=== PATIENT | female | born 1965 ===

== ENCOUNTER → 2020-02-04 11:26 | Outpatient (BNVA) | payer MEDICARE, MEDICAID, SELFPAY | PROVIDERS: PCP Internal Medicine; Visit Provider Anesthesiology | DX: M47.816 Spondylosis without myelopathy or radiculopathy, lumbar region (principal); M47.812 Spondylosis without myelopathy or radiculopathy, cervical region; G89.4 Chronic pain syndrome; Z79.891 Long term (current) use of opiate analgesic | CPT/HCPCS: 99204 ==

== ENCOUNTER → 2020-02-18 11:19 | Outpatient (BNVA) | payer MEDICARE, MEDICAID, SELFPAY | PROVIDERS: PCP Internal Medicine; Visit Provider Anesthesiology | DX: G89.4 Chronic pain syndrome (principal); M47.812 Spondylosis without myelopathy or radiculopathy, cervical region; M47.816 Spondylosis without myelopathy or radiculopathy, lumbar region; Z79.891 Long term (current) use of opiate analgesic | CPT/HCPCS: 99212 ==

== ENCOUNTER → 2020-03-08 15:35 | Outpatient (BNVA) | payer MEDICARE, MEDICAID, SELFPAY | PROVIDERS: PCP Internal Medicine; Visit Provider Anesthesiology | DX: G89.4 Chronic pain syndrome (principal); M47.812 Spondylosis without myelopathy or radiculopathy, cervical region; M47.816 Spondylosis without myelopathy or radiculopathy, lumbar region; Z79.891 Long term (current) use of opiate analgesic | CPT/HCPCS: 99212 ==

== ENCOUNTER → 2020-04-08 10:07 | Outpatient (BNVA) | payer MEDICARE, MEDICAID, SELFPAY | PROVIDERS: PCP Internal Medicine; Visit Provider Anesthesiology | DX: M47.812 Spondylosis without myelopathy or radiculopathy, cervical region (principal); M47.816 Spondylosis without myelopathy or radiculopathy, lumbar region; G89.4 Chronic pain syndrome | CPT/HCPCS: 99212 ==

== ENCOUNTER 2020-04-09 11:48 | Outpatient (REF) | payer MEDICARE, MEDICAID, SELFPAY | END 2020-04-09 11:49 | disposition home or self-care (01) | LOC: HO.LAB 11:48 | PROVIDERS: Visit Provider Internal Medicine | DX: Z20.828 Contact with and (suspected) exposure to other viral communicable diseases (principal) | CPT/HCPCS: C9803; U0003 ==

== ENCOUNTER → 2020-05-06 10:36 | Outpatient (BNVA) | payer MEDICARE, MEDICAID, SELFPAY | PROVIDERS: PCP Internal Medicine; Visit Provider Anesthesiology | DX: M47.812 Spondylosis without myelopathy or radiculopathy, cervical region (principal); M47.816 Spondylosis without myelopathy or radiculopathy, lumbar region; G89.4 Chronic pain syndrome | CPT/HCPCS: 99212 ==

== ENCOUNTER → 2020-06-03 10:36 | Outpatient (BNVA) | payer MEDICARE, MEDICAID, SELFPAY | PROVIDERS: PCP Internal Medicine; Visit Provider Anesthesiology | DX: G89.4 Chronic pain syndrome (principal); M47.812 Spondylosis without myelopathy or radiculopathy, cervical region; M47.816 Spondylosis without myelopathy or radiculopathy, lumbar region | CPT/HCPCS: 99212 ==

== ENCOUNTER → 2020-06-28 15:06 | Outpatient (BNVA) | payer MEDICARE, MEDICAID, SELFPAY | PROVIDERS: PCP Internal Medicine; Visit Provider Anesthesiology | DX: M47.812 Spondylosis without myelopathy or radiculopathy, cervical region (principal); M47.816 Spondylosis without myelopathy or radiculopathy, lumbar region; G89.4 Chronic pain syndrome; Z79.899 Other long term (current) drug therapy | CPT/HCPCS: 99212 ==

== ENCOUNTER → 2020-07-26 10:30 | Outpatient (BNVA) | payer MEDICARE, MEDICAID, SELFPAY | PROVIDERS: PCP Internal Medicine; Visit Provider Anesthesiology | DX: M47.812 Spondylosis without myelopathy or radiculopathy, cervical region (principal); M47.816 Spondylosis without myelopathy or radiculopathy, lumbar region; G89.4 Chronic pain syndrome | CPT/HCPCS: 99212 ==

== ENCOUNTER → 2020-08-30 10:02 | Outpatient (BNVA) | payer MEDICARE, MEDICAID, SELFPAY | PROVIDERS: PCP Internal Medicine; Visit Provider Anesthesiology | DX: M47.812 Spondylosis without myelopathy or radiculopathy, cervical region (principal); M47.816 Spondylosis without myelopathy or radiculopathy, lumbar region; G89.4 Chronic pain syndrome; Z79.899 Other long term (current) drug therapy | CPT/HCPCS: 99212 ==

== ENCOUNTER → 2020-09-30 10:16 | Outpatient (BNVA) | payer MEDICARE, MEDICAID, SELFPAY | PROVIDERS: PCP Internal Medicine; Visit Provider Anesthesiology | DX: G89.4 Chronic pain syndrome (principal); M47.812 Spondylosis without myelopathy or radiculopathy, cervical region; M47.816 Spondylosis without myelopathy or radiculopathy, lumbar region; Z79.899 Other long term (current) drug therapy | CPT/HCPCS: 99212 ==

== ENCOUNTER 2020-10-09 13:25 | Emergency (ER) | payer MEDICARE, MEDICAID, SELFPAY ==
--- NOTE | ~2020-10-09 | US_ITS ---
EXAMINATION: US ABDOMEN LIMITED CLINICAL INFORMATION: Chronic abdominal pain.. COMPARISON: CT abdomen and pelvis on 10/14/2019 TECHNIQUE: Real-time imaging of the right upper quadrant abdominal viscera. FINDINGS: PANCREAS: Normal. LIVER: Normal. The liver is normal in size. The liver contour is normal. Parenchymal echogenicity is normal. No focal hepatic lesion. There is no intrahepatic biliary duct dilatation seen. GALLBLADDER: Surgically absent. COMMON BILE DUCT: Normal in caliber measuring 0.9 cm in diameter. RIGHT KIDNEY: Normal. No hydronephrosis. No renal calculi or focal parenchymal lesions. The kidney measures 10.9 cm in maximum dimension. FREE FLUID: None. US/US abdomen limited IMPRESSION: 1. Normal sonographic appearance of the liver. No biliary ductal dilatation. 2. The gallbladder is surgically absent. 3. No cause for pain identified.
[2020-10-09 14:21] VITALS: BP 122/70; PULSE 62; RESP 16; TEMP 37.2; O2SAT 98; BMI 33.7
[2020-10-09] MEDS: ondansetron HCL 4 MG/2 ML VIAL IVPUSH (16:26)
[2020-10-09] MEDS: 0.9 % Sodium Chloride 1,000 ML 999 ML IVCONT (16:28)
[2020-10-09 16:37] VITALS: BP 101/68; PULSE 67; RESP 18; O2SAT 95
[2020-10-09 16:37] LABS: MANUAL DIFF FLAG NO
[2020-10-09 16:38] LABS: Basophils Percent Auto 0.2 % (0-2); Eosinophils Absolute Auto 0.2 X10*3/uL (0.0-0.4); Eosinophils Percent Auto 1.8 % (0-4); Hematocrit 44.8 % (37-47); Imm Gran Abs Auto 0.02 X10*3/uL (0.00-0.03); Imm Gran Pct Auto 0.2 % (0.0-0.4); Lymphocytes Absolute Auto 2.4 X10*3/uL (1.2-4.9); Lymphocytes Percent Auto 29.2 % (20-40); Mean Corpuscular HGB Conc 33.5 g/dl (31.0-35.0); Mean Corpuscular Hemoglobin 31.6 pg (27.0-33.0); Mean Corpuscular Volume 94.3 fL (80-98); Monocytes Absolute Auto 0.7 X10*3/uL (0.1-1.2); Monocytes Percent Auto 8.1 % (2-11); Neutrophils Absolute Auto 4.9 X10*3/uL (2.0-8.3); Neutrophils Percent Auto 60.5 % (45-73); Platelet Count 227 X10*3/uL (160-400); Red Blood Count 4.75 X10*6/uL (4.20-5.50); Red Cell Distribution Width 13.6 % (11.0-16.0); White Blood Count 8.1 X10*3/uL (4.8-10.8)
[2020-10-09 16:41] LABS: Glucose Urine UA NEG (NEG); Leukocyte Esterase Urine NEG (NEG); Nitrite Urine NEG (NEG); Urine Blood NEG (NEG); Urine Ketones NEG (NEG); Urine Protein NEG (NEG-TRACE)
--- NOTE | 2020-10-09 16:41 | PC.NURSE ---
Pt alert, oriented, c/o abd pain, diarrhea, black stools started 2wks ago. No n/v, +BS x4. Abd soft, RUQ tender to touch. IV established, med given as documented, fluid hung. Labs obtained. Pt resting quietly, Fiance at bedside.
[2020-10-09 16:50] LABS: Prothrombin Time 11.4 SEC (10.8-13.0)
[2020-10-09 16:53] LABS: Partial Thromboplastin Time 33.6 SEC (24.1-38.0)
[2020-10-09 16:54] LABS: OBS Int Ctl Valid YES; OBS1 NEGATIVE (NEGATIVE)
[2020-10-09 16:54] LABS: Appearance Urine CLEAR; Color Urine YELLOW
[2020-10-09 17:03] LABS: Alanine Aminotransferase 169 U/L (0-31); Albumin Level 4.5 g/dL (3.5-5.0); Alkaline Phosphatase 114 U/L (39-117); Anion Gap 14 (12-20); Aspartate Amino Transferase 110 U/L (5-31); Bilirubin Direct 0.2 mg/dL (0.0-0.5); Bilirubin Total 0.5 mg/dL (0.0-1.0); Blood Urea Nitrogen 8 mg/dL (9-16); Calcium 10.3 mg/dL (8.4-10.2); Carbon Dioxide 26 mmol/L (22-29); Chloride 106 mmol/L (96-108); Creatinine Clr Calc Pharmacy 61.8; Estimated Glomerular Filt Rate > 60; Glucose Random 95 mg/dL (60-115); Lipase 83 U/L (8-78); Magnesium 2.1 mg/dL (1.6-2.6); Potassium 5.3 mmol/L (3.3-5.1); Sodium 141 mmol/L (135-145); Total Protein 7.9 g/dL (6.5-8.0)
--- NOTE | 2020-10-09 17:24 | ED_ITS ---
HPI - Abdominal Pain General Chief Complaint: Abdominal Pain Stated Complaint: ABD PAIN Time Seen by Provider: 10/09/20 15:36 Source: patient Mode of arrival: ambulatory History of Present Illness HPI narrative: 55-year-old female with a past medical history of chronic pain, presenting to the ED complaining of intermittent lower abdominal cramping, diarrhea, black stools x1 week. Denies taking anticoagulation. Reports nausea but no vomiting. Denies fever, chills, dysuria/hematuria, lightheadedness/dizziness MD elicited complaint: abdominal pain Related Data Home Medications Medication Instructions Recorded Confirmed levothyroxine 88 mcg tablet 88 mcg PO DAILY 02/04/20 08/30/20 pregabalin 150 mg capsule 150 mg PO TID 02/04/20 08/30/20 fluticasone propionate 110 INHALATION 04/08/20 08/30/20 mcg/actuation HFA aerosol inhaler Previous Rx's Medication Instructions Recorded oxycodone-acetaminophen 7.5 mg-325 1 tab PO Q6H PRN 30 Days #120 tab 09/30/20 mg tablet Allergies Allergy/AdvReac Type Severity Reaction Status Date / Time sulfamethoxazole Allergy Unknown HIVES Verified 09/30/20 10:40 [From Bactrim] trimethoprim [From Bactrim] Allergy Unknown HIVES Verified 09/30/20 10:40 Review of Systems Review of Systems Constitutional: No Fever, No Chills, No Fatigue, No Malaise Cardiovascular: No Chest Pain, No SOB Respiratory: No Cough, No Sputum, No Wheezing, No Smoke Exposure, No Dyspnea Gastrointestinal: + Nausea, No Vomiting, No Diarrhea, No Constipation, + Abdominal pain, No Hematochezia, + Melena Genitourinary: No Dysuria, No Hematuria, No Flank Pain Musculoskeletal: No joint pain, No Myalgias, No Joint Swelling Skin: No Skin Lesions, No rash Neuro: No Weakness, No Numbness, No Paresthesias, No Dizziness, No Headache Yes all other systems are reviewed and are negative Physical Exam Vital Signs: Vital Signs: Last Vital Signs Temp 98.9 F 10/09/20 14:21 Pulse 67 10/09/20 16:37 Resp 18 10/09/20 16:37 BP 101/68 10/09/20 16:37 Pulse Ox 95 10/09/20 16:37 Body Mass Index 33.7 Const: General: cooperative, healthy appearing and no acute distress Orientation/consciousness: patient oriented x3 Limitations: no limitations HENMT: Head: Yes normal to inspection Ears: hearing grossly normal bilaterally General nose exam: Normal external nose present Face and sinus: Yes normal facial exam Eyes: General: appearance normal, both eyes and all related structures EOM: EOMs intact bilaterally Neck: Neck: Yes normal visual inspection Resp: Effort & Inspection: normal respiratory effort Cardio: Rate: regular rate GI: Inspection: Yes normal to inspection Palpation (GI): Soft to palpation, nontender, no guarding and not rigid : General: Yes no CVA tenderness Back/Spine/Pelvis: Back: no CVA tenderness Skin: Rashes: no rashes Wounds: no wounds Neuro: General: patient oriented x3 Gait exam (Neuro): Normal gait present Extrem: General: Yes normal to inspection Course Course Course Narrative: -no leukocytosis, H&H stable, potassium mildly elevated at 5.3, p.o. Kayexalate ordered -AST/ALT elevated > will obtain abdomen ultrasound. Lipase mildly elevated, UA negative -occult stool negative 1921- US abdomen limited IMPRESSION: 1. Normal sonographic appearance of the liver. No biliary ductal dilatation. 2. The gallbladder is surgically absent. 3. No cause for pain identified. >> results discussed with patient including worrisome signs and symptoms and strict return precautions. Patient should follow-up with GI MDM - Abdominal Pain MDM Narrative Medical decision making narrative: 55-year-old female with a past medical history of chronic pain, presenting to the ED complaining of intermittent lower abdominal cramping, diarrhea, black stools x1 week. On exam vital signs stable, NAD, nontoxic appearing, abdomen is soft and nontender. Concern for of occult GI bleed or UGIB vs gastroenteritis. Lower concern for diverticulitis/appendicitis without tenderness on exam. Plan: Labs, UA, occult stool, reassess Medical Records Attestation: I reviewed the patient's medical records. Lab Data Attestation: I reviewed the patient's lab results. Result diagrams: 10/09/20 16:31 10/09/20 16:31 Labs: Lab Results 10/09/20 10/09/20 10/09/20 Range/Units 16:11 16:14 16:31 WBC 8.1 (4.8-10.8) X10*3/uL RBC 4.75 (4.20-5.50) X10*6/uL Hgb 15.0 (12.0-16.0) g/dl Hct 44.8 (37-47) % MCV 94.3 (80-98) fL MCH 31.6 (27.0-33.0) pg MCHC 33.5 (31.0-35.0) g/dl RDW 13.6 (11.0-16.0) % Plt Count 227 (160-400) X10*3/uL MPV 10.0 (9.4-12.3) fL Immature Gran % (Auto) 0.2 (0.0-0.4) % Neut % (Auto) 60.5 (45-73) % Lymph % (Auto) 29.2 (20-40) % [place] % (Auto) 8.1 (2-11) % Eos % (Auto) 1.8 (0-4) % Baso % (Auto) 0.2 (0-2) % Lymph # (Auto) 2.4 (1.2-4.9) X10*3/uL [place] # (Auto) 0.7 (0.1-1.2) X10*3/uL Eos # (Auto) 0.2 (0.0-0.4) X10*3/uL Baso # (Auto) 0.0 (0.0-0.2) X10*3/uL Abs Immat Gran (auto) 0.02 (0.00-0.03) X10*3/uL Absolute Neuts (auto) 4.9 (2.0-8.3) X10*3/uL Absolute Nucleated RBC 0.000 (0.0-0.012) X10*3/uL Nucleated RBC % (auto) 0.0 (0.0-0.2) /100WBC PT (10.8-13.0) SEC INR (0.9-1.1) APTT (24.1-38.0) SEC Sodium (135-145) mmol/L Potassium (3.3-5.1) mmol/L Chloride (96-108) mmol/L Carbon Dioxide (22-29) mmol/L Anion Gap (12-20) BUN (9-16) mg/dL Creatinine (0.5-1.4) mg/dL Estim Creat Clear Calc Estimated GFR Random Glucose (60-115) mg/dL Calcium (8.4-10.2) mg/dL Magnesium (1.6-2.6) mg/dL Total Bilirubin (0.0-1.0) mg/dL Direct Bilirubin (0.0-0.5) mg/dL AST (5-31) U/L ALT (0-31) U/L Alkaline Phosphatase (39-117) U/L Total Protein (6.5-8.0) g/dL Albumin (3.5-5.0) g/dL Lipase (8-78) U/L Urine Color YELLOW Urine Appearance CLEAR Urine pH 7.0 (5.0-8.0) Ur Specific [place] 1.010 (1.005-1.025) Urine Protein NEG (NEG-TRACE) MG/DL Urine Glucose (UA) NEG (NEG) MG/DL Urine Ketones NEG (NEG) MG/DL Urine Blood NEG (NEG) Urine Nitrite NEG (NEG) Ur Leukocyte Esterase NEG (NEG) Stool Occult Blood NEGATIVE (NEGATIVE) 10/09/20 10/09/20 10/09/20 Range/Units 16:31 16:31 16:31 WBC (4.8-10.8) X10*3/uL RBC (4.20-5.50) X10*6/uL Hgb (12.0-16.0) g/dl Hct (37-47) % MCV (80-98) fL MCH (27.0-33.0) pg MCHC (31.0-35.0) g/dl RDW (11.0-16.0) % Plt Count (160-400) X10*3/uL MPV (9.4-12.3) fL Immature Gran % (Auto) (0.0-0.4) % Neut % (Auto) (45-73) % Lymph % (Auto) (20-40) % [place] % (Auto) (2-11) % Eos % (Auto) (0-4) % Baso % (Auto) (0-2) % Lymph # (Auto) (1.2-4.9) X10*3/uL [place] # (Auto) (0.1-1.2) X10*3/uL Eos # (Auto) (0.0-0.4) X10*3/uL Baso # (Auto) (0.0-0.2) X10*3/uL Abs Immat Gran (auto) (0.00-0.03) X10*3/uL Absolute Neuts (auto) (2.0-8.3) X10*3/uL Absolute Nucleated RBC (0.0-0.012) X10*3/uL Nucleated RBC % (auto) (0.0-0.2) /100WBC PT 11.4 (10.8-13.0) SEC INR 1.0 (0.9-1.1) APTT 33.6 (24.1-38.0) SEC Sodium 141 (135-145) mmol/L Potassium 5.3 H (3.3-5.1) mmol/L Chloride 106 (96-108) mmol/L Carbon Dioxide 26 (22-29) mmol/L Anion Gap 14 (12-20) BUN 8 L (9-16) mg/dL Creatinine 0.74 (0.5-1.4) mg/dL Estim Creat Clear Calc 61.8 Estimated GFR > 60 Random Glucose 95 (60-115) mg/dL Calcium 10.3 H (8.4-10.2) mg/dL Magnesium 2.1 (1.6-2.6) mg/dL Total Bilirubin 0.5 (0.0-1.0) mg/dL Direct Bilirubin 0.2 (0.0-0.5) mg/dL AST 110 H (5-31) U/L ALT 169 H (0-31) U/L Alkaline Phosphatase 114 (39-117) U/L Total Protein 7.9 (6.5-8.0) g/dL Albumin 4.5 (3.5-5.0) g/dL Lipase 83 H (8-78) U/L Urine Color Urine Appearance Urine pH (5.0-8.0) Ur Specific [place] (1.005-1.025) Urine Protein (NEG-TRACE) MG/DL Urine Glucose (UA) (NEG) MG/DL Urine Ketones (NEG) MG/DL Urine Blood (NEG) Urine Nitrite (NEG) Ur Leukocyte Esterase (NEG) Stool Occult Blood (NEGATIVE) Discharge Plan Discharge Clinical Impression: Diarrhea, Abdominal pain Patient Disposition: Home, Self-Care Instructions: Abdominal Pain (ED) Additional Instructions: Your blood work showed elevated liver and pancreatic enzymes Your ultrasound unremarkable Your stool was negative for blood It is important for you to follow-up with the GI doctor Stay hydrated at home If her symptoms persist or worsen, you have fever, constant worsening abdominal pain, nausea/vomiting, persistent diarrhea please return to the ED Prescriptions: No Action levothyroxine 88 mcg tablet 88 mcg PO DAILY RF: 0 pregabalin 150 mg capsule 150 mg PO TID RF: 0 Flovent HFA 110 mcg/actuation HFA aerosol inhaler inhalation RF: 0 oxycodone-acetaminophen [Percocet] 7.5-325 mg tablet 1 tab PO Q6H PRN (Reason: pain) 30 Days Qty: 120 RF: 0 Referrals: Kirby Johnson MD [Physician] - 1 week [facility] Past Medical History Attestation statement: The following information was validated with the patient. 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
[2020-10-09] MEDS: Sodium Polystyrene Sulfon/Sorb 15 GM/60 ML ORAL.SUSP PO (18:02)
== END 2020-10-09 19:47 | disposition home or self-care (01) ==
PROVIDERS: Physician Assistant; Emergency Provider Emergency Medicine; PCP Internal Medicine
DX: R10.9 Unspecified abdominal pain (principal); R19.7 Diarrhea, unspecified; E87.5 Hyperkalemia
CPT/HCPCS: 36415; 76705; 80048; 80076; 81003; 82272; 83690; 83735; 85025; 85610; 85730; 96361; 96374; 99284; J2405

== ENCOUNTER → 2020-10-28 10:28 | Outpatient (BNVA) | payer MEDICARE, MEDICAID, SELFPAY | PROVIDERS: PCP Internal Medicine; Visit Provider Anesthesiology | DX: M47.812 Spondylosis without myelopathy or radiculopathy, cervical region (principal); M47.816 Spondylosis without myelopathy or radiculopathy, lumbar region; G89.4 Chronic pain syndrome | CPT/HCPCS: 99212 ==

== ENCOUNTER → 2020-11-24 13:31 | Outpatient (BNVA) | payer MEDICARE, MEDICAID, SELFPAY | PROVIDERS: PCP Internal Medicine; Visit Provider Anesthesiology | DX: G89.4 Chronic pain syndrome (principal); M47.812 Spondylosis without myelopathy or radiculopathy, cervical region; M47.816 Spondylosis without myelopathy or radiculopathy, lumbar region | CPT/HCPCS: 99212 ==

== ENCOUNTER → 2020-12-20 10:23 | Outpatient (BNVA) | payer MEDICARE, MEDICAID, SELFPAY | PROVIDERS: PCP Internal Medicine; Visit Provider Anesthesiology | DX: G89.4 Chronic pain syndrome (principal); M47.812 Spondylosis without myelopathy or radiculopathy, cervical region; M47.816 Spondylosis without myelopathy or radiculopathy, lumbar region; Z79.899 Other long term (current) drug therapy | CPT/HCPCS: 99212 ==

== ENCOUNTER → 2021-01-24 09:41 | Outpatient (BNVA) | payer MEDICARE, MEDICAID, SELFPAY | PROVIDERS: PCP Internal Medicine; Visit Provider Anesthesiology | DX: Z51.81 Encounter for therapeutic drug level monitoring (principal); M47.812 Spondylosis without myelopathy or radiculopathy, cervical region; M47.816 Spondylosis without myelopathy or radiculopathy, lumbar region; G89.4 Chronic pain syndrome | CPT/HCPCS: 99212 ==

== ENCOUNTER → 2021-02-28 09:30 | Outpatient (BNVA) | payer MEDICARE, MEDICAID, SELFPAY | PROVIDERS: PCP Internal Medicine; Visit Provider Anesthesiology | DX: Z51.81 Encounter for therapeutic drug level monitoring (principal); G89.4 Chronic pain syndrome; M47.812 Spondylosis without myelopathy or radiculopathy, cervical region; M47.816 Spondylosis without myelopathy or radiculopathy, lumbar region | CPT/HCPCS: 99212 ==

== ENCOUNTER → 2021-03-28 14:23 | Outpatient (BNVA) | payer MEDICARE, MEDICAID, SELFPAY | PROVIDERS: PCP Internal Medicine; Visit Provider Anesthesiology | DX: Z51.81 Encounter for therapeutic drug level monitoring (principal); M47.812 Spondylosis without myelopathy or radiculopathy, cervical region; M47.816 Spondylosis without myelopathy or radiculopathy, lumbar region; G89.4 Chronic pain syndrome | CPT/HCPCS: 99212 ==

== ENCOUNTER → 2021-04-20 16:14 | Outpatient (BNVA) | payer MEDICARE, MEDICAID, SELFPAY | PROVIDERS: PCP Internal Medicine; Visit Provider Anesthesiology | DX: Z13.89 Encounter for screening for other disorder (principal) | CPT/HCPCS: 99212 ==

== ENCOUNTER 2021-04-23 06:46 | Inpatient (IN) | payer MEDICARE, MEDICAID, SELFPAY ==
--- NOTE | ~2021-04-23 | CT_ITS ---
EXAMINATION: CT abdomen pelvis w con CLINICAL INFORMATION: Reason for Exam abdominal pain, left CVA tenderness and flank pain COMPARISON: Prior CT September 2019 TECHNIQUE: Multidetector volumetric imaging was performed from the superior aspect of the liver through the pubic symphysis 85 mL Omnipaque 350 injected Sagittal and coronal reformatted images were obtained on the technologist's workstation. This CT examination was performed using dose optimization techniques as appropriate, variously including the following: *Automated exposure control *Adjustment of mA and/or kV according to patient size (this includes techniques or standardized protocols for targeted exams where dose is matched to indication/reason for exam; i.e. extremities or head) *Use of iterative reconstruction technique DLP: 627 mGy-cm FINDINGS: LOWER THORAX: Mild interstitial infiltrate at lower lobes HEPATOBILIARY: No focal hepatic lesions. No biliary ductal dilatation. GALLBLADDER: Gallbladder has been removed. SPLEEN: Spleen is normal in size. PANCREAS: No focal mass or ductal dilatation. STOMACH AND GASTROINTESTINAL TRACT: Stomach is grossly unremarkable. There is no bowel distention or thickening. Few sigmoid diverticula without evidence of diverticulitis. ADRENALS: No adrenal nodules. KIDNEYS/URETERS: Severe left renal hydronephrosis secondary to an obstructing stone 5 mm lodged at the ureteropelvic junction, there is swelling of the left kidney and perinephric fat stranding suggesting high degree obstruction. Right kidney is normal. URINARY BLADDER: Partially decompressed. PELVIC VISCERA: Unremarkable PERITONEUM: No free air or fluid. LYMPH NODES: No lymphadenopathy. VASCULAR:Abdominal aorta normal in size, no aneurysm found. BONES, ABDOMINAL WALL AND SOFT TISSUES: There are degenerative arthritis of SI joints, spondylosis of the lumbar spine, no destructive bone lesion, no fracture. There is a right hip prosthesis. CT/CT abdomen pelvis w con IMPRESSION: *Severe left renal hydronephrosis due to a 5 mm obstructing stone lodged proximally at the left UPJ, there is swelling of the left kidney and mild perinephric fat stranding suggesting high degree of obstruction. *Mild interstitial infiltrates at lung bases. *Other noncritical findings unchanged including mild diverticulosis, right hip prosthesis, spondylosis of the lumbar spine,
[2021-04-23 07:43] VITALS: BP 157/68; PULSE 78; RESP 18; TEMP 36.6; O2SAT 97; BMI 33.0
[2021-04-23 07:58] LABS: Appearance Urine HAZY; Color Urine YELLOW; Glucose Urine UA NEG (NEG); Leukocyte Esterase Urine TRACE (NEG); Nitrite Urine NEG (NEG); Specific Gravity - Urine >= 1.030 (1.005-1.025); UACC Culture Trigger YES; Urine Blood NEG (NEG); Urine Ketones NEG (NEG); Urine Protein 1+ MG/DL (NEG-TRACE)
[2021-04-23 08:05] LABS: Mucus Urine 1+ /LPF; RBC Urine 0-2 /HPF (0); Squamous Epithelial Cell Urine 1+ /LPF
--- NOTE | 2021-04-23 08:26 | ECG_ITS ---
Test Reason : abdominal pain Blood Pressure : / mmHG Vent. Rate : 066 BPM Atrial Rate : 066 BPM P-R Int : 152 ms QRS Dur : 082 ms QT Int : 418 ms P-R-T Axes : 046 025 -04 degrees QTc Int : 438 ms Normal sinus rhythm Possible Inferior infarct , age undetermined T wave abnormality, consider anterior ischemia Abnormal ECG When compared with ECG of 21-OCT-2019 16:52, Nonspecific T wave abnormality, worse in Inferior leads Nonspecific T wave abnormality now evident in Lateral leads Referred By: Nuha Crane Electronically Signed By:To Hinton
[2021-04-23] MEDS: 0.9 % Sodium Chloride 1,000 ML 999 ML IV (08:54)
[2021-04-23] MEDS: Morphine Sulfate 4 MG/ML CARTRIDGE IVPUSH (08:54)
[2021-04-23] MEDS: ondansetron HCL 4 MG/2 ML VIAL IVPUSH ×2 (08:54→14:09)
[2021-04-23 08:57] LABS: Basophils Percent Auto 0.4 % (0-2); Eosinophils Absolute Auto 0.2 X10*3/uL (0.0-0.4); Eosinophils Percent Auto 2.5 % (0-4); Hemoglobin 14.9 g/dl (12.0-16.0); Imm Gran Abs Auto 0.02 X10*3/uL (0.00-0.03); Imm Gran Pct Auto 0.2 % (0.0-0.4); Lymphocytes Absolute Auto 2.5 X10*3/uL (1.2-4.9); Lymphocytes Percent Auto 29.7 % (20-40); MANUAL DIFF FLAG NO; Mean Corpuscular HGB Conc 33.1 g/dl (31.0-35.0); Mean Corpuscular Hemoglobin 31.7 pg (27.0-33.0); Mean Corpuscular Volume 95.7 fL (80.0-98.0); Mean Platelet Volume 10.4 fL (9.4-12.3); Monocytes Absolute Auto 0.9 X10*3/uL (0.1-1.2); Monocytes Percent Auto 10.3 % (2-11); Neutrophils Absolute Auto 4.7 x10*3/uL (2.0-8.3); Neutrophils Percent Auto 56.9 % (45-73); Platelet Count 203 X10*3/uL (160-400); Red Cell Distribution Width 13.2 % (11.0-16.0); White Blood Count 8.3 X10*3/uL (4.8-10.8)
[2021-04-23 09:21] LABS: Alanine Aminotransferase 178 U/L (0-31); Albumin Level 4.1 g/dL (3.5-5.0); Alkaline Phosphatase 120 U/L (39-117); Anion Gap 12 (12-20); Aspartate Amino Transferase 115 U/L (5-31); Bilirubin Total 0.8 mg/dL (0.0-1.0); Blood Urea Nitrogen 17 mg/dL (9-16); Calcium 9.2 mg/dL (8.4-10.2); Carbon Dioxide 26 mmol/L (22-29); Chloride 107 mmol/L (96-108); Creatinine Clr Calc Pharmacy 51.6; Estimated Glomerular Filt Rate 56; Glucose Random 109 mg/dL (60-115); Lipase 105 U/L (8-78); Potassium 4.2 mmol/L (3.3-5.1); Sodium 141 mmol/L (135-145); Total Protein 7.5 g/dL (6.5-8.0)
[2021-04-23] MEDS: iohexoL 350 MG/ML 100 ML INFUS..BTL IV (09:52)
[2021-04-23] MEDS: HYDROmorphone HCl 1 MG/ML SYRINGE IVPUSH (10:06)
--- NOTE | 2021-04-23 10:38 | ED_ITS ---
HPI - General Adult General Chief complaint: Back Pain/Injury Stated complaint: L SIDE FLANK PAIN Time Seen by Provider: 04/23/21 08:06 Source: patient Mode of arrival: ambulatory Limitations: no limitations History of Present Illness HPI narrative: 55-year-old female presents with left flank pain that started at 11:30 a.m. last night. The pain is 10/10, and is constant in her left flank radiating to her lower abdomen. She is nauseous. No vomiting, no diarrhea, no fevers, no urinary tract infection symptoms. Patient has a history of kidney stones, chronic pain, sciatica, spondylosis of lumbar and cervical spine. Patient is a pain management patient. Onset (ago): day(s) (1) Location: back Radiation: abdomen Severity: severe Severity scale (1-10): 10 Quality: aching and constant Pain Consistency: constant Relieving factors: none Exacerbating factors: movement Associated symptoms: nausea/vomiting Treatments prior to arrival: none Related Data Home Medications Medication Instructions Recorded Confirmed pregabalin 150 mg capsule 150 mg PO TID 02/04/20 04/23/21 fluticasone propionate 110 1 puff INHALATION BID 04/08/20 04/23/21 mcg/actuation HFA aerosol inhaler albuterol sulfate 90 mcg/actuation 1 - 2 puff INHALATION Q4-6H PRN 04/23/21 04/23/21 aerosol inhaler (Ventolin HFA) ascorbic acid (vitamin C) 500 mg 500 mg PO DAILY 04/23/21 04/23/21 tablet (Vitamin C) aspirin 81 mg tablet,delayed 1 tab PO DAILY 04/23/21 04/23/21 release cholecalciferol (vitamin D3) 25 25 mcg PO DAILY 04/23/21 04/23/21 mcg (1,000 unit) tablet (Vitamin D3) ibuprofen 800 mg tablet 1 tab PO TID PRN 04/23/21 04/23/21 levothyroxine 75 mcg tablet 1 tab PO DAILY@0630 04/23/21 04/23/21 omeprazole 20 mg capsule,delayed 1 cap PO BID@0630,1630 04/23/21 04/23/21 release oxybutynin chloride 5 mg 1 tab PO DAILY 04/23/21 04/23/21 tablet,extended release 24 hr oxycodone-acetaminophen 7.5 mg-325 1 tab PO Q6H PRN 04/23/21 04/23/21 mg tablet (Percocet) zinc sulfate 220 mg capsule 220 mg PO DAILY 04/23/21 04/23/21 Allergies Allergy/AdvReac Type Severity Reaction Status Date / Time sulfamethoxazole Allergy Intermediate HIVES Verified 04/20/21 16:45 [From Bactrim] trimethoprim [From Bactrim] Allergy Intermediate HIVES Verified 04/20/21 16:45 Review of Systems Constitutional: Constitutional: Denies body ache(s), Denies chills, Denies fatigue, Denies fever(s), Denies headache(s), Reports malaise and Denies weakness Eyes: Eyes: Denies diplopia ENT: Denies vertigo, Denies dizziness, Denies otalgia, Denies headache(s), Denies mouth pain, Denies post nasal drip, Denies sinus pain, Denies sinus pressure, Denies sore throat and Denies throat swelling Cardiovascular: Cardiovascular: Denies chest pain, Denies syncope, Denies leg edema, Denies lightheadedness, Denies Loss of Consciousness, Denies palpitations and Denies dyspnea Respiratory: Respiratory: Denies chest congestion, Denies cough and Denies dyspnea Gastrointestinal: Gastrointestinal: Reports abdominal pain, Denies hematochezia, Denies constipation, Denies diarrhea, Reports nausea and Denies vomiting Genitourinary: Genitourinary: Denies abnormal vaginal bleeding, Denies hematuria, Denies dysuria, Denies pelvic pain, Reports flank pain, Denies urinary incontinence, Denies urinary urgency and Denies vaginal odor Musculoskeletal: Musculoskeletal: Reports back pain Integumentary/Breasts: Skin/Breast: Denies rash Neurologic: Denies confusion, Denies vertigo, Denies dizziness, Denies syncop e, Denies headache(s) and Denies weakness Psychiatric: Psychiatric: Denies anxiety, Denies confusion and Denies depression Endocrine: Endocrine: Denies fatigue and Denies palpitations Allergic/Immunologic: Allergic/Immunologic: Denies throat swelling PMFSH Past Medical History Medical History Anxiety Chronic pain syndrome Fatty liver History of palpitations Hypothyroidism Osteoarthritis Sciatica 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 Surgical History Hx of cholecystectomy Hx of total hip arthroplasty Hx of vitrectomy Social History Social History (Updated 02/08/21 @ 08:45 by Mer Johnston RN) Patient Tobacco Use Status: Never used Tobacco service: No Current occupational status: disabled Physical Exam Vital Signs: Vital Signs: Last Vital Signs Temp 96.4 F L 04/23/21 15:48 Pulse 65 04/23/21 15:48 Resp 16 04/23/21 16:00 BP 129/80 04/23/21 15:48 Pulse Ox 94 04/23/21 15:48 BMI result Body Mass Index 33.0 Const: General: No confusion Nutritional Appearance: obese centrally obese Orientation/consciousness: patient oriented x3 and No confusion Limitations : no limitations HENMT: Head: Yes normal to inspection, Yes normocephalic and Yes atraumatic Ears: hearing grossly normal bilaterally, external ears normal, TM's normal bilaterally and EAC's normal General nose exam: Normal external nose present Face and sinus: Yes normal facial exam and Yes sinuses nontender Mouth: Normal oral and palatal mucosa present Throat: Yes posterior oropharynx normal Eyes: Conjunctivae: conjunctivae normal Pupils: Equal, round and reactive pupils present EOM: EOMs intact bilaterally Neck: Neck: Yes full ROM, Yes no lymphadenopathy and Yes supple Resp: Effort & Inspection: normal respiratory effort and able to speak in complete sentences Auscultation: clear to auscultation bilaterally, no crackles, no rales, no rhonchi and no wheezes Cardio: Rate: regular rate Rhythm: regular rhythm Heart sounds: S1 normal heart sound present and S2 normal heart sound present GI: Inspection: Yes Abdominal panniculus present and Yes obesity Palpation (GI): Soft to palpation, Tenderness to palpation present (GI) in the LUQ and in the RUQ; Negative for not at McBurney's point, not periumbilically, not suprapubicly and Gimenez's sign negative, Guarding due to palpation present (GI) in the LUQ and in the RUQ and not rigid Percussion: Yes normal to percussion Auscultation: normal bowel sounds : General: Yes CVA tenderness on the left Back/Spine/Pelvis: Back: CVA tenderness Skin: General skin exam: no rashes or lesions noted Neuro: General: patient oriented x3 and No confusion Cranial nerves: Yes Equal, round and reactive pupils present Extrem: General: Yes normal to inspection and Yes full ROM Psych: Appearance: grossly normal Affect: normal affect Attitude: cooperative Thought process: Normal thought process present Course Course Course Narrative: 55-year-old female with left flank pain radiating to her lower abdomen that started at 11:30 p.m. last night. On exam, patient has mild left CVA tenderness, she is afebrile with stable vitals, lower abdominal tenderness and guarding bilaterally. Patient has mildly elevated LFTs, no leukocytosis, bilirubin is normal. Lipase elevated at 105, trace leukocyte esterase, 10-14 white blood cells in urine. CT/CT abdomen pelvis w con IMPRESSION: *Severe left renal hydronephrosis due to a 5 mm obstructing stone lodged proximally at the left UPJ, there is swelling of the left kidney and mild perinephric fat stranding suggesting high degree of obstruction. ? *Mild interstitial infiltrates at lung bases. ? *Other noncritical findings unchanged including mild diverticulosis, right hip prosthesis, spondylosis of the lumbar spine, Discussed via tiger text with Dr Burleson, Urologist, who will evaluate CT and get back to me Patient has had 4 morphine, 1 of Dilaudid, 15 of ketorolac, and her pain is more tolerable now. No vomiting. Patient has trace leukocyte esterase and 10-15 white blood cells. Will start ceftriaxone obtain blood cultures Patient does not meet sepsis criteria Reevaluation(s) Reevaluation #1: Dr Burleson would like her to be admitted to medicine and will be added on to his surgery Roster for Sunday. States her stone is too high and will not pass on its own Medical Decision Making Lab Data Result diagrams: 04/23/21 08:50 04/23/21 08:50 Labs: Lab Results 04/23/21 04/23/21 04/23/21 Range/Units 07:51 08:50 08:50 WBC 8.3 (4.8-10.8) X10*3/uL RBC 4.70 (4.20-5.50) X10*6/uL Hgb 14.9 (12.0-16.0) g/dl Hct 45.0 (37.0-47.0) % MCV 95.7 (80.0-98.0) fL MCH 31.7 (27.0-33.0) pg MCHC 33.1 (31.0-35.0) g/dl RDW 13.2 (11.0-16.0) % Plt Count 203 (160-400) X10*3/uL MPV 10.4 (9.4-12.3) fL Immature Gran % (Auto) 0.2 (0.0-0.4) % Neut % (Auto) 56.9 (45-73) % Lymph % (Auto) 29.7 (20-40) % [place] % (Auto) 10.3 (2-11) % Eos % (Auto) 2.5 (0-4) % Baso % (Auto) 0.4 (0-2) % Lymph # (Auto) 2.5 (1.2-4.9) X10*3/uL [place] # (Auto) 0.9 (0.1-1.2) X10*3/uL Eos # (Auto) 0.2 (0.0-0.4) X10*3/uL Baso # (Auto) 0.0 (0.0-0.2) X10*3/uL Abs Immat Gran (auto) 0.02 (0.00-0.03) X10*3/uL Absolute Neuts (auto) 4.7 (2.0-8.3) x10*3/uL Absolute Nucleated RBC 0.000 (0.0-0.012) X10*3/uL Nucleated RBC % (auto) 0.0 (0.0-0.2) /100WBC Sodium 141 (135-145) mmol/L Potassium 4.2 D (3.3-5.1) mmol/L Chloride 107 (96-108) mmol/L Carbon Dioxide 26 (22-29) mmol/L Anion Gap 12 (12-20) BUN 17 H (9-16) mg/dL Creatinine 1.01 (0.5-1.4) mg/dL Estim Creat Clear Calc 51.6 Estimated GFR 56 Random Glucose 109 (60-115) mg/dL Calcium 9.2 D (8.4-10.2) mg/dL Total Bilirubin 0.8 (0.0-1.0) mg/dL AST 115 H (5-31) U/L ALT 178 H (0-31) U/L Alkaline Phosphatase 120 H (39-117) U/L Total Protein 7.5 (6.5-8.0) g/dL Albumin 4.1 (3.5-5.0) g/dL Lipase 105 H (8-78) U/L Urine Color YELLOW Urine Appearance HAZY Urine pH 6.0 (5.0-8.0) Ur Specific [place] >= 1.030 H (1.005-1.025) Urine Protein 1+ H (NEG-TRACE) MG/DL Urine Glucose (UA) NEG (NEG) MG/DL Urine Ketones NEG (NEG) MG/DL Urine Blood NEG (NEG) Urine Nitrite NEG (NEG) Ur Leukocyte Esterase TRACE H (NEG) Urine RBC 0-2 (0) /HPF Urine WBC 10-14 H (0-4) /HPF Ur Squamous Epith Cells 1+ /LPF Urine Bacteria NONE /LPF Urine Mucus 1+ /LPF COVID-19 ([facility]) (Negative) COVID-19 Clin Com 04/23/21 Range/Units 11:37 WBC (4.8-10.8) X10*3/uL RBC (4.20-5.50) X10*6/uL Hgb (12.0-16.0) g/dl Hct (37.0-47.0) % MCV (80.0-98.0) fL MCH (27.0-33.0) pg MCHC (31.0-35.0) g/dl RDW (11.0-16.0) % Plt Count (160-400) X10*3/uL MPV (9.4-12.3) fL Immature Gran % (Auto) (0.0-0.4) % Neut % (Auto) (45-73) % Lymph % (Auto) (20-40) % [place] % (Auto) (2-11) % Eos % (Auto) (0-4) % Baso % (Auto) (0-2) % Lymph # (Auto) (1.2-4.9) X10*3/uL [place] # (Auto) (0.1-1.2) X10*3/uL Eos # (Auto) (0.0-0.4) X10*3/uL Baso # (Auto) (0.0-0.2) X10*3/uL Abs Immat Gran (auto) (0.00-0.03) X10*3/uL Absolute Neuts (auto) (2.0-8.3) x10*3/uL Absolute Nucleated RBC (0.0-0.012) X10*3/uL Nucleated RBC % (auto) (0.0-0.2) /100WBC Sodium (135-145) mmol/L Potassium (3.3-5.1) mmol/L Chloride (96-108) mmol/L Carbon Dioxide (22-29) mmol/L Anion Gap (12-20) BUN (9-16) mg/dL Creatinine (0.5-1.4) mg/dL Estim Creat Clear Calc Estimated GFR Random Glucose (60-115) mg/dL Calcium (8.4-10.2) mg/dL Total Bilirubin (0.0-1.0) mg/dL AST (5-31) U/L ALT (0-31) U/L Alkaline Phosphatase (39-117) U/L Total Protein (6.5-8.0) g/dL Albumin (3.5-5.0) g/dL Lipase (8-78) U/L Urine Color Urine Appearance Urine pH (5.0-8.0) Ur Specific [place] (1.005-1.025) Urine Protein (NEG-TRACE) MG/DL Urine Glucose (UA) (NEG) MG/DL Urine Ketones (NEG) MG/DL Urine Blood (NEG) Urine Nitrite (NEG) Ur Leukocyte Esterase (NEG) Urine RBC (0) /HPF Urine WBC (0-4) /HPF Ur Squamous Epith Cells /LPF Urine Bacteria /LPF Urine Mucus /LPF COVID-19 ([facility]) Negative (Negative) COVID-19 Clin Com See Note Discharge Plan Discharge Clinical Impression: Kidney stone on left side, UTI (urinary tract infection) Patient Disposition: Admitted As Inpatient Interventions: Admission Worksheet (ED) Last Done: 04/23/21 15:46 Discharge Date/Time: 04/23/21 15:46
[2021-04-23] MEDS: Ketorolac Tromethamine 30 MG/ML VIAL 15 MG IVPUSH (10:55)
[2021-04-23] MEDS: cefTRIAXone sodium 1 GM in 0.9 % Sodium Chloride 50 ML IV (11:57)
[2021-04-23 12:03] LABS: COVID-19 Test Negative (Negative)
--- NOTE | 2021-04-23 12:09 | PHA.MEDREC ---
Pharmacy Consult ? Medication Reconciliation Pharmacy has completed the medication reconciliation. Spoke with patient in ED
--- NOTE | 2021-04-23 12:19 | PM.IMHP ---
History of Present Illness Date of Service: 04/23/21 Chief Complaint: abdominal pain, nausea, dizziness a 55 years old lady with PMH of hypothyroid, COPD, chronic pain syndrome, anxiety among others who presented to the hospital complaining of abdominal and back pain for 1 night. The patient reports that she has a history of recurrent kidney stones that usually passes on the own. Last night she felt pain in her back and thought this could be 1 of the stones but the pain did not improve at all as she started to complain of nausea, dizziness and some chills. She denies any fever, chest pain, shortness of breath, change in urine or bowel habit. In the emergency she was evaluated by CT scan which showed left-sided severe hydronephrosis with obstructing stone of 0.5 cm. Discussed with urology team who will do cystoscopy on Sunday morning. Admitted for further evaluation and treatment. 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 Surgical History Hx of cholecystectomy Hx of total hip arthroplasty Hx of vitrectomy Social History (Updated 02/08/21 @ 08:45 by Mer Johnston RN) Patient Tobacco Use Status: Never used Tobacco Advance Directives: No Advance Directives Information Provided: Yes Patient : No Meds Allergies Allergy/AdvReac Type Severity Reaction Status Date / Time sulfamethoxazole Allergy Intermediate HIVES Verified 04/20/21 16:45 [From Bactrim] trimethoprim [From Bactrim] Allergy Intermediate HIVES Verified 04/20/21 16:45 Active Medications: Current Medications Acetaminophen (Acetaminophen 325 Mg Tablet) 650 mg PO Q6H [facility] Heparin Sodium (Porcine) (Heparin Sodium,Porcine 5,000 Unit/Ml Vial) 5,000 unit SUBCUT Q8H [facility] Hydromorphone HCl (Hydromorphone Hcl 0.5 Mg/0.5 Ml Syringe) 0.5 mg IVPUSH Q4H PRN; Protocol PRN Reason: Pain, Severe (Pain Scale 7-10) Ceftriaxone Sodium 1 gm/ (Sodium Chloride) 50 mls @ 100 mls/hr IV Q24H [facility] Ketorolac Tromethamine (Ketorolac Tromethamine 30 Mg/Ml Vial) 15 mg IVPUSH Q6H PRN PRN Reason: Pain, Moderate (Pain Scale 4-6 Stop: 04/28/21 12:11 Levothyroxine Sodium (Levothyroxine Sodium 75 Mcg Tablet) 75 mcg PO DAILY@0630 [facility] Omeprazole (Omeprazole 20 Mg Capsule.Dr) 20 mg PO BID@0630,1630 [facility] Ondansetron HCl (Ondansetron Hcl 4 Mg/2 Ml Vial) 4 mg IVPUSH Q8H PRN PRN Reason: Nausea and Vomiting Oxybutynin Chloride (Oxybutynin Chloride Er 5 Mg Tab.Er.24) 5 mg PO DAILY [facility] Pharmacy Consult (Consult Rx Perform Med Rec) 1 each MISCELLANE ONCE PRN PRN Reason: Consult order Pregabalin (Pregabalin 150 Mg Capsule) 150 mg PO TID [facility] Sodium Chloride (0.9 % Sodium Chloride Flush 3 Ml Syringe) 3 ml IVFLUSH QSHIFT [facility] Home Medications Medication Instructions Recorded Confirmed Last Taken Type pregabalin 150 mg capsule 150 mg PO TID 02/04/20 04/23/21 04/22/21 History fluticasone propionate 110 1 puff INHALATION BID 04/08/20 04/23/21 04/22/21 History mcg/actuation HFA aerosol inhaler albuterol sulfate 90 mcg/actuation 1 - 2 puff INHALATION Q4-6H PRN 04/23/21 04/23/21 Unknown History aerosol inhaler (Ventolin HFA) ascorbic acid (vitamin C) 500 mg 500 mg PO DAILY 04/23/21 04/23/21 04/22/21 History tablet (Vitamin C) aspirin 81 mg tablet,delayed 1 tab PO DAILY 04/23/21 04/23/21 04/22/21 History release cholecalciferol (vitamin D3) 25 25 mcg PO DAILY 04/23/21 04/23/21 04/22/21 History mcg (1,000 unit) tablet (Vitamin D3) ibuprofen 800 mg tablet 1 tab PO TID PRN 04/23/21 04/23/21 04/22/21 History levothyroxine 75 mcg tablet 1 tab PO DAILY@0630 04/23/21 04/23/21 04/22/21 History omeprazole 20 mg capsule,delayed 1 cap PO BID@0630,1630 04/23/21 04/23/21 04/22/21 History release oxybutynin chloride 5 mg 1 tab PO DAILY 04/23/21 04/23/21 04/22/21 History tablet,extended release 24 hr oxycodone-acetaminophen 7.5 mg-325 1 tab PO Q6H PRN 04/23/21 04/23/21 04/22/21 History mg tablet (Percocet) zinc sulfate 220 mg capsule 220 mg PO DAILY 04/23/21 04/23/21 04/22/21 History Physical Exam Vital Signs and Narrative: Vital Signs: Last Vital Signs Temp 97.9 F 04/23/21 07:43 Pulse 78 04/23/21 07:43 Resp 18 04/23/21 07:43 BP 157/68 H 04/23/21 07:43 Pulse Ox 97 04/23/21 07:43 BMI result Body Mass Index 33.0 Results Labs CBC and Chem 7: 04/23/21 08:50 04/23/21 08:50 Labs: Laboratory Results - last 24 hr 04/23/21 04/23/21 04/23/21 07:51 08:50 08:50 MCV 95.7 MCH 31.7 MCHC 33.1 RDW 13.2 Plt Count 203 MPV 10.4 Immature Gran % (Auto) 0.2 Neut % (Auto) 56.9 Lymph % (Auto) 29.7 Coal % (Auto) 10.3 Eos % (Auto) 2.5 Baso % (Auto) 0.4 Lymph # (Auto) 2.5 Coal # (Auto) 0.9 Eos # (Auto) 0.2 Baso # (Auto) 0.0 Abs Immat Gran (auto) 0.02 Absolute Neuts (auto) 4.7 Absolute Nucleated RBC 0.000 Nucleated RBC % (auto) 0.0 Anion Gap 12 Estim Creat Clear Calc 51.6 Estimated GFR 56 Random Glucose 109 Calcium 9.2 D Total Bilirubin 0.8 AST 115 H ALT 178 H Alkaline Phosphatase 120 H Total Protein 7.5 Albumin 4.1 Lipase 105 H Urine Color YELLOW Urine Appearance HAZY Urine pH 6.0 Ur Specific [place] >= 1.030 H Urine Protein 1+ H Urine Glucose (UA) NEG Urine Ketones NEG Urine Blood NEG Urine Nitrite NEG Ur Leukocyte Esterase TRACE H Urine RBC 0-2 Urine WBC 10-14 H Ur Squamous Epith Cells 1+ Urine Bacteria NONE Urine Mucus 1+ COVID-19 ([facility]) COVID-19 Clin Com 04/23/21 11:37 MCV MCH MCHC RDW Plt Count MPV Immature Gran % (Auto) Neut % (Auto) Lymph % (Auto) Coal % (Auto) Eos % (Auto) Baso % (Auto) Lymph # (Auto) Coal # (Auto) Eos # (Auto) Baso # (Auto) Abs Immat Gran (auto) Absolute Neuts (auto) Absolute Nucleated RBC Nucleated RBC % (auto) Anion Gap Estim Creat Clear Calc Estimated GFR Random Glucose Calcium Total Bilirubin AST ALT Alkaline Phosphatase Total Protein Albumin Lipase Urine Color Urine Appearance Urine pH Ur Specific [place] Urine Protein Urine Glucose (UA) Urine Ketones Urine Blood Urine Nitrite Ur Leukocyte Esterase Urine RBC Urine WBC Ur Squamous Epith Cells Urine Bacteria Urine Mucus COVID-19 ([facility]) Negative COVID-19 Clin Com See Note Imaging Radiologist's Impressions: Impressions Abdomen/Pelvis CT 04/23/21 09:53 IMPRESSION: *Severe left renal hydronephrosis due to a 5 mm obstructing stone lodged proximally at the left UPJ, there is swelling of the left kidney and mild perinephric fat stranding suggesting high degree of obstruction. *Mild interstitial infiltrates at lung bases. *Other noncritical findings unchanged including mild diverticulosis, right hip prosthesis, spondylosis of the lumbar spine, Assessment and Plan (1) Kidney stone on left side: Status: Acute (2) UTI (urinary tract infection): Status: Acute (3) Hydronephrosis of left kidney: Status: Acute a 55 years old lady with PMH of hypothyroid, COPD, chronic pain syndrome, anxiety among others who presented to the hospital complaining of abdominal and back pain for 1 night. Left-sided hydronephrosis Secondary to kidney stone CT showed 0.5 cm stone with fat stranding Discussed with Urology, Dr. Burleson will do cystoscopy on Sunday morning Pain management with Toradol, Dilaudid Monitor BMP in urine output Pyelonephritis Secondary to obstruction Pending urine culture Start on ceftriaxone daily Asthma/COPD To use p.r.n. albuterol and DuoNebs Hypothyroidism Continue levothyroxine DVT PPX Heparin Quality Stroke Does the patient have a stroke diagnosis?: No VTE Prior VTE?: No VTE Risk Level:: Medical - moderate - high VTE Device Contraindication: Treatment Not Indicated VTE Drug Contraindication: N/A - Med Ordered
--- NOTE | 2021-04-23 13:41 | MHC.CM.PN ---
PATIENT LIVES ALONE. 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
[2021-04-23] MEDS: Heparin Sodium,Porcine 5,000 UNIT/ML VIAL 5000 UNIT SUBCUT ×2 (14:09→21:12)
[2021-04-23] MEDS: Pregabalin 150 MG CAPSULE PO ×2 (14:09→21:12)
[2021-04-23 15:48] VITALS: BP 129/80; PULSE 65; RESP 16; TEMP 35.8; O2SAT 94
[2021-04-23 16:00] VITALS: RESP 16
[2021-04-23] MEDS: Omeprazole 20 MG CAPSULE.DR PO (17:03)
[2021-04-23 19:15] VITALS: BP 112/56; PULSE 63; RESP 16; TEMP 36.2; O2SAT 93
[2021-04-23] MEDS: 0.9 % Sodium Chloride Flush 3 ML SYRINGE IVFLUSH (21:12)
[2021-04-24] VITALS (7 sets, daily range): BP systolic 98–118; BP diastolic 55–62; PULSE 54–72; RESP 16–18; TEMP 36.3–36.9; O2SAT 92–99
[2021-04-24] MEDS: Omeprazole 20 MG CAPSULE.DR PO ×2 (06:22→15:35)
[2021-04-24] MEDS: Heparin Sodium,Porcine 5,000 UNIT/ML VIAL 5000 UNIT SUBCUT ×2 (06:22→13:23)
[2021-04-24 06:32] LABS: Hematocrit 41.6 % (37.0-47.0); Hemoglobin 13.5 g/dl (12.0-16.0); Mean Corpuscular HGB Conc 32.5 g/dl (31.0-35.0); Mean Corpuscular Hemoglobin 31.5 pg (27.0-33.0); Mean Corpuscular Volume 97.2 fL (80.0-98.0); Mean Platelet Volume 11.1 fL (9.4-12.3); Platelet Count 183 X10*3/uL (160-400); Red Blood Count 4.28 X10*6/uL (4.20-5.50); Red Cell Distribution Width 13.2 % (11.0-16.0); White Blood Count 5.5 X10*3/uL (4.8-10.8)
[2021-04-24 07:14] LABS: Anion Gap 8 (12-20); Blood Urea Nitrogen 12 mg/dL (9-16); Calcium 9.1 mg/dL (8.4-10.2); Carbon Dioxide 29 mmol/L (22-29); Chloride 110 mmol/L (96-108); Creatinine Clr Calc Pharmacy 68.6; Estimated Glomerular Filt Rate > 60; Glucose Random 109 mg/dL (60-115); Potassium 3.9 mmol/L (3.3-5.1); Sodium 143 mmol/L (135-145)
--- NOTE | 2021-04-24 09:23 | HO.PM.IMPN ---
Subjective Subjective Date of Service: 04/24/21 Interval History: the patient was seen and evaluated this morning Laying in bed, feels better than yesterday better than yesterday Denies any fever, chills or shortness of breath No reported other overnight events. Systemic review: No fever, chills or weakness No chest pain, palpitation No shortness of breath or coughing No abdominal pain, nausea or vomiting loin pain No any rash or wounds Physical Exam Vital Signs: Vital Signs: Last Vital Signs Temp 97.6 F 04/24/21 08:00 Pulse 71 04/24/21 08:00 Resp 16 04/24/21 08:00 BP 98/56 L 04/24/21 08:00 Pulse Ox 99 04/24/21 08:00 BMI result Body Mass Index 33.0 Const: Other: Constitutional : Alert, oriented, not in distress Neck : Normal inspection, Supple Cardiovascular : RRR, S1 S2, no lower extremity edema Respiratory : Good bilateral air entry,? no crackles, wheezes or rhonchi Gastrointestinal:? soft, lax, Normal bowel sounds, ?mild? left CVA tenderness and generalized abdominal pain Skin : Warm, Dry Neurological : Alert & oriented x3, No focal deficit Objective Data Active Medications Acetaminophen (Acetaminophen 325 Mg Tablet) 650 mg PO Q6H PRN PRN Reason: Pain, Mild (Pain Scale 1-3) Albuterol/Ipratropium (Albuterol/Iprat 2.5/0.5mg 3 Ml Ampul.Neb) 3 ml INHALE Q4H PRN PRN Reason: Shortness of Breath/Wheezing Heparin Sodium (Porcine) (Heparin Sodium,Porcine 5,000 Unit/Ml Vial) 5,000 unit SUBCUT Q8H [facility] Last Admin: 04/24/21 06:22 Dose: 5,000 unit Documented by: SHARON Hydromorphone HCl (Hydromorphone Hcl 0.5 Mg/0.5 Ml Syringe) 0.5 mg IVPUSH Q4H PRN; Protocol PRN Reason: Pain, Severe (Pain Scale 7-10) Ceftriaxone Sodium 1 gm/ (Sodium Chloride) 50 mls @ 100 mls/hr IV Q24H [facility] Ketorolac Tromethamine (Ketorolac Tromethamine 30 Mg/Ml Vial) 15 mg IVPUSH Q6H PRN PRN Reason: Pain, Moderate (Pain Scale 4-6 Stop: 04/28/21 12:11 Levothyroxine Sodium (Levothyroxine Sodium 75 Mcg Tablet) 75 mcg PO DAILY@0630 [facility] Last Admin: 04/24/21 06:22 Dose: 75 mcg Documented by: SHARON Omeprazole (Omeprazole 20 Mg Capsule.) 20 mg PO BID@0630,1630 [facility] Last Admin: 04/24/21 06:22 Dose: 20 mg Documented by: SHARON Ondansetron HCl (Ondansetron Hcl 4 Mg/2 Ml Vial) 4 mg IVPUSH Q8H PRN PRN Reason: Nausea and Vomiting Last Admin: 04/23/21 14:09 Dose: 4 mg Documented by: RYLEY Oxybutynin Chloride (Oxybutynin Chloride Er 5 Mg Tab.Er.24) 5 mg PO DAILY [facility] Pharmacy Consult (Consult Rx Perform Med Rec) 1 each MISCELLANE ONCE PRN PRN Reason: Consult order Pregabalin (Pregabalin 150 Mg Capsule) 150 mg PO TID [facility] Last Admin: 04/23/21 21:12 Dose: 150 mg Documented by: SHARON Sodium Chloride (0.9 % Sodium Chloride Flush 3 Ml Syringe) 3 ml IVFLUSH QSHIFT [facility] Last Admin: 04/23/21 21:12 Dose: 3 ml Documented by: SHARON Labs CBC & Chem 7: 04/24/21 05:50 04/24/21 05:50 Labs: Laboratory Results - last 24 hr 04/23/21 04/24/21 04/24/21 11:37 05:50 05:50 MCV 97.2 MCH 31.5 MCHC 32.5 RDW 13.2 Plt Count 183 MPV 11.1 Absolute Nucleated RBC 0.000 Nucleated RBC % (auto) 0.0 Anion Gap 8 L Estim Creat Clear Calc 68.6 Estimated GFR > 60 Random Glucose 109 Calcium 9.1 COVID-19 ([facility]) Negative COVID-19 Clin Com See Note Assessment and Plan (1) Hydronephrosis of left kidney: Status: Acute (2) UTI (urinary tract infection): Status: Acute (3) Kidney stone on left side: Status: Acute Assessment and Plan: a 55 years old lady with PMH of hypothyroid, COPD, chronic pain syndrome, anxiety among others who presented to the hospital complaining of abdominal and back pain for 1 night. Left-sided hydronephrosis Secondary to kidney stone CT showed 0.5 cm stone with fat stranding Discussed with Urology, Dr. Burleson will do cystoscopy on Sunday morning Pain management with Toradol, Dilaudid Monitor BMP in urine output keep NPO of her midnight Pyelonephritis Secondary to obstruction Pending urine culture continue ceftriaxone daily Asthma/COPD To use p.r.n. albuterol and DuoNebs Hypothyroidism Continue levothyroxine DVT PPX Heparin Quality Stroke Does the patient have a stroke diagnosis?: No VTE Prior VTE?: No VTE Risk Level:: Medical - moderate - high VTE Device Contraindication: Treatment Not Indicated VTE Drug Contraindication: N/A - Med Ordered
[2021-04-24] MEDS: Acetaminophen 325 MG TABLET 650 MG PO ×2 (09:57→23:51)
[2021-04-24] MEDS: Pregabalin 150 MG CAPSULE PO ×3 (09:59→20:09)
[2021-04-24] MEDS: 0.9 % Sodium Chloride Flush 3 ML SYRINGE IVFLUSH ×3 (09:59→20:20)
[2021-04-24] MEDS: Levothyroxine Sodium 75 MCG TABLET PO (10:03)
[2021-04-24] MEDS: cefTRIAXone sodium 1 GM in 0.9 % Sodium Chloride 50 ML IV (13:17)
[2021-04-24 17:26] LABS: Appearance Urine CLEAR; Color Urine YELLOW; Glucose Urine UA NEG (NEG); Leukocyte Esterase Urine NEG (NEG); Nitrite Urine NEG (NEG); Urine Blood NEG (NEG); Urine Ketones NEG (NEG); Urine Protein NEG (NEG-TRACE)
[2021-04-24 17:34] LABS: Amorphous Sediment Urine TRACE /LPF; Bacteria Urine TRACE /LPF; RBC Urine 0-2 /HPF (0); Squamous Epithelial Cell Urine TRACE /LPF; UACC CULT YES
[2021-04-25 04:24] VITALS: BP 103/54; PULSE 54; RESP 20; TEMP 36.1; O2SAT 94
[2021-04-25 05:53] LABS: Hematocrit 42.2 % (37.0-47.0); Hemoglobin 13.5 g/dl (12.0-16.0); Mean Corpuscular Hemoglobin 31.5 pg (27.0-33.0); Mean Corpuscular Volume 98.4 fL (80.0-98.0); Mean Platelet Volume 10.7 fL (9.4-12.3); Platelet Count 185 X10*3/uL (160-400); Red Blood Count 4.29 X10*6/uL (4.20-5.50); Red Cell Distribution Width 13.2 % (11.0-16.0); White Blood Count 5.3 X10*3/uL (4.8-10.8)
[2021-04-25] MEDS: Levothyroxine Sodium 75 MCG TABLET PO (05:58)
[2021-04-25] MEDS: Omeprazole 20 MG CAPSULE.DR PO (05:58)
[2021-04-25 06:13] LABS: Anion Gap 10 (12-20); Blood Urea Nitrogen 14 mg/dL (9-16); Calcium 9.5 mg/dL (8.4-10.2); Carbon Dioxide 28 mmol/L (22-29); Chloride 111 mmol/L (96-108); Creatinine Clr Calc Pharmacy 70.4; Estimated Glomerular Filt Rate > 60; Glucose Random 105 mg/dL (60-115); Potassium 4.2 mmol/L (3.3-5.1); Sodium 145 mmol/L (135-145)
[2021-04-25 07:46] VITALS: BP 119/69; PULSE 68; RESP 20; TEMP 36.2; O2SAT 95
[2021-04-25] MEDS: Pregabalin 150 MG CAPSULE PO (07:55)
[2021-04-25] MEDS: 0.9 % Sodium Chloride Flush 3 ML SYRINGE IVFLUSH (07:56)
--- NOTE | 2021-04-25 08:24 | PM.UROCN ---
History of Present Illness Consult details Consult date: 04/25/21 Narrative: Trini is a pleasant 55-year-old female History of recurrent kidney stones Present to hospital with left-sided flank pain, nausea, unable to tolerate oral intake admitted for parental pain medication Imaging shows 4 mm proximal left ureteric stone with mild hydronephrosis Creatinine 0.74, WBC 5.3, calcium 9.5 Based on symptoms in stone location recommend ureteroscopy with laser lithotripsy and stent placement Review of Systems Constitutional: Constitutional: Reports as per HPI and Reports no additional constitutional complaints Cardiovascular: Cardiovascular: Reports as per HPI and Reports no additional cardiovascular complaints Respiratory: Respiratory: Reports as per HPI and Reports no additional respiratory complaints Gastrointestinal: Gastrointestinal: Reports as per HPI and Reports no additional gastrointestinal complaints Genitourinary: Genitourinary: Reports as per HPI Musculoskeletal: Musculoskeletal: Reports no additional musculoskeletal complaints and Reports as per HPI Neurologic: Reports system reviewed and no additional complaints, except as documented and Reports as per HPI PMFSH Past Medical History Medical History Anxiety Chronic pain syndrome Fatty liver History of palpitations Hypothyroidism Osteoarthritis Sciatica 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 Surgical History Surgical History Hx of cholecystectomy Hx of total hip arthroplasty Hx of vitrectomy Social History Social History (Updated 02/08/21 @ 08:45 by Mer Johnston RN) Household Members: None Housing: Apartment Do you presently have visiting nurse or other home services: No Patient Tobacco Use Status: Never used Tobacco service: No Current occupational status: disabled Meds Allergies Allergy/AdvReac Type Severity Reaction Status Date / Time sulfamethoxazole Allergy Intermediate HIVES Verified 04/20/21 16:45 [From Bactrim] trimethoprim [From Bactrim] Allergy Intermediate HIVES Verified 04/20/21 16:45 Active Medications: Current Medications Acetaminophen (Acetaminophen 325 Mg Tablet) 650 mg PO Q6H PRN PRN Reason: Pain, Mild (Pain Scale 1-3) Last Admin: 04/24/21 23:51 Dose: 650 mg Documented by: Albuterol/Ipratropium (Albuterol/Iprat 2.5/0.5mg 3 Ml Ampul.Neb) 3 ml INHALE Q4H PRN PRN Reason: Shortness of Breath/Wheezing Heparin Sodium (Porcine) (Heparin Sodium,Porcine 5,000 Unit/Ml Vial) 5,000 unit SUBCUT Q8H [facility] Last Admin: 04/25/21 06:00 Dose: Not Given Documented by: Hydromorphone HCl (Hydromorphone Hcl 0.5 Mg/0.5 Ml Syringe) 0.5 mg IVPUSH Q4H PRN; Protocol PRN Reason: Pain, Severe (Pain Scale 7-10) Ceftriaxone Sodium 1 gm/ (Sodium Chloride) 50 mls @ 100 mls/hr IV Q24H [facility] Last Infusion: 04/24/21 14:29 Dose: Infused Documented by: Ketorolac Tromethamine (Ketorolac Tromethamine 30 Mg/Ml Vial) 15 mg IVPUSH Q6H PRN PRN Reason: Pain, Moderate (Pain Scale 4-6 Stop: 04/28/21 12:11 Levothyroxine Sodium (Levothyroxine Sodium 75 Mcg Tablet) 75 mcg PO DAILY@0630 [facility] Last Admin: 04/25/21 05:58 Dose: 75 mcg Documented by: Omeprazole (Omeprazole 20 Mg Capsule.) 20 mg PO BID@0630,1630 [facility] Last Admin: 04/25/21 05:58 Dose: 20 mg Documented by: Ondansetron HCl (Ondansetron Hcl 4 Mg/2 Ml Vial) 4 mg IVPUSH Q8H PRN PRN Reason: Nausea and Vomiting Last Admin: 04/23/21 14:09 Dose: 4 mg Documented by: Oxybutynin Chloride (Oxybutynin Chloride Er 5 Mg Tab.Er.24) 5 mg PO DAILY [facility] Last Admin: 04/25/21 07:55 Dose: 5 mg Documented by: Pharmacy Consult (Consult Rx Perform Med Rec) 1 each MISCELLANE ONCE PRN PRN Reason: Consult order Pregabalin (Pregabalin 150 Mg Capsule) 150 mg PO TID [facility] Last Admin: 04/25/21 07:55 Dose: 150 mg Documented by: Sodium Chloride (0.9 % Sodium Chloride Flush 3 Ml Syringe) 3 ml IVFLUSH QSHIFT [facility] Last Admin: 04/25/21 07:56 Dose: 3 ml Documented by: Home Medications Medication Instructions Recorded Confirmed Last Taken Type pregabalin 150 mg capsule 150 mg PO TID 02/04/20 04/23/21 04/22/21 History fluticasone propionate 110 1 puff INHALATION BID 04/08/20 04/23/21 04/22/21 History mcg/actuation HFA aerosol inhaler albuterol sulfate 90 mcg/actuation 1 - 2 puff INHALATION Q4-6H PRN 04/23/21 04/23/21 Unknown History aerosol inhaler (Ventolin HFA) ascorbic acid (vitamin C) 500 mg 500 mg PO DAILY 04/23/21 04/23/21 04/22/21 History tablet (Vitamin C) aspirin 81 mg tablet,delayed 1 tab PO DAILY 04/23/21 04/23/21 04/22/21 History release cholecalciferol (vitamin D3) 25 25 mcg PO DAILY 04/23/21 04/23/21 04/22/21 History mcg (1,000 unit) tablet (Vitamin D3) ibuprofen 800 mg tablet 1 tab PO TID PRN 04/23/21 04/23/21 04/22/21 History levothyroxine 75 mcg tablet 1 tab PO DAILY@0630 04/23/21 04/23/21 04/22/21 History omeprazole 20 mg capsule,delayed 1 cap PO BID@0630,1630 04/23/21 04/23/21 04/22/21 History release oxybutynin chloride 5 mg 1 tab PO DAILY 04/23/21 04/23/21 04/22/21 History tablet,extended release 24 hr oxycodone-acetaminophen 7.5 mg-325 1 tab PO Q6H PRN 04/23/21 04/23/21 04/22/21 History mg tablet (Percocet) zinc sulfate 220 mg capsule 220 mg PO DAILY 04/23/21 04/23/21 04/22/21 History Physical Exam Vital Signs: Vital Signs: Last Vital Signs Temp 97.2 F 04/25/21 07:46 Pulse 68 04/25/21 07:46 Resp 20 04/25/21 07:46 BP 119/69 04/25/21 07:46 Pulse Ox 95 04/25/21 07:46 BMI result Body Mass Index 33.0 Const: General: cooperative, healthy appearing, comfortable and no acute distress Orientation/consciousness: patient oriented x3 HENMT: Face and sinus: Yes normal facial exam Mouth: moist mucous membranes Neck: Neck: Yes normal visual inspection, Yes full ROM and Yes trachea midline Chest: Chest palpation & inspection: normal inspection of the chest Resp: Effort & Inspection: normal respiratory effort, able to speak in complete sentences and no respiratory distress GI: Inspection: Yes normal to inspection Back/Spine/Pelvis: Cervical Spine: normal cervical lordosis Thoracic/Lumbar Spine: thoracic and lumbar spine normal to inspection Skin: General skin exam: no rashes or lesions noted Neuro: General: patient oriented x3, tone normal and moves all extremities Extrem: General: Yes normal to inspection and Yes capillary refill normal Results Labs Result diagrams: 04/25/21 05:42 04/25/21 05:42 Labs: Abnormal lab results 04/24/21 04/25/21 04/25/21 Range/Units 17:05 05:42 05:42 MCV 98.4 H (80.0-98.0) fL Chloride 111 H (96-108) mmol/L Anion Gap 10 L (12-20) Urine WBC 5-9 H (0-4) /HPF Short CBC 04/25/21 Range/Units 05:42 WBC 5.3 (4.8-10.8) X10*3/uL Hgb 13.5 (12.0-16.0) g/dl Hct 42.2 (37.0-47.0) % Plt Count 185 (160-400) X10*3/uL BMP 04/25/21 05:42 Sodium 145 Potassium 4.2 Chloride 111 H Carbon Dioxide 28 BUN 14 Creatinine 0.74 Calcium 9.5 Urine 04/23/21 04/24/21 Range/Units 07:51 17:05 Urine Color YELLOW YELLOW Urine Appearance HAZY CLEAR Urine pH 6.0 6.0 (5.0-8.0) Ur Specific [place] >= 1.030 H 1.020 (1.005-1.025) Urine Protein 1+ H NEG (NEG-TRACE) MG/DL Urine Glucose (UA) NEG NEG (NEG) MG/DL All other labs normal. Assessment and Plan (1) Hydronephrosis of left kidney: Status: Acute (2) Kidney stone on left side: Status: Acute Ureteroscopy We discussed the nature of the decision and reasonable alternatives for performing the above surgery. Interventions include chemical dissolution, ESWL, ureteroscopy with laser lithotripsy and stent placement, PCNL. Options such as medical therapy were discussed. The relative uncertainties and benefits related to each alternate procedure were adequately discussed. General surgical risks including, but not limited to, pain, bleeding, infection, myocardial infarction, pulmonary embolus, deep vein thrombosis and cerebrovascular accident which may result in further hospitalization were discussed. Full disclosure of the procedure as well as all major risks, benefits and complications were discussed including but not limited to damage to the urethra, bladder and kidney infection, damage to the ureter, stent migration or malposition, scarring to the renal pelvis, remnant stone fragments, subsequent stone passage with need for secondary procedures. The overall secondary procedure rate is approximately 10-15%. The success rate of the procedure was discussed. Success of the procedure in the short-term does not necessarily guarantee that long-term success will be maintained. Suitable follow up will need to be maintained. The patient showed understanding of discussion and wishes to proceed with - cystoscopy, retrograde, ureteroscopy, possible lithotripsy/stone basketing and stent on the left side left retrograde, ureteroscopy laser lithotripsy Procedures Date of Service Date of Service: 04/25/21
--- NOTE | 2021-04-25 09:25 | MHC.CM.PN ---
THIS [employer]ILL NET STRINGER MET WITH PATIENT IN EFFORTS TO CONVINCE HER NOT TO LEAVE AMA, AND TO STAY UNTIL A PLAN CAN BE MADE FOR HER. PATIENT AGREED TO STAY UNTIL AFTER THIS G[employer] NET STRINGER DISCUSSED WITH HOSPITALIST. PATIENT LEFT AMA.
--- NOTE | 2021-04-25 09:28 | PM.EVENT ---
Event Note Date of Service: 04/25/21 Event Note: Discharge summary Discharge diagnosis Hydronephrosis of left kidney Kidney stone left side Pyelonephritis Patient was admitted to the hospital and treated with IV antibiotics with a plan to do cystoscopy today. Her surgery was scheduled at 15:00 but she refused to wait for the surgery and left the hospital without waiting me to talk to her. So since her some oral antibiotics to cover for the bile nephritis but she no from discussion with Urology that she will need to follow-up as outpatient for the procedure.
== END 2021-04-25 10:23 | disposition left against medical advice (07) | DRG 690 ==
LOC: HO.ED 11:37 → HO.EDOVER 12:23 → HO.S3 14:30
PROVIDERS: Physician Assistant; Admitting Provider Student in an Organized Health Care Education/Training Program; Emergency Provider Emergency Medicine; PCP Internal Medicine; Visit Provider Student in an Organized Health Care Education/Training Program
DX: N13.6 Pyonephrosis (principal); E03.9 Hypothyroidism, unspecified; J45.909 Unspecified asthma, uncomplicated; Z20.822 Contact with and (suspected) exposure to COVID-19; Z88.2 Allergy status to sulfonamides; Z79.1 Long term (current) use of non-steroidal anti-inflammatories (NSAID); Z79.51 Long term (current) use of inhaled steroids; Z79.82 Long term (current) use of aspirin; Z79.890 Hormone replacement therapy; Z79.899 Other long term (current) drug therapy
CPT/HCPCS: 36415; 74177; 80048; 80053; 81001; 83690; 85025; 85027; 87040; 87086; 87635; 93005; 96361; 96365; 96375; 96376; 99212; 99285; J0696; J1170; J1885; J2270; J2405; J2550; Q9967

== ENCOUNTER 2021-05-11 06:56 | Day surgery (SDC) | payer MEDICARE, MEDICAID, SELFPAY ==
[2021-05-05 11:15] VITALS: BMI 33.7
--- NOTE | 2021-05-10 11:30 | P.CONAN_ITS ---
Documented by User: Patricia Chowdary NP 05/10/21 11:33 HPI - Anesthesia Eval Consult details Narrative: 55yo F for Left Lithotripsy ESW Last ESWL 2013 [facility] Active Problems Active Problems: All Active Problems (Updated 05/05/21 @ 11:14 by Mer Johnston, RN) Kidney stone on left side (Acute) UTI (urinary tract infection) (Acute) Hydronephrosis of left kidney (Acute) Chronic pain syndrome (Acute) Spondylosis of cervical joint without myelopathy (Acute) Spondylosis of lumbar region without myelopathy or radiculopathy (Acute) Past Medical History Medical History Ambulates with cane Anxiety Asthma Chronic pain syndrome Depression Fatty liver GERD (gastroesophageal reflux disease) History of palpitations Hypothyroidism Low back pain OAB (overactive bladder) Osteoarthritis Renal calculi Sciatica 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 Surgical History Surgical History (Updated 05/05/21 @ 11:11 by Mer Johnston RN) Hx of cholecystectomy Hx of total hip arthroplasty Hx of vitrectomy Social History Social History Household Members: None Housing: Apartment Are you a primary direct support professional caregiver to a significant other at home: No Do you presently have visiting nurse or other home services: Yes ([employer]) Patient Tobacco Use Status: Never used Tobacco Use of substances other than those prescribed or required for medical reasons: No Are you DNR?: No Advance Directives: No Advance Directives Information Provided: Yes Advance Directives on File: No service: No Current occupational status: disabled Meds Allergies Allergy/AdvReac Type Severity Reaction Status Date / Time sulfamethoxazole Allergy Intermediate HIVES Verified 05/05/21 11:11 [From Bactrim] trimethoprim [From Bactrim] Allergy Intermediate HIVES Verified 05/05/21 11:11 cheese Allergy Hives Verified 05/05/21 11:11 Home Medications Medication Instructions Recorded Confirmed Last Taken Type pregabalin 150 mg capsule 150 mg PO TID 02/04/20 05/06/21 04/22/21 History fluticasone propionate 110 1 puff INHALATION BID 04/08/20 05/06/2104/22/21 History mcg/actuation HFA aerosol inhaler albuterol sulfate 90 mcg/actuation 1 - 2 puff INHALATION Q4-6H PRN 04/23/21 05/06/21 Unknown History aerosol inhaler (Ventolin HFA) aspirin 81 mg tablet,delayed 1 tab PO DAILY 04/23/21 05/06/21 04/22/21 History release ibuprofen 800 mg tablet 1 tab PO TID PRN 04/23/21 05/06/21 04/22/21 History levothyroxine 75 mcg tablet 1 tab PO DAILY@0630 04/23/21 05/06/21 04/22/21 History omeprazole 20 mg capsule,delayed 1 cap PO BID@0630,1630 04/23/21 05/06/21 04/22/21 History release oxybutynin chloride 5 mg 1 tab PO DAILY 04/23/21 05/06/21 04/22/21 History tablet,extended release 24 hr oxycodone-acetaminophen 7.5 mg-325 1 tab PO Q6H PRN 04/23/21 05/06/21 04/22/21 History mg tablet (Percocet) zinc sulfate 220 mg capsule 220 mg PO DAILY 04/23/21 05/06/21 04/22/21 History multivitamin 1 tab PO DAILY 05/05/21 05/06/21 Unknown History Exam Exam Date and Time: May 10, 2021 1130 Height,Weight and Vital Signs: Height 4 ft 7 in Weight 65.771 kg Pertinent Lab Results Pertinent Lab Results: Laboratory Tests 04/25/21 04/25/21 05:42 05:42 WBC 5.3 Hgb 13.5 Hct 42.2 Plt Count 185 Sodium 145 Potassium 4.2 Chloride 111 H Carbon Dioxide 28 BUN 14 Creatinine 0.74 Assessment and Plan Assessment Anesthesia Assessment: Chart Reviewed Documented by User: Marcy Marquez MD 05/11/21 09:52 [facility] Past Medical History Medical History Ambulates with cane Anxiety Asthma Chronic pain syndrome Depression Fatty liver GERD (gastroesophageal reflux disease) History of palpitations Hypothyroidism Low back pain OAB (overactive bladder) Osteoarthritis Renal calculi Sciatica 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 Functional capacity: independent ambulation Patient : No Family History Family history of problems with anesthesia: No Surgical History Surgical History (Updated 05/05/21 @ 11:11 by Mer Johnston RN) Hx of cholecystectomy Hx of total hip arthroplasty Hx of vitrectomy History of Problems with Anesthesia: No Social History Social History Household Members: None Housing: Apartment Are you a primary direct support professional caregiver to a significant other at home: No Do you presently have visiting nurse or other home services: Yes ([employer]) Patient Tobacco Use Status: Never used Tobacco Use of substances other than those prescribed or required for medical reasons: No Are you DNR?: No Advance Directives: No Advance Directives Information Provided: Yes Advance Directives on File: No service: No Current occupational status: disabled Meds Allergies Allergy/AdvReac Type Severity Reaction Status Date / Time sulfamethoxazole Allergy Intermediate HIVES Verified 05/05/21 11:11 [From Bactrim] trimethoprim [From Bactrim] Allergy Intermediate HIVES Verified 05/05/21 11:11 cheese Allergy Hives Verified 05/05/21 11:11 Home Medications Medication Instructions Recorded Confirmed Last Taken Type pregabalin 150 mg capsule 150 mg PO TID 02/04/20 05/06/21 04/22/21 History fluticasone propionate 110 1 puff INHALATION BID 04/08/20 05/06/21 04/22/21 History mcg/actuation HFA aerosol inhaler albuterol sulfate 90 mcg/actuation 1 - 2 puff INHALATION Q4-6H PRN 04/23/21 05/06/21 Unknown History aerosol inhaler (Ventolin HFA) aspirin 81 mg tablet,delayed 1 tab PO DAILY 04/23/21 05/06/21 04/22/21 History release ibuprofen 800 mg tablet 1 tab PO TID PRN 04/23/21 05/06/21 04/22/21 History levothyroxine 75 mcg tablet 1 tab PO DAILY@0630 04/23/21 05/06/21 04/22/21 History omeprazole 20 mg capsule,delayed 1 cap PO BID@0630,1630 04/23/21 05/06/21 04/22/21 History release oxybutynin chloride 5 mg 1 tab PO DAILY 04/23/21 05/06/21 04/22/21 History tablet,extended release 24 hr oxycodone-acetaminophen 7.5 mg-325 1 tab PO Q6H PRN 04/23/21 05/06/21 04/22/21 History mg tablet (Percocet) zinc sulfate 220 mg capsule 220 mg PO DAILY 04/23/21 05/06/21 04/22/21 History multivitamin 1 tab PO DAILY 05/05/21 05/06/21 Unknown History Exam Airway Mallampati Class: III TM Dist: >3cm Neck ROM: Full Heart: RRR Lungs: CTA Assessment and Plan Final Anesthetic Review Family History of Problems with Anesthesia: No History of Problems with Anesthesia: No ASA Class: III Final Preanesthetic Review: No Changes in Pt Med Stat, Meds/Allgs Chart Reviewed, Consent Obtained/Reviewed and Anes Risks/Benef Reviewed Patient Risk: Low Procedure Risk: Low Anesthetic Plan Anesthetic Plan: GA Disposition: Standard PACU
--- NOTE | ~2021-05-11 | XR_ITS ---
EXAMINATION: XR ABDOMEN KUB CLINICAL INDICATION: Left renal stone COMPARISON: Previous CT of the abdomen and pelvis April 2021 and ultrasound September 2020 TECHNIQUE: AP view of the abdomen. FINDINGS: There is a faint increased density projecting to the left of the L3 vertebral body questionable for a left ureteral stone. This measures approximately 2 x 4 mm. No calcifications projecting over the kidneys to suggest a renal stone is seen. There are bilateral pelvic calcifications probably representing calcified phleboliths. Bowel gas pattern is normal. There are surgical clips in the right upper quadrant suggestive of previous cholecystectomy. There are degenerative changes of the spine and left hip. There is a right hip replacement. XR/XR KUB IMPRESSION: Question small left ureteral stone. No renal stone seen.
[2021-05-11 06:23] VITALS: BMI 39.0
[2021-05-11 07:50] VITALS: BP 126/59; PULSE 62; RESP 18; TEMP 36.6; O2SAT 97
[2021-05-11] MEDS: Lactated Ringers 1,000 ML 100 ML IVCONT (08:00)
--- NOTE | 2021-05-11 09:26 | MHC.SHP ---
Pre-Procedural Eval Section A Date of Service: 05/11/21 The patient is an INPATIENT: No Changes since office visit: No Cold of Flu in the past 2 weeks, No New Medical Problems, No Changes in Medication and No Patient answered all questions The History & Physical has been completed within 30 days and I have reviewed it.: Yes Section B Chief Complaint: calculus of kidney Allergies: Allergies Allergy/AdvReac Type Severity Reaction Status Date / Time sulfamethoxazole Allergy Intermediate HIVES Verified 05/05/21 11:11 [From Bactrim] trimethoprim [From Bactrim] Allergy Intermediate HIVES Verified 05/05/21 11:11 cheese Allergy Hives Verified 05/05/21 11:11 Plan Diagnosis/Plan: Unchanged (Left ESWL) I have reviewed the history and physical and performed a pertinent physical examination on my patient. No changes have occurred unless specified.
--- NOTE | 2021-05-11 09:52 | W.PM.OPN ---
Operative Note Operative Note Date of Service: 05/11/21 Narrative: PreOperative Diagnosis: Left proximal ureteric stones Post Operative Diagnosis: Left proximal ureteric stones Procedure: Left proximal ureteric ESWL Surgeon: Dr Antwon Burleson Anesthesia: mac/sedation Indications for procedure: The patient understands ESWL may be a staged procedure and subsequent intervention may be required based on imaging after ESWL. They also understand there is a risk of bleeding to the kidney, infection, damage to adjacent organs, and stone migration following the procedure. - Imaging left proximal ureteric 6 mm stone - stone was within border of lower pole of the kidney so only 2500 shocks use Procedure: After informed consent was verified the patient was brought to the operating room and placed in a supine position. Anesthesia was performed per protocol. Safety pause time-out was performed. Imaging was displayed in the room and laterality confirmed. ESWL was performed. The 1st 500 shocks were performed at 60 hertz. These were performed with increasing power. Once maximum power was reached the rate was increased to 180 hertz. A total of 2500 shocks were given. Targetted imaging with ultrasound/fluoroscopy showed stone smudging suggestive of disintegration. The patient tolerated the procedure well and was transferred to the recovery area upon completion. Post procedure imaging will be organized. There was no evidence for flank discoloration.
[2021-05-11 10:02] VITALS: BP 119/74; PULSE 69; RESP 16; TEMP 36.4; O2SAT 97
[2021-05-11 10:07] VITALS: BP 115/70; PULSE 64; RESP 16; O2SAT 98
[2021-05-11 10:12] VITALS: BP 120/70; PULSE 67; RESP 16; O2SAT 95
[2021-05-11 10:17] VITALS: BP 117/64; PULSE 63; RESP 16; TEMP 36.6; O2SAT 95
[2021-05-11] MEDS: Phenazopyridine HCL 100 MG TABLET PO (10:32)
[2021-05-11] MEDS: Acetaminophen 325 MG TABLET 650 MG PO (10:32)
--- NOTE | 2021-05-11 11:00 | HO.POSTANES ---
Post Anesthesia Evaluation Post Anesthesia Evaluation Vital Signs: Vital Signs Temp Pulse Resp BP Pulse Ox 05/11/21 10:17 98 F 63 16 117/64 95 05/11/21 10:12 67 16 120/70 95 05/11/21 10:07 64 16 115/70 98 05/11/21 10:02 97.6 F 69 16 119/74 97 05/11/21 07:50 97.9 F 62 18 126/59 L 97 Anesthesia: General LMA Mental Status: Awake Pain Control: Satisfactory Nausea/Vomiting: None Hydration: Adequate Anesthesia-Related Issues: No Anes. Related Issues
== END 2021-05-11 10:55 | disposition home or self-care (01) ==
PROVIDERS: PCP Internal Medicine; Visit Provider Urology
PROC: (CPT 50590; principal; 2021-05-11 09:10)
DX: N20.1 Calculus of ureter (principal); Z87.442 Personal history of urinary calculi; G89.4 Chronic pain syndrome; F41.9 Anxiety disorder, unspecified; K76.0 Fatty (change of) liver, not elsewhere classified; J45.909 Unspecified asthma, uncomplicated; Z79.51 Long term (current) use of inhaled steroids; Z79.899 Other long term (current) drug therapy; Z88.2 Allergy status to sulfonamides; Z90.49 Acquired absence of other specified parts of digestive tract; Z96.641 Presence of right artificial hip joint
CPT/HCPCS: 50590; 74018; J2250; J2405; J3010

== ENCOUNTER → 2021-05-25 10:11 | Outpatient (BNVA) | payer MEDICARE, MEDICAID, SELFPAY | PROVIDERS: PCP Internal Medicine; Visit Provider Anesthesiology | DX: Z51.81 Encounter for therapeutic drug level monitoring (principal); F11.20 Opioid dependence, uncomplicated; M47.812 Spondylosis without myelopathy or radiculopathy, cervical region; M47.816 Spondylosis without myelopathy or radiculopathy, lumbar region; G89.4 Chronic pain syndrome | CPT/HCPCS: 99212 ==

== ENCOUNTER → 2021-06-02 10:15 | Outpatient (BNVA) | payer MEDICARE, MEDICAID, SELFPAY | PROVIDERS: PCP Internal Medicine; Visit Provider Urology | DX: N20.0 Calculus of kidney (principal); N13.30 Unspecified hydronephrosis | CPT/HCPCS: 99212 ==

== ENCOUNTER 2021-06-15 13:37 | Outpatient (REF) | payer MEDICARE, MEDICAID, SELFPAY ==
--- NOTE | ~2021-06-15 | US_ITS ---
EXAMINATION: US RETROPERITONEAL LIMITED (RENAL ONLY) CLINICAL INFORMATION: Calculus of kidney. COMPARISON: KUB dated 05/11/2021 and 06/11/2013. CT abdomen and pelvis with contrast dated 04/23/2021. Ultrasound abdomen limited dated 10/09/2020. Bilateral renal ultrasound dated 06/26/2013. TECHNIQUE: Real-time imaging of the kidneys. FINDINGS: RIGHT KIDNEY: 10.1 x 3.8 x 5.2 cm (SAG x AP x TRV). The kidney is normal in size, contour, and echogenicity. Renal cortical thickness is normal. No focal parenchymal lesions or hydronephrosis. There is an echogenic stone midpole measuring 0.4 x 0.3 x 0.3 cm. LEFT KIDNEY: 10.7 x 5.3 x 6.9 cm (SAG x AP x TRV). The kidney is normal in size, contour, and echogenicity. Renal cortical thickness is normal. No focal parenchymal solid or cystic lesion seen. There is moderate hydronephrosis. There is an echogenic stone in the midpole measuring 0.5 x 0.4 x 0.4 cm. BLADDER: The right ureteral jet is seen. The left ureteral jet is not visualized. There is a left UPJ stone on the previous CT abdomen exam 05/02/2021. US/US renal BI IMPRESSION: Bilateral echogenic renal calculi without caliectasis. There is moderate left hydronephrosis secondary to a known left UPJ stone. A right ureteral jet is seen. A left ureteral jet is not visualized in the bladder.
== END 2021-06-15 13:38 | disposition home or self-care (01) ==
LOC: HO.US 13:37
PROVIDERS: Visit Provider Urology
DX: N20.0 Calculus of kidney (principal)
CPT/HCPCS: 76775

== ENCOUNTER → 2021-06-22 13:21 | Outpatient (BNVA) | payer MEDICARE, MEDICAID, SELFPAY | PROVIDERS: PCP Internal Medicine; Visit Provider Anesthesiology | DX: Z51.81 Encounter for therapeutic drug level monitoring (principal); F11.20 Opioid dependence, uncomplicated; M47.812 Spondylosis without myelopathy or radiculopathy, cervical region; M47.816 Spondylosis without myelopathy or radiculopathy, lumbar region; G89.4 Chronic pain syndrome | CPT/HCPCS: 99212 ==

== ENCOUNTER → 2021-07-11 09:05 | Outpatient (BNVA) | payer MEDICARE, MEDICAID, SELFPAY | PROVIDERS: PCP Internal Medicine; Visit Provider Orthopaedic Surgery | DX: M11.20 Other chondrocalcinosis, unspecified site (principal) | CPT/HCPCS: 99212 ==

== ENCOUNTER → 2021-07-20 10:13 | Outpatient (BNVA) | payer MEDICARE, MEDICAID, SELFPAY | PROVIDERS: PCP Internal Medicine; Visit Provider Anesthesiology | DX: G89.4 Chronic pain syndrome (principal); M47.812 Spondylosis without myelopathy or radiculopathy, cervical region; M47.816 Spondylosis without myelopathy or radiculopathy, lumbar region | CPT/HCPCS: 99212 ==

== ENCOUNTER 2021-08-05 07:40 | Day surgery (SDC) | payer MEDICARE, MEDICAID, SELFPAY ==
--- NOTE | 2021-08-04 09:01 | HO.ANESPROP2 ---
Documented by User: Patricia Chowdary NP 08/04/21 09:03 HPI - Anesthesia Eval Consult details Narrative: 55yo F for Genicular Nerve Block Diagnostic Chronic opioids PMFSH Active Problems Active Problems: All Active Problems (Updated 07/11/21 @ 12:05 by Rico Lynch MD) Chondrocalcinosis articularis (Acute) Nephrolithiasis (Acute) UTI (urinary tract infection) (Acute) Hydronephrosis of left kidney (Acute) Chronic pain syndrome (Acute) Spondylosis of cervical joint without myelopathy (Acute) Spondylosis of lumbar region without myelopathy or radiculopathy (Acute) Past Medical History Medical History (Updated 07/11/21 @ 12:05 by Rico Lynch MD) Ambulates with cane Anxiety Asthma Chronic pain syndrome Depression Fatty liver GERD (gastroesophageal reflux disease) History of palpitations Hypothyroidism Kidney stone on left side Low back pain OAB (overactive bladder) Osteoarthritis Renal calculi Sciatica 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 Family History Family history of problems with anesthesia: No Surgical History Surgical History Hx of cholecystectomy Hx of total hip arthroplasty Hx of vitrectomy History of Problems with Anesthesia: No Social History Social History Household Members: None Housing: Apartment Are you a primary residential caregiver to a significant other at home: No Do you presently have visiting nurse or other home services: Yes (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) Patient Tobacco Use Status: Never used Tobacco Use of substances other than those prescribed or required for medical reasons: No Are you DNR?: No Advance Directives: No Advance Directives Information Provided: Yes service: No Current occupational status: disabled Meds Allergies Allergy/AdvReac Type Severity Reaction Status Date / Time sulfamethoxazole Allergy Intermediate HIVES Verified 08/05/21 07:48 [From Bactrim] trimethoprim [From Bactrim] Allergy Intermediate HIVES Verified 08/05/21 07:48 cheese Allergy Hives Verified 08/05/21 07:48 Home Medications Medication Instructions Recorded Confirmed Last Taken Type pregabalin 150 mg capsule 150 mg PO TID 02/04/20 05/06/21 04/22/21 History fluticasone propionate 110 1 puff INHALATION BID 1205/06/21 04/22/21 History mcg/actuation HFA aerosol inhaler albuterol sulfate 90 mcg/actuation 1 - 2 puff INHALATION Q4-6H PRN 04/23/21 05/06/21 Unknown History aerosol inhaler (Ventolin HFA) aspirin 81 mg tablet,delayed 1 tab PO DAILY 04/23/21 05/06/21 07/22/21 History release ibuprofen 800 mg tablet 1 tab PO TID PRN 04/23/21 05/06/21 07/05/21 History levothyroxine 75 mcg tablet 1 tab PO DAILY@0630 04/23/21 05/06/21 04/22/21 History omeprazole 20 mg capsule,delayed 1 cap PO BID@0630,1630 04/23/21 05/06/21 04/22/21 History release oxybutynin chloride 5 mg 1 tab PO DAILY 04/23/21 05/06/21 04/22/21 History tablet,extended release 24 hr zinc sulfate 220 mg capsule 220 mg PO DAILY 04/23/21 05/06/21 04/22/21 History multivitamin 1 tab PO DAILY 05/05/21 05/06/21 Unknown History Exam Exam Date and Time: August 04, 2021 09 Pertinent Lab Results Pertinent Lab Results: Laboratory Tests ? 04/25/21 04/25/21 ? 05:42 05:42 WBC ?5.3 ? Hgb ?13.5 ? Hct ?42.2 ? Plt Count ?185 ? Sodium ? ?145 Potassium ? ?4.2 Chloride ? ?111 H Carbon Dioxide ? ?28 BUN ? ?14 Creatinine ? ?0.74 Assessment and Plan Assessment Anesthesia Assessment: Chart Reviewed Final Anesthetic Review Family History of Problems with Anesthesia: No History of Problems with Anesthesia: No Documented by User: Shabbir Lloyd MD 08/05/21 09:28 HPI - Anesthesia Eval Consult details Narrative: 55yo F for Genicular Nerve Block Diagnostic, left h/o occassional palpitations . saw projection technician , they have decided to observe for now . no CP , SOB . 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 Functional capacity: uses cane/walker Surgical History Surgical History Hx of cholecystectomy Hx of total hip arthroplasty Hx of vitrectomy Social History Social History Household Members: None Housing: Apartment Are you a primary residential caregiver to a significant other at home: No Do you presently have visiting nurse or other home services: Yes ([employer]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) Patient Tobacco Use Status: Never used Tobacco Use of substances other than those prescribed or required for medical reasons: No Are you DNR?: No Advance Directives: No Advance Directives Information Provided: Yes service: No Current occupational status: disabled Meds Allergies Allergy/AdvReac Type Severity Reaction Status Date / Time sulfamethoxazole Allergy Intermediate HIVES Verified 08/05/21 07:48 [From Bactrim] trimethoprim [From Bactrim] Allergy Intermediate HIVES Verified 08/05/21 07:48 cheese Allergy Hives Verified 08/05/21 07:48 Home Medications Medication Instructions Recorded Confirmed Last Taken Type pregabalin 150 mg capsule 150 mg PO TID 02/04/20 05/06/21 04/22/21 History fluticasone propionate 110 1 puff INHALATION BID 04/08/20 05/06/21 04/22/21 History mcg/actuation HFA aerosol inhaler albuterol sulfate 90 mcg/actuation 1 - 2 puff INHALATION Q4-6H PRN 04/23/21 05/06/21 Unknown History aerosol inhaler (Ventolin HFA) aspirin 81 mg tablet,delayed 1 tab PO DAILY 04/23/21 05/06/21 07/22/21 History release ibuprofen 800 mg tablet 1 tab PO TID PRN 04/23/21 05/06/21 07/05/21 History levothyroxine 75 mcg tablet 1 tab PO DAILY@0630 04/23/21 05/06/21 04/22/21 History omeprazole 20 mg capsule,delayed 1 cap PO BID@0630,1630 04/23/21 05/06/21 04/22/21 History release oxybutynin chloride 5 mg 1 tab PO DAILY 04/23/21 05/06/21 04/22/21 History tablet,extended release 24 hr zinc sulfate 220 mg capsule 220 mg PO DAILY 04/23/21 05/06/21 04/22/21 History multivitamin 1 tab PO DAILY 05/05/21 05/06/21 Unknown History Exam Airway Mallampati Class: IV TM Dist: >3cm Neck ROM: Full Loose/Missing/Broken Teeth: Yes (Chipped front teeth , missing teeth . ) Heart: S1 , S2 Lungs: b/l breath sounds Assessment and Plan Assessment Anesthesia Assessment: Anesthesia Plan Discussed Final Anesthetic Review NPO: Yes ASA Class: II Final Preanesthetic Review: No Changes in Pt Med Stat, Meds/Allgs Chart Reviewed, Consent Obtained/Reviewed and Anes Risks/Benef Reviewed Patient Risk: Intermediate Procedure Risk: Intermediate Anesthetic Plan Anesthetic Plan: MAC: Disposition: Standard PACU
--- NOTE | ~2021-08-05 | FL_ITS ---
EXAMINATION: XR FLUOROSCOPY WITH IMAGES CLINICAL INFORMATION: Left genicular block COMPARISON: Standing AP knees and left knee 06/12/2019. TECHNIQUE: Fluoroscopy performed by Dr. Amos Erickson. Fluoroscopy time: 0.2 minutes DAP: 0.755 Gycm2 Images: 2 FINDINGS: There are spinal needles adjacent to the distal femoral shaft, medial and lateral sides, mid depth. There is a spinal needle adjacent to the proximal tibia on medial side mid depth. There is chondrocalcinosis seen involving the medial and lateral menisci similar to prior radiographs. FL/FL guidance in OR IMPRESSION: Fluoroscopy for pain management procedures.
[2021-08-05 07:51] VITALS: BP 132/68; PULSE 66; RESP 16; TEMP 36.4; O2SAT 97; BMI 35.3
[2021-08-05] MEDS: Lactated Ringers 1,000 ML 100 ML IVCONT (08:14)
--- NOTE | 2021-08-05 08:14 | MHC.SHP ---
Pre-Procedural Eval Section A Date of Service: 08/05/21 The patient is an INPATIENT: No Changes since office visit: Yes Patient answered all questions The History & Physical has been completed within 30 days and I have reviewed it.: No Section B Chief Complaint: Unilateral primary osteoarthritis, left knee Details of Present Illness: as above Relevant Family History (Specify if Yes): No Present Medications: see Short Stay Collaborative assessment Medical History: Significant History History of Previous Operations: No relevant previous surgery Allergies: Allergies Allergy/AdvReac Type Severity Reaction Status Date / Time sulfamethoxazole Allergy Intermediate HIVES Verified 08/05/21 07:48 [From Bactrim] trimethoprim [From Bactrim] Allergy Intermediate HIVES Verified 08/05/21 07:48 cheese Allergy Hives Verified 08/05/21 07:48 Review of Systems Sugical H&P ROS: Negative: Constitution, Cardiovascular, Respiratory, Neurological, Psychiatric, Hem-Onc, Allergic/Immunologic, Gastrointestinal, Genitourinary, Integumentary, Endocrine and Eyes/Ears/Nose/Throat and Yes, Specify: Musculoskeletal (osteoarthritis) Exam Surgical H&P Exam: Normal: HEENT, Normal: Heart, Normal: Lungs, Normal: Abdomen, Normal: Skin and Normal: Neurological and Significant Findings: Extremities (osteoarthritis) Plan Diagnosis/Plan: Unchanged I have reviewed the history and physical and performed a pertinent physical examination on my patient. No changes have occurred unless specified.
--- NOTE | 2021-08-05 08:16 | P.OP_ITS ---
Operative Note Operative Note Date of Service: 08/05/21 Narrative: GENICULAR NERVES BLOCK ? ?Informed consent was explained to the patient. All questions were explained and answered. The patient was taken inside the operating room. The patient was positioned supine on operating table with her LEFT leg elevated on a gel bin. Time-out was performed delineating correct site, side, the nature of the procedure, patient's allergy, preoperative antibiotic if needed. All operating room staff was participating in OR time-out procedure. C-arm was brought over the operating field and picture of the left knee was demonstrated on the screen. Anterolateral and anteromedial surfaces of the knee were prepped with chloroprep and draped with utility towels. The point of interest were delineated for: FOR: superior lateral genicular nerve as the connection of the metaphysis of the left femur with corresponding diaphysis on the lateral silhouette of the femur distal bone, For superior medial genicular nerve (suprapatellar saphenous) the point of interest was delineated is the confluence of the metaphysis of left femur with corresponding diaphysis on the medial silhouette on the femoral distal bone. For inferior medial genicular nerve (infrapatellar saphenous nerve) the point of interest was delineated as confluence of the metaphysis of the proximal tibia on the medial side with corresponding diaphysis of the same bone. The projections of the points of interest on anterior surface of the left knee was injected with small amount of lidocaine 2% 1-to 2 ml. After that 3 needles 22 gauge 3-1/2 inch long were driven to were the point of interest in tunnel vision fashion. When needles gently contacted the bones the position of the C-ar m was switched to the lateral view and needles positions were adjusted to assure that the tip of the needle is located at the mid shaft of each of the above described bones while the left knee condyles are superimposing on the lateral image. After that small amount of bupivacaine 0.5% was injected into each needle position total dose of bupivacaine was 4.5 cc. No steroids were used. Upon the completion of the injections the needles were removed sterile dressing was applied. Patient went to PACU where recovered uneventfully.
--- NOTE | 2021-08-05 09:26 | PM.OP ---
Brief Operative Note Date of Service: 08/05/21 Pre-op diagnosis: left knee osteoarthritis Post-op diagnosis: same Procedure: diagnostic left knee genicular nerve block. Implants: none Surgeon: Amos Erickson MD Anesthesia: MAC Was an Poultry Offal Icer used for this Procedure?: No Estimated blood loss (mL): 0 Pathology: none sent Condition: stable Disposition: PACU
[2021-08-05 09:38] VITALS: BP 94/62; PULSE 80; RESP 20; TEMP 36.4; O2SAT 95
[2021-08-05 09:41] VITALS: BP 113/64; PULSE 65; RESP 20; O2SAT 95
== END 2021-08-05 10:21 | disposition home or self-care (01) ==
PROVIDERS: PCP Internal Medicine; Visit Provider Anesthesiology
PROC: (CPT 64454; principal; 2021-08-05 09:00)
DX: M17.12 Unilateral primary osteoarthritis, left knee (principal); G89.29 Other chronic pain; M47.812 Spondylosis without myelopathy or radiculopathy, cervical region; M47.816 Spondylosis without myelopathy or radiculopathy, lumbar region; Z88.2 Allergy status to sulfonamides; Z96.641 Presence of right artificial hip joint; Z79.891 Long term (current) use of opiate analgesic
CPT/HCPCS: 64454; J2250

== ENCOUNTER → 2021-08-10 13:36 | Outpatient (BNVA) | payer MEDICARE, MEDICAID, SELFPAY | PROVIDERS: PCP Internal Medicine; Visit Provider Anesthesiology | DX: G89.4 Chronic pain syndrome (principal); M47.812 Spondylosis without myelopathy or radiculopathy, cervical region; M47.816 Spondylosis without myelopathy or radiculopathy, lumbar region; M17.12 Unilateral primary osteoarthritis, left knee; Z98.890 Other specified postprocedural states | CPT/HCPCS: Q3014 ==

== ENCOUNTER 2021-08-18 10:18 | Outpatient (REF) | payer MEDICARE, MEDICAID, SELFPAY ==
--- NOTE | ~2021-08-18 | XR_ITS ---
EXAMINATION: X-RAY BILATERAL KNEES. X-RAY LEFT KNEE CLINICAL INFORMATION: Pain COMPARISON: X-ray bilateral knees and left knee 06/12/2019 TECHNIQUE: AP bilateral knees one view. Left knee 2 views. FINDINGS: Left knee: Mild to moderate tricompartment arthritis more prominently involving the medial compartment. No fracture or dislocation. Chondrocalcinosis present. No effusion. Right knee: Mild medial compartment arthritis. No acute findings seen. XR/XR knee LT 2V IMPRESSION: Left knee: Tricompartment arthritis, more prominent in the medial compartment. Findings similar to previous. Right knee: Mild medial compartment arthritis.
--- NOTE | ~2021-08-18 | XR_ITS ---
EXAMINATION: X-RAY BILATERAL KNEES. X-RAY LEFT KNEE CLINICAL INFORMATION: Pain COMPARISON: X-ray bilateral knees and left knee 06/12/2019 TECHNIQUE: AP bilateral knees one view. Left knee 2 views. FINDINGS: Left knee: Mild to moderate tricompartment arthritis more prominently involving the medial compartment. No fracture or dislocation. Chondrocalcinosis present. No effusion. Right knee: Mild medial compartment arthritis. No acute findings seen. XR/XR knee standing BI IMPRESSION: Left knee: Tricompartment arthritis, more prominent in the medial compartment. Findings similar to previous. Right knee: Mild medial compartment arthritis.
== END 2021-08-18 10:19 | disposition home or self-care (01) ==
LOC: HO.HOSX 10:18
PROVIDERS: Visit Provider Orthopaedic Surgery
DX: M25.462 Effusion, left knee (principal); M17.12 Unilateral primary osteoarthritis, left knee; G89.4 Chronic pain syndrome
CPT/HCPCS: 73560; 73565; 99212

== ENCOUNTER → 2021-08-24 10:53 | Outpatient (BNVA) | payer MEDICARE, MEDICAID, SELFPAY | PROVIDERS: PCP Internal Medicine; Visit Provider Anesthesiology | DX: Z13.89 Encounter for screening for other disorder (principal) ==

== ENCOUNTER 2021-08-31 14:44 | Outpatient (REF) | payer MEDICARE, MEDICAID, SELFPAY ==
--- NOTE | ~2021-08-31 | MR_ITS ---
EXAMINATION: MR KNEE WITHOUT CONTRAST, LEFT CLINICAL INFORMATION: Left knee pain and swelling. Worsening. Osteoarthritis. COMPARISON: Left knee radiographs dated 08/18/2021. TECHNIQUE: MRI of the knee without contrast was performed using routine sequences on a high-field scanner. FINDINGS: MENISCI: Medial Meniscus: Mild medial extrusion of the meniscal body where there is probable nondisplaced oblique inner margin tearing. Lateral Meniscus: Partially discoid lateral meniscus without articular surface tearing. LIGAMENTS: Cruciate: Intact. Collateral: Intact. EXTENSOR MECHANISM: Intact. ARTICULAR CARTILAGE/BONE: Patellofemoral Compartment: Mild articular cartilage signal heterogeneity with tiny marginal osteophytes. Medial Compartment: Weightbearing medial femoral condyle articular cartilage signal heterogeneity with areas of full-thickness loss as well as small central osteophytes and mild subchondral cystic change. Marginal osteophytes. Lateral Compartment: Full-thickness articular cartilage fissuring along the central aspect of the lateral tibial plateau measuring up to 0.1 cm in ML dimension. Tiny marginal osteophytes. JOINT FLUID AND BURSAE: Small joint effusion and trace Brown's cyst. MR/MR knee LT wo con IMPRESSION: 1. Possible oblique inner margin tear of the medial meniscal body with medial extrusion. 2. Partially discoid lateral meniscus without associated tearing. 3. Moderate medial as well as mild lateral and minimal patellofemoral compartment osteoarthritis. Small joint effusion and trace Brown's cyst.
== END 2021-08-31 14:45 | disposition home or self-care (01) ==
LOC: HO.MRI 14:44
PROVIDERS: Visit Provider Orthopaedic Surgery
DX: M17.12 Unilateral primary osteoarthritis, left knee (principal); M25.462 Effusion, left knee
CPT/HCPCS: 73721

== ENCOUNTER → 2021-09-08 08:58 | Outpatient (BNVA) | payer MEDICARE, MEDICAID, SELFPAY | PROVIDERS: PCP Internal Medicine; Visit Provider Orthopaedic Surgery | DX: M17.12 Unilateral primary osteoarthritis, left knee (principal); G89.4 Chronic pain syndrome | CPT/HCPCS: 99212 ==

== ENCOUNTER 2021-09-19 00:38 | Emergency (ER) | payer MEDICARE, MEDICAID, SELFPAY ==
--- NOTE | ~2021-09-19 | CT_ITS ---
EXAMINATION: CT ABDOMEN AND PELVIS WITHOUT CONTRAST CLINICAL INFORMATION: Left flank pain COMPARISON: 04/23/2021 TECHNIQUE: Multidetector volumetric imaging was performed from the superior aspect of the liver through the pubic symphysis. Sagittal and coronal reformatted images were obtained on the technologist's workstation. This CT examination was performed using dose optimization techniques as appropriate, variously including the following: *Automated exposure control *Adjustment of mA and/or kV according to patient size (this includes techniques or standardized protocols for targeted exams where dose is matched to indication/reason for exam; i.e. extremities or head) *Use of iterative reconstruction technique DLP: 617 mGy-cm FINDINGS: LUNG BASES: The visualized lung bases are unremarkable. LIVER, GALLBLADDER, AND BILIARY TREE: The liver is normal in size, shape, and attenuation. No focal hepatic lesion or biliary ductal dilatation is present. Patient is status post cholecystectomy. PANCREAS: Unremarkable. SPLEEN: Unremarkable. ADRENAL GLANDS: Unremarkable. KIDNEYS AND URETERS: There is severe left hydronephrosis with a 5 mm calculus in the proximal left ureter; appearance is similar to 04/23/2021. Distal ureters are not adequately assessed due to streak artifact from right hip arthroplasty hardware. No right-sided hydronephrosis. A 2 mm calculus is present in the lower left kidney. Subcentimeter hyperdensity along the periphery of the upper left kidney is suggestive of a hyperdense cyst. BLADDER: Mildly distended, suboptimally assessed due to streak artifact in the pelvis. GASTROINTESTINAL TRACT: No evidence of bowel obstruction. Prominent submucosal fat in the ascending colon reflect sequelae of prior inflammation. No free fluid or free air is seen. ABDOMINAL WALL: No significant hernia is appreciated. LYMPH NODES: Normal. VASCULAR: Unremarkable. PELVIC VISCERA: Unremarkable. OSSEOUS STRUCTURES: Degenerative changes are noted in the spine. Status post right total hip arthroplasty. CT/CT abdomen pelvis wo con IMPRESSION: Proximal left ureteral calculus measuring 5 mm with severe hydronephrosis, similar to 04/23/2021.
[2021-09-19 01:29] VITALS: BP 160/84; PULSE 91; RESP 20; TEMP 36.9; O2SAT 95; BMI 38.6
--- NOTE | 2021-09-19 01:36 | ED.GENADULT ---
HPI - General Adult General Chief complaint: General Medical Stated complaint: L side pain; kidney stones? Time Seen by Provider: 09/19/21 01:30 Source: patient and family Mode of arrival: ambulatory History of Present Illness HPI narrative: 56-year-old female presents with history of renal colic and states that she has had left flank pain since yesterday but has become much worse today and is associated with nausea but no vomiting/fever/chills and patient denies any urinary pain/burning/frequency. Otherwise, she denies any shortness of breath/chest pain/palpitations or new cough. Related Data Home Medications Medication Instructions Recorded Confirmed pregabalin 150 mg capsule 150 mg PO TID 02/04/20 05/06/21 fluticasone propionate 110 1 puff INHALATION BID 04/08/20 05/06/21 mcg/actuation HFA aerosol inhaler albuterol sulfate 90 mcg/actuation 1 - 2 puff INHALATION Q4-6H PRN 04/23/21 05/06/21 aerosol inhaler (Ventolin HFA) aspirin 81 mg tablet,delayed 1 tab PO DAILY 04/23/21 05/06/21 release ibuprofen 800 mg tablet 1 tab PO TID PRN 04/23/21 05/06/21 levothyroxine 75 mcg tablet 1 tab PO DAILY@0630 04/23/21 05/06/21 omeprazole 20 mg capsule,delayed 1 cap PO BID@0630,1630 04/23/21 05/06/21 release oxybutynin chloride 5 mg 1 tab PO DAILY 04/23/21 05/06/21 tablet,extended release 24 hr zinc sulfate 220 mg capsule 220 mg PO DAILY 04/23/21 05/06/21 multivitamin 1 tab PO DAILY 05/05/21 05/06/21 Previous Rx's Medication Instructions Recorded tamsulosin 0.4 mg capsule 0.4 mg PO BEDTIME 14 Days #14 cap 05/11/21 oxycodone-acetaminophen 7.5 mg-325 1 tab PO Q6H PRN 30 Days #120 tab 09/03/21 mg tablet (Percocet) Allergies Allergy/AdvReac Type Severity Reaction Status Date / Time sulfamethoxazole Allergy Intermediate HIVES Verified 09/19/21 01:32 [From Bactrim] trimethoprim [From Bactrim] Allergy Intermediate HIVES Verified 09/19/21 01:32 cheese Allergy Hives Verified 09/19/21 01:32 Review of Systems Review of Systems: Pertinent positives and negatives as stated in HPI 10 point review of systems is otherwise negative. 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 Surgical History Hx of cholecystectomy Hx of total hip arthroplasty Hx of vitrectomy Social History Social History Household Members: None Housing: Apartment Are you a primary career and technology education teacher to a significant other at home: No Do you presently have visiting nurse or other home services: Yes ([employer]) Patient Tobacco Use Status: Never used Tobacco Advance Directives: No service: No Current occupational status: disabled Physical Exam ED Vital Signs: Vital Signs - 24 hr 09/19/21 01:29 09/19/21 03:05 09/19/21 03:06 Temperature 98.5 F Pulse Rate 91 79 Respiratory Rate 20 18 18 Blood Pressure 160/84 H 106/57 L Pulse Oximetry 95 09/19/21 04:03 Temperature Pulse Rate 76 Respiratory Rate 19 Blood Pressure 103/52 L Pulse Oximetry 95 BMI result Body Mass Index 38.6 VITAL SIGNS: Reviewed. GENERAL: Well developed, well nourished, in no acute distress. HEAD: Normocephalic/atraumatic EYES: PERRLA, EOMI EARS: Ext canals without abnormality OROPHARYNX: no oral lesions noted, posterior pharynx clear LUNGS: Normal breath sounds. No adventitious sounds or accessory muscle use. SpO2<95> CARDIOVASCULAR: Regular rate and rhythm without noted murmurs ABDOMEN: Soft, non-tender, non-distended with bowel sounds, no CVA tenderness NEUROLOGIC: Alert and oriented x 4. Course Course Course Narrative: 56-year-old female with history and clinical presentation consistent with renal colic and likely ureterolithiasis, no clinical or historical evidence to suggest diverticulitis, pneumonia, or pancreatitis. There is a possibility its MSK or pyelonephritis. On review of all investigations patient has a 5 mm stone in the proximal left ureter with significant hydronephrosis that is reported as consistent with prior CT imaging from April of this year. On re-evaluation patient states that she is still having pain and that she know she will not pass the stone. I discussed this case with Urology who accepts consultation and recommends admission to Medicine. I discussed the case with the inpatient hospitalist who accepts admission. Medical Decision Making Lab Data Result diagrams: 09/19/21 01:43 09/19/21 01:43 Labs: Lab Results 09/19/21 09/19/21 09/19/21 Range/Units 01:43 01:43 01:43 WBC 8.9 (4.8-10.8) X10*3/uL RBC 4.81 (4.20-5.50) X10*6/uL Hgb 15.0 (12.0-16.0) g/dl Hct 45.4 (37.0-47.0) % MCV 94.4 (80.0-98.0) fL MCH 31.2 (27.0-33.0) pg MCHC 33.0 (31.0-35.0) g/dl RDW 14.0 (11.0-16.0) % Plt Count 216 (160-400) X10*3/uL MPV 10.0 (9.4-12.3) fL Immature Gran % (Auto) 0.1 (0.0-0.4) % Neut % (Auto) 52.5 (45-73) % Lymph % (Auto) 35.0 (20-40) % [place] % (Auto) 9.4 (2-11) % Eos % (Auto) 2.8 (0-4) % Baso % (Auto) 0.2 (0-2) % Lymph # (Auto) 3.1 (1.2-4.9) X10*3/uL [place] # (Auto) 0.8 (0.1-1.2) X10*3/uL Eos # (Auto) 0.3 (0.0-0.4) X10*3/uL Baso # (Auto) 0.0 (0.0-0.2) X10*3/uL Abs Immat Gran (auto) 0.01 (0.00-0.03) X10*3/uL Absolute Neuts (auto) 4.7 (2.0-8.3) x10*3/uL Absolute Nucleated RBC 0.000 (0.0-0.012) X10*3/uL Nucleated RBC % (auto) 0.0 (0.0-0.2) /100WBC Sodium 141 (135-145) mmol/L Potassium 4.0 (3.3-5.1) mmol/L Chloride 104 (96-108) mmol/L Carbon Dioxide 27 (22-29) mmol/L Anion Gap 14 (12-20) BUN 13 (9-16) mg/dL Creatinine 0.86 (0.5-1.4) mg/dL Estim Creat Clear Calc 68.2 Estimated GFR > 60 Random Glucose 111 (60-115) mg/dL Calcium 9.7 (8.4-10.2) mg/dL Total Bilirubin 0.9 (0.0-1.0) mg/dL AST 174 H (5-31) U/L ALT 167 H (0-31) U/L Alkaline Phosphatase 117 (39-117) U/L Total Protein 7.7 (6.5-8.0) g/dL Albumin 4.1 (3.5-5.0) g/dL Urine Color YELLOW Urine Appearance CLOUDY Urine pH 6.0 (5.0-8.0) Ur Specific [place] >= 1.030 H (1.005-1.025) Urine Protein 1+ H (NEG-TRACE) MG/DL Urine Glucose (UA) NEG (NEG) MG/DL Urine Ketones NEG (NEG) MG/DL Urine Blood TRACE (NEG) Urine Nitrite NEG (NEG) Ur Leukocyte Esterase 2+ H (NEG) Urine RBC 1-4 (0) /HPF Urine WBC 50-75 H (0-4) /HPF Ur Squamous Epith Cells 2+ /LPF Urine Bacteria 1+ /LPF Urine Mucus 1+ /LPF Discharge Plan Discharge Clinical Impression: Renal colic, Hydronephrosis, Ureterolithiasis Patient Disposition: Admitted As Inpatient Prescriptions: No Action oxycodone-acetaminophen [Percocet] 7.5-325 mg tablet 1 tab PO Q6H PRN (Reason: Pain (Scale Score 4-6)) 30 Days Qty: 120 0RF Rx Instructions: Partial Fill upon patient request. ibuprofen 800 mg tablet 1 tab PO TID PRN (Reason: Pain (Scale Score 1-3)) 0RF aspirin 81 mg tablet,delayed release (DR/EC) 1 tab PO DAILY 0RF levothyroxine 75 mcg tablet 1 tab PO DAILY@0630 0RF oxybutynin chloride 5 mg tablet extended release 24hr 1 tab PO DAILY 0RF omeprazole 20 mg capsule,delayed release(DR/EC) 1 cap PO BID@0630,1630 0RF albuterol sulfate [Ventolin HFA] 90 mcg/actuation HFA aerosol inhaler 1 - 2 puff inhalation Q4-6H PRN (Reason: Shortness Of Breath) 0RF zinc sulfate 220 mg Capsule 220 mg PO DAILY 0RF multivitamin Tablet 1 tab PO DAILY 0RF tamsulosin 0.4 mg capsule 0.4 mg PO BEDTIME 14 Days Qty: 14 0RF pregabalin 150 mg capsule 150 mg PO TID 0RF fluticasone propionate 110 mcg/actuation HFA aerosol inhaler 1 puff inhalation BID 0RF
[2021-09-19 01:50] LABS: MANUAL DIFF FLAG NO
[2021-09-19] MEDS: Ketorolac Tromethamine 30 MG/ML VIAL 15 MG IVPUSH (01:50)
[2021-09-19] MEDS: ondansetron HCL 4 MG/2 ML VIAL IVPUSH (01:51)
[2021-09-19] MEDS: 0.9 % Sodium Chloride 1,000 ML 999 ML IV (01:52)
[2021-09-19 01:55] LABS: Basophils Percent Auto 0.2 % (0-2); Eosinophils Absolute Auto 0.3 X10*3/uL (0.0-0.4); Eosinophils Percent Auto 2.8 % (0-4); Hematocrit 45.4 % (37.0-47.0); Imm Gran Abs Auto 0.01 X10*3/uL (0.00-0.03); Imm Gran Pct Auto 0.1 % (0.0-0.4); Lymphocytes Absolute Auto 3.1 X10*3/uL (1.2-4.9); Mean Corpuscular Hemoglobin 31.2 pg (27.0-33.0); Mean Corpuscular Volume 94.4 fL (80.0-98.0); Monocytes Absolute Auto 0.8 X10*3/uL (0.1-1.2); Monocytes Percent Auto 9.4 % (2-11); Neutrophils Absolute Auto 4.7 x10*3/uL (2.0-8.3); Neutrophils Percent Auto 52.5 % (45-73); Platelet Count 216 X10*3/uL (160-400); Red Blood Count 4.81 X10*6/uL (4.20-5.50); White Blood Count 8.9 X10*3/uL (4.8-10.8)
[2021-09-19 01:57] LABS: Appearance Urine CLOUDY; Color Urine YELLOW; Glucose Urine UA NEG (NEG); Leukocyte Esterase Urine 2+ (NEG); Nitrite Urine NEG (NEG); Specific Gravity - Urine >= 1.030 (1.005-1.025); UACC Culture Trigger YES; Urine Blood TRACE (NEG); Urine Ketones NEG (NEG); Urine Protein 1+ MG/DL (NEG-TRACE)
[2021-09-19 02:03] LABS: Bacteria Urine 1+ /LPF; Mucus Urine 1+ /LPF; Squamous Epithelial Cell Urine 2+ /LPF; WBC Urine 50-75 /HPF (0-4)
[2021-09-19 02:10] LABS: Alanine Aminotransferase 167 U/L (0-31); Albumin Level 4.1 g/dL (3.5-5.0); Alkaline Phosphatase 117 U/L (39-117); Anion Gap 14 (12-20); Aspartate Amino Transferase 174 U/L (5-31); Bilirubin Total 0.9 mg/dL (0.0-1.0); Blood Urea Nitrogen 13 mg/dL (9-16); Calcium 9.7 mg/dL (8.4-10.2); Carbon Dioxide 27 mmol/L (22-29); Chloride 104 mmol/L (96-108); Creatinine Clr Calc Pharmacy 68.2; Estimated Glomerular Filt Rate > 60; Glucose Random 111 mg/dL (60-115); Sodium 141 mmol/L (135-145); Total Protein 7.7 g/dL (6.5-8.0)
[2021-09-19 03:05] VITALS: RESP 18
[2021-09-19] MEDS: fentaNYL citrate/PF 100 MCG/2 ML VIAL 25 MCG IVPUSH (03:05)
[2021-09-19 03:06] VITALS: BP 106/57; PULSE 79; RESP 18
[2021-09-19 04:03] VITALS: BP 103/52; PULSE 76; RESP 19; O2SAT 95
[2021-09-19 05:35] LABS: COVID-19 Test Negative (Negative); IDNOW Serial# 16C4AD1C
--- NOTE | 2021-09-19 07:58 | PC.NURSE ---
HAVE ATTEMPTED TO CONTACT UROLOGIST IN ABOUT PROCEDURE FOR PATIENT AT [id number] HAVE NOT GOTTEN A RESPONSE. PT STATES IF SHE IS NOT GOING TO HAVE PROCEDURE TODAY SHE WOULD LIKE TO GO HOME, CONTACTED HOSPITALIST.
[2021-09-19] MEDS: cefTRIAXone sodium 1 GM in 0.9 % Sodium Chloride 50 ML IV (08:31)
--- NOTE | 2021-09-19 08:41 | PHA.MEDREC ---
Pharmacy Consult ? Medication Reconciliation Pharmacy has completed the medication reconciliation.
== END 2021-09-19 09:05 | disposition home or self-care (01) ==
PROVIDERS: Emergency Provider Student in an Organized Health Care Education/Training Program; PCP Internal Medicine
DX: N20.1 Calculus of ureter (principal); N23 Unspecified renal colic; N13.30 Unspecified hydronephrosis; Z20.822 Contact with and (suspected) exposure to COVID-19; Z79.899 Other long term (current) drug therapy
CPT/HCPCS: 36415; 74176; 80053; 81001; 85025; 87086; 87635; 96361; 96365; 96375; 99284; J0696; J1885; J2405; J3010

== ENCOUNTER → 2021-09-21 13:02 | Outpatient (BNVA) | payer MEDICARE, MEDICAID, SELFPAY | PROVIDERS: PCP Internal Medicine; Visit Provider Anesthesiology | DX: Z79.891 Long term (current) use of opiate analgesic (principal) | CPT/HCPCS: 99211 ==

== ENCOUNTER 2021-09-27 11:24 | Outpatient (AMB) | payer MEDICARE, MEDICAID, SELFPAY ==
--- NOTE | 2021-09-27 11:40 | MHC.OFFVIS ---
Intake Intake Visit Reasons: ER follow up Pre K Teacher Required: Yes Pre K Teacher Language: Network Development Coordinator Name: luis manuel lebron Information Interpreted: non-clinical & clinical Accompanied by: Self / Same As Patient Allergies sulfamethoxazole [From Bactrim] Allergy (Intermediate, Verified 04/19/23 12:58) HIVES trimethoprim [From Bactrim] Allergy (Intermediate, Verified 04/19/23 12:58) HIVES cheese Allergy (Verified 04/19/23 12:58) Hives HPI HPI Comments History of Present Illness Details Trini is a pleasant female. She is a patient of Dr. Darby. She seen for following urologic conditions - nephrolithiasis Telemedicine evaluation 15 minute consultation Doximity bhargav Nephrolithiasis Here for follow-up evaluation Pain has resolved on left side Does have occasional left back pain but this is musculoskeletal in nature UA today shows concentrated urine with no blood Intervention 05/14 left ESWL left proximal ureteric stone Imaging 05/14 CT scan left proximal ureteric stone with left hydroureteronephrosis Laboratory studies 05/14 Ca 9.5 Therapeutic plan - encourage fluids - surveillance imaging PFS Medical History Osteoarthritis of left knee Asthma Renal calculi OAB (overactive bladder) GERD (gastroesophageal reflux disease) Depression Ambulates with cane Low back pain Kidney stone on left side Sciatica Osteoarthritis Hypothyroidism Fatty liver History of palpitations Anxiety Chronic pain syndrome 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 Surgical History Hx of vitrectomy Hx of cholecystectomy Hx of total hip arthroplasty Social History Household Members: None Housing: Apartment Are you a primary career development engineer to a significant other at home: No Do you presently have 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 nurse or 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 services: 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 (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 MANAGER) Alcohol intake: never Patient Tobacco Use Status: Never used Tobacco Advance Directives Date on File: 04/26/21 service: No Current occupational status: disabled Review of Systems Const All systems reviewed & are unremarkable except as noted in HPI and below Reports no additional complaints Resp Reports no additional complaints GI Reports no additional complaints Reports as per HPI Musc Reports no additional complaints Physical Exam Telemedicine evaluation Appropriate responses Regular breathing rate and rhythm HEENT Head: Yes normal to inspection Ears: hearing grossly normal bilaterally Eyes General: appearance normal, both eyes and all related structures Neck Neck: Yes normal visual inspection Chest Chest palpation & inspection: normal inspection of the chest Resp Effort & Inspection: normal respiratory effort and able to speak in complete sentences Assessment & Plan Assessment & Plan (1) Nephrolithiasis: Code(s): N20.0 - Calculus of kidney Plan 1 year follow-up imaging Patient Instructions: Imaging studies, laboratory and physical exam results were discussed and reviewed in detail. No major barriers to patient understanding were identified. An opportunity to ask questions regarding the treatment plan was provided. All questions were answered. The patient expressed understanding and agreement with the above treatment plan. The patient is aware they should contact our office by phone for worsening of their current condition or the appearance of new urologic symptoms. Compliance is encouraged with any medications and followup testing that is ordered. It is a privilege to participate in the urologic care of your patient. If you have any questions or concerns regarding treatment for the above conditions, or other urologic issues, please do not hesitate to contact me. The office telephone contact is [phone]. This note is constructed using voice recognition software. While every effort has been made to ensure accuracy children teacher errors may have been included. Yours sincerely, Dr Antwon Burleson MD, [facility] - Urology Providers of Expert, Compassionate Care for the Genitourinary System Telehealth Telehealth Location of provider rendering services: practice address Location of patient: address on file Patient Identification confirmed using: Name, : Yes Telehealth method: voice only Patient verbally consented to treatment: Yes Patient verbally consented to billing insurance company: Yes Patient informed of any privacy concerns related to visit: Yes Coding Level of Care Code Tele Est Pt Level 3 (60205) Diagnoses Nephrolithiasis N20.0
== END 2021-09-27 11:45 | disposition home or self-care (01) ==
PROVIDERS: PCP Internal Medicine; Visit Provider Urology
DX: N20.0 Calculus of kidney (principal)
CPT/HCPCS: 99499

== ENCOUNTER → 2021-09-27 11:24 | Outpatient (BNVA) | payer MEDICARE, MEDICAID, SELFPAY | PROVIDERS: PCP Internal Medicine; Visit Provider Urology ==

== ENCOUNTER → 2021-09-27 11:24 | Outpatient (BNVA) | payer MEDICARE, MEDICAID, SELFPAY | PROVIDERS: PCP Internal Medicine; Visit Provider Urology | DX: Z13.89 Encounter for screening for other disorder (principal) ==

== ENCOUNTER → 2021-10-19 13:10 | Outpatient (BNVA) | payer MEDICARE, MEDICAID, SELFPAY | PROVIDERS: PCP Internal Medicine; Visit Provider Anesthesiology | DX: Z79.891 Long term (current) use of opiate analgesic (principal) | CPT/HCPCS: 99211 ==

== ENCOUNTER 2021-11-09 05:53 | Emergency (ER) | payer MEDICARE, MEDICAID, SELFPAY ==
--- NOTE | ~2021-11-09 | XR_ITS ---
EXAMINATION: XR LUMBOSACRAL SPINE WITH OBLIQUES CLINICAL INFORMATION: Low back pain COMPARISON: Sagittal reconstruction from abdomen pelvis CT 09/19/2021. TECHNIQUE: AP, both oblique, and lateral views of the lumbar spine. Lateral view of the lumbosacral junction. FINDINGS: Thoracolumbar levoscoliosis noted. Spondylitic changes observed. No acute compression fractures seen. Multilevel facet arthrosis. Mild degenerative change at the SI joints. Slight eccentric degenerative disc space narrowing T12-L1 and L1-L2. Prosthetic right hip observed. There are postoperative changes in the right upper quadrant. XR/XR lumbar spine 4V min IMPRESSION: No acute compression fracture. Degenerative changes as noted.
[2021-11-09 06:34] VITALS: BP 122/64; PULSE 68; RESP 18; TEMP 36.5; O2SAT 95; BMI 29.2
--- NOTE | 2021-11-09 09:03 | ED_ITS ---
HPI - General Adult General Chief complaint: General Medical Stated complaint: sciatica? R buttocks pain Time Seen by Provider: 11/09/21 08:43 Source: patient Mode of arrival: ambulatory Limitations: other (uses cane) History of Present Illness HPI narrative: 56-year-old female with a past medical history of low back pain, sciatica, spondylosis, chronic pain, and kidney stones presents for right-sided buttock pa in that started yesterday. Patient has sharp shooting electrical shock like pain radiating down her right leg into her upper right thigh. Patient tried a heating pad and Motrin, it is not working. Patient has an ultrasound of her kidney scheduled today at 15:[address] Burleson. The patient denies flank pain, denies fevers. States she has had lithotripsy multiple times. States this does not feel like kidney pain to her. Patient has no red flag symptoms, no leg weakness, no saddle paresthesias, no fevers, no urinary retention, no incontinence of bowel or bladder, no history of cancer, no history of IV drug use Related Data Home Medications Medication Instructions Recorded Confirmed pregabalin 150 mg capsule 150 mg PO TID 02/04/20 10/19/21 fluticasone propionate 110 1 puff inhalation BID 04/08/20 10/19/21 mcg/actuation HFA aerosol inhaler albuterol sulfate 90 mcg/actuation 1 - 2 puff inhalation Q4-6H PRN 04/23/21 10/19/21 aerosol inhaler (Ventolin HFA) Shortness Of Breath aspirin 81 mg tablet,delayed 81 mg PO DAILY 04/23/21 10/19/21 release ibuprofen 800 mg tablet 800 mg PO TID PRN Pain (Scale 04/23/21 10/19/21 Score 1-3) levothyroxine 75 mcg tablet 75 mcg PO DAILY@62904/23/21 10/19/21 omeprazole 20 mg capsule,delayed 20 mg PO DAILY@62904/23/21 10/19/21 release multivitamin 1 tab PO DAILY 05/05/21 10/19/21 levofloxacin 500 mg tablet 500 mg PO DAILY 09/27/21 10/19/21 Previous Rx's Medication Instructions Recorded ondansetron 4 mg disintegrating 4 mg PO Q8H PRN nausea and 09/19/21 tablet vomiting #20 tabs oxycodone-acetaminophen 7.5 mg-325 1 tab PO Q6H PRN pain 30 days #120 10/20/21 mg tablet (Percocet) tabs prednisone 20 mg tablet 60 mg PO DAILY 5 days #15 tabs 11/09/21 Allergies Allergy/AdvReac Type Severity Reaction Status Date / Time sulfamethoxazole Allergy Intermediate HIVES Verified 10/19/21 14:14 [From Bactrim] trimethoprim [From Bactrim] Allergy Intermediate HIVES Verified 10/19/21 14:14 cheese Allergy Hives Verified 10/19/21 14:14 Review of Systems Constitutional: Constitutional: Denies body ache(s), Denies chills, Denies fatigue, Denies fever(s), Denies malaise and Denies weakness Eyes: Eyes: Denies diplopia Cardiovascular: Cardiovascular: Denies chest pain, Denies syncope, Denies leg edema, Denies lightheadedness, Denies Loss of Consciousness, Denies palpitations and Denies dyspnea Respiratory: Respiratory: Denies chest congestion, Denies cough and Denies dyspnea Gastrointestinal: Gastrointestinal: Denies abdominal pain, Denies he matochezia, Denies constipation, Denies fecal incontinence, Denies diarrhea, Denies nausea and Denies vomiting Genitourinary: Genitourinary: Denies urinary frequency, Denies difficulty voiding, Denies urinary incontinence and Denies urinary hesitancy Musculoskeletal: Musculoskeletal: Reports back pain Neurologic: Denies confusion, Denies syncope and Denies weakness Psychiatric: Psychiatric: Denies anxiety, Denies confusion and Denies depression Endocrine: Endocrine: Denies fatigue and Denies palpitations PMFSH Past Medical History Medical History Ambulates with cane Anxiety Asthma Chronic pain syndrome Depression Fatty liver GERD (gastroesophageal reflux disease) History of palpitations Hypothyroidism Kidney stone on left side Low back pain OAB (overactive bladder) Osteoarthritis Osteoarthritis of left knee Renal calculi Sciatica 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 Surgical History Hx of cholecystectomy Hx of total hip arthroplasty Hx of vitrectomy Social History Social History Household Members: None Housing: Apartment Are you a primary professional healthcare representative to a significant other at home: No Do you presently have visiting nurse or other home services: Yes (GRADE AND CENTER MARKER) Patient Tobacco Use Status: Never used Tobacco service: No Current occupational status: disabled Physical Exam ED Vital Signs: Vital Signs - 24 hr 11/09/21 06:34 Temperature 97.7 F Pulse Rate 68 Respiratory Rate 18 Blood Pressure 122/64 Pulse Oximetry 95 Oxygen Delivery Method Room Air BMI result Body Mass Index 29.2 Const General: No confusion Nutritional Appearance: well nourished Orientation/consciousness: No confusion Limitations: no limitations Eyes Conjunctivae: conjunctivae normal Pupils: Equal, round and reactive pupils present EOM: EOMs intact bilaterally Neck Neck: Yes full ROM, Yes no lymphadenopathy and Yes supple Resp Effort & Inspection: normal respiratory effort and able to speak in complete sentences Auscultation: clear to auscultation bilaterally, no crackles, no rales, no rhonchi and no wheezes Cardio Rate: regular rate Rhythm: regular rhythm Heart sounds: S1 normal heart sound present and S2 normal heart sound present GI Inspection: Yes normal to inspection Palpation (GI): Soft to palpation, nontender, no guarding and not rigid Percussion: Yes normal to percussion Auscultation: normal bowel sounds General: Yes no CVA tenderness Back/Spine/Pelvis Back: no CVA tenderness Cervical Spine: normal cervical lordosis, cervical ROM normal, No Cervical spine tenderness, No step off deformity and No cervical ROM abnormal Thoracic/Lumbar Spine: straight leg raise negative bilaterally, No thoraco- lumbar spasm, No thoracic spinal tenderness and No lumbar spinal tenderness Pelvis: buttock tenderness on the right Skin General skin exam: no rashes or lesions noted Neuro General: No confusion Cranial nerves: Yes Equal, round and reactive pupils present Extrem Right lower extremity: normal to inspection, full ROM and normal capillary refill Left lower extremity: normal to inspection, full ROM and normal capillary refill Psych Appearance: grossly normal Affect: normal affect Attitude: cooperative Thought process: Normal thought process present Course Course Course Narrative: 56-year-old female presents for right buttock pain with pain radiating down her right leg since yesterday. Patient has no red flag symptoms, her straight leg raise is negative bilaterally, she has no vertebral point tenderness, she has no CVA tenderness. Patient has intact bilateral lower extremity pulses, sensation, motor strength, and DTRs. Will treat with prednisone, have patient follow-up with her PCP, and keep her appointment with Dr. Burleson to investigate her ongoing kidney stones this afternoon. Patient verbalized agreement understanding of the plan. Reevaluation(s) Reevaluation #1: FINDINGS: Thoracolumbar levoscoliosis noted. Spondylitic changes observed. No acute compression fractures seen. Multilevel facet arthrosis. Mild degenerative change at the SI joints. Slight eccentric degenerative disc space narrowing T12-L1 and L1-L2. Prosthetic right hip observed. There are postoperative changes in the right upper quadrant. XR/XR lumbar spine 4V min IMPRESSION: No acute compression fracture. Degenerative changes as noted. ? Discharge Plan Discharge Clinical Impression: Sciatica of right side Patient Disposition: Home, Self-Care Instructions: Sciatica (ED) Additional Instructions: Please call your PCP to follow up from today's emergency room visit. Please take 3 pills of prednisone each morning. Please keep your appointment with Dr Burleson today at 3 pm, and let him know you were in the ER this morning. Please return to ER if you have leg weakness, tingling or numbness in your groing, if you are incontinenet of bowel or bladder, or for any new or concerning symptoms Prescriptions: New prednisone 20 mg tablet 60 mg PO DAILY 5 Days Qty: 15 0RF No Action oxycodone-acetaminophen [Percocet] 7.5-325 mg tablet 1 tab PO Q6H PRN (Reason: pain) 30 Days Qty: 120 0RF Rx Instructions: Partial fill only per patient's request ibuprofen 800 mg tablet 800 mg PO TID PRN (Reason: Pain (Scale Score 1-3)) aspirin 81 mg tablet,delayed release (DR/EC) 81 mg PO DAILY levothyroxine 75 mcg tablet 75 mcg PO DAILY@0630 omeprazole 20 mg capsule,delayed release(DR/EC) 20 mg PO DAILY@0630 albuterol sulfate [Ventolin HFA] 90 mcg/actuation HFA aerosol inhaler 1 - 2 puff inhalation Q4-6H PRN (Reason: Shortness Of Breath) ondansetron 4 mg tablet,disintegrating 4 mg PO Q8H PRN (Reason: nausea and vomiting) Qty: 20 0RF multivitamin Tablet 1 tab PO DAILY pregabalin 150 mg capsule 150 mg PO TID fluticasone propionate 110 mcg/actuation HFA aerosol inhaler 1 puff inhalation BID levofloxacin 500 mg tablet 500 mg PO DAILY Interventions: ED Discharge Assessment Last Done: 11/09/21 10:25 Discharge Date/Time: 11/09/21 10:26
[2021-11-09] MEDS: predniSONE 20 MG TABLET 60 MG PO (09:46)
== END 2021-11-09 10:26 | disposition home or self-care (01) ==
PROVIDERS: Emergency Provider Emergency Medicine; PCP Internal Medicine
DX: M54.41 Lumbago with sciatica, right side (principal); Z79.899 Other long term (current) drug therapy
CPT/HCPCS: 72110; 76775; 99283

== ENCOUNTER 2021-11-09 14:54 | Outpatient (REF) | payer MEDICARE, MEDICAID, SELFPAY ==
--- NOTE | ~2021-11-09 | US_ITS ---
EXAMINATION: US RETROPERITONEAL LIMITED (RENAL ONLY) CLINICAL INFORMATION: Calculus of kidney. COMPARISON: CT abdomen pelvis 09/19/2021. Ultrasound renal 06/15/2021. X-ray KUB 05/11/2021. TECHNIQUE: Real-time imaging of the kidneys. FINDINGS: RIGHT KIDNEY: 10.6 x 4.0 x 4.8 cm (SAG x AP x TRV). The kidney is normal in size, contour, and echogenicity. Renal cortical thickness is normal. No renal calculi or focal parenchymal lesions. There is mild proximal ureterectasis. No bay hydronephroureter is noted. LEFT KIDNEY: 10.7 x 5.0 x 4.8 cm (SAG x AP x TRV). The kidney is normal in size, contour, and echogenicity. Renal cortical thickness is normal. No renal focal parenchymal lesions. At the interpolar aspect, a 2 mm nonobstructing calculus is seen, with twinkle artifact. There is mild hydronephroureter. OTHER: No right ureteric jet is seen. A left ureteric jet is noted. US/US renal BI IMPRESSION: 1. There is mild left hydronephroureter. There is mild right proximal ureterectasis, without bay hydronephroureter. 2. A 2 mm nonobstructing left renal calculus is seen. No right renal calculus is seen.
== END 2021-11-09 14:55 | disposition home or self-care (01) ==
LOC: HO.US 14:54
PROVIDERS: Visit Provider Urology
DX: Z13.89 Encounter for screening for other disorder (principal)
CPT/HCPCS: 76775

== ENCOUNTER 2021-11-12 14:43 | Emergency (ER) | payer MEDICARE, MEDICAID, SELFPAY ==
[2021-11-12 15:03] VITALS: BP 186/75; PULSE 71; RESP 18; TEMP 35.6; O2SAT 95; BMI 29.2
[2021-11-12 15:25] LABS: MANUAL DIFF FLAG NO
[2021-11-12 15:27] LABS: Basophils Percent Auto 0.2 % (0-2); Eosinophils Absolute Auto 0.1 X10*3/uL (0.0-0.4); Eosinophils Percent Auto 0.4 % (0-4); Hematocrit 45.1 % (37.0-47.0); Hemoglobin 14.7 g/dl (12.0-16.0); Imm Gran Abs Auto 0.04 X10*3/uL (0.00-0.03); Imm Gran Pct Auto 0.3 % (0.0-0.4); Lymphocytes Absolute Auto 4.7 X10*3/uL (1.2-4.9); Mean Corpuscular HGB Conc 32.6 g/dl (31.0-35.0); Mean Corpuscular Hemoglobin 31.4 pg (27.0-33.0); Mean Corpuscular Volume 96.4 fL (80.0-98.0); Mean Platelet Volume 10.3 fL (9.4-12.3); Monocytes Absolute Auto 1.2 X10*3/uL (0.1-1.2); Monocytes Percent Auto 8.7 % (2-11); Neutrophils Absolute Auto 8.2 x10*3/uL (2.0-8.3); Neutrophils Percent Auto 57.4 % (45-73); Platelet Count 205 X10*3/uL (160-400); Red Blood Count 4.68 X10*6/uL (4.20-5.50); Red Cell Distribution Width 13.9 % (11.0-16.0); White Blood Count 14.2 X10*3/uL (4.8-10.8)
[2021-11-12 15:41] LABS: Anion Gap 16 (12-20); Blood Urea Nitrogen 15 mg/dL (9-16); Calcium 9.7 mg/dL (8.4-10.2); Carbon Dioxide 27 mmol/L (22-29); Chloride 108 mmol/L (96-108); Creatinine Clr Calc Pharmacy 49.6; Estimated Glomerular Filt Rate 56; Glucose Random 106 mg/dL (60-115); Potassium 4.5 mmol/L (3.3-5.1); Sodium 146 mmol/L (135-145)
== END 2021-11-12 22:30 | disposition left against medical advice (07) ==
PROVIDERS: Emergency Provider Emergency Medicine; PCP Internal Medicine
DX: R10.9 Unspecified abdominal pain (principal); N20.0 Calculus of kidney; Z87.442 Personal history of urinary calculi
CPT/HCPCS: 36415; 80048; 85025; 99283

== ENCOUNTER 2021-11-13 00:37 | Emergency (ER) | payer MEDICARE, MEDICAID, SELFPAY ==
[2021-11-13 00:52] VITALS: BP 134/77; PULSE 77; RESP 16; TEMP 36.9; O2SAT 100; BMI 33.3
== END 2021-11-13 05:47 | disposition left against medical advice (07) ==
PROVIDERS: Emergency Provider Emergency Medicine; PCP Internal Medicine
DX: N20.0 Calculus of kidney (principal)
CPT/HCPCS: 99281

== ENCOUNTER 2021-11-30 10:31 | Outpatient (REF) | payer MEDICARE, MEDICAID, SELFPAY | END 2021-11-30 10:32 | disposition home or self-care (01) | LOC: HO.LAB 10:31 | PROVIDERS: PCP Internal Medicine; Visit Provider Urology | DX: N39.0 Urinary tract infection, site not specified (principal); N20.0 Calculus of kidney | CPT/HCPCS: 87086; 87147; 99212 ==

== ENCOUNTER 2022-03-21 09:23 | Outpatient (REF) | payer MEDICARE, MEDICAID, SELFPAY ==
--- NOTE | ~2022-03-21 | US_ITS ---
EXAMINATION: US RETROPERITONEAL LIMITED (RENAL ONLY) CLINICAL INFORMATION: Calculus of kidney. COMPARISON: Renal ultrasound 11/09/2021 and 06/15/2021. CT abdomen and pelvis 09/19/2021. X-ray KUB 05/11/2021 and 06/11/2013. TECHNIQUE: Real-time imaging of the kidneys. FINDINGS: RIGHT KIDNEY: 10.9 x 5.4 x 4.9 cm (SAG x AP x TRV). The kidney is normal in size, contour, and echogenicity. Renal cortical thickness is normal. No calculi or focal parenchymal lesions. No hydronephrosis. LEFT KIDNEY: 10.2 x 4.5 x 4.9 cm (SAG x AP x TRV). The kidney is normal in size, contour, and echogenicity. Renal cortical thickness is normal. No focal parenchymal lesions. There is an echogenic stone midpole measuring 0.5 cm. Mild pelvic fullness and dilated calyces versus seen suspicious of mild hydronephrosis. US/US renal BI IMPRESSION: Nonobstructive echogenic calculi midpole left kidney. There is mild dilated calyces and pelvic fullness question mild hydronephrosis Right kidney is unremarkable.
== END 2022-03-21 09:24 | disposition home or self-care (01) ==
LOC: HO.US 09:23
PROVIDERS: PCP Internal Medicine; Visit Provider Urology
DX: N20.0 Calculus of kidney (principal)
CPT/HCPCS: 76775

== ENCOUNTER 2022-04-28 09:25 | Emergency (ER) | payer MEDICARE, MEDICAID, SELFPAY ==
--- NOTE | ~2022-04-28 | CT_ITS ---
EXAMINATION: CT ABDOMEN AND PELVIS WITH CONTRAST CLINICAL INFORMATION: Right lower quadrant abdominal pain. COMPARISON: 09/19/2021 CT scan of the abdomen and pelvis. TECHNIQUE: Multidetector volumetric images were obtained from the superior aspect of the liver through the pubic symphysis following administration 85 mL of Omnipaque 350 intravenous contrast. Sagittal and coronal reformatted images were obtained on the technologist's workstation. Oral contrast: No This CT examination was performed using dose optimization techniques as appropriate, variously including the following: *Automated exposure control *Adjustment of mA and/or kV according to patient size (this includes techniques or standardized protocols for targeted exams where dose is matched to indication/reason for exam; i.e. extremities or head) *Use of iterative reconstruction technique DLP: 557 mGy-cm FINDINGS: LUNG BASES: The visualized lung bases are unremarkable. LIVER, GALLBLADDER, AND BILIARY TREE: No hepatic abnormality. Status post hysterectomy. PANCREAS: Unremarkable. SPLEEN: Unremarkable. ADRENAL GLANDS: Unremarkable. KIDNEYS AND URETERS: No right nephrolithiasis or hydroureteronephrosis. Mild asymmetric left pelvocaliectasis without obstructing abnormality. Tiny left lateral upper pole exophytic cyst. No left nephrolithiasis or ureterectasis. BLADDER: Unremarkable. GASTROINTESTINAL TRACT: The stomach and small bowel unremarkable. The appendix is not confidently identified. No evidence for acute appendicitis. Generalized decompressed colon with mural fatty infiltration, most pronounced proximally. Mild mural thickening and pericolonic infiltrative changes are seen in the mid one third of the sigmoid colon with mild diverticulosis. The rectum is unremarkable. ABDOMINAL WALL: Post surgical changes in the anterior abdominal wall with several tiny fat-containing hernias at the umbilical and supraumbilical levels. LYMPH NODES: No lymphadenopathy. VASCULAR: Unremarkable. PELVIC VISCERA: Unremarkable. OSSEOUS STRUCTURES: Mild thoracolumbar levoscoliosis and multilevel degenerative changes without acute or suspicious abnormality. CT/CT abdomen pelvis w IV con IMPRESSION: 1. Short segment mild mural thickening in the mid one third of the sigmoid colon adjacent to diverticuli suggestive of acute mild diverticulitis. This was not seen previously. If clinically indicated, short-term repeat contrast-enhanced pelvic CT scan is recommended in 3 months to assess for resolution as malignancy cannot be completely excluded. 2. Interval resolution of previously seen left hydronephrosis with mild residual left pelvocaliectasis.
[2022-04-28 09:35] VITALS: BP 113/74; PULSE 88; RESP 20; TEMP 36; O2SAT 96; BMI 34.8
--- NOTE | 2022-04-28 10:00 | ED_ITS ---
HPI - General Adult General Chief complaint: Abdominal Pain Stated complaint: abd pain Time Seen by Provider: 04/28/22 10:00 Source: patient Mode of arrival: ambulatory Limitations: no limitations History of Present Illness HPI narrative: Patient is a 56 year old assigned female at with a history of chronic pain syndrome presenting to the emergency department today with lower abdominal pain. Patient states that over the last 4 days she has had abdominal pain and nausea. Patient denies any dizziness, lightheadedness, vomiting, fever, chills, blurry vision, double vision, loss of vision, chest pain, difficulty breathing, shortness of breath, back pain, night sweats, pain with urination, increased urinary frequency, increased urinary urgency, blood in her urine or stool, syncope or a near syncopal episode, recent trauma or falls, bowel incontinence, bladder incontinence, bowel retention, bladder retention, or any other complaints at this time. Onset (ago): day(s) (4) Location: abdomen Radiation: non-radiation Severity: mild Severity scale (1-10): 4 Quality: aching and dull Pain Consistency: constant Relieving factors: none Exacerbating factors: none Associated symptoms: nausea/vomiting Treatments prior to arrival: none Related Data Home Medications Medication Instructions Recorded Confirmed pregabalin 150 mg capsule 150 mg PO TID 02/04/20 10/19/21 fluticasone propionate 110 1 puff inhalation BID 04/08/20 10/19/21 mcg/actuation HFA aerosol inhaler albuterol sulfate 90 mcg/actuation 1 - 2 puff inhalation Q4-6H PRN 04/23/21 10/19/21 aerosol inhaler (Ventolin HFA) Shortness Of Breath aspirin 81 mg tablet,delayed 81 mg PO DAILY 04/23/21 10/19/21 release ibuprofen 800 mg tablet 800 mg PO TID PRN Pain (Scale 04/23/21 10/19/21 Score 1-3) levothyroxine 75 mcg tablet 75 mcg PO DAILY@62904/23/21 10/19/21 omeprazole 20 mg capsule,delayed 20 mg PO DAILY@62904/23/21 10/19/21 release multivitamin 1 tab PO DAILY 05/05/21 10/19/21 levofloxacin 500 mg tablet 500 mg PO DAILY 09/27/21 10/19/21 ibuprofen 600 mg tablet 600 mg PO TID 11/29/21 mupirocin 2 % topical ointment topical BID-TID 11/29/21 Previous Rx's Medication Instructions Recorded ondansetron 4 mg disintegrating 4 mg PO Q8H PRN nausea and 09/19/21 tablet vomiting #20 tabs prednisone 20 mg tablet 60 mg PO DAILY 5 days #15 tabs 11/09/21 oxycodone-acetaminophen 7.5 mg-325 1 tab PO Q6H PRN pain 25 days #100 11/23/21 mg tablet (Percocet) tabs amoxicillin 500 mg-potassium 1 tab PO Q8H 7 days #21 tabs 11/30/21 clavulanate 125 mg tablet (Augmentin) pyridoxine (vitamin B6) 100 mg 100 mg PO DAILY 90 days #90 tabs 11/30/21 tablet amoxicillin 875 mg-potassium 1 tab PO BID 7 days #14 tabs 04/28/22 clavulanate 125 mg tablet Allergies Allergy/AdvReac Type Severity Reaction Status Date / Time sulfamethoxazole Allergy Intermediate HIVES Verified 11/29/21 11:36 [From Bactrim] trimethoprim [From Bactrim] Allergy Intermediate HIVES Verified 11/29/21 11:36 cheese Allergy Hives Verified 11/29/21 11:36 Review of Systems Constitutional: Constitutional: Reports no additional constitutional complaints, Denies chills, Denies fever(s) and Denies night sweats Eyes: Eyes: Reports no additional eye complaints, Denies blurry vision, Denies change in vision, Denies diplopia, Denies eye discharge, Denies loss of vision and Denies eye pain ENT: Denies dizziness Cardiovascular: Cardiovascular: Reports no additional cardiovascular complaints, Denies chest pain, Denies lightheadedness, Denies Loss of Consciousness and Denies dyspnea Respiratory: Respiratory: Reports no additional respiratory complaints and Denies dyspnea Gastrointestinal: Gastrointestinal: Reports no additional gastrointestinal complaints, Reports abdominal pain, Denies melena, Denies hematochezia, Denies change in bowel habits, Denies change in stool character and Reports nausea Genitourinary: Genitourinary: Denies hematuria, Denies urinary frequency, Denies dysuria, Denies urinary incontinence, Denies urinary hesitancy and Denies urinary urgency Musculoskeletal: Musculoskeletal: Reports no additional musculoskeletal complaints, Denies numbness and Denies tingling Neurologic: Denies dizziness, Denies loss of vision, Denies numbness and Denies tingling Psychiatric: Psychiatric: Reports no additional psychiatric complaints Endocrine: Endocrine: Reports no additional endocrine complaints Hematologic/Lymphatic: Hematologic/Lymphatic: Reports no additional hematologic/lymphatic complaints Allergic/Immunologic: Allergic/Immunologic: Reports no additional allergic/immunologic complaints [facility] Past Medical History Attestation statement: The following information was validated with the patient. 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 Surgical History Hx of cholecystectomy Hx of total hip arthroplasty Hx of vitrectomy Social History Social History Household Members: None Housing: Apartment Are you a primary home care companion to a significant other at home: No Do you presently have visiting nurse or other home services: Yes ([employer]) Alcohol intake: never Patient Tobacco Use Status: Never used Tobacco Advance Directives: Yes Advance Directives on File: Yes Advance Directives Date on File: 04/26/21 service: No Current occupational status: disabled Physical Exam ED Vital Signs: Vital Signs - 24 hr 04/28/22 09:35 04/28/22 11:40 04/28/22 11:58 Temperature 96.8 F 98.3 F 98.5 F Pulse Rate 88 68 72 Respiratory Rate 20 14 18 Blood Pressure 113/74 115/66 127/67 Pulse Oximetry 96 97 97 Oxygen Delivery Method Room Air Room Air Room Air BMI result Body Mass Index 34.8 Const General: cooperative, no acute distress, alert and awake Nutritional Appearance: well nourished Orientation/consciousness: patient oriented x3 Limitations: no limitations HENMT Head: Yes normal to inspection and Yes atraumatic Ears: hearing grossly normal bilaterally and external ears normal General nose exam: Normal external nose present, no nasal discharge noted and no epistaxis Face and sinus: Yes normal facial exam, No abrasion and No laceration Mouth: Normal oral and palatal mucosa present, no drooling and no muffled voice Eyes General: appearance normal, both eyes and all related structures Periorbital: periorbital findings normal Eyelids: Yes eyelids normal Conjunctivae: conjunctivae normal Pupils: Equal, round and reactive pupils present EOM: EOMs intact bilaterally Neck Neck: Yes normal visual inspection, Yes full ROM and Yes no lymphadenopathy Chest Chest palpation & inspection: normal inspection of the chest Resp Effort & Inspection: normal respiratory effort and able to speak in complete sentences Auscultation: clear to auscultation bilaterally Cardio Rate: regular rate Rhythm: regular rhythm GI Inspection: Yes normal to inspection Palpation (GI): Soft to palpation, not firm, nontender, no guarding and not rigid Neuro General: patient oriented x3 and moves all extremities Cranial nerves: Yes Equal, round and reactive pupils present Cognition (Neuro): normal cognition Motor exam (neuro): 5/5 motor strength present throughout Sensory Exam: Normal double simultaneous stimulation for sensation Coordination: [id number] test normal Extrem General: Yes normal to inspection, Yes full ROM and Yes capillary refill normal Psych Appearance: grossly normal Mental Status: mental status grossly normal Affect: normal affect Attitude: cooperative Thought process: Normal thought process present Thought content: Normal thought content present Insight: Good insight present (Psych) Medications Administered Discontinued Medications Generic Name Dose Route Start Last Admin Trade Name Freq PRN Reason Stop Dose Admin Sodium Chloride 1,000 mls @ 999 mls/hr 04/28/22 10:30 04/28/22 11:54 Ns IV 04/28/22 11:30 Infused .Q1H1M CONNOR Infusion Iohexol 85 ml 04/28/22 11:02 04/28/22 11:03 Iohexol 350 Mg/Ml 100 Ml Infus..Btl IV 04/28/22 11:03 85 ml ONCE ONE Administration Ketorolac Tromethamine 15 mg 04/28/22 10:24 04/28/22 10:43 Ketorolac Tromethamine 15 Mg/Ml Vial IVPUSH 04/28/22 10:25 15 mg ONCE ONE Administration Ondansetron HCl 4 mg 04/28/22 10:24 04/28/22 10:43 Ondansetron Hcl 4 Mg/2 Ml Vial IVPUSH 04/28/22 10:25 4 mg ONCE ONE Administration Medical Decision Making Medical Decision Making [facility] [place] Narrative: Patient is a 56 year old assigned female at with a history of chronic pain syndrome presenting to the emergency department today with abdominal pain. Patient's physical exam was unremarkable. Patient's blood work was unremarkable. Patient's urine showed no acute process. Patient's abdominal CT showed acute diverticulitis. I explained my physical exam findings as well as all test results to the patient. I answered all questions asked by the patient. I stressed the importance of the patient taking her medication as prescribed. I stressed the importance of the patient following up with her primary care provider. I stressed the importance of the patient returning to the emergency department immediately if her symptoms were to worsen or if she were to develop any dizziness, shortness of breath, difficulty breathing, chest pain, blurry vision, loss of vision, nausea, vomiting, abdominal pain, fever, chills, back pain, or any other complaints. Patient verbalized agreement and understanding with this treatment plan and discharge. Differential Diagnosis Differential Diagnoses: The differential diagnosis associated with the presentation includes Diverticulitis, abdominal pain, nausea Lab Data [facility] [place] Lab Attestation statement: I reviewed the patient's lab results. 04/28/22 10:08 04/28/22 10:08 Labs: Lab Results 04/28/22 04/28/22 04/28/22 Range/Units 09:56 10:08 10:08 WBC 8.7 (4.8-10.8) X10*3/uL RBC 5.07 (4.20-5.50) X10*6/uL Hgb 15.9 (12.0-16.0) g/dl Hct 47.0 (37.0-47.0) % MCV 92.7 (80.0-98.0) fL MCH 31.4 (27.0-33.0) pg MCHC 33.8 (31.0-35.0) g/dl RDW 13.2 (11.0-16.0) % Plt Count 225 (160-400) X10*3/uL MPV 10.0 (9.4-12.3) fL Immature Gran % (Auto) 0.2 (0.0-0.4) % Neut % (Auto) 58.7 (45-73) % Lymph % (Auto) 32.2 (20-40) % [place] % (Auto) 6.7 (2-11) % Eos % (Auto) 2.0 (0-4) % Baso % (Auto) 0.2 (0-2) % Lymph # (Auto) 2.8 (1.2-4.9) X10*3/uL [place] # (Auto) 0.6 (0.1-1.2) X10*3/uL Eos # (Auto) 0.2 (0.0-0.4) X10*3/uL Baso # (Auto) 0.0 (0.0-0.2) X10*3/uL Abs Immat Gran (auto) 0.02 (0.00-0.03) X10*3/uL Absolute Neuts (auto) 5.1 (2.0-8.3) x10*3/uL Absolute Nucleated RBC 0.000 (0.0-0.012) X10*3/uL Nucleated RBC % (auto) 0.0 (0.0-0.2) /100WBC Sodium 139 (135-145) mmol/L Potassium 4.2 (3.3-5.1) mmol/L Chloride 108 (96-108) mmol/L Carbon Dioxide 19 L (22-29) mmol/L Anion Gap 16 (12-20) BUN 13 (9-16) mg/dL Creatinine 0.73 (0.5-1.4) mg/dL Estim Creat Clear Calc 63.1 Estimated GFR > 60 Random Glucose 102 (60-115) mg/dL Calcium 9.9 (8.4-10.2) mg/dL Total Bilirubin 1.0 (0.0-1.0) mg/dL Direct Bilirubin 0.3 (0.0-0.5) mg/dL AST 57 H (5-31) U/L ALT 86 H (0-31) U/L Alkaline Phosphatase 119 H (39-117) U/L Total Protein 7.9 (6.5-8.0) g/dL Albumin 4.4 (3.5-5.0) g/dL Urine Color Yellow Urine Appearance Clear Urine pH 5.5 (5.0-9.0) Ur Specific [place] 1.020 (1.005-1.025) Urine Protein 30 (1+) H (Neg-Trace) mg/dL Urine Glucose (UA) Negative (Negative) mg/dL Urine Ketones Negative (Negative) mg/dL Urine Blood Negative (Negative) Urine Nitrite Negative (Negative) Ur Leukocyte Esterase Small (1+) H (Negative) Urine RBC 0-2 (0-2) /HPF Urine WBC 11-20 H (0-5) /HPF Ur Squamous Epith Cells 6-10 (0-2) /HPF Urine Bacteria None Seen (None Seen) Hyaline Casts 0-2 (0-2) /LPF Radiology Impression Discussion of test interpretation with radiology: I have reviewed the radiolo gist's reading. Radiologist Impression: My interpretation is in agreement with the radiologist's impression of this imaging study. EXAMINATION: CT ABDOMEN AND PELVIS WITH CONTRAST? CLINICAL INFORMATION: Right lower quadrant abdominal pain.? COMPARISON: 09/19/2021 CT scan of the abdomen and pelvis.? TECHNIQUE: Multidetector volumetric images were obtained from the superior aspect of the liver through the pubic symphysis following administration 85 mL of Omnipaque 350 intravenous contrast. Sagittal and coronal reformatted images were obtained on the technologist's workstation.? Oral contrast: No This CT examination was performed using dose optimization techniques as appropriate, variously including the following: *Automated exposure control *Adjustment of mA and/or kV according to patient size (this includes techniques or standardized protocols for targeted exams where dose is matched to indication/reason for exam; i.e. extremities or head) *Use of iterative reconstruction technique DLP: 557 mGy-cm FINDINGS: LUNG BASES: The visualized lung bases are unremarkable.? LIVER, GALLBLADDER, AND BILIARY TREE: No hepatic abnormality. Status post hysterectomy. PANCREAS: Unremarkable.? SPLEEN: Unremarkable.? ADRENAL GLANDS: Unremarkable.? KIDNEYS AND URETERS: No right nephrolithiasis or hydroureteronephrosis. Mild asymmetric left pelvocaliectasis without obstructing abnormality. Tiny left lateral upper pole exophytic cyst. No left nephrolithiasis or ureterectasis. BLADDER: Unremarkable.? GASTROINTESTINAL TRACT: The stomach and small bowel unremarkable. The appendix is not confidently identified. No evidence for acute appendicitis. Generalized decompressed colon with mural fatty infiltration, most pronounced proximally. Mild mural thickening and pericolonic infiltrative changes are seen in the mid one third of the sigmoid colon with mild diverticulosis. The rectum is unremarkable. ABDOMINAL WALL: Post surgical changes in the anterior abdominal wall with several tiny fat-containing hernias at the umbilical and supraumbilical levels.? LYMPH NODES: No lymphadenopathy. VASCULAR: Unremarkable. PELVIC VISCERA: Unremarkable.? OSSEOUS STRUCTURES: Mild thoracolumbar levoscoliosis and multilevel degenerative changes without acute or suspicious abnormality.? CT/CT abdomen pelvis w IV con IMPRESSION: 1. Short segment mild mural thickening in the mid one third of the sigmoid colon adjacent to diverticuli suggestive of acute mild diverticulitis. This was not seen previously. If clinically indicated, short-term repeat contrast-enhanced pelvic CT scan is recommended in 3 months to assess for resolution as malignancy cannot be completely excluded. 2. Interval resolution of previously seen left hydronephrosis with mild residual left pelvocaliectasis. Dictated By: James Putnam MD Signed By: Electronically signed by James Putnam MD 04/28/22 1591 Discharge Plan Discharge Clinical Impression: Diverticulitis Patient Disposition: Home, Self-Care Instructions: Diverticulitis (ED) Additional Instructions: Follow up with your primary care provider. Return to the emergency department immediately if your symptoms worsen or if you develop any dizziness, shortness of breath, difficulty breathing, chest pain, blurry vision, loss of vision, nausea, vomiting, abdominal pain, fever, chills, back pain, or any other complaints. Prescriptions: New amoxicillin-pot clavulanate 875-125 mg tablet 1 tab PO BID 7 Days Qty: 14 0RF No Action ibuprofen 800 mg tablet 800 mg PO TID PRN (Reason: Pain (Scale Score 1-3)) aspirin 81 mg tablet,delayed release (DR/EC) 81 mg PO DAILY levothyroxine 75 mcg tablet 75 mcg PO DAILY@0630 omeprazole 20 mg capsule,delayed release(DR/EC) 20 mg PO DAILY@0630 albuterol sulfate [Ventolin HFA] 90 mcg/actuation HFA aerosol inhaler 1 - 2 puff inhalation Q4-6H PRN (Reason: Shortness Of Breath) ondansetron 4 mg tablet,disintegrating 4 mg PO Q8H PRN (Reason: nausea and vomiting) Qty: 20 0RF prednisone 20 mg tablet 60 mg PO DAILY 5 Days Qty: 15 0RF multivitamin Tablet 1 tab PO DAILY pregabalin 150 mg capsule 150 mg PO TID fluticasone propionate 110 mcg/actuation HFA aerosol inhaler 1 puff inhalation BID oxycodone-acetaminophen [Percocet] 7.5-325 mg tablet 1 tab PO Q6H PRN (Reason: pain) 25 Days Qty: 100 0RF Rx Instructions: Partial fill only per patient's request Last compassionate script, patient is suspended in opioid program. Daily dose reduction recommended by 1 pill a day over a week interval. mupirocin 2 % ointment topical BID-TID ibuprofen 600 mg tablet 600 mg PO TID amoxicillin-pot clavulanate [Augmentin] 500-125 mg tablet 1 tab PO Q8H 7 Days Qty: 21 0RF pyridoxine (vitamin B6) 100 mg tablet 100 mg PO DAILY 90 Days Qty: 90 1RF levofloxacin 500 mg tablet 500 mg PO DAILY Referrals: Raj Haddad MD [Primary Care Provider] - Interventions: ED Discharge Assessment Last Done: 04/28/22 12:01 Discharge Date/Time: 04/28/22 12:02 Print Language: Luxembourger
[2022-04-28 10:05] LABS: Appearance Urine Clear; Color Urine Yellow; Glucose Urine UA Negative (Negative); Leukocyte Esterase Urine Small (1+) (Negative); Nitrite Urine Negative (Negative); PH 5.5 (5.0-9.0); UMIC TRIGGER UACC YES; Urine Blood Negative (Negative); Urine Ketones Negative (Negative); Urine Protein 30 (1+) mg/dL (Neg-Trace)
[2022-04-28 10:09] LABS: Bacteria Urine None Seen (None Seen); Hyaline Casts Urine 0-2 /LPF (0-2); RBC Urine 0-2 /HPF (0-2); UACC Culture Trigger YES
[2022-04-28 10:12] LABS: MANUAL DIFF FLAG NO
[2022-04-28 10:18] LABS: Basophils Percent Auto 0.2 % (0-2); Eosinophils Absolute Auto 0.2 X10*3/uL (0.0-0.4); Hemoglobin 15.9 g/dl (12.0-16.0); Imm Gran Abs Auto 0.02 X10*3/uL (0.00-0.03); Imm Gran Pct Auto 0.2 % (0.0-0.4); Lymphocytes Absolute Auto 2.8 X10*3/uL (1.2-4.9); Lymphocytes Percent Auto 32.2 % (20-40); Mean Corpuscular HGB Conc 33.8 g/dl (31.0-35.0); Mean Corpuscular Hemoglobin 31.4 pg (27.0-33.0); Mean Corpuscular Volume 92.7 fL (80.0-98.0); Monocytes Absolute Auto 0.6 X10*3/uL (0.1-1.2); Monocytes Percent Auto 6.7 % (2-11); Neutrophils Absolute Auto 5.1 x10*3/uL (2.0-8.3); Neutrophils Percent Auto 58.7 % (45-73); Platelet Count 225 X10*3/uL (160-400); Red Blood Count 5.07 X10*6/uL (4.20-5.50); Red Cell Distribution Width 13.2 % (11.0-16.0); White Blood Count 8.7 X10*3/uL (4.8-10.8)
[2022-04-28 10:28] LABS: Anion Gap 16 (12-20); Blood Urea Nitrogen 13 mg/dL (9-16); Calcium 9.9 mg/dL (8.4-10.2); Carbon Dioxide 19 mmol/L (22-29); Chloride 108 mmol/L (96-108); Creatinine Clr Calc Pharmacy 63.1; Estimated Glomerular Filt Rate > 60; Glucose Random 102 mg/dL (60-115); Potassium 4.2 mmol/L (3.3-5.1); Sodium 139 mmol/L (135-145)
[2022-04-28] MEDS: 0.9 % Sodium Chloride 1,000 ML 999 ML IV (10:43)
[2022-04-28] MEDS: Ketorolac Tromethamine 15 MG/ML VIAL IVPUSH (10:43)
[2022-04-28] MEDS: ondansetron HCL 4 MG/2 ML VIAL IVPUSH (10:43)
[2022-04-28 11:03] LABS: Alanine Aminotransferase 86 U/L (0-31); Albumin Level 4.4 g/dL (3.5-5.0); Alkaline Phosphatase 119 U/L (39-117); Aspartate Amino Transferase 57 U/L (5-31); Bilirubin Direct 0.3 mg/dL (0.0-0.5); Total Protein 7.9 g/dL (6.5-8.0)
[2022-04-28] MEDS: iohexoL 350 MG/ML 100 ML INFUS..BTL 85 ML IV (11:03)
[2022-04-28 11:40] VITALS: BP 115/66; PULSE 68; RESP 14; TEMP 36.8; O2SAT 97
[2022-04-28 11:58] VITALS: BP 127/67; PULSE 72; RESP 18; TEMP 36.9; O2SAT 97
== END 2022-04-28 12:02 | disposition home or self-care (01) ==
PROVIDERS: Physician Assistant Medical; Emergency Provider Emergency Medicine; PCP Internal Medicine
DX: K57.32 Diverticulitis of large intestine without perforation or abscess without bleeding (principal); Z79.899 Other long term (current) drug therapy
CPT/HCPCS: 36415; 74177; 80048; 80076; 81001; 85025; 87086; 96361; 96374; 96375; 99284; J1885; J2405; Q9967

== ENCOUNTER 2022-06-28 09:06 | Emergency (ER) | payer MEDICARE, MEDICAID, SELFPAY ==
--- NOTE | ~2022-06-28 | XR_ITS ---
EXAMINATION: LEFT KNEE, LEFT FEMUR CLINICAL INFORMATION: Pain and swelling COMPARISON: MRI left knee 08/31/2021 and radiographs left knee 08/18/2021 TECHNIQUE: 2 views left femur, 4 views left knee FINDINGS: The femur appears normal. Bicompartmental degenerative changes are present in the left knee with narrowing of the medial compartment. Tricompartmental degenerative changes were noted on the prior MRI. Chondrocalcinosis with calcification in both menisci are noted. No joint effusion. No fractures. Multiple growth arrest lines are noted in the distal femur and proximal tibia. XR/XR femur LT 2V IMPRESSION: 1. No evidence of an acute osseous injury. 2. Degenerative changes in the knee with chondrocalcinosis.
--- NOTE | ~2022-06-28 | XR_ITS ---
EXAMINATION: LEFT KNEE, LEFT FEMUR CLINICAL INFORMATION: Pain and swelling COMPARISON: MRI left knee 08/31/2021 and radiographs left knee 08/18/2021 TECHNIQUE: 2 views left femur, 4 views left knee FINDINGS: The femur appears normal. Bicompartmental degenerative changes are present in the left knee with narrowing of the medial compartment. Tricompartmental degenerative changes were noted on the prior MRI. Chondrocalcinosis with calcification in both menisci are noted. No joint effusion. No fractures. Multiple growth arrest lines are noted in the distal femur and proximal tibia. XR/XR knee LT 2V IMPRESSION: 1. No evidence of an acute osseous injury. 2. Degenerative changes in the knee with chondrocalcinosis.
--- NOTE | ~2022-06-28 | US_ITS ---
EXAMINATION: US VENOUS ULTRASOUND WITH DOPPLER LOWER EXTREMITY, LEFT CLINICAL INFORMATION: Left lower extremity edema COMPARISON: None TECHNIQUE: Ultrasound of the deep veins is performed from the hip to the calf with compression sonography and color and pulse Doppler assessment. Spectral analysis with color-flow imaging is performed. FINDINGS: There is normal venous compression and respiratory variation and augmented flow. The visualized common femoral vein, superficial femoral vein, profunda femoral vein, popliteal vein, and the trifurcation region shows no evidence of deep venous thrombosis. There is no significant popliteal fossa cyst. If the patient's symptoms persist, followup ultrasound in 5 days 7 days might be of value to exclude proximal propagation from a non-visualized calf vein. US/US venous duplex LE LT IMPRESSION: No DVT demonstrated in the left lower extremity.
[2022-06-28 09:25] VITALS: BP 114/87; PULSE 66; RESP 20; TEMP 36.2; O2SAT 95; BMI 33.7
--- NOTE | 2022-06-28 09:33 | ED.GENADULT ---
HPI - General Adult General Chief complaint: Extremity Problem Stated complaint: L thigh swelling Time Seen by Provider: 06/28/22 09:31 Source: patient Mode of arrival: ambulatory Limitations: no limitations History of Present Illness HPI narrative: Patient is a 56 year old assigned female at with a history of chronic left knee pain presenting to the emergency department today with intermittent left knee and thigh pain with swelling. Patient states that she always has issues with this left side but now that she is having swelling, her doctor recommended she come get checked out for a blood clot. Patient denies any dizziness, lightheadedness, abdominal pain, nausea, vomiting, fever, chills, blurry vision, double vision, loss of vision, chest pain, difficulty breathing, shortness of breath, back pain, night sweats, pain with urination, increased urinary frequency, increased urinary urgency, blood in her urine or stool, syncope or a near syncopal episode, bowel incontinence, bladder incontinence, bowel retention, bladder retention, or any other complaints at this time. Onset (ago): day(s) Location: left and lower extremity Radiation: non-radiation Severity: mild Severity scale (1-10): 3 Relieving factors: none Exacerbating factors: none Associated symptoms: denies other symptoms Treatments prior to arrival: none Related Data Home Medications Medication Instructions Recorded Confirmed pregabalin 150 mg capsule 150 mg PO TID 02/04/20 10/19/21 fluticasone propionate 110 1 puff inhalation BID 04/08/20 10/19/21 mcg/actuation HFA aerosol inhaler albuterol sulfate 90 mcg/actuation 1 - 2 puff inhalation Q4-6H PRN 04/23/21 10/19/21 aerosol inhaler (Ventolin HFA) Shortness Of Breath aspirin 81 mg tablet,delayed 81 mg PO DAILY 04/23/21 10/19/21 release ibuprofen 800 mg tablet 800 mg PO TID PRN Pain (Scale 04/23/21 10/19/21 Score 1-3) levothyroxine 75 mcg tablet 75 mcg PO DAILY@62904/23/21 10/19/21 omeprazole 20 mg capsule,delayed 20 mg PO DAILY@62904/23/21 10/19/21 release multivitamin 1 tab PO DAILY 05/05/21 10/19/21 levofloxacin 500 mg tablet 500 mg PO DAILY 09/27/21 10/19/21 ibuprofen 600 mg tablet 600 mg PO TID 11/29/21 mupirocin 2 % topical ointment topical BID-TID 11/29/21 Previous Rx's Medication Instructions Recorded ondansetron 4 mg disintegrating 4 mg PO Q8H PRN nausea and 09/19/21 tablet vomiting #20 tabs prednisone 20 mg tablet 60 mg PO DAILY 5 days #15 tabs 11/09/21 oxycodone-acetaminophen 7.5 mg-325 1 tab PO Q6H PRN pain 25 days #100 11/23/21 mg tablet (Percocet) tabs amoxicillin 500 mg-potassium 1 tab PO Q8H 7 days #21 tabs 11/30/21 clavulanate 125 mg tablet (Augmentin) pyridoxine (vitamin B6) 100 mg 100 mg PO DAILY 90 days #90 tabs 11/30/21 tablet amoxicillin 875 mg-potassium 1 tab PO BID 7 days #14 tabs 04/28/22 clavulanate 125 mg tablet cyclobenzaprine 5 mg tablet 5 mg PO TID PRN knee pain 7 days 06/28/22 #21 tabs prednisone 20 mg tablet 20 mg PO DAILY 7 days #7 tabs 06/28/22 Allergies Allergy/AdvReac Type Severity Reaction Status Date / Time sulfamethoxazole Allergy Intermediate HIVES Verified 11/29/21 11:36 [From Bactrim] trimethoprim [From Bactrim] Allergy Intermediate HIVES Verified 11/29/21 11:36 cheese Allergy Hives Verified 11/29/21 11:36 Review of Systems Constitutional: Constitutional: Reports no additional constitutional complaints, Denies chills, Denies fever(s) and Denies night sweats Eyes: Eyes: Reports no additional eye complaints, Denies blurry vision, Denies change in vision, Denies diplopia, Denies eye discharge, Denies loss of vision and Denies eye pain ENT: Denies dizziness Cardiovascular: Cardiovascular: Reports no additional cardiovascular complaints, Denies chest pain, Denies lightheadedness, Denies Loss of Consciousness and Denies dyspnea Respiratory: Respiratory: Reports no additional respiratory complaints and Denies dyspnea Gastrointestinal: Gastrointestinal: Reports no additional gastrointestinal complaints, Denies abdominal pain, Denies melena, Denies hematochezia, Denies change in bowel habits and Denies change in stool character Genitourinary: Genitourinary: Denies hematuria, Denies urinary frequency, Denies dysuria, Denies urinary incontinence, Denies urinary hesitancy and Denies urinary urgency Musculoskeletal: Musculoskeletal: Reports no additional musculoskeletal complaints, Denies numbness and Denies tingling Comments: left knee pain, left thigh pain, left knee swelling, left thigh swelling Neurologic: Denies dizziness, Denies loss of vision, Denies numbness and Denies tingling Psychiatric: Psychiatric: Reports no additional psychiatric complaints Endocrine: Endocrine: Reports no additional endocrine complaints Hematologic/Lymphatic: Hematologic/Lymphatic: Reports no additional hematologic/lymphatic complaints Allergic/Immunologic: Allergic/Immunologic: Reports no additional allergic/immunologic complaints PMFSH Past Medical History Attestation statement: The following information was validated with the patient. 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 Surgical History Hx of cholecystectomy Hx of total hip arthroplasty Hx of vitrectomy Social History Social History Household Members: None Housing: Apartment Are you a primary career technical education teacher to a significant other at home: No Do you presently have visiting nurse or other home services: Yes ([employer]) Alcohol intake: never Patient Tobacco Use Status: Never used Tobacco Advance Directives: Yes Advance Directives on File: Yes Advance Directives Date on File: 04/26/21 service: No Current occupational status: disabled Physical Exam ED Vital Signs: Vital Signs - 24 hr 06/28/22 09:25 Temperature 97.2 F Pulse Rate 66 Respiratory Rate 20 Blood Pressure 114/87 Pulse Oximetry 95 Oxygen Delivery Method Room Air BMI result Body Mass Index 33.7 Const General: cooperative, no acute distress, alert and awake Nutritional Appearance: well nourished Orientation/consciousness: patient oriented x3 Limitations: no limitations HENMT Head: Yes normal to inspection and Yes atraumatic Ears: hearing grossly normal bilaterally and external ears normal General nose exam: Normal external nose present, no nasal discharge noted and no epistaxis Face and sinus: Yes normal facial exam, No abrasion and No laceration Mouth: Normal oral and palatal mucosa present, no drooling and no muffled voice Eyes General: appearance normal, both eyes and all related structures Periorbital: periorbital findings normal Eyelids: Yes eyelids normal Conjunctivae: conjunctivae normal Pupils: Equal, round and reactive pupils present EOM: EOMs intact bilaterally Neck Neck: Yes normal visual inspection, Yes full ROM and Yes no lymphadenopathy Chest Chest palpation & inspection: normal inspection of the chest Resp Effort & Inspection: normal respiratory effort and able to speak in complete sentences Auscultation: clear to auscultation bilaterally Cardio Rate: regular rate Rhythm: regular rhythm GI Inspection: Yes normal to inspection Palpation (GI): Soft to palpation, not firm, nontender and no guarding Neuro General: patient oriented x3 and moves all extremities Cranial nerves: Yes Equal, round and reactive pupils present Cognition (Neuro): normal cognition Motor exam (neuro): 5/5 motor strength present throughout Sensory Exam: Normal double simultaneous stimulation for sensation Coordination: [id number] test normal Extrem General: Yes normal to inspection, Yes full ROM and Yes capillary refill normal Psych Appearance: grossly normal Mental Status: mental status grossly normal Affect: normal affect Attitude: cooperative Thought process: Normal thought process present Thought content: Normal thought content present Insight: Good insight present (Psych) Medications Administered Discontinued Medications Generic Name Dose Route Start Last Admin Trade Name Freq PRN Reason Stop Dose Admin Cyclobenzaprine HCl 5 mg 06/28/22 09:40 06/28/22 10:03 Cyclobenzaprine Hcl 5 Mg Tablet PO 06/28/22 09:41 5 mg ONCE ONE Administration Ketorolac Tromethamine 15 mg 06/28/22 09:40 06/28/22 10:03 Ketorolac Tromethamine 15 Mg/Ml Vial IM 06/28/22 09:41 15 mg ONCE ONE Administration Medical Decision Making Medical Decision Making [facility] Narrative: Patient is a 56 year old assigned female at with a history of chronic left knee pain presenting to the emergency department today with left knee pain and left thigh pain. Patient's physical exam was unremarkable. Patient's left femur and knee x-rays showed no acute process. Patient's left lower extremity US showed no acute DVT. I explained my physical exam findings as well as all test results to the patient. I answered all questions asked by the patient. I stressed the importance of the patient taking her medication as prescribed. I stressed the importance of the patient following up with her primary care provider and an technical service specialist. I stressed the importance of the patient returning to the emergency department immediately if her symptoms were to worsen or if she were to develop any dizziness, shortness of breath, difficulty breathing, chest pain, blurry vision, loss of vision, nausea, vomiting, abdominal pain, fever, chills, back pain, or any other complaints. Patient verbalized agreement and understanding with this treatment plan and discharge. Differential Diagnosis Differential Diagnoses: The differential diagnosis associated with the presentation includes acute on chronic left knee pain Independent Interpretation I performed an independent interpretation of an: Plain X-Ray and Ultrasound Interpretation: My interpretation is in agreement with the radiologist's impression of these imaging studies. EXAMINATION:? US VENOUS ULTRASOUND WITH DOPPLER LOWER EXTREMITY, LEFT CLINICAL INFORMATION:? Left lower extremity edema COMPARISON:? None TECHNIQUE: Ultrasound of the deep veins is performed from the hip to the calf with compression sonography and color and pulse Doppler assessment. Spectral analysis with color-flow imaging is performed. FINDINGS: There is normal venous compression and respiratory variation and augmented flow. The visualized common femoral vein, superficial femoral vein, profunda femoral vein, popliteal vein, and the trifurcation region shows no evidence of deep venous thrombosis. ? There is no significant popliteal fossa cyst. If the patient's symptoms persist, followup ultrasound in 5 days 7 days might be of value to exclude proximal propagation from a non-visualized calf vein. US/US venous duplex LE IMPRESSION: No DVT demonstrated in the left lower extremity. Dictated By: Bernardo Salazar MD Signed By: Electronically signed by Bernardo Salazar MD 06/28/22 1215 EXAMINATION: LEFT KNEE, LEFT FEMUR CLINICAL INFORMATION: Pain and swelling? COMPARISON: MRI left knee 08/31/2021 and radiographs left knee 08/18/2021? TECHNIQUE: 2 views left femur, 4 views left knee? FINDINGS: The femur appears normal. Bicompartmental degenerative changes are present in the left knee with narrowing of the medial compartment. Tricompartmental degenerative changes were noted on the prior MRI. Chondrocalcinosis with calcification in both menisci are noted. No joint effusion. No fractures. Multiple growth arrest lines are noted in the distal femur and proximal tibia. XR/XR knee LT 2V IMPRESSION: 1.? No evidence of an acute osseous injury. 2.? Degenerative changes in the knee with chondrocalcinosis. Dictated By: Bernardo Salazar MD Signed By: Electronically signed by Bernardo Salazar MD 06/28/22 1108 Discharge Plan Discharge Clinical Impression: Pain in left thigh, Chronic knee pain Patient Disposition: Home, Self-Care Instructions: Knee Pain (ED) Additional Instructions: Follow up with your primary care provider and an technical service specialist. Return to the emergency department immediately if your symptoms worsen or if you develop any dizziness, shortness of breath, difficulty breathing, chest pain, blurry vision, loss of vision, nausea, vomiting, abdominal pain, fever, chills, back pain, or any other complaints. Prescriptions: New cyclobenzaprine 5 mg tablet 5 mg PO TID PRN (Reason: knee pain) 7 Days Qty: 21 0RF prednisone 20 mg tablet 20 mg PO DAILY 7 Days Qty: 7 0RF No Action ibuprofen 800 mg tablet 800 mg PO TID PRN (Reason: Pain (Scale Score 1-3)) aspirin 81 mg tablet,delayed release (DR/EC) 81 mg PO DAILY levothyroxine 75 mcg tablet 75 mcg PO DAILY@0630 omeprazole 20 mg capsule,delayed release(DR/EC) 20 mg PO DAILY@0630 albuterol sulfate [Ventolin HFA] 90 mcg/actuation HFA aerosol inhaler 1 - 2 puff inhalation Q4-6H PRN (Reason: Shortness Of Breath) ondansetron 4 mg tablet,disintegrating 4 mg PO Q8H PRN (Reason: nausea and vomiting) Qty: 20 0RF prednisone 20 mg tablet 60 mg PO DAILY 5 Days Qty: 15 0RF multivitamin Tablet 1 tab PO DAILY amoxicillin-pot clavulanate 875-125 mg tablet 1 tab PO BID 7 Days Qty: 14 0RF pregabalin 150 mg capsule 150 mg PO TID fluticasone propionate 110 mcg/actuation HFA aerosol inhaler 1 puff inhalation BID oxycodone-acetaminophen [Percocet] 7.5-325 mg tablet 1 tab PO Q6H PRN (Reason: pain) 25 Days Qty: 100 0RF Rx Instructions: Partial fill only per patient's request Last compassionate script, patient is suspended in opioid program. Daily dose reduction recommended by 1 pill a day over a week interval. mupirocin 2 % ointment topical BID-TID ibuprofen 600 mg tablet 600 mg PO TID amoxicillin-pot clavulanate [Augmentin] 500-125 mg tablet 1 tab PO Q8H 7 Days Qty: 21 0RF pyridoxine (vitamin B6) 100 mg tablet 100 mg PO DAILY 90 Days Qty: 90 1RF levofloxacin 500 mg tablet 500 mg PO DAILY Referrals: Raj Haddad MD [Primary Care Provider] - Interventions: ED Discharge Assessment Last Done: 06/28/22 12:25 Discharge Date/Time: 06/28/22 12:27 Print Language: [place]
[2022-06-28] MEDS: Cyclobenzaprine HCl 5 MG TABLET PO (10:03)
[2022-06-28] MEDS: Ketorolac Tromethamine 15 MG/ML VIAL IM (10:03)
== END 2022-06-28 12:27 | disposition home or self-care (01) ==
PROVIDERS: Emergency Provider Emergency Medicine Emergency Medical Services; PCP Internal Medicine
DX: M79.652 Pain in left thigh (principal); G89.29 Other chronic pain; M25.562 Pain in left knee; M79.89 Other specified soft tissue disorders
CPT/HCPCS: 73552; 73560; 93971; 96372; 99283; 99284; J1885

== ENCOUNTER 2022-09-04 09:15 | Emergency (ER) | payer MEDICARE, MEDICAID, SELFPAY ==
[2022-09-04 09:32] VITALS: BP 126/83; PULSE 78; RESP 18; TEMP 36.6; O2SAT 96; BMI 38.8
--- NOTE | 2022-09-04 09:54 | ED.GENADULT ---
HPI - General Adult General Chief complaint: General Medical Stated complaint: Neck pain R side Time Seen by Provider: 09/04/22 09:54 Source: patient Mode of arrival: ambulatory Limitations: no limitations History of Present Illness HPI narrative: Patient is a 56 year old assigned female at with a history of chronic pain - specifically chronic pain in the neck and left knee presenting to the emergency department today with acute on chronic right neck pain. Patient states that since last week she has been having worsening right sided neck pain. Patient states that she chronically has it and muscle relaxers help but she does not have any at the moment. Patient denies any dizziness, lightheadedness, abdominal pain, nausea, vomiting, fever, chills, blurry vision, double vision, loss of vision, chest pain, difficulty breathing, shortness of breath, back pain, night sweats, pain with urination, increased urinary frequency, increased urinary urgency, blood in her urine or stool, syncope or a near syncopal episode, recent trauma or falls, bowel incontinence, bladder incontinence, bowel retention, bladder retention, or any other complaints at this time. Onset (ago): week(s) (1) Location: neck and right Radiation: non-radiation Severity: mild Severity scale (1-10): 3 Quality: dull Pain Consistency: constant Relieving factors: none Exacerbating factors: none Associated symptoms: denies other symptoms Treatments prior to arrival: none Related Data Home Medications Medication Instructions Recorded Confirmed pregabalin 150 mg capsule 150 mg PO TID 02/04/20 10/19/21 fluticasone propionate 110 1 puff inhalation BID 04/08/20 10/19/21 mcg/actuation HFA aerosol inhaler albuterol sulfate 90 mcg/actuation 1 - 2 puff inhalation Q4-6H PRN 04/23/21 10/19/21 aerosol inhaler (Ventolin HFA) Shortness Of Breath aspirin 81 mg tablet,delayed 81 mg PO DAILY 04/23/21 10/19/21 release ibuprofen 800 mg tablet 800 mg PO TID PRN Pain (Scale 04/23/21 10/19/21 Score 1-3) levothyroxine 75 mcg tablet 75 mcg PO DAILY@30 04/23/21 10/19/21 omeprazole 20 mg capsule,delayed 20 mg PO DAILY@30 04/23/21 10/19/21 release multivitamin 1 tab PO DAILY 05/05/21 10/19/21 levofloxacin 500 mg tablet 500 mg PO DAILY 09/27/21 10/19/21 ibuprofen 600 mg tablet 600 mg PO TID 11/29/21 mupirocin 2 % topical ointment topical BID-TID 11/29/21 Previous Rx's Medication Instructions Recorded ondansetron 4 mg disintegrating 4 mg PO Q8H PRN nausea and 09/19/21 tablet vomiting #20 tabs prednisone 20 mg tablet 60 mg PO DAILY 5 days #15 tabs 11/09/21 oxycodone-acetaminophen 7.5 mg-325 1 tab PO Q6H PRN pain 25 days #100 11/23/21 mg tablet (Percocet) tabs amoxicillin 500 mg-potassium 1 tab PO Q8H 7 days #21 tabs 11/30/21 clavulanate 125 mg tablet (Augmentin) pyridoxine (vitamin B6) 100 mg 100 mg PO DAILY 90 days #90 tabs 11/30/21 tablet amoxicillin 875 mg-potassium 1 tab PO BID 7 days #14 tabs 04/28/22 clavulanate 125 mg tablet cyclobenzaprine 5 mg tablet 5 mg PO TID PRN knee pain 7 days 06/28/22 #21 tabs prednisone 20 mg tablet 20 mg PO DAILY 7 days #7 tabs 06/28/22 cyclobenzaprine 5 mg tablet 5 mg PO TID PRN neck pain 7 days 09/04/22 #21 tabs prednisone 20 mg tablet 20 mg PO DAILY 7 days #7 tabs 09/04/22 Allergies Allergy/AdvReac Type Severity Reaction Status Date / Time sulfamethoxazole Allergy Intermediate HIVES Verified 09/04/22 09:32 [From Bactrim] trimethoprim [From Bactrim] Allergy Intermediate HIVES Verified 09/04/22 09:32 cheese Allergy Hives Verified 09/04/22 09:32 Review of Systems Constitutional: Constitutional: Reports no additional constitutional complaints, Denies chills, Denies fever(s) and Denies night sweats Eyes: Eyes: Reports no additional eye complaints, Denies blurry vision, Denies change in vision, Denies diplopia, Denies eye discharge, Denies loss of vision and Denies eye pain ENT: Denies dizziness and Reports neck pain Cardiovascular: Cardiovascular: Reports no additional cardiovascular complaints, Denies chest pain, Denies lightheadedness, Denies Loss of Consciousness and Denies dyspnea Respiratory: Respiratory: Reports no additional respiratory complaints and Denies dyspnea Gastrointestinal: Gastrointestinal: Reports no additional gastrointestinal complaints, Denies abdominal pain, Denies melena, Denies hematochezia, Denies change in bowel habits and Denies change in stool character Genitourinary: Genitourinary: Denies hematuria, Denies urinary frequency, Denies dysuria, Denies urinary incontinence, Denies urinary hesitancy and Denies urinary urgency Musculoskeletal: Musculoskeletal: Reports no additional musculoskeletal complaints, Reports neck pain, Denies numbness and Denies tingling Neurologic: Denies dizziness, Denies loss of vision, Denies numbness and Denies tingling Psychiatric: Psychiatric: Reports no additional psychiatric complaints Endocrine: Endocrine: Reports no additional endocrine complaints Hematologic/Lymphatic: Hematologic/Lymphatic: Reports no additional hematologic/lymphatic complaints Allergic/Immunologic: Allergic/Immunologic: Reports no additional allergic/immunologic complaints PMFSH Past Medical History Attestation statement: The following information was validated with the patient. 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 Surgical History Hx of cholecystectomy Hx of total hip arthroplasty Hx of vitrectomy Social History Social History Household Members: None Housing: Apartment Are you a primary home child care provider to a significant other at home: No 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) Alcohol intake: never Patient Tobacco Use Status: Never used Tobacco Advance Directives: Yes Advance Directives on File: Yes Advance Directives Date on File: 04/26/21 service: No Current occupational status: disabled Physical Exam ED Vital Signs: Vital Signs - 24 hr 09/04/22 09:32 Temperature 97.8 F Pulse Rate 78 Respiratory Rate 18 Blood Pressure 126/83 Pulse Oximetry 96 Oxygen Delivery Method Room Air BMI result Body Mass Index 38.8 Const General: cooperative, no acute distress, alert and awake Nutritional Appearance: well nourished Orientation/consciousness: patient oriented x3 Limitations: no limitations HENMT Head: Yes normal to inspection and Yes atraumatic Ears: hearing grossly normal bilaterally and external ears normal General nose exam: Normal external nose present, no nasal discharge noted and no epistaxis Face and sinus: Yes normal facial exam, No abrasion and No laceration Mouth: Normal oral and palatal mucosa present, no drooling and no muffled voice Eyes General: appearance normal, both eyes and all related structures Periorbital: periorbital findings normal Eyelids: Yes eyelids normal Conjunctivae: conjunctivae normal Pupils: Equal, round and reactive pupils present EOM: EOMs intact bilaterally Neck Neck: Yes normal visual inspection, Yes full ROM and Yes no lymphadenopathy Chest Chest palpation & inspection: normal inspection of the chest Resp Effort & Inspection: normal respiratory effort and able to speak in complete sentences Auscultation: clear to auscultation bilaterally Cardio Rate: regular rate Rhythm: regular rhythm GI Inspection: Yes normal to inspection Neuro General: patient oriented x3 and moves all extremities Cranial nerves: Yes Equal, round and reactive pupils present Cognition (Neuro): normal cognition Motor exam (neuro): 5/5 motor strength present throughout Sensory Exam: Normal double simultaneous stimulation for sensation Coordination: [id number] test normal Extrem General: Yes normal to inspection, Yes full ROM and Yes capillary refill normal Psych Appearance: grossly normal Mental Status: mental status grossly normal Affect: normal affect Attitude: cooperative Thought process: Normal thought process present Thought content: Normal thought content present Insight: Good insight present (Psych) Medications Administered Discontinued Medications Generic Name Dose Route Start Last Admin Trade Name Freq PRN Reason Stop Dose Admin Cyclobenzaprine HCl 5 mg 09/04/22 09:58 09/04/22 10:03 Cyclobenzaprine Hcl 5 Mg Tablet PO 09/04/22 09:59 5 mg ONCE ONE Administration Prednisone 20 mg 09/04/22 09:58 09/04/22 10:03 Prednisone 20 Mg Tablet PO 09/04/22 09:59 20 mg ONCE ONE Administration Medical Decision Making Medical Decision Making MDM Narrative: Patient is a 56 year old assigned female at with a history of chronic neck and leg pain presenting to the emergency department today with an acute on chronic right neck pain episode. Patient's physical exam was unremarkable. I explained my physical exam findings to the patient. I answered all questions asked by the patient. Patient received PO Prednisone and Flexeril which she stated helped her symptoms significantly. I stressed the importance of the patient taking her medication as prescribed. I stressed the importance of the patient following up with her primary care provider and her pain specialist. I stressed the importance of the patient returning to the emergency department immediately if her symptoms were to worsen or if she were to develop any dizziness, shortness of breath, difficulty breathing, chest pain, blurry vision, loss of vision, nausea, vomiting, abdominal pain, fever, chills, back pain, or any other complaints. Patient verbalized agreement and understanding with this treatment plan and discharge. Differential Diagnosis Differential Diagnoses: The differential diagnosis associated with the presentation includes right sided neck pain, chronic neck pain Discharge Plan Discharge Clinical Impression: Chronic neck pain Patient Disposition: Home, Self-Care Instructions: Neck Pain (ED) Additional Instructions: Follow up with your primary care provider and your pain specialist. Return to the emergency department immediately if your symptoms worsen or if you develop any dizziness, shortness of breath, difficulty breathing, chest pain, blurry vision, loss of vision, nausea, vomiting, abdominal pain, fever, chills, back pain, or any other complaints. Prescriptions: New prednisone 20 mg tablet 20 mg PO DAILY 7 Days Qty: 7 0RF cyclobenzaprine 5 mg tablet 5 mg PO TID PRN (Reason: neck pain) 7 Days Qty: 21 0RF No Action ibuprofen 800 mg tablet 800 mg PO TID PRN (Reason: Pain (Scale Score 1-3)) aspirin 81 mg tablet,delayed release (DR/EC) 81 mg PO DAILY levothyroxine 75 mcg tablet 75 mcg PO DAILY@0630 omeprazole 20 mg capsule,delayed release(DR/EC) 20 mg PO DAILY@0630 albuterol sulfate [Ventolin HFA] 90 mcg/actuation HFA aerosol inhaler 1 - 2 puff inhalation Q4-6H PRN (Reason: Shortness Of Breath) ondansetron 4 mg tablet,disintegrating 4 mg PO Q8H PRN (Reason: nausea and vomiting) Qty: 20 0RF prednisone 20 mg tablet 60 mg PO DAILY 5 Days Qty: 15 0RF multivitamin Tablet 1 tab PO DAILY amoxicillin-pot clavulanate 875-125 mg tablet 1 tab PO BID 7 Days Qty: 14 0RF cyclobenzaprine 5 mg tablet 5 mg PO TID PRN (Reason: knee pain) 7 Days Qty: 21 0RF prednisone 20 mg tablet 20 mg PO DAILY 7 Days Qty: 7 0RF pregabalin 150 mg capsule 150 mg PO TID fluticasone propionate 110 mcg/actuation HFA aerosol inhaler 1 puff inhalation BID oxycodone-acetaminophen [Percocet] 7.5-325 mg tablet 1 tab PO Q6H PRN (Reason: pain) 25 Days Qty: 100 0RF Rx Instructions: Partial fill only per patient's request Last compassionate script, patient is suspended in opioid program. Daily dose reduction recommended by 1 pill a day over a week interval. mupirocin 2 % ointment topical BID-TID ibuprofen 600 mg tablet 600 mg PO TID amoxicillin-pot clavulanate [Augmentin] 500-125 mg tablet 1 tab PO Q8H 7 Days Qty: 21 0RF pyridoxine (vitamin B6) 100 mg tablet 100 mg PO DAILY 90 Days Qty: 90 1RF levofloxacin 500 mg tablet 500 mg PO DAILY Referrals: [facility] [place] [facility] [Provider Group] Raj Haddad MD [Primary Care Provider] - Interventions: ED Discharge Assessment Last Done: 09/04/22 10:05 Print Language: Irish
[2022-09-04] MEDS: predniSONE 20 MG TABLET PO (10:03)
[2022-09-04] MEDS: Cyclobenzaprine HCl 5 MG TABLET PO (10:03)
--- NOTE | 2022-09-04 10:06 | PC.NURSE ---
eval and dc by pa
== END 2022-09-04 10:07 | disposition home or self-care (01) ==
LOC: HO.ED 10:05
PROVIDERS: Emergency Provider Student in an Organized Health Care Education/Training Program; PCP Internal Medicine
DX: M54.2 Cervicalgia (principal); Z79.899 Other long term (current) drug therapy
CPT/HCPCS: 99283

== ENCOUNTER 2023-02-21 10:27 | Outpatient (AMB) | payer MEDICARE, MEDICAID, SELFPAY ==
--- NOTE | 2023-02-21 10:32 | MHC.OFFVIS ---
Intake Vital Signs 02/21/23 10:34 Height 4 ft 7 in Weight 165 lb BMI 38.3 Blood Pressure Location Rt brachial Position Sitting Respiration 12 Pulse 69 Pulse Source Pulse Oximeter Pulse Oximetry (%) 96 Oxygen Delivery Method Room Air Intake Visit Reasons: neck pain /Confirmed Allergies sulfamethoxazole [From Bactrim] Allergy (Intermediate, Verified 02/21/23 10:35) HIVES trimethoprim [From Bactrim] Allergy (Intermediate, Verified 02/21/23 10:35) HIVES cheese Allergy (Verified 02/21/23 10:35) Hives Medication List - Last Reconciled 02/21/23 by Erika Montiel, RADHA albuterol sulfate 90 mcg/actuation (Ventolin HFA) 1 - 2 puffs inhalation Q4-6H PRN aspirin 81 mg PO DAILY cyclobenzaprine 5 mg PO TID PRN 7 days duloxetine 20 mg PO DAILY fluticasone propionate 110 mcg/actuation 1 puff inhalation BID gabapentin 300 mg PO DAILY ibuprofen 800 mg PO TID PRN levothyroxine 88 mcg PO DAILY@0630 multivitamin 1 tab PO DAILY mupirocin 2% topical BID-TID omeprazole 20 mg PO DAILY@0630 ondansetron 4 mg PO Q8H PRN oxybutynin chloride ER 5 mg PO DAILY pregabalin 150 mg PO TID pyridoxine (vitamin B6) 100 mg PO DAILY 90 days HPI HPI Comments History of Present Illness Details Tonny Soria is back in my office after 1 year of absence to joint back the opioid program. She was suspended in opioid program for 1 year for failure to appear with proper pill count. She will be given today the UDS tests she will submit us UDS test and when UDS that is ready and appropriate with no control substances in reported we will start her on previous doses of the opioid medications. She was previously prescribed Percocet 7.5/325 4 times a day. Prior: very pleasant 55years old female who is ?who is on the phone to discuss the results of left diagnostic genicular nerve block which was done on 08/05/2021. She reported about 40% pain improvement immediately after the procedure. She still reports that the by now her pain is better by 20%. However unfortunately this is not enough of the pain improvement for me to consider any interventional pain management or neuromodulation procedures for this patient to help the pain in the knee. In the past she was examined by orthopedic surgeon and she was told that she is on the way to total knee replacement. I recommended her to go to orthopedic surgeon Dr. Lynch and get evaluated for the possible total left knee replacement. 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 Surgical History Hx of cholecystectomy Hx of total hip arthroplasty Hx of vitrectomy Social History Household Members: None Housing: Apartment Are you a primary home health care provider to a significant other at home: No 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) Alcohol intake: never Patient Tobacco Use Status: Never used Tobacco Advance Directives Date on File: 04/26/21 service: No Current occupational status: disabled Review of Systems Const All systems reviewed & are unremarkable except as noted in HPI and below Physical Exam Vital Signs: Last Vital Signs Pulse 69 02/21/23 10:34 Resp 12 02/21/23 10:34 Pulse Ox 96 02/21/23 10:34 Oxygen Delivery Method Room Air 02/21/23 10:34 BMI result Body Mass Index 38.3 Const Nutritional Appearance: obese Eyes General: appearance normal, both eyes and all related structures Pupils: Equal, round and reactive pupils present EOM: EOMs intact bilaterally Neck Neck: Yes full ROM Resp Effort & Inspection: normal respiratory effort, able to speak in complete sentences, normal respiratory pattern, no audible wheezes and no cough Cardio Jugular venous distension: no JVD GI Inspection: Yes normal to inspection Back/Spine/Pelvis Other: On physical examination patient exhibits normal strength of bilateral upper and lower extremities.. Valsalva maneuver is positive for pain increase in the neck. No incontinence with bowel or bladder. She denies urinary retention. Straight leg rising bilateral negative for pain increase. Lassegue is negative for pain increase. Left Arnold test is negative right Left Arnold test may be equivocal but there is total hip replacement on the right. That may interfere in her perception. Axial compression on the neck as well as axial extension of the neck increases level of the pain of the patient. Bending head forward and bending back backwards both aggravate her pain. Palpation of the lumbar spine and cervical spine reveals tenderness on paraspinal and spinal regions. range of motion in the cervical spine without limitations but she reports significant difficulty with range of motion of lumbar spine. Bending lumbar spine forward and bending lumbar spine backwards both aggravate her pain. Knee examination severe crepitus on palpation with knee motions. Flexion and extension. No signs of instability. Neuro Cranial nerves: Yes Equal, round and reactive pupils present Assessment & Plan Assessment & Plan (1) Chronic pain syndrome: Code(s): G89.4 - Chronic pain syndrome (2) Spondylosis of cervical joint without myelopathy: Code(s): M47.812 - Spondylosis without myelopathy or radiculopathy, cervical region (3) Spondylosis of lumbar region without myelopathy or radiculopathy: Code(s): M47.816 - Spondylosis without myelopathy or radiculopathy, lumbar region (4) Osteoarthritis of left knee: Code(s): M17.12 - Unilateral primary osteoarthritis, left knee Plan Diagnostic genicular nerve block on the left resulted in not satisfactory pain improvement. She reported 40% pain improvement after the injection and 20% pain improvement by now. Unfortunately at this grade 1 cannot recommend any neuromodulation or interventional pain management. She wants to be restarted in the chronic opioid program. She needs to go for UDS if UDS is appropriate will start her on Percocet 7.5/325 4 times a day. Next appointment will be scheduled in 15 days from the day of the start of the opioid medications. Coding Level of Care Code Est Pt Level 3 (92981) Diagnoses Chronic pain syndrome G89.4 Spondylosis of cervical joint without myelopathy M47.812 Spondylosis of lumbar region without myelopathy or radiculopathy M47.816 Osteoarthritis of left knee M17.12
[2023-02-21 10:34] VITALS: PULSE 69; RESP 12; O2SAT 96; BMI 38.3
== END 2023-02-21 11:24 | disposition home or self-care (01) ==
PROVIDERS: PCP Internal Medicine; Visit Provider Anesthesiology
DX: G89.4 Chronic pain syndrome (principal); M47.812 Spondylosis without myelopathy or radiculopathy, cervical region; M47.816 Spondylosis without myelopathy or radiculopathy, lumbar region; M17.12 Unilateral primary osteoarthritis, left knee
CPT/HCPCS: 99213

== ENCOUNTER → 2023-02-21 10:27 | Outpatient (BNVA) | payer MEDICARE, SELFPAY | PROVIDERS: PCP Internal Medicine; Visit Provider Anesthesiology | DX: G89.4 Chronic pain syndrome (principal); M47.812 Spondylosis without myelopathy or radiculopathy, cervical region; M47.816 Spondylosis without myelopathy or radiculopathy, lumbar region; M17.12 Unilateral primary osteoarthritis, left knee | CPT/HCPCS: 99212 ==

== ENCOUNTER 2023-02-22 10:19 | Emergency (ER) | payer MEDICARE, MEDICAID, SELFPAY ==
--- NOTE | ~2023-02-22 | XR_ITS ---
EXAMINATION: XR CHEST CLINICAL INFORMATION: Cough COMPARISON: 04/28/2016 TECHNIQUE: 2 views of the chest were obtained. FINDINGS: No significant abnormality is noted involving the heart, lungs, mediastinum, bony thorax or soft tissues. Surgical clips are present in the gallbladder fossa. XR/XR chest 2V IMPRESSION: Unremarkable examination.
[2023-02-22 10:32] VITALS: BP 132/84; PULSE 72; RESP 18; TEMP 36.1; O2SAT 97; BMI 38.9
--- NOTE | 2023-02-22 10:42 | ED_ITS ---
HPI - General Adult General Chief complaint: Upper Respiratory Symptoms Stated complaint: sore throat cough Time Seen by Provider: 02/22/23 10:42 Source: patient Mode of arrival: ambulatory Limitations: no limitations History of Present Illness HPI narrative: Patient is a 57 year old assigned female at with a history of chronic pain presenting to the emergency department today with a sore throat. Patient states that over the last week she has had a sore throat and a cough. Patient denies any dizziness, lightheadedness, abdominal pain, nausea, vomiting, fever, chills, blurry vision, double vision, loss of vision, chest pain, difficulty breathing, shortness of breath, back pain, night sweats, pain with urination, increased urinary frequency, increased urinary urgency, blood in her urine or stool, syncope or a near syncopal episode, recent trauma or falls, bowel incontinence, bladder incontinence, bowel retention, bladder retention, or any other complaints at this time. Onset (ago): week(s) (1) Severity: mild Severity scale (1-10): 2 Quality: aching and dull Pain Consistency: constant Relieving factors: none Exacerbating factors: none Associated symptoms: cough Treatments prior to arrival: none Related Data Home Medications Medication Instructions Recorded Confirmed pregabalin 150 mg capsule 150 mg PO TID 02/04/20 02/21/23 fluticasone propionate 110 1 puff inhalation BID 04/08/20 02/21/23 mcg/actuation HFA aerosol inhaler albuterol sulfate 90 mcg/actuation 1 - 2 puff inhalation Q4-6H PRN 04/23/21 02/21/23 aerosol inhaler (Ventolin HFA) Shortness Of Breath aspirin 81 mg tablet,delayed 81 mg PO DAILY 04/23/21 02/21/23 release ibuprofen 800 mg tablet 800 mg PO TID PRN Pain (Scale 04/23/21 02/21/23 Score 1-3) omeprazole 20 mg capsule,delayed 20 mg PO DAILY@0630 04/23/21 02/21/23 release multivitamin 1 tab PO DAILY 05/05/21 02/21/23 mupirocin 2 % topical ointment topical BID-TID 11/29/21 02/21/23 duloxetine 20 mg capsule,delayed 20 mg PO DAILY 02/21/23 02/21/23 release gabapentin 300 mg capsule 300 mg PO DAILY 02/21/23 02/21/23 levothyroxine 75 mcg tablet 88 mcg PO DAILY@0630 02/21/23 02/21/23 oxybutynin chloride 5 mg 5 mg PO DAILY 02/21/23 02/21/23 tablet,extended release 24 hr Previous Rx's Medication Instructions Recorded ondansetron 4 mg disintegrating 4 mg PO Q8H PRN nausea and 09/19/21 tablet vomiting #20 tabs pyridoxine (vitamin B6) 100 mg 100 mg PO DAILY 90 days #90 tabs 11/30/21 tablet cyclobenzaprine 5 mg tablet 5 mg PO TID PRN knee pain 7 days 06/28/22 #21 tabs penicillin V potassium 500 mg 500 mg PO BID 10 days #20 tabs 02/22/23 tablet Allergies Allergy/AdvReac Type Severity Reaction Status Date / Time sulfamethoxazole Allergy Intermediate HIVES Verified 02/21/23 10:35 [From Bactrim] trimethoprim [From Bactrim] Allergy Intermediate HIVES Verified 02/21/23 10:35 cheese Allergy Hives Verified 02/21/23 10:35 Review of Systems Constitutional: Constitutional: Reports no additional constitutional complaints, Denies chills, Denies fever(s) and Denies night sweats Eyes: Eyes: Reports no additional eye complaints, Denies blurry vision, Denies change in vision, Denies diplopia, Denies eye discharge, Denies loss of vision and Denies eye pain ENT: Denies dizziness and Reports sore throat Cardiovascular: Cardiovascular: Reports no additional cardiovascular complaints, Denies chest pain, Denies lightheadedness, Denies Loss of Consciousness and Denies dyspnea Respiratory: Respiratory: Reports no additional respiratory complaints, Reports cough and Denies dyspnea Gastrointestinal: Gastrointestinal: Reports no additional gastrointestinal complaints, Denies abdominal pain, Denies melena, Denies hematochezia, Denies change in bowel habits and Denies change in stool character Genitourinary: Genitourinary: Denies hematuria, Denies urinary frequency, Denies dysuria, Denies urinary incontinence, Denies urinary hesitancy and Denies urinary urgency Musculoskeletal: Musculoskeletal: Reports no additional musculoskeletal complaints, Denies numbness and Denies tingling Neurologic: Denies dizziness, Denies loss of vision, Denies numbness and Denie s tingling Psychiatric: Psychiatric: Reports no additional psychiatric complaints Endocrine: Endocrine: Reports no additional endocrine complaints Hematologic/Lymphatic: Hematologic/Lymphatic: Reports no additional hematologic/lymphatic complaints Allergic/Immunologic: Allergic/Immunologic: Reports no additional allergic/immunologic complaints [facility] Past Medical History Attestation statement: The following information was validated with the patient. 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 Surgical History Hx of vitrectomy Hx of cholecystectomy Hx of total hip arthroplasty Social History Social History Household Members: None Housing: Apartment Are you a primary healthcare insurance sales agent to a significant other at home: No Do you presently have visiting nurse or other home services: Yes ([employer]) Alcohol intake: never Patient Tobacco Use Status: Never used Tobacco Advance Directives: Yes Advance Directives on File: Yes Advance Directives Date on File: 04/26/21 service: No Current occupational status: disabled Physical Exam ED Vital Signs: Vital Signs - 24 hr 02/22/23 10:32 Temperature 96.9 F Pulse Rate 72 Respiratory Rate 18 Blood Pressure 132/84 Pulse Oximetry 97 Oxygen Delivery Method Room Air BMI result Body Mass Index 38.9 Const General: cooperative, no acute distress, alert and awake Nutritional Appearance: well nourished Orientation/consciousness: patient oriented x3 Limitations: no limitations HENMT Head: Yes normal to inspection and Yes atraumatic Ears: hearing grossly normal bilaterally and external ears normal General nose exam: Normal external nose present, no nasal discharge noted and no epistaxis Face and sinus: Yes normal facial exam, No abrasion and No laceration Mouth: Normal oral and palatal mucosa present, no drooling and no muffled voice Eyes General: appearance normal, both eyes and all related structures Periorbital: periorbital findings normal Eyelids: Yes eyelids normal Conjunctivae: conjunctivae normal Pupils: Equal, round and reactive pupils present EOM: EOMs intact bilaterally Neck Neck: Yes normal visual inspection, Yes full ROM and Yes no lymphadenopathy Chest Chest palpation & inspection: normal inspection of the chest Resp Effort & Inspection: normal respiratory effort and able to speak in complete sentences Auscultation: clear to auscultation bilaterally Cardio Rate: regular rate Rhythm: regular rhythm GI Inspection: Yes normal to inspection Neuro General: patient oriented x3 and moves all extremities Cranial nerves: Yes Equal, round and reactive pupils present Cognition (Neuro): normal cognition Motor exam (neuro): 5/5 motor strength present throughout Sensory Exam: Normal double simultaneous stimulation for sensation Coordination: [id number]-[id number] test normal Extrem General: Yes normal to inspection, Yes full ROM and Yes capillary refill normal Psych Appearance: grossly normal Mental Status: mental status grossly normal Affect: normal affect Attitude: cooperative Thought process: Normal thought process present Thought content: Normal thought content present Insight: Good insight present (Psych) Medical Decision Making Medical Decision Making [facility] Narrative: Patient is a 57 year old assigned female at with a history of chronic pain presenting to the emergency department today with a sore throat and a cough. Patient's physical exam was unremarkable. Patient's strep and COVID-19 tests were negative. Patient's chest x-ray showed no acute process. I explained my physical exam findings as well as all test results to the patient. I answered all questions asked by the patient. Patient received PO Decadron which she stated helped her symptoms significantly. I stressed the importance of the patient taking her medication as prescribed. I stressed the importance of the patient following up with her primary care provider. I stressed the importance of the patient returning to the emergency department immediately if her symptoms were to worsen or if she were to develop any dizziness, shortness of breath, difficulty breathing, chest pain, blurry vision, loss of vision, nausea, vomiting, abdominal pain, fever, chills, back pain, or any other complaints. Patient verbalized agreement and understanding with this treatment plan and discharge. Differential Diagnosis Differential Diagnoses: The differential diagnosis associated with the presentation includes Pharyngitis Viral illness Strep pharyngitis COVID-19 Lab Data [facility] Lab Attestation statement: I reviewed the patient's lab results. My interpretation of these studies and their corresponding values is that they are grossly normal. Labs: Lab Results 02/22/23 Range/Units 10:36 COVID-19 (RALPH) Negative (Negative) COVID-19 Clin Com See Note S. pyogenes GrpA SUSANA Negative (Negative) Independent Interpretation I performed an independent interpretation of an: Plain X-Ray Interpretation: My interpretation is in agreement with the radiologist's impression of this imaging study. EXAMINATION: XR CHEST CLINICAL INFORMATION: Cough COMPARISON: 04/28/2016 TECHNIQUE: 2 views of the chest were obtained. FINDINGS: No significant abnormality is noted involving the heart, lungs, mediastinum, bony thorax or soft tissues. Surgical clips are present in the gallbladder fossa. XR/XR chest 2V IMPRESSION: Unremarkable examination. Dictated By: Bernardo Salazar MD Signed By: Electronically signed by Bernardo Salazar MD 02/22/23 1115 Radiology Impression Discussion of test interpretation with radiology: I have reviewed the radiologist's reading. Prescription Management I considered prescription management with: Antibiotic (given patient's symptoms for 1 week, prescribed an antibiotic.) Discharge Plan Discharge Clinical Impression: Pharyngitis Patient Disposition: Home, Self-Care Instructions: Pharyngitis (ED) Additional Instructions: Follow up with your primary care provider. Return to the emergency department immediately if your symptoms worsen or if you develop any dizziness, shortness of breath, difficulty breathing, chest pain, blurry vision, loss of vision, nausea, vomiting, abdominal pain, fever, chills, back pain, or any other complaints. Prescriptions: New penicillin V potassium 500 mg tablet 500 mg PO BID 10 Days Qty: 20 0RF No Action ibuprofen 800 mg tablet 800 mg PO TID PRN (Reason: Pain (Scale Score 1-3)) aspirin 81 mg tablet,delayed release (DR/EC) 81 mg PO DAILY omeprazole 20 mg capsule,delayed release(DR/EC) 20 mg PO DAILY@0630 albuterol sulfate [Ventolin HFA] 90 mcg/actuation HFA aerosol inhaler 1 - 2 puff inhalation Q4-6H PRN (Reason: Shortness Of Breath) levothyroxine 75 mcg tablet 88 mcg PO DAILY@0630 ondansetron 4 mg tablet,disintegrating 4 mg PO Q8H PRN (Reason: nausea and vomiting) Qty: 20 0RF multivitamin Tablet 1 tab PO DAILY cyclobenzaprine 5 mg tablet 5 mg PO TID PRN (Reason: knee pain) 7 Days Qty: 21 0RF pregabalin 150 mg capsule 150 mg PO TID fluticasone propionate 110 mcg/actuation HFA aerosol inhaler 1 puff inhalation BID mupirocin 2 % ointment topical BID-TID pyridoxine (vitamin B6) 100 mg tablet 100 mg PO DAILY 90 Days Qty: 90 1RF oxybutynin chloride 5 mg tablet extended release 24hr 5 mg PO DAILY gabapentin 300 mg capsule 300 mg PO DAILY duloxetine 20 mg capsule,delayed release(DR/EC) 20 mg PO DAILY Referrals: Raj Haddad MD [Primary Care Provider] - Print Language: Ivorian
--- OUTSIDE RECORDS SUMMARY | 2023-02-22 10:58 | XMS_ITS | Continuity of Care Document ---
Author Name Unknown Organization [facility] ter Address [address] [place] [id number]- Care Team Providers Care Railroad Repairer Name Role Phone Mehnaz WATSON, BrittneyChico Primary Care Physician [place] [facility] [place] - 06/05/[address] [address]- [facility] Attending Physician: Orion Vicente MD Admitting Physician: Orion Vicente MD Referring Physician: Orion Vicente MD Allergies, Adverse Reactions, Alerts Substance Reaction Severity Status Bactrim hives Active Medications Albuterol 0 Refills, Maintenance Start Date: 12/27/10 Status: Ordered gabapentin 600 mg oral tablet 1 tablet = 600 mg, By Mouth, 3 times a day, 0 Refills, Maintenance, 12/20/15 21:18:09 Start Date: 12/20/15 Status: Ordered GlycoLax = 17 Gm, By Mouth, Daily, PRN Constipation, 0 Refills, Maintenance, 08/24/15 13:24:55 Start Date: 08/24/15 Status: Ordered lidocaine 5% topical ointment 1 applicator, Topically, 3 times a day, 0 Refills, Maintenance, 09/24/15 13:24:50 Start Date: 09/24/15 Status: Ordered Lotrimin 1% cream 0 Refills, Maintenance, 08/24/15 13:28:02 Start Date: 08/24/15 Status: Ordered Lyrica 25 mg oral capsule 2 capsule = 50 mg, By Mouth, 3 times a day, 0 Refills, Maintenance, 05/30/18 13:11:16 EST Start Date: 05/30/18 Status: Ordered MiraLax = 17 Gm, By Mouth, Daily, 0 Refills, Maintenance Start Date: 12/27/10 Status: Ordered Mobic 15 mg oral tablet 1 tablet = 15 mg, By Mouth, Daily, PRN Pain , Moderate, 0 Refills, Maintenance, 08/24/15 13:27:00 Start Date: 08/24/15 Status: Ordered omeprazole 20 mg oral enteric coated capsule 1 capsule = 20 mg, By Mouth, Daily, # 30 capsule, 3 Refills, Maintenance, 12/05/18 13:08:00 EDT, ECCapsule Start Date: 12/05/18 Stop Date: 04/04/19 Status: Ordered sulindac 200 mg oral tablet 1 tablet = 200 mg, By Mouth, 2 times a day, PRN for pain, with food or milk; prn for pain replaces mobic, # 60 tablet, 0 Refills, Maintenance, 10/13/15 16:25:32, Tablet Start Date: 10/13/15 Status: Ordered Synthroid 0.075 mg oral tablet 1 tablet, By Mouth, Daily, # 30 tablet, 0 Refills, Maintenance, Tablet Start Date: 12/27/10 Status: Ordered tiZANidine 4 mg oral tablet See Instructions, 1/2 to 1 tablet By Mouth Every 8 hours, # 45 tablet, Refills 2, Tot. Refills 2, Maintenance, 10/13/15 16:25:45, Instructions Replace Required Details, Route to Pharmacy Electronically, [id number], [place]... Start Date: 10/13/15 Status: Ordered traMADol 50 mg oral tablet 2 tablet = 100 mg, By Mouth, Daily, 0 Refills, Maintenance, 09/24/15 13:24:58 Start Date: 09/24/15 Status: Ordered triamcinolone 0.1% topical cream 1 applicator, Topically, 3 times a day, PRN Other, 0 Refills, Maintenance, 08/24/15 13:25:24 Start Date: 08/24/15 Status: Ordered Zoloft 50 mg oral tablet 1 tablet, By Mouth, Daily, # 30 tablet, 0 Refills, Maintenance, Tablet Start Date: 12/27/10 Status: Ordered Problem List Condition Effective Dates Status Health Status Inform ant Aberrant artery(Confirmed) Active Limitation due to disability(Confirmed) 1 Active Drug or alcohol risk assessm ent or counseling(Confirmed) 2 Active History of surgery(Confirmed) 3 Active Use of opiates for therapeut ic purposes(Confirmed) Active Hip pain(Confirmed) Active Low back pain(Confirmed) Active Lumbar spondylosis(Confirmed) Active Neck pain(Confirmed) Active 1initial Oswestry Disability Index:90% on 09/24/15; initial [place] Back Pain Scale:92 on 09/24/15; initial Neck Disabilty Index: 86% on 09/24/15;initial [place]: 3 on 09/24/15 2SOAPP-R:28 on 09.24.15 3C-section ??2, hip replacement surgery Social History Social History Type Response Smoking Status Never smoker entered on: 09/24/15 Sex
--- OUTSIDE RECORDS SUMMARY | 2023-02-22 10:58 | XMS_ITS | Continuity of Care Document ---
Author Name Unknown Organization [facility] Adult Address [address] [place] [address]- Care Team Providers Care Business Records Manager Name Role Phone Moy Ruiz MD Primary Care Physician [phone] [place] [facility] [place] [id number] Date(s): 01/02/20 - 02/01/20 [facility] Adult [address] [place] [address]- [facility] Attending Physician: Eliz Gill Admitting Physician: Admtr, Ar8 Referring Physician: Admtr, Ar8 Allergies, Adverse Reactions, Alerts Substance Reaction Severity Status Bactrim hives Active Medications albuterol 90 mcg/inh inhalation powder 2 puffs, Inhalation, Once, as directed 15 minutes before exercise, # 1 each, 0 Refills, Maintenance, 09/24/19 9:28:00 EDT, Powder Start Date: 09/24/19 Status: Ordered cyclobenzaprine 10 mg oral tablet 10 mg, 1, tablet, By Mouth, Daily at bedtime, PRN, # 30 tablet, Refills 0, Tot. Refills 0, Maintenance, as needed for muscle spasm, 12/05/19 11:53:00 EDT, Route to Pharmacy Electronically, [facility]/pharmacy #[id number], 140, cm, 12/05/19 10:33:00 EDT, Height, 68... Start Date: 12/05/19 Status: Ordered gabapentin 600 mg oral tablet 1 tablet = 600 mg, By Mouth, 3 times a day, 0 Refills, Maintenance, 12/20/15 21:18:09 Start Date: 12/20/15 Status: Ordered lidocaine 5% topical ointment 1 applicator, Topically, 3 times a day, 0 Refills, Maintenance, 09/24/15 13:24:50 Start Date: 09/24/15 Status: Ordered Lotrimin 1% cream 0 Refills, Maintenance, 08/24/15 13:28:02 Start Date: 08/24/15 Status: Ordered Lyrica 25 mg oral capsule 2 capsule = 50 mg, By Mouth, 3 times a day, 0 Refills, Maintenance, 05/30/18 13:11:16 EST Start Date: 05/30/18 Status: Ordered Lyrica 75 mg oral capsule 1 capsule = 75 mg, By Mouth, 2 times a day, lead business analyst reviewed, # 60 capsule, 0 Refills, Maintenance, 12/05/19 17:46:00 EDT, Capsule, [facility]/pharmacy #[id number], 140, cm, 12/05/19 10:33:00 EDT, Height, 68.9, kg, 12/03/19 15:30:00 EDT, Dry Weight Start Date: 12/05/19 Status: Ordered meloxicam 15 mg oral tablet 1 tablet = 15 mg, By Mouth, Daily, with food, # 30 tablet, 0 Refills, Maintenance, 12/03/19 15:51:00 EDT, Tablet, [facility]/pharmacy #[id number], 140, cm, 12/03/19 15:19:00 EDT, Height, 68.9, kg, 12/03/19 15:30:00 EDT, Dry Weight Start Date: 12/03/19 Status: Ordered MiraLax = 17 Gm, By Mouth, Daily, 0 Refills, Maintenance Start Date: 12/27/10 Status: Ordered omeprazole 20 mg oral enteric coated capsule 1 capsule, By Mouth, 2 times a day, # 60 capsule, 0 Refills, Maintenance, 01/08/20 8:49:00 EDT, [id number], 140, cm, 01/02/20 11:36:00 EDT, Height, 68.9, kg, 12/03/19 15:30:00 EDT, Dry Weight Start Date: 01/08/20 Status: Ordered Synthroid 0.075 mg oral tablet 1 tablet, By Mouth, Daily, # 30 tablet, 0 Refills, Maintenance, Tablet Start Date: 12/27/10 Status: Ordered tiZANidine 4 mg oral tablet 1/2-1 TABLET, By Mouth, Every 8 hours, # 45 tablet, Refills 1, Tot. Refills 0, Maintenance, 12/18/19 9:59:00 EDT, Route to Pharmacy Electronically, [id number], 140, cm, 12/05/19 10:33:00 EDT, Height, 68.9, kg, 12/03/19 15:30:00 EDT, Dry Weight Start Date: 12/18/19 Status: Ordered traMADol 50 mg oral tablet [...] Effective Dates Status Health Status Inform ant Hypothyroidism(Confirmed) Active Social History Social History Type Response Smoking Status Never smoker entered on: 09/24/15 Sex
--- OUTSIDE RECORDS SUMMARY | 2023-02-22 10:58 | XMS_ITS | Continuity of Care Document ---
Author Name Unknown Organization [facility] Address [address] [place] [id number]- Care Team Providers Care Superintendent Construction Name Role Phone Mehnaz WATSON, Vidya Primary Care Physician En[place] [facility] [place] Date(s): 05/20/19 - 05/30/19 [facility] [address] [place] [id number]- [facility] Attending Physician: Eliz Gill Admitting Physician: Eliz Gill Referring Physician: AdmtrEliz Allergies, Adverse Reactions, Alerts Substance Reaction Severity [...] Replace Required Details, Route to Pharmacy Electronically, [id number]... Start Date: 10/13/15 Status: Ordered traMADol 50 [...] 1initial Oswestry Disability Index:90% on 09/24/15; initial [place] Back Pain Scale:92 on 09/24/15; initial Neck Disabilty Index: 86% on 09/24/15;initial [place]: 3 on 09/24/15 2SOAPP-R:28 on 09.24.15 3C-section ??2, hip replacement surgery Social History Social History Type Response Smoking Status Never smoker entered on: 09/24/15 Sex
--- OUTSIDE RECORDS SUMMARY | 2023-02-22 10:58 | XMS_ITS | Continuity of Care Document ---
Author Name Unknown Organization [facility] Adult Address [address] [place] [address]- Care Team Providers Care Sponge Clipper Name Role Phone Moy Ruiz MD Primary Care Physician Encounter [facility] [place] Date(s): 10/28/20 - 11/04/20 [facility] Adult [address] [place] [address]- Attending Physician: Moy Ruiz MD Allergies, Adverse Reactions, Alerts Substance Reaction [...] 12/05/19 11:53:00 EDT, Route to Pharmacy Electronically, [facility]/pharmacy #[id number], 140, cm, 12/05/19 10:33:00 EDT, Height, [...] mg, By Mouth, 2 times a day, middle school teacher reviewed, # 60 capsule, 0 Refills, Maintenance, 12/05/19 17:46:00 EDT, Capsule, [facility]/pharmacy #[id number], 140, cm, 12/05/19 10:33:00 EDT, Height, 68.9, kg, 12/03/19 15:30:00 EDT, Dry Weight Start Date: 12/05/19 Status: Ordered meloxicam 15 mg oral tablet 1 tablet = 15 mg, By Mouth, Daily, with food, # 30 tablet, 0 Refills, Maintenance, 12/03/19 15:51:00 EDT, Tablet, [facility]/pharmacy #[id number], 140, cm, 12/03/19 15:19:00 EDT, Height, 68.9, kg, 12/03/19 15:30:00 EDT, Dry Weight Start Date: 12/03/19 Status: Ordered MiraLax = 17 Gm, By Mouth, Daily, 0 Refills, Maintenance Start Date: 12/27/10 Status: Ordered omeprazole 20 mg oral enteric coated capsule 1 capsule, By Mouth, 2 times a day, # 60 capsule, 0 Refills, Maintenance, 01/08/20 8:49:00 EDT, [id number], 140, cm, 01/02/20 11:36:00 EDT, Height, 68.9, [...] 12/18/19 9:59:00 EDT, Route to Pharmacy Electronically, [id number], 140, cm, 12/05/19 10:33:00 EDT, Height, 68.9, [...] Status Health Status Inform ant Hypothyroidism(Confirmed) Active Vital Signs Most recent to oldest [Reference Range]: 1 Height 140.00 cm (10/28/20 2:10 PM) Social History Social History Type Response Smoking Status Never smoker entered on: 09/24/15 Sex
--- OUTSIDE RECORDS SUMMARY | 2023-02-22 10:58 | XMS_ITS | Continuity of Care Document ---
Author Name Unknown Organization [facility] ter Address [address] [place] [address]- Care Team Providers Care Public Safety Police Name Role Phone Vidya Darby MD Primary Care Physician [place] [facility] Date(s): 04/21/19 - 04/21/[address] [address]- [facility] Discharge Disposition: A-D/C Home Attending Physician: Christiano Swanson MD Admitting Physician: Christiano Swanson MD Referring Physician: Christiano Swanson MD Allergies, Adverse Reactions, Alerts Substance Reaction [...] Replace Required Details, Route to Pharmacy Electronically, [id number], [place]... Start Date: 10/13/15 Status: Ordered traMADol [...] 1initial Oswestry Disability Index:90% on 09/24/15; initial [place] Back Pain Scale:92 on 09/24/15; initial Neck Disabilty Index: 86% on 09/24/15;initial [place]: 3 on 09/24/15 2SOAPP-R:28 on 09.24.15 3C-section ??2, hip replacement surgery Procedures Procedure Date Related Diagnosis Body Site Status Esophagogastroduodenoscopy 04/21/19 Completed Vital Signs Most recent to oldest [Reference Range]: 1 2 3 Oxygen Saturation [94-100 %] 96 % (04/21/19 5:00 PM) 96 % (04/21/19 4:52 PM) 98 % (04/21/19 3:58 PM) Pulse Rate [55-90 bpm] 68 bpm (04/21/19 3:58 PM) Blood Pressure [90-138/55-84 mm Hg] 110/63mm Hg (04/21/19 5:00 PM) 96/67mm Hg (04/21/19 4:52 PM) 128/72mm Hg (04/21/19 3:58 PM) Respiratory Rate [16-30 br/min] 16 br/min (04/21/19 5:00 PM) 16 br/min (04/21/19 4:52 PM) 18 br/min (04/21/19 3:58 PM) Temperature [96.8-100.4 DegF] 98 DegF (04/21/19 3:58 PM) Mode of Delivery (Oxygen) Room air (04/21/19 5:00 PM) Room air (04/21/19 4:52 PM) Room air (04/21/19 3:58 PM) Temperature Route Temporal (04/21/19 3:58 PM) Dry Weight 63.5 kg (04/21/19 3:58 PM) Dry Weight Obtained Via Patient/family s tated (04/21/19 3:58 PM) Social History Social History Type Response Smoking Status Never smoker entered on: 09/24/15 Sex
--- OUTSIDE RECORDS SUMMARY | 2023-02-22 10:58 | XMS_ITS | Continuity of Care Document ---
Author Name Unknown Organization [facility] Address [address] [place] [address]- Care Team Providers Care Booster Operator Name Role Phone Mehnaz WATSON, Vidya Primary Care Physician Encounter [facility] Date(s): 08/01/21 - 08/08/21 [facility] [address] [place] [address]- Attending Physician: Ferny Ruiz MD Admitting Physician: Ferny Ruiz MD Referring Physician: Vidya Darby MD Allergies, Adverse Reactions, Alerts Substance Reaction [...] 12/05/19 11:53:00 EDT, Route to Pharmacy Electronically, [facility]/pharmacy #[id number], 140, cm, 12/05/19 10:33:00 EDT, Height, [...] mg, By Mouth, 2 times a day, pmo project manager reviewed, # 60 capsule, 0 Refills, Maintenance, 12/05/19 17:46:00 EDT, Capsule, [facility]/pharmacy #[id number], 140, cm, 12/05/19 10:33:00 EDT, Height, 68.9, kg, 12/03/19 15:30:00 EDT, Dry Weight Start Date: 12/05/19 Status: Ordered meloxicam 15 mg oral tablet 1 tablet = 15 mg, By Mouth, Daily, with food, # 30 tablet, 0 Refills, Maintenance, 12/03/19 15:51:00 EDT, Tablet, [facility]/pharmacy #[id number], 140, cm, 12/03/19 15:19:00 EDT, Height, 68.9, kg, 12/03/19 15:30:00 EDT, Dry Weight Start Date: 12/03/19 Status: Ordered MiraLax = 17 Gm, By Mouth, Daily, 0 Refills, Maintenance Start Date: 12/27/10 Status: Ordered omeprazole 20 mg oral enteric coated capsule 1 capsule, By Mouth, 2 times a day, # 60 capsule, 0 Refills, Maintenance, 01/08/20 8:49:00 EDT, [facility], 140, cm, 01/02/20 11:36:00 EDT, Height, 68.9, [...] 12/18/19 9:59:00 EDT, Route to Pharmacy Electronically, [id number], 140, cm, 12/05/19 10:33:00 EDT, Height, 68.9, [...] Status Health Status Inform ant Hypothyroidism(Confirmed) Active Obese class II(Confirmed) Active Vital Signs Most recent to oldest [Reference Range]: 1 Height 140.00 cm (08/01/21 2:33 PM) Weight 68.95 kg (08/01/21 2:33 PM) Oxygen Saturation [94-100 %] 97 % (08/01/21 2:33 PM) Pulse Rate [55-90 bpm] 84 bpm (08/01/21 2:33 PM) Body Mass Index [18.5-24.99] 35.18 *>HHI* (08/01/21 2:33 PM) Blood Pressure [90-138/55-84 mm Hg] 112/ 70mm Hg (08/01/21 2:33 PM) Mode of Delivery (Oxygen) Room air (08/01/21 2:33 PM) Blood pressure sites Arm, left (08/01/21 2:33 PM) Weight Obtained Via Patient/family state d (08/01/21 2:33 PM) Social History Social History Type Response Smoking Status Never smoker entered on: 09/24/15 Sex
--- OUTSIDE RECORDS SUMMARY | 2023-02-22 10:58 | XMS_ITS | Continuity of Care Document ---
Author Name Unknown Organization [facility] [place] Address [address] [place] [address]- Care Team Providers Care Director Wholesale Name Role Phone Joseph WATSON, Moy Primary Care Physician [phone] [facility] Date(s): 09/24/19 - 12/07/19 [facility] [place] [address] [place] [address]- [facility] Attending Physician: Christiano Swanson MD Referring Physician: Gilberto Babb MD Allergies, Adverse Reactions, Alerts Substance Reaction [...] 11:53:00 EDT, Route to Pharmacy Electronically, [facility]/pharmacy #[id number], 140, cm, 12/05/19 10:33:00 [...] mg, By Mouth, 2 times a day, histotechnologist supervisor reviewed, # 60 capsule, 0 Refills, Maintenance, 12/05/19 17:46:00 EDT, Capsule, [id number], 140, cm, 12/05/19 10:33:00 EDT, Height, 68.9, kg, 12/03/19 15:30:00 EDT, Dry Weight Start Date: 12/05/19 Status: Ordered meloxicam 15 mg oral tablet 1 tablet = 15 mg, By Mouth, Daily, with food, # 30 tablet, 0 Refills, Maintenance, 12/03/19 15:51:00 EDT, Tablet, [id number], 140, cm, 12/03/19 15:19:00 EDT, Height, [...] Date: 12/05/18 Stop Date: 04/04/19 Status: Ordered omeprazole 20 mg oral enteric coated capsule 1 capsule = 20 mg, By Mouth, 2 times a day, # 60 capsule, 0 Refills, Maintenance, 12/03/19 15:51:00EDT, EC Capsule, [id number], 140, cm, 12/03/19 15:19:00 EDT, Height, 68.9, kg, 12/03/19 15:30:00 EDT, Dry Weight Start Date: 12/03/19 Status: Ordered Synthroid 0.075 mg oral tablet 1 tablet, By Mouth, Daily, # 30 tablet, 0 Refills, Maintenance, Tablet Start Date: 12/27/10 Status: Ordered tiZANidine 4 mg oral tablet See Instructions, 1/2 to 1 tablet By Mouth Every 8 hours, # 45 tablet, Refills 1, Tot. Refills 1, Maintenance, 12/03/19 15:54:00 EDT, Instructions Replace Required Details, Route to Pharmacy Electronically, [facility]/pharmacy #[id number], 140, cm, 12/03/19 15:19... Start Date: 12/03/19 Status: Ordered traMADol 50 mg oral tablet [...]
--- OUTSIDE RECORDS SUMMARY | 2023-02-22 10:58 | XMS_ITS | Continuity of Care Document ---
Author Name Unknown Organization [facility] Address [address] [place] [address]- Care Team Providers Care Easement Worker Name Role Phone Moy Ruiz MD Primary Care Physician Encounter [facility] Date(s): 12/05/19 - 12/12/19 [facility] [address] [place] [address]- [facility] Encounter Diagnosis Well adult exam(Discharge Diagnosis) - 12/07/19 Fatigue(Discharge Diagnosis) - 12/07/19 Hypothyroidism(Discharge Diagnosis) - 12/05/19 Left wrist pain(Discharge Diagnosis) - 12/07/19 Lump in neck(Discharge Diagnosis) - 12/07/19 Major depression, recurrent(Discharge Diagnosis) - 12/07/19 Left knee pain(Discharge Diagnosis) - 12/07/19 Attending Physician: Moy Ruiz MD Allergies, Adverse [...] mg, By Mouth, 2 times a day, dermatology physician reviewed, # 60 capsule, 0 Refills, Maintenance, 12/05/19 17:46:00 EDT, Capsule, [facility]/pharmacy #[id number], 140, cm, 12/05/19 10:33:00 EDT, Height, 68.9, kg, 12/03/19 15:30:00 EDT, Dry Weight Start Date: 12/05/19 Status: Ordered meloxicam 15 mg oral tablet 1 tablet = 15 mg, By Mouth, Daily, with food, # 30 tablet, 0 Refills, Maintenance, 12/03/19 15:51:00 EDT, Tablet, [facility]/pharmacy #[id number], 140, cm, 12/03/19 15:19:00 [...] 0 Refills, Maintenance, 12/03/19 15:51:00EDT, EC Capsule, [facility]/pharmacy #[id number], 140, cm, 12/03/19 15:19:00 [...] Status Health Status Inform ant Hypothyroidism(Confirmed) Active Diagnosis Diagnosis Type Effective Dates Health Status Clinical Service Informant Hypothyroidism Discharge Diagnosis 12/05/19 Well adult exam Discharge Diagnosis 12/07/19 Major depression, recurrent Discharge Diagnosis 12/07/19 Left knee pain Discharge Diagnosis 12/07/19 Left wrist pain Discharge Diagnosis 12/07/19 Lump in neck Discharge Diagnosis 12/07/19 Fatigue Discharge Diagnosis 12/07/19 Vital Signs Most recent to oldest [Reference Range]: 1 Height 140.00 cm (12/05/19 10:33 AM) Weight 68.7 kg (12/05/19 10:33 AM) Oxygen Saturation [94-100 %] 95 % (12/05/19 10:33 AM) Pulse Rate [55-90 bpm] 84 bpm (12/05/19 10:33 AM) Body Mass Index [18.5-24.99] 35.05 *>HHI* (12/05/19 10:33 AM) Blood Pressure [90-138/55-84 mm Hg] 102/ 64mm Hg (12/05/19 10:33 AM) Respiratory Rate [16-30 br/min] 18 br/mi n (12/05/19 10:33 AM) Temperature [96.8-100.4 DegF] 98.4 DegF (12/05/19 10:33 AM) Mode of Delivery (Oxygen) Room air (12/05/19 10:33 AM) Blood pressure sites Arm, left (12/05/19 10:33 AM) Temperature Route Oral (12/05/19 10:33 AM) Weight Obtained Via Standing scale (12/05/19 10:33 AM) Social History Social History Type Response Smoking Status Never smoker entered on: 09/24/15 Sex
--- OUTSIDE RECORDS SUMMARY | 2023-02-22 10:58 | XMS_ITS | Continuity of Care Document ---
Author Name Unknown Organization [facility] ter Address [address] [place] [address]- Care Team Providers Care Veneer Clipper Name Role Phone Mehnaz WATSON, BrittneyChico Primary Care Physician En[facility] [place] Date(s): 04/28/19 - 06/25/[address] [address]- [facility] Attending Physician: Orion Vicente MD [...] Replace Required Details, Route to Pharmacy Electronically, [id number], [place]. Start Date: 10/13/15 Status: Ordered traMADol 50 [...] 1initial Oswestry Disability Index:90% on 09/24/15; initial [place] Back Pain Scale:92 on 09/24/15; initial Neck Disabilty Index: 86% on 09/24/15;initial [place]: 3 on 09/24/15 2SOAPP-R:28 on 09.24.15 3C-section ??2, hip replacement surgery Social History Social History Type Response Smoking Status Never smoker entered on: 09/24/15 Sex
--- OUTSIDE RECORDS SUMMARY | 2023-02-22 10:58 | XMS_ITS | Continuity of Care Document ---
Author Name Unknown Organization [facility] Address [address] [place] [address]- Care Team Providers Care Groundwater Consultant Name Role Phone Mehnaz WATSON, Vidya Primary Care Physician En[place] [facility] [place] Date(s): 09/24/19 - 10/01/19 [facility] [address] [place] [address]- [facility] Attending Physician: Holley WATSON, Gilberto Mckenzie Admitting Physician: Gilberto Babb MD Referring Physician: Christiano Swanson MD Allergies, Adverse Reactions, Alerts Substance Reaction Severity Status Bactrim hives Active Medications albuterol 90 mcg/inh inhalation powder 2 puffs, Inhalation, Once, as directed 15 minutes before exercise, # 1 each, 0 Refills, Maintenance, 09/24/19 9:28:00 EDT, Powder Start Date: 09/24/19 Status: Ordered gabapentin 600 mg oral tablet [...] Replace Required Details, Route to Pharmacy Electronically, [id number], [place]... Start Date: 10/13/15 Status: Ordered traMADol [...] 1initial Oswestry Disability Index:90% on 09/24/15; initial [place] Back Pain Scale:92 on 09/24/15; initial Neck Disabilty Index: 86% on 09/24/15;initial [place]: 3 on 09/24/15 2SOAPP-R:28 on 09.24.15 3C-section ??2, hip replacement surgery Vital Signs Most recent to oldest [Reference Range]: 1 Height 140.00 cm (09/24/19 9:25 AM) Weight 65.77 kg (09/24/19 9:25 AM) Body Mass Index [18.5-24.99] 33.56 *>HHI* (09/24/19 9:25 AM) Blood Pressure [90-138/55-84 mm Hg] 110/ 70mm Hg (09/24/19 9:25 AM) Blood pressure sites Arm, left (09/24/19 9:25 AM) Weight Obtained Via Patient/family state d (09/24/19 9:25 AM) Social History Social History Type Response Smoking Status Never smoker entered on: 09/24/15 Sex
--- OUTSIDE RECORDS SUMMARY | 2023-02-22 10:58 | XMS_ITS | Continuity of Care Document ---
Author Name Unknown Organization [facility] Address [address] [place] [address]- Care Team Providers Care Thread Weaver Name Role Phone Mehnaz WATSON, Vidya Primary Care Physician [place] [facility] [place] 05/24/21 - 05/31/21 [facility] [address] [place] [address]- Attending Physician: Paola Lynn NP Admitting Physician: Paola Lynn NP Referring Physician: Moy Ruiz MD Allergies, Adverse Reactions, [...] 12/05/19 11:53:00 EDT, Route to Pharmacy Electronically, [facility]/pharmacy #[id number], 140, cm, 12/05/19 10:33:00 EDT, [...] mg, By Mouth, 2 times a day, drywall stripper reviewed, # 60 capsule, 0 Refills, Maintenance, 12/05/19 17:46:00 EDT, Capsule, [facility]/pharmacy #[id number], 140, cm, 12/05/19 10:33:00 EDT, Height, 68.9, kg, 12/03/19 15:30:00 EDT, Dry Weight Start Date: 12/05/19 Status: Ordered meloxicam 15 mg oral tablet 1 tablet = 15 mg, By Mouth, Daily, with food, # 30 tablet, 0 Refills, Maintenance, 12/03/19 15:51:00 EDT, Tablet, [facility]/pharmacy #[id number], 140, cm, 12/03/19 15:19:00 EDT, Height, 68.9, kg, 12/03/19 15:30:00 EDT, Dry Weight Start Date: 12/03/19 Status: Ordered MiraLax = 17 Gm, By Mouth, Daily, 0 Refills, Maintenance Start Date: 12/27/10 Status: Ordered omeprazole 20 mg oral enteric coated capsule 1 capsule, By Mouth, 2 times a day, # 60 capsule, 0 Refills, Maintenance, 01/08/20 8:49:00 EDT, [facility], 140, cm, 01/02/20 11:36:00 EDT, Height, 68.9, [...] 12/18/19 9:59:00 EDT, Route to Pharmacy Electronically, [id number], 140, cm, 12/05/19 10:33:00 EDT, Height, 68.9, [...]
--- OUTSIDE RECORDS SUMMARY | 2023-02-22 10:58 | XMS_ITS | Continuity of Care Document ---
Author Name Unknown Organization [facility] Address [address] [place] [address]- Care Team Providers Care Liner Machine Operator Name Role Phone Vidya Darby MD Primary Care Physician [place] [facility] [place] Date(s[place] 01/30/19 - 09/19/19 [facility] [address] [place] [address]- [facility] Attending Physician: Christiano Swanson MD Admitting Physician: Christiano Swanson MD Referring Physician: Vidya Darby MD Allergies, [...] Replace Required Details, Route to Pharmacy Electronically, [id number], [place]... Start Date: 10/13/15 Status: Ordered traMADol [...] 1initial Oswestry Disability Index:90% on 09/24/15; initial [place] Back Pain Scale:92 on 09/24/15; initial Neck Disabilty Index: 86% on 09/24/15;initial [place]: 3 on 09/24/15 2SOAPP-R:28 on 09.24.15 3C-section ??2, hip replacement surgery Social History Social History Type Response Smoking Status Never smoker entered on: 09/24/15 Sex
--- OUTSIDE RECORDS SUMMARY | 2023-02-22 10:58 | XMS_ITS | Continuity of Care Document ---
Author Name Unknown Organization [facility] Address [address] [place] [address]- Care Team Providers Care Clocksmith Name Role Phone Raj Haddad MD Primary Care Physician En[place] [id number] Date(s): 09/25/22 - 10/25/22 [facility] [address] [place], [place] [address] Attending Physician: Eliz Gill Admitting Physician: Eliz Gill Referring Physician: Eliz Gill Referring Physician: Praveen Zamora Allergies, Adverse Reactions, Alerts Substance Reaction Severity [...] 12/05/19 11:53:00 EDT, Route to Pharmacy Electronically, [facility]/pharmacy #[id number], 140, cm, 12/05/19 10:33:00 [...] mg, By Mouth, 2 times a day, security operations engineer reviewed, # 60 capsule, 0 Refills, Maintenance, 12/05/19 17:46:00 EDT, Capsule, [facility]/pharmacy #[id number], 140, cm, 12/05/19 10:33:00 EDT, Height, 68.9, kg, 12/03/19 15:30:00 EDT, Dry Weight Start Date: 12/05/19 Status: Ordered meloxicam 15 mg oral tablet 1 tablet = 15 mg, By Mouth, Daily, with food, # 30 tablet, 0 Refills, Maintenance, 12/03/19 15:51:00 EDT, Tablet, [facility]/pharmacy #[id number], 140, cm, 12/03/19 15:19:00 EDT, Height, 68.9, kg, 12/03/19 15:30:00 EDT, Dry Weight Start Date: 12/03/19 Status: Ordered MiraLax = 17 Gm, By Mouth, Daily, 0 Refills, Maintenance Start Date: 12/27/10 Status: Ordered omeprazole 20 mg oral enteric coated capsule 1 capsule, By Mouth, 2 times a day, # 60 capsule, 0 Refills, Maintenance, 01/08/20 8:49:00 EDT, [facility], 140, cm, 01/02/20 11:36:00 EDT, Height, 68.9, [...] 12/18/19 9:59:00 EDT, Route to Pharmacy Electronically, [facility], 140, cm, 12/05/19 10:33:00 EDT, Height, 68.9, [...] Date: 12/27/10 Status: Ordered Problem List Condition Confirmation Course Effective Dates Status Health St atus Informant Hypothyroidism Confirmed Active Obese class I Confirmed Active Social History Social History Type Response Smoking Status Never smoker entered on: 09/24/15 Sex Patient Care team information Care Team Personnel Name: Raj Haddad MD Position: Reference Physician Member Role: PCP Address: Address: [address] [place] [address] [place] [address]- Care Team Related Persons Name: JONATHAN ANDRE Address: home [address] [place] [address] Name: AMANDA LANGFORD Address: home [address] [place] [address]
--- OUTSIDE RECORDS SUMMARY | 2023-02-22 10:58 | XMS_ITS | Continuity of Care Document ---
Author Name Unknown Organization [facility] Address [address] [place] [address]- Care Team Providers Care Race Relations Professor Name Role Phone Not on Staff, PCP Primary Care Physician Unavail able Encounter [facility] [place] Date(s): 03/02/22 - 04/01/22 [facility] [address] [place], [place] [address] Attending Physician: Eliz Gill Admitting Physician: [...] 12/05/19 11:53:00 EDT, Route to Pharmacy Electronically, [facility]/pharmacy #[id number], 140, cm, 12/05/19 10:33:00 EDT, [...] mg, By Mouth, 2 times a day, rolling attendant reviewed, # 60 capsule, 0 Refills, Maintenance, 12/05/19 17:46:00 EDT, Capsule, [facility]/pharmacy #[id number], 140, cm, 12/05/19 10:33:00 EDT, Height, 68.9, kg, 12/03/19 15:30:00 EDT, Dry Weight Start Date: 12/05/19 Status: Ordered meloxicam 15 mg oral tablet 1 tablet = 15 mg, By Mouth, Daily, with food, # 30 tablet, 0 Refills, Maintenance, 12/03/19 15:51:00 EDT, Tablet, [facility]/pharmacy #[id number], 140, cm, 12/03/19 15:19:00 EDT, Height, 68.9, kg, 12/03/19 15:30:00 EDT, Dry Weight Start Date: 12/03/19 Status: Ordered MiraLax = 17 Gm, By Mouth, Daily, 0 Refills, Maintenance Start Date: 12/27/10 Status: Ordered omeprazole 20 mg oral enteric coated capsule 1 capsule, By Mouth, 2 times a day, # 60 capsule, 0 Refills, Maintenance, 01/08/20 8:49:00 EDT, [facility], 140, cm, 01/02/20 11:36:00 EDT, Height, 68.9, [...] 12/18/19 9:59:00 EDT, Route to Pharmacy Electronically, [facility], 140, cm, 12/05/19 10:33:00 EDT, Height, 68.9, [...] Care team information Care Team Personnel Name: Not on Staff, PCP Position: S Physician (General Medicine) Member Role: PCP Care Team Related Persons Name: JONATHAN ANDRE Address: home [address] [place] [address] Name: AMANDA LANGFORD Address: home [address] [place] [address]
--- OUTSIDE RECORDS SUMMARY | 2023-02-22 10:58 | XMS_ITS | Continuity of Care Document ---
Author Name Unknown Organization [facility] Address [address] [place] [address]- Care Team Providers Care Business Planner Name Role Phone Vidya Darby MD Primary Care Physician Encounter [facility] Date(s): 11/30/21 - 12/07/21 [facility] [address] [place] [id number] Attending Physician: Ferny Ruiz MD Admitting Physician: [...] 12/05/19 11:53:00 EDT, Route to Pharmacy Electronically, [facility]/pharmacy #[id number], 140, cm, 12/05/19 10:33:00 [...] mg, By Mouth, 2 times a day, entry level account representative reviewed, # 60 capsule, 0 Refills, Maintenance, 12/05/19 17:46:00 EDT, Capsule, [facility]/pharmacy #[id number], 140, cm, 12/05/19 10:33:00 EDT, Height, 68.9, kg, 12/03/19 15:30:00 EDT, Dry Weight Start Date: 12/05/19 Status: Ordered meloxicam 15 mg oral tablet 1 tablet = 15 mg, By Mouth, Daily, with food, # 30 tablet, 0 Refills, Maintenance, 12/03/19 15:51:00 EDT, Tablet, [facility]/pharmacy #[id number], 140, cm, 12/03/19 15:19:00 EDT, Height, 68.9, kg, 12/03/19 15:30:00 EDT, Dry Weight Start Date: 12/03/19 Status: Ordered MiraLax = 17 Gm, By Mouth, Daily, 0 Refills, Maintenance Start Date: 12/27/10 Status: Ordered omeprazole 20 mg oral enteric coated capsule 1 capsule, By Mouth, 2 times a day, # 60 capsule, 0 Refills, Maintenance, 01/08/20 8:49:00 EDT, [facility], 140, cm, 01/02/20 11:36:00 EDT, Height, 68.9, [...] 12/18/19 9:59:00 EDT, Route to Pharmacy Electronically, [facility] 78[facility], 140, cm, 12/05/19 10:33:00 EDT, Height, 68.9, [...] Status Inform ant Hypothyroidism(Confirmed) Active Obese class I(Confirmed) Active Vital Signs Most recent to oldest [Reference Range]: 1 2 Height 140.00 cm (11/30/21 9:07 AM) 140.00 cm (11/30/21 9:05 AM) Weight 65.77 kg (11/30/21 9:05 AM) Oxygen Saturation [94-100 %] 97 % (11/30/21 9:05 AM) Pulse Rate [55-90 bpm] 70 bpm (11/30/21 9:05 AM) Body Mass Index [18.5-24.99] 33.56 *>HHI* (11/30/21 9:05 AM) Blood Pressure [90-138/55-84 mm Hg] 98/7 2mm Hg (11/30/21 9:07 AM) 110/68mm Hg (11/30/21 9:05 AM) Mode of Delivery (Oxygen) Room air (11/30/21 9:05 AM) Blood pressure sites Arm, right (11/30/21 9:07 AM) Arm, left (11/30/21 9:05 AM) Dry Weight 65.77 kg (11/30/21 9:05 AM) Weight Obtained Via Patient/family state d (11/30/21 9:05 AM) Dry Weight Obtained Via Patient/family s tated (11/30/21 9:05 AM) Social History Social History Type Response Smoking Status Never smoker entered on: 09/24/15 Sex
--- OUTSIDE RECORDS SUMMARY | 2023-02-22 10:58 | XMS_ITS | Continuity of Care Document ---
Author Name Unknown Organization [facility] Address [address] [place] [address] [address] [place] [address]- Care Team Providers Care Process Excellence Manager Name Role Phone Mehnaz WATSON, Vidya Primary Care Physician [place] [facility] [place](s[place] 07/21/19 - 07/31/[address] [place] [address]- [facility] Attending Physician: Eliz Gill Admitting Physician: Eliz [...] Replace Required Details, Route to Pharmacy Electronically, [id number], [place]... Start Date: 10/13/15 Status: Ordered traMADol [...] initial Neck Disabilty Index: 86% on 09/24/15;initial [place]: 3 on 09/24/15 2SOAPP-R:28 on 09.24.15 3C-section ??2, hip replacement surgery Social History Social History Type Response Smoking Status Never smoker entered on: 09/24/15 Sex
--- OUTSIDE RECORDS SUMMARY | 2023-02-22 10:58 | XMS_ITS | Continuity of Care Document ---
Author Name Unknown Organization [facility] Address [address] [place] [address]- Care Team Providers Care Batch Operator Name Role Phone Vidya Darby MD Primary Care Physician Encounter [facility] [place] ACCT R [id number] Date(s): 10/14/21 - 11/13/21 [facility] [address] [place], [place] [address] Attending Physician: Eliz Gill Admitting Physician: Admtr, [...] 11:53:00 EDT, Route to Pharmacy Electronically, [facility]/pharmacy #[id number], 140, cm, 12/05/19 10:33:00 EDT, Height, 68... Start Date: 12/05/19 Status: Ordered gabapentin 600 mg oral tablet 1 tablet = 600 mg, By Mouth, 3 times a day, 0 Refills, Maintenance, 12/20/15 21:18:09 Start Date: 12/20/15 Status: Ordered lidocaine 5% topical ointment 1 applicator, Topically, 3 times a day, 0 Refills, Maintenance, 09/24/15 13:24:50 Start Date: 6/3/16 Status: Ordered Lotrimin 1% cream 0 Refills, Maintenance, 08/24/15 13:28:02 Start Date: 08/24/15 Status: Ordered Lyrica 25 mg oral capsule 2 capsule = 50 mg, By Mouth, 3 times a day, 0 Refills, Maintenance, 05/30/18 13:11:16 EST Start Date: 05/30/18 Status: Ordered Lyrica 75 mg oral capsule 1 capsule = 75 mg, By Mouth, 2 times a day, hospital cook reviewed, # 60 capsule, 0 Refills, Maintenance, 12/05/19 17:46:00 EDT, Capsule, [facility]/pharmacy #[id number], 140, cm, 12/05/19 10:33:00 EDT, Height, 68.9, kg, 12/03/19 15:30:00 EDT, Dry Weight Start Date: 12/05/19 Status: Ordered meloxicam 15 mg oral tablet 1 tablet = 15 mg, By Mouth, Daily, with food, # 30 tablet, 0 Refills, Maintenance, 12/03/19 15:51:00 EDT, Tablet, [facility]/pharmacy #[id number], 140, cm, 12/03/19 15:19:00 EDT, Height, 68.9, kg, 12/03/19 15:30:00 EDT, Dry Weight Start Date: 12/03/19 Status: Ordered MiraLax = 17 Gm, By Mouth, Daily, 0 Refills, Maintenance Start Date: 12/27/10 Status: Ordered omeprazole 20 mg oral enteric coated capsule 1 capsule, By Mouth, 2 times a day, # 60 capsule, 0 Refills, Maintenance, 01/08/20 8:49:00 EDT, [facility], 140, cm, 01/02/20 11:36:00 EDT, Height, 68.9, [...] 12/18/19 9:59:00 EDT, Route to Pharmacy Electronically, [id number], 140, cm, 12/05/19 10:33:00 EDT, Height, 68.9, [...] ant Hypothyroidism(Confirmed) Active Obese class II(Confirmed) Active Social History Social History Type Response Smoking Status Never smoker entered on: 09/24/15 Sex
--- OUTSIDE RECORDS SUMMARY | 2023-02-22 10:59 | XMS_ITS | Continuity of Care Document ---
Author Name Unknown Organization [facility] Address [address] [place] [address]- Care Team Providers Care Chemical Compounder Helper Name Role Phone Moy Ruiz MD Primary Care Physician Encounter [facility] Date(s): 11/07/19 - 12/07/19 [facility] [address] [place] [address]- [facility] Attending Physician: Admmarisela, Eliz Admitting Physician: Admtr, Ar8 Referring Physician: Admtr, [...] 12/05/19 11:53:00 EDT, Route to Pharmacy Electronically, [facility]/pharmacy #[id number], 140, cm, 12/05/19 10:33:00 [...] mg, By Mouth, 2 times a day, human resource advisor reviewed, # 60 capsule, 0 Refills, Maintenance, [...] Replace Required Details, Route to Pharmacy Electronically, [facility]/pharmacy #[id number], 140, cm, 12/03/19 15:19... Start [...]
--- OUTSIDE RECORDS SUMMARY | 2023-02-22 10:59 | XMS_ITS | Continuity of Care Document ---
Author Name Unknown Organization [facility] Address [address] [place] [address]- Care Team Providers Care Bathroom Tiling Professional Name Role Phone Moy Ruiz MD Primary Care Physician Encounter [facility] [place] Date(s): 01/02/20 - 01/09/20 [facility] [address] [place] [address]- [facility] Attending Physician: Moy Ruiz MD Allergies, Adverse [...] 12/05/19 11:53:00 EDT, Route to Pharmacy Electronically, [facility]/pharmacy #[id number], 140, cm, 12/05/19 10:33:00 EDT, Height, [...] mg, By Mouth, 2 times a day, truck rental service attendant reviewed, # 60 capsule, 0 Refills, Maintenance, 12/05/19 17:46:00 EDT, Capsule, [facility]/pharmacy #[id number], 140, cm, 12/05/19 10:33:00 EDT, Height, 68.9, kg, 12/03/19 15:30:00 EDT, Dry Weight Start Date: 12/05/19 Status: Ordered meloxicam 15 mg oral tablet 1 tablet = 15 mg, By Mouth, Daily, with food, # 30 tablet, 0 Refills, Maintenance, 12/03/19 15:51:00 EDT, Tablet, [facility]/pharmacy #[id number], 140, cm, 12/03/19 15:19:00 EDT, Height, 68.9, kg, 12/03/19 15:30:00 EDT, Dry Weight Start Date: 12/03/19 Status: Ordered MiraLax = 17 Gm, By Mouth, Daily, 0 Refills, Maintenance Start Date: 12/27/10 Status: Ordered omeprazole 20 mg oral enteric coated capsule 1 capsule, By Mouth, 2 times a day, # 60 capsule, 0 Refills, Maintenance, 01/08/20 8:49:00 EDT, [facility], 140, cm, 01/02/20 11:36:00 EDT, Height, 68.9, [...] EDT, Route to Pharmacy Electronically, [facility], 140, cm, 12/05/19 10:33:00 EDT, Height, 68.9, [...] oldest [Reference Range]: 1 Height 140.00 cm (01/02/20 11:36 AM) Social History Social History Type Response Smoking Status Never smoker entered on: 09/24/15 Sex
--- OUTSIDE RECORDS SUMMARY | 2023-02-22 10:59 | XMS_ITS | Continuity of Care Document ---
Author Name Unknown Organization [facility] Address [address] [place] [address]- Care Team Providers Care Petroleum Supply Specialist Name Role Phone Brittney Darby MD-[place] Primary Care Physician Encounter [facility] [place] Date(s): 10/21/19 - 11/20/19 [facility] [address] [place] [address]- [facility] Allergies, Adverse Reactions, Alerts Substance Reaction Severity [...] Replace Required Details, Route to Pharmacy Electronically, [id number]... Start Date: 10/13/15 Status: Ordered traMADol 50 [...] 1initial Oswestry Disability Index:90% on 09/24/15; initial [place] Back Pain Scale:92 on 09/24/15; initial Neck Disabilty Index: 86% on 09/24/15;initial [place]: 3 on 09/24/15 2SOAPP-R:28 on 09.24.15 3C-section ??2, hip replacement surgery Social History Social History Type Response Smoking Status Never smoker entered on: 09/24/15 Sex
--- OUTSIDE RECORDS SUMMARY | 2023-02-22 10:59 | XMS_ITS | Continuity of Care Document ---
Author Name Unknown Organization [facility] Address [address] [place] [address]- Care Team Providers Care Beet Topper Name Role Phone Boo WATSON, Raj Reyes Primary Care Physician [place] [facility] [place] [id number] Date(s): 07/03/22 - 07/10/22 [facility] [address] [place] [address]- Attending Physician: Ferny Ruiz MD Admitting Physician: Ferny Ruiz MD Allergies, Adverse Reactions, Alerts Substance [...] 12/05/19 11:53:00 EDT, Route to Pharmacy Electronically, [facility]/pharmacy #[id number], 140, cm, 12/05/19 10:33:00 [...] mg, By Mouth, 2 times a day, revenue stamp cutter reviewed, # 60 capsule, 0 Refills, Maintenance, [...] 0 Refills, Maintenance, 01/08/20 8:49:00 EDT, [facility], 140, cm, 01/02/20 11:36:00 EDT, Height, 68.9, kg, 12/03/19 15:30:00 EDT, Dry Weight Start Date: 01/08/20 Status: Ordered Soma 250 mg oral tablet 1 tablet = 250 mg, By Mouth, 4 times a day, PRN as needed for pain, # 60 tablet, 0 Refills, Acute 10/04/22 9:00:00 EDT, 07/03/22 10:14:00 EDT, Tablet, [id number], Partial fill upon patient request if the prescription is for a schedule II opioi... Start Date: 07/03/22 Stop Date: 10/04/22 Status: Ordered Synthroid 0.075 mg oral tablet 1 tablet, By Mouth, Daily, # 30 tablet, 0 Refills, Maintenance, Tablet Start Date: 12/27/10 Status: Ordered tiZANidine 4 mg oral tablet 1/2-1 TABLET, By Mouth, Every 8 hours, # 45 tablet, Refills 1, Tot. Refills 0, Maintenance, 12/18/19 9:59:00 EDT, Route to Pharmacy Electronically, [facility], 140, cm, 12/05/19 10:33:00 EDT, Height, 68.9, [...] Confirmed Active Obese class I Confirmed Active Vital Signs Most recent to oldest [Reference Range]: 1 Height 140.00 cm (07/03/22 9:44 AM) Weight 65.77 kg (07/03/22 9:44 AM) Oxygen Saturation [94-100 %] 97 % (07/03/22 9:44 AM) Pulse Rate [55-90 bpm] 74 bpm (07/03/22 9:44 AM) Body Mass Index [18.5-24.99 kg/m2] 33.56 kg/m2 *>HHI* (07/03/22 9:44 AM) Blood Pressure [90-138/55-84 mm Hg] 112/ 70mm Hg (07/03/22 9:44 AM) Mode of Delivery (Oxygen) Room air (07/03/22 9:44 AM) Blood pressure sites Arm, right (07/03/22 9:44 AM) Weight Obtained Via Patient/family state d (07/03/22 9:44 AM) Social History Social History Type Response Smoking Status Never smoker entered on: 09/24/15 Sex Note * Rose Marie Shwetha: PERFORM, SIGN, VERIFY Event Display: Patient Education/Instruction Authored Date: [id number] [facility] *[facility] [address] Clinical Summary Name DORIE ANDRE Age 56 Years 1965 PCP Boo WATSON, Raj Reyes PCP Visit Date 07/03/2022 09:42:00 Additional Instructions: Scheduled Appointments?? Future Appointments ?No Future Appointments Scheduled Follow-Up Instructions ?? Diagnosis Medications: Please continue your medications until treatment is completed or stopped by your provider. Discuss any questions related to medications with your provider. New Medications [facility]/pharmacy #[id number], [address] [place] [phone], [phone] Carisoprodol (Soma 250 mg oral tablet) 1 tab(s) Oral 4 times a day as needed as needed for pain. Refills: 0. Next Dose: Medications to Continue with No Changes These medications were not printed or sent to your pharmacy Albuterol (albuterol 90 mcg/inh inhalation powder) 2 puff(s) Inhalation once. as directed 15 minutes before exercise. Next Dose: Clotrimazole Topical (Lotrimin 1% cream) Next Dose: Cyclobenzaprine (cyclobenzaprine 10 mg oral tablet) 1 tab(s) Oral Daily at Bedtime as needed as needed for muscle spasm. Refills: 0. Next Dose: Gabapentin (gabapentin 600 mg oral tablet) 1 tab(s) Oral 3 times a day. Next Dose: Levothyroxine (Synthroid 0.075 mg oral tablet) 1 tab(s) Oral Daily. Next Dose: Lidocaine Topical (lidocaine 5% topical ointment) 1 applicator Topically 3 times a day. Next Dose: Meloxicam (meloxicam 15 mg oral tablet) 1 tab(s) Oral Daily. with food. Refills: 0. Next Dose: Omeprazole (omeprazole 20 mg oral enteric coated capsule) 1 capsule Oral twice a day. Refills: 0. Next Dose: PEG Electrolyte Solution (MiraLax) 17 gram Oral Daily. Next Dose: Pregabalin (Lyrica 25 mg oral capsule) 2 capsule Oral 3 times a day. Next Dose: Pregabalin (Lyrica 75 mg oral capsule) 1 capsule Oral twice a day. revenue stamp cutter reviewed. Refills: 0. Next Dose: Sertraline (Zoloft 50 mg oral tablet) 1 tab(s) Oral Daily. Next Dose: Tizanidine (tiZANidine 4 mg oral tablet) 1/2-1 TABLET Oral every 8 hours. Refills: 1. Next Dose: Tramadol (traMADol 50 mg oral tablet) 2 tab(s) Oral Daily. Next Dose: Triamcinolone Topical (triamcinolone 0.1% topical cream) 1 applicator Topically 3 times a day as needed Other. Next Dose: Allergy Info:?? Bactrim Medications Given This Visit Future Orders ?No future orders Vital Signs Height 140.00 cm Weight 65.77 kg BMI 33.56 kg/m2 Blood Pressure 112 mm Hg/70 mm Hg Temperature Pulse Rate 74 bpm Respiratory Rate 02 Sat Mode of Delivery 97 %/Room air You can now view a summary of your hospital visit from the comfort of your home through a free online portal called [employer]. [employer] is a website that allows you to securely view your medical information including discharge summary, medications and follow-up visits. ??You can alsosend a secure electronic message to your doctor???s office to request appointments, renew medications or just ask a question. You can enroll at [email or web address] or register during your next office visit. Disclaimer:?? The information provided is of a general nature and is intended to be used in conjunction with the recommendations and advice of your health care practitioner. ??Every effort has been made to ensure that the information provided is accurate and complete at the time it is provided to you however, as your needs change, or, as new ??information becomes available, different or additional instructions may be required. If you have questions, please consult with your primary care provider or pharmacist, as appropriate. ??This information is not intended to serve as substitution for assessment and evaluation by a qualified health care provider. If you do not have a primary care provider, you may find a [facility] provider by calling [facility] at [phone]. For information about the plan of care including goals and instructions for your diagnosis, please see the patient education orders section of this document. Patient Education Materials?? The content of this educational material or handout may have been modified, supplemented, or adapted from its original content and format to support your individualized medical care. Patient Care team information Care Team Personnel Name: Raj Haddad MD Position: Reference Physician Member Role: PCP Address: Address: [address] [facility] [place] [address]- Care Team Related Persons Name: JONATHAN ANDRE Address: home [address] [place] [address] Name: AMANDA LANGFORD Address: home [address] [place] [address]
--- OUTSIDE RECORDS SUMMARY | 2023-02-22 10:59 | XMS_ITS | Continuity of Care Document ---
Author Name Unknown Organization [facility] Address [address] [place] [address]- Care Team Providers Care Ore Miner Name Role Phone Joseph WATSON, Moy Primary Care Physician Encounter [facility] [place] Date(s): 12/03/19 - 12/10/19 [facility] [address] [place] [address]- [facility] Encounter Diagnosis Left wrist pain(Discharge Diagnosis) - 12/03/19 Attending Physician: Jane WATSON, Jimmy Murray Referring Physician: Vidya Darby MD Allergies, Adverse [...] 12/05/19 11:53:00 EDT, Route to Pharmacy Electronically, [facility]/pharmacy #[id number], 140, cm, 12/05/19 10:33:00 EDT, [...] mg, By Mouth, 2 times a day, telecommunications repairer reviewed, # 60 capsule, 0 Refills, Maintenance, [...] Replace Required Details, Route to Pharmacy Electronically, [facility]/pharmacy #[id number], 140, cm, 12/03/19 15:19... Start Date: [...] Diagnosis Diagnosis Type Effective Dates Health Status Cl inical Service Informant Left wrist pain Discharge Diagnosis 12/03/19 Vital Signs Most recent to oldest [Reference Range]: 1 Height 140.00 cm (12/03/19 3:19 PM) Weight 68.9 kg (12/03/19 3:19 PM) Oxygen Saturation [94-100 %] 98 % (12/03/19 3:19 PM) Pulse Rate [55-90 bpm] 77 bpm (12/03/19 3:19 PM) Body Mass Index [18.5-24.99] 35.15 *>HHI* (12/03/19 3:19 PM) Blood Pressure [90-138/55-84 mm Hg] 131/ 67mm Hg (12/03/19 3:19 PM) Respiratory Rate [16-30 br/min] 16 br/mi n (12/03/19 3:19 PM) Temperature [96.8-100.4 DegF] 97.2 DegF (12/03/19 3:19 PM) Mode of Delivery (Oxygen) Room air (12/03/19 3:19 PM) Blood pressure sites Arm, right (12/03/19 3:19 PM) Temperature Route Temporal (12/03/19 3:19 PM) Dry Weight 68.9 kg (12/03/19 3:19 PM) Weight Obtained Via Standing scale (12/03/19 3:19 PM) Dry Weight Obtained Via Standing scale (12/03/19 3:19 PM) Social History Social History Type Response Smoking Status Never smoker entered on: 09/24/15 Sex
--- OUTSIDE RECORDS SUMMARY | 2023-02-22 10:59 | XMS_ITS | Continuity of Care Document ---
Author Name Unknown Organization [facility] Address [address] [place] [address]- Care Team Providers Care Fiber Technician Name Role Phone Mehnaz WATSON, Vidya Primary Care Physician [place] [facility] Date(s): 05/05/19 - 06/19/19 [facility] [address] [place] [address]- [facility] Attending Physician: Jose Guadalupe Marquis MD Admitting Physician: Jose Guadalupe Marquis MD Referring Physician: Vidya Darby MD Allergies, [...] Replace Required Details, Route to Pharmacy Electronically, [id number], [place]... Start Date: 10/13/15 Status: Ordered traMADol [...] initial Neck Disabilty Index: 86% on 09/24/15;initial [place]: 3 on 09/24/15 2SOAPP-R:28 on 09.24.15 3C-section ??2, hip replacement surgery Social History Social History Type Response Smoking Status Never smoker entered on: 09/24/15 Sex
--- OUTSIDE RECORDS SUMMARY | 2023-02-22 10:59 | XMS_ITS | Continuity of Care Document ---
Author Name Unknown Organization [facility] Address [address] [place] [address]- Care Team Providers Care Diamond Powder Technician Name Role Phone Moy Ruiz MD Primary Care Physician Encounter [facility] [place] Date(s): 12/08/19 - 01/15/[address] [address] [facility] Attending Physician: Moy Ruiz MD Admitting Physician: Moy Ruiz MD Referring Physician: Moy Ruiz MD Allergies, Adverse [...] 11:53:00 EDT, Route to Pharmacy Electronically, [facility]/pharmacy #[id number], 140, cm, 12/05/19 10:33:00 EDT, Height, [...] mg, By Mouth, 2 times a day, application packager reviewed, # 60 capsule, 0 Refills, Maintenance, 12/05/19 17:46:00 EDT, Capsule, [facility]/pharmacy #[id number], 140, cm, 12/05/19 10:33:00 EDT, Height, 68.9, kg, 12/03/19 15:30:00 EDT, Dry Weight Start Date: 12/05/19 Status: Ordered meloxicam 15 mg oral tablet 1 tablet = 15 mg, By Mouth, Daily, with food, # 30 tablet, 0 Refills, Maintenance, 12/03/19 15:51:00 EDT, Tablet, [facility]/pharmacy #[id number], 140, cm, 12/03/19 15:19:00 EDT, Height, 68.9, kg, 12/03/19 15:30:00 EDT, Dry Weight Start Date: 12/03/19 Status: Ordered MiraLax = 17 Gm, By Mouth, Daily, 0 Refills, Maintenance Start Date: 12/27/10 Status: Ordered omeprazole 20 mg oral enteric coated capsule 1 capsule, By Mouth, 2 times a day, # 60 capsule, 0 Refills, Maintenance, 01/08/20 8:49:00 EDT, [facility], 140, cm, 01/02/20 11:36:00 EDT, Height, 68.9, [...] 12/18/19 9:59:00 EDT, Route to Pharmacy Electronically, [facility], 140, cm, 12/05/19 10:33:00 EDT, Height, 68.9, [...]
--- OUTSIDE RECORDS SUMMARY | 2023-02-22 10:59 | XMS_ITS | Continuity of Care Document ---
Author Name Unknown Organization [facility] Adult Address [address] [place] [address]- Care Team Providers Care Packing Room Supervisor Name Role Phone Vidya Darby MD Primary Care Physician [place] [facility] [place](s[place] 10/27/19 - 11/26/19 [facility] Adult [address] [place] [address]- [facility] Allergies, Adverse Reactions, Alerts Substance Reaction Severity [...] Replace Required Details, Route to Pharmacy Electronically, [id number]... Start Date: 10/13/15 Status: Ordered traMADol 50 [...] initial Neck Disabilty Index: 86% on 09/24/15;initial [address]: 3 on 09/24/15 2SOAPP-R:28 on 09.24.15 3C-section ??2, hip replacement surgery Social History Social History Type Response Smoking Status Never smoker entered on: 09/24/15 Sex
--- OUTSIDE RECORDS SUMMARY | 2023-02-22 10:59 | XMS_ITS | Continuity of Care Document ---
Author Name Unknown Organization [facility] Address [address] [place] [address]- Care Team Providers Care Natural Resource Technician Name Role Phone Raj Haddad MD Primary Care Physician Encounter [facility] [place] ACCT R [id number] Date(s): 09/25/22 - 10/02/22 [facility] [address] [place], [place] [address] Attending Physician: Ferny Ruiz MD Admitting Physician: Ferny Ruiz MD Referring Physician: Raj Haddad MD Allergies, Adverse Reactions, Alerts Substance Reaction [...] EDT, Route to Pharmacy Electronically, [facility]/pharmacy #0843, 140, cm, 12/05/19 10:33:00 EDT, Height, [...] mg, By Mouth, 2 times a day, nursing informatics analyst reviewed, # 60 capsule, 0 Refills, [...] 0 Refills, Maintenance, 01/08/20 8:49:00 EDT, [facility], 140, cm, 01/02/20 11:36:00 EDT, Height, 68.9, [...] 12/18/19 9:59:00 EDT, Route to Pharmacy Electronically, [facility], 140, cm, 12/05/19 10:33:00 EDT, Height, 68.9, [...] oldest [Reference Range]: 1 Height 140.00 cm (09/25/22 10:24 AM) Weight 65.32 kg (09/25/22 10:24 AM) Oxygen Saturation [94-100 %] 95 % (09/25/22 10:24 AM) Pulse Rate [55-90 bpm] 106 bpm *H* (09/25/22 10:24 AM) Body Mass Index [18.5-24.99 kg/m2] 33.33 kg/m2 *>HHI* (09/25/22 10:24 AM) Blood Pressure [90-138/55-84 mm Hg] 120/ 80mm Hg (09/25/22 10:24 AM) Mode of Delivery (Oxygen) Room air (09/25/22 10:24 AM) Blood pressure sites Arm, left (09/25/22 10:24 AM) Weight Obtained Via Patient/family state d (09/25/22 10:24 AM) Social History Social History Type Response Smoking Status Never smoker entered on: 09/24/15 Sex Note * Carlo Haro: PERFORM, SIGN, VERIFY Event Display: Patient Education/Instruction Authored Date: [id number] [facility] *BVS [address] Clinical Summary Name DORIE ANDRE Age 57 Years 1965 PCP Boo WATSON, Raj Reyes PCP Visit Date 09/25/2022 10:15:00 Additional Instructions: Scheduled Appointments?? Future Appointments ?No Future Appointments Scheduled Follow-Up Instructions ?? With: Address: When: [facility] [address] [place] [address] [address] [place] [address] Comments: Left knee pain, referral - pain with walking/sitting, PT/OT not working. 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 Discuss any questions related to medications with your provider. Medications to Continue with No Changes These medications were not printed or sent to your pharmacy Albuterol (albuterol 90 mcg/inh inhalation powder) 2 puff(s) Inhalation once. as directed 15 minutes before exercise. Next Dose: Carisoprodol (Soma 250 mg oral tablet) 1 tab(s) Oral 4 times a day as needed as needed for pain. Refills: 0. Next Dose: Clotrimazole Topical (Lotrimin 1% cream) [...] capsule) 1 capsule Oral twice a day. nursing informatics analyst reviewed. Refills: 0. Next Dose: Sertraline (Zoloft [...] orders Vital Signs Height 140.00 cm Weight 65.32 kg BMI 33.33 kg/m2 Blood Pressure 120 mm Hg/80 mm Hg Temperature Pulse Rate 106 bpm Respiratory Rate 02 Sat Mode of Delivery 95 %/Room air You can now view a summary of your hospital visit from the comfort of your home through a free online portal called [facility]. [facility] is a website that allows you to securely view your medical information including discharge summary, medications and follow-up visits. ??You can alsosend a secure electronic message to your doctor???s office to request appointments, renew medications or just ask a question. You can enroll at [email or web address] or register during your next office visit. [...] primary care provider, you may find a [facility] provider by calling [facility] at [phone]. For information about the plan of care [...] Reference Physician Member Role: PCP Address: Address: [address] [place] [address] [place] [address]- Care Team Related Persons Name: JONATHAN ANDRE Address: home [address] [place] [address] Name: AMANDA LANGFORD Address: home [address] [place] [address]
--- OUTSIDE RECORDS SUMMARY | 2023-02-22 10:59 | XMS_ITS | Continuity of Care Document ---
Author Name Unknown Organization [facility] Address [address] [place] [address]- Care Team Providers Care Spray Pilot Name Role Phone Mehnaz WATSON, Vidya Primary Care Physician Encounter [facility] [place] Date(s): 09/08/19 - 10/08/19 [facility] [address] [place] [address]- [facility] Attending Physician: Eliz Gill Admitting Physician: Eliz [...] Replace Required Details, Route to Pharmacy Electronically, [id number], [facility]... Start Date: 10/13/15 Status: Ordered traMADol [...] initial Neck Disabilty Index: 86% on 09/24/15;initial [place]: 3 on 09/24/15 2SOAPP-R:28 on 09.24.15 3C-section ??2, hip replacement surgery Social History Social History Type Response Smoking Status Never smoker entered on: 09/24/15 Sex
--- OUTSIDE RECORDS SUMMARY | 2023-02-22 10:59 | XMS_ITS | Continuity of Care Document ---
Author Name Unknown Organization [facility] Address [address] [place] [address]- Care Team Providers Care Husker Operator Name Role Phone Moy Ruiz MD Primary Care Physician Encounter [facility] [place] ACCT [facility] [id number] Date(s): 04/13/21 - 05/13/21 [facility] [address] [place] [address]- Attending Physician: Eliz Gill Admitting Physician: AdmtrEliz Referring Physician: Admtr Ar8 Allergies, Adverse Reactions, Alerts Substance Reaction [...] 12/05/19 11:53:00 EDT, Route to Pharmacy Electronically, [facility]/pharmacy #0843, 140, cm, 12/05/19 [...] mg, By Mouth, 2 times a day, airdox fitter reviewed, # 60 capsule, 0 Refills, Maintenance, 12/05/19 17:46:00 EDT, Capsule, [facility]/pharmacy #0843, 140, cm, 12/05/19 10:33:00 EDT, Height, 68.9, kg, 12/03/19 15:30:00 EDT, Dry Weight Start Date: 12/05/19 Status: Ordered meloxicam 15 mg oral tablet 1 tablet = 15 mg, By Mouth, Daily, with food, # 30 tablet, 0 Refills, Maintenance, 12/03/19 15:51:00 EDT, Tablet, [facility]/pharmacy #0843, 140, cm, 12/03/19 15:19:00 EDT, Height, 68.9, kg, 12/03/19 15:30:00 EDT, Dry Weight Start Date: 12/03/19 Status: Ordered MiraLax = 17 Gm, By Mouth, Daily, 0 Refills, Maintenance Start Date: 12/27/10 Status: Ordered omeprazole 20 mg oral enteric coated capsule 1 capsule, By Mouth, 2 times a day, # 60 capsule, 0 Refills, Maintenance, 01/08/20 8:49:00 EDT, [facility], 140, cm, 01/02/20 11:36:00 EDT, Height, 68.9, [...] 12/18/19 9:59:00 EDT, Route to Pharmacy Electronically, [facility], 140, cm, 12/05/19 10:33:00 EDT, Height, 68.9, [...]
--- OUTSIDE RECORDS SUMMARY | 2023-02-22 10:59 | XMS_ITS | Continuity of Care Document ---
Author Name Unknown Organization [facility] Address [address] [place] [address]- Care Team Providers Care Natural Resources Engineer Name Role Phone Raj Haddad MD Primary Care Physician [phone] Encounter [facility] [id number] Date(s): 07/03/22 - 08/02/22 [facility] [address] [place], [place] [address] Attending Physician: Eliz Gill Admitting Physician: Eliz [...] 12/05/19 11:53:00 EDT, Route to Pharmacy Electronically, [facility]/pharmacy #0843, 140, cm, 12/05/19 10:33:00 [...] mg, By Mouth, 2 times a day, commercial leasing agent reviewed, # 60 capsule, 0 Refills, Maintenance, [...] 0 Refills, Maintenance, 01/08/20 8:49:00 EDT, [facility], 140, cm, 01/02/20 11:36:00 EDT, Height, 68.9, [...] 12/18/19 9:59:00 EDT, Route to Pharmacy Electronically, [facility], 140, cm, 12/05/19 10:33:00 EDT, Height, 68.9, [...] Reference Physician Member Role: PCP Address: Address: [address] [place] [address] [place] [address]- Care Team Related Persons Name: JONATHAN ANDRE Address: home [address] [place] [address] Name: AMANDA LANGFORD Address: home [address] [place] [address]
--- OUTSIDE RECORDS SUMMARY | 2023-02-22 10:59 | XMS_ITS | Continuity of Care Document ---
Author Name Unknown Organization [facility] Address [address] [place] [address]- Care Team Providers Care Data Center Architect Name Role Phone Mehnaz WATSON, Vidya Primary Care Physician [place] [facility] Date(s): 08/21/19 - 08/27/19 [facility] [address] [place] [address] [facility] Attending Physician: Christiano Swanson MD Referring Physician: Vidya [...] Replace Required Details, Route to Pharmacy Electronically, [id number]... Start Date: 10/13/15 Status: Ordered traMADol 50 [...] Disability Index:90% on 09/24/15; initial [place] Back Pain Scale:92 on 09/24/15; initial Neck Disabilty Index: 86% on 09/24/15;initial [place]: 3 on 09/24/15 2SOAPP-R:28 on 09.24.15 3C-section ??2, hip replacement surgery Social History Social History Type Response Smoking Status Never smoker entered on: 09/24/15 Sex
--- OUTSIDE RECORDS SUMMARY | 2023-02-22 10:59 | XMS_ITS | Continuity of Care Document ---
Author Name Unknown Organization [facility] Address [address] [place] [address]- Care Team Providers Care System Development Manager Name Role Phone Not on Staff, PCP Primary Care Physician Unavail able Encounter [facility] Date(s): 02/20/22 - 04/01/22 [facility] [address] [place] [address]- Attending Physician: Ferny Ruiz MD Admitting Physician: [...] 12/05/19 11:53:00 EDT, Route to Pharmacy Electronically, [facility]/pharmacy #[id number], 140, cm, 12/05/19 10:33:00 EDT, Height, [...] mg, By Mouth, 2 times a day, treater reviewed, # 60 capsule, 0 Refills, Maintenance, 12/05/19 17:46:00 EDT, Capsule, [facility]/pharmacy #0843, 140, cm, 12/05/19 10:33:00 EDT, Height, 68.9, kg, 12/03/19 15:30:00 EDT, Dry Weight Start Date: 12/05/19 Status: Ordered meloxicam 15 mg oral tablet 1 tablet = 15 mg, By Mouth, Daily, with food, # 30 tablet, 0 Refills, Maintenance, 12/03/19 15:51:00 EDT, Tablet, [facility]/pharmacy #0843, 140, cm, 12/03/19 15:19:00 EDT, Height, 68.9, kg, 12/03/19 15:30:00 EDT, Dry Weight Start Date: 12/03/19 Status: Ordered MiraLax = 17 Gm, By Mouth, Daily, 0 Refills, Maintenance Start Date: 12/27/10 Status: Ordered omeprazole 20 mg oral enteric coated capsule 1 capsule, By Mouth, 2 times a day, # 60 capsule, 0 Refills, Maintenance, 01/08/20 8:49:00 EDT, [facility], 140, cm, 01/02/20 11:36:00 EDT, Height, 68.9, [...] 12/18/19 9:59:00 EDT, Route to Pharmacy Electronically, [facility] 29202, 140, cm, 12/05/19 10:33:00 EDT, Height, 68.9, [...] Personnel Name: Not on Staff, PCP Position: [facility] Physician (General Medicine) Member Role: PCP Care Team Related Persons Name: JONATHAN ANDRE Address: home [address] [place] [address] Name: AMANDA LANGFORD Address: home [address] [place] [address]
--- OUTSIDE RECORDS SUMMARY | 2023-02-22 10:59 | XMS_ITS | Continuity of Care Document ---
Author Name Unknown Organization [facility] Address [address] [place] [address]- Care Team Providers Care Baseboard Heating Installer Name Role Phone Moy Ruiz MD Primary Care Physician En[facility] ACCT R [id number] Date(s): 12/03/19 - 01/02/20 [facility] [address] [place] [address]- [facility] Attending Physician: Eliz Gill Admitting Physician: Admtr, [...] 12/05/19 11:53:00 EDT, Route to Pharmacy Electronically, [facility]/pharmacy #0843, 140, cm, 12/05/19 10:33:00 EDT, Height, [...] mg, By Mouth, 2 times a day, clinical research technician reviewed, # 60 capsule, 0 Refills, Maintenance, [...] 12/18/19 9:59:00 EDT, Route to Pharmacy Electronically, [facility], 140, cm, 12/05/19 10:33:00 EDT, Height, 68.9, [...]
--- OUTSIDE RECORDS SUMMARY | 2023-02-22 10:59 | XMS_ITS | Continuity of Care Document ---
Author Name Unknown Organization [facility] Address [address] [place] [address]- Care Team Providers Care Principal Programmer Name Role Phone Mehnaz WATSON, Vidya Primary Care Physician Encounter [facility] Date(s): 10/14/19 - 10/21/19 [facility] [address] [place] [address]- [facility] Attending Physician: Paola Lynn NP Admitting Physician: Paola Lynn NP Referring Physician: Vidya Darby MD Allergies, Adverse [...] Replace Required Details, Route to Pharmacy Electronically, [id number], [facility]... Start Date: 10/13/15 Status: Ordered traMADol [...] 1initial Oswestry Disability Index:90% on 09/24/15; initial [place] Back Pain Scale:92 on 09/24/15; initial Neck Disabilty Index: 86% on 09/24/15;initial [place]: 3 on 09/24/15 2SOAPP-R:28 on 09.24.15 3C-section ??2, hip replacement surgery Social History Social History Type Response Smoking Status Never smoker entered on: 09/24/15 Sex
--- OUTSIDE RECORDS SUMMARY | 2023-02-22 10:59 | XMS_ITS | Continuity of Care Document ---
Author Name Unknown Organization [facility] Address [address] [place] [address]- Care Team Providers Care Plodder Operator Name Role Phone Joseph WATSON, Moy Primary Care Physician Encounter [facility] Date(s): 10/28/20 - 11/27/20 [facility] [address] [place] [address]- Attending Physician: Admtr, Eliz Admitting Physician: Admtr, Ar8 Referring Physician: [...] 11:53:00 EDT, Route to Pharmacy Electronically, [facility]/pharmacy #0843, 140, cm, 12/05/19 10:33:00 EDT, [...] mg, By Mouth, 2 times a day, research laboratory specialist reviewed, # 60 capsule, 0 Refills, Maintenance, 12/05/19 17:46:00 EDT, Capsule, [facility]/pharmacy #0843, 140, cm, 12/05/19 10:33:00 EDT, Height, 68.9, kg, 12/03/19 15:30:00 EDT, Dry Weight Start Date: 12/05/19 Status: Ordered meloxicam 15 mg oral tablet 1 tablet = 15 mg, By Mouth, Daily, with food, # 30 tablet, 0 Refills, Maintenance, 12/03/19 15:51:00 EDT, Tablet, [facility]/pharmacy #0843, 140, cm, 12/03/19 15:19:00 EDT, Height, 68.9, kg, 12/03/19 15:30:00 EDT, Dry Weight Start Date: 12/03/19 Status: Ordered MiraLax = 17 Gm, By Mouth, Daily, 0 Refills, Maintenance Start Date: 12/27/10 Status: Ordered omeprazole 20 mg oral enteric coated capsule 1 capsule, By Mouth, 2 times a day, # 60 capsule, 0 Refills, Maintenance, 01/08/20 8:49:00 EDT, [facility], 140, cm, 01/02/20 11:36:00 EDT, Height, 68.9, [...] 12/18/19 9:59:00 EDT, Route to Pharmacy Electronically, [facility], 140, cm, 12/05/19 10:33:00 EDT, Height, 68.9, [...]
--- OUTSIDE RECORDS SUMMARY | 2023-02-22 10:59 | XMS_ITS | Continuity of Care Document ---
Author Name Unknown Organization [facility] Address [address] [place] [address]- Care Team Providers Care Credit Verifier Name Role Phone Joseph WATSON, Moy Primary Care Physician [phone] [place] [facility] [place] [id number] Date(s): 10/14/20 - 10/21/20 [facility] [address] [place] [address]- Attending Physician: Paola Lynn NP Admitting Physician: Paola Lynn NP Referring Physician: Mehnaz WATSON, Vidya Allergies, Adverse Reactions, Alerts Substance Reaction Severity [...] 12/05/19 11:53:00 EDT, Route to Pharmacy Electronically, [facility]/pharmacy #0843, 140, cm, 12/05/19 10:33:00 EDT, [...] mg, By Mouth, 2 times a day, information assoc reviewed, # 60 capsule, 0 Refills, Maintenance, 12/05/19 17:46:00 EDT, Capsule, [facility]/pharmacy #0843, 140, cm, 12/05/19 10:33:00 EDT, Height, 68.9, kg, 12/03/19 15:30:00 EDT, Dry Weight Start Date: 12/05/19 Status: Ordered meloxicam 15 mg oral tablet 1 tablet = 15 mg, By Mouth, Daily, with food, # 30 tablet, 0 Refills, Maintenance, 12/03/19 15:51:00 EDT, Tablet, [facility]/pharmacy #0843, 140, cm, 12/03/19 15:19:00 EDT, Height, 68.9, kg, 12/03/19 15:30:00 EDT, Dry Weight Start Date: 12/03/19 Status: Ordered MiraLax = 17 Gm, By Mouth, Daily, 0 Refills, Maintenance Start Date: 12/27/10 Status: Ordered omeprazole 20 mg oral enteric coated capsule 1 capsule, By Mouth, 2 times a day, # 60 capsule, 0 Refills, Maintenance, 01/08/20 8:49:00 EDT, [facility], 140, cm, 01/02/20 11:36:00 EDT, Height, 68.9, [...] 12/18/19 9:59:00 EDT, Route to Pharmacy Electronically, [facility], 140, cm, 12/05/19 10:33:00 EDT, Height, 68.9, [...]
--- OUTSIDE RECORDS SUMMARY | 2023-02-22 10:59 | XMS_ITS | Continuity of Care Document ---
Author Name Unknown Organization [facility] Address [address] [place] [address]- Care Team Providers Care Transportation Agent Name Role Phone Mehnaz WATSON, Vidya Primary Care Physician Encounter [facility] Date(s): 08/15/21 - 11/25/21 [facility] [address] [place] [address]- Attending Physician: Paola Lynn NP Admitting Physician: [...] 12/05/19 11:53:00 EDT, Route to Pharmacy Electronically, [facility]/pharmacy #0843, 140, cm, 12/05/19 [...] mg, By Mouth, 2 times a day, electrical inspector reviewed, # 60 capsule, 0 Refills, Maintenance, 12/05/19 17:46:00 EDT, Capsule, [facility]/pharmacy #0843, 140, cm, 12/05/19 10:33:00 EDT, Height, 68.9, kg, 12/03/19 15:30:00 EDT, Dry Weight Start Date: 12/05/19 Status: Ordered meloxicam 15 mg oral tablet 1 tablet = 15 mg, By Mouth, Daily, with food, # 30 tablet, 0 Refills, Maintenance, 12/03/19 15:51:00 EDT, Tablet, [facility]/pharmacy #0843, 140, cm, 12/03/19 15:19:00 EDT, Height, 68.9, kg, 12/03/19 15:30:00 EDT, Dry Weight Start Date: 12/03/19 Status: Ordered MiraLax = 17 Gm, By Mouth, Daily, 0 Refills, Maintenance Start Date: 12/27/10 Status: Ordered omeprazole 20 mg oral enteric coated capsule 1 capsule, By Mouth, 2 times a day, # 60 capsule, 0 Refills, Maintenance, 01/08/20 8:49:00 EDT, [facility], 140, cm, 01/02/20 11:36:00 EDT, Height, 68.9, [...] 12/18/19 9:59:00 EDT, Route to Pharmacy Electronically, [facility] 155[facility], 140, cm, 12/05/19 10:33:00 EDT, Height, 68.9, [...]
--- OUTSIDE RECORDS SUMMARY | 2023-02-22 10:59 | XMS_ITS | Continuity of Care Document ---
Author Name Unknown Organization [facility] Address [address] [place] [address]- Care Team Providers Care Medical Insurance Coder Name Role Phone Joseph WATSON, Moy Primary Care Physician En[place] [facility] [place] Date(s): 12/15/19 - 04/11/[address] [address]- Attending Physician: Moy Ruiz MD Admitting Physician: [...] 12/05/19 11:53:00 EDT, Route to Pharmacy Electronically, [facility]/pharmacy #0843, 140, cm, 12/05/19 10:33:00 [...] mg, By Mouth, 2 times a day, drill press hand reviewed, # 60 capsule, 0 Refills, Maintenance, 12/05/19 17:46:00 EDT, Capsule, [facility]/pharmacy #0843, 140, cm, 12/05/19 10:33:00 EDT, Height, 68.9, kg, 12/03/19 15:30:00 EDT, Dry Weight Start Date: 12/05/19 Status: Ordered meloxicam 15 mg oral tablet 1 tablet = 15 mg, By Mouth, Daily, with food, # 30 tablet, 0 Refills, Maintenance, 12/03/19 15:51:00 EDT, Tablet, [facility]/pharmacy #0843, 140, cm, 12/03/19 15:19:00 EDT, Height, 68.9, kg, 12/03/19 15:30:00 EDT, Dry Weight Start Date: 12/03/19 Status: Ordered MiraLax = 17 Gm, By Mouth, Daily, 0 Refills, Maintenance Start Date: 12/27/10 Status: Ordered omeprazole 20 mg oral enteric coated capsule 1 capsule, By Mouth, 2 times a day, # 60 capsule, 0 Refills, Maintenance, 01/08/20 8:49:00 EDT, [facility], 140, cm, 01/02/20 11:36:00 EDT, Height, 68.9, [...] 12/18/19 9:59:00 EDT, Route to Pharmacy Electronically, [facility] 19[facility], 140, cm, 12/05/19 10:33:00 EDT, Height, 68.9, [...]
--- OUTSIDE RECORDS SUMMARY | 2023-02-22 10:59 | XMS_ITS | Continuity of Care Document ---
Author Name Unknown Organization [facility] Address [address] [place] [address]- Care Team Providers Care Cv/Cvn Cv Tsc System Operator Name Role Phone Vidya Darby MD Primary Care Physician Encounter [facility] [place] Date(s): 09/05/21 - 09/12/21 [facility] [address] [place] [address]- Attending Physician: Ferny Ruiz MD Admitting Physician: [...] 12/05/19 11:53:00 EDT, Route to Pharmacy Electronically, [facility]/pharmacy #0843, 140, cm, 12/05/19 10:33:00 [...] mg, By Mouth, 2 times a day, internet marketing intern reviewed, # 60 capsule, 0 Refills, Maintenance, 12/05/19 17:46:00 EDT, Capsule, [facility]/pharmacy #0843, 140, cm, 12/05/19 10:33:00 EDT, Height, 68.9, kg, 12/03/19 15:30:00 EDT, Dry Weight Start Date: 12/05/19 Status: Ordered meloxicam 15 mg oral tablet 1 tablet = 15 mg, By Mouth, Daily, with food, # 30 tablet, 0 Refills, Maintenance, 12/03/19 15:51:00 EDT, Tablet, [facility]/pharmacy #0843, 140, cm, 12/03/19 15:19:00 EDT, Height, 68.9, kg, 12/03/19 15:30:00 EDT, Dry Weight Start Date: 12/03/19 Status: Ordered MiraLax = 17 Gm, By Mouth, Daily, 0 Refills, Maintenance Start Date: 12/27/10 Status: Ordered omeprazole 20 mg oral enteric coated capsule 1 capsule, By Mouth, 2 times a day, # 60 capsule, 0 Refills, Maintenance, 01/08/20 8:49:00 EDT, [facility], 140, cm, 01/02/20 11:36:00 EDT, Height, 68.9, [...] 12/18/19 9:59:00 EDT, Route to Pharmacy Electronically, [facility] 20[facility], 140, cm, 12/05/19 10:33:00 EDT, Height, 68.9, [...]
--- OUTSIDE RECORDS SUMMARY | 2023-02-22 11:00 | XMS_ITS | Continuity of Care Document ---
Author Name Unknown Organization [facility] Address [address] [place] [address]- Care Team Providers Care Road Grader Name Role Phone Brittney Darby MD-[place] Primary Care Physician [place] [facility] [place] 10/28/19 - 11/27/19 [facility] [address] [place] [address]- [facility] Allergies, Adverse Reactions, Alerts Substance [...] Replace Required Details, Route to Pharmacy Electronically, [id number]... Start Date: 10/13/15 Status: Ordered traMADol 50 [...] 1initial Oswestry Disability Index:90% on 09/24/15; initial [place] Back Pain Scale:92 on 09/24/15; initial Neck Disabilty Index: 86% on 09/24/15;initial [place]: 3 on 09/24/15 2SOAPP-R:28 on 09.24.15 3C-section ??2, hip replacement surgery Social History Social History Type Response Smoking Status Never smoker entered on: 09/24/15 Sex
--- OUTSIDE RECORDS SUMMARY | 2023-02-22 11:00 | XMS_ITS | Continuity of Care Document ---
Author Name Unknown Organization [facility] Address [address] [place] [id number] Care Team Providers Care Equipment Engineering Technician Name Role Phone Mehnaz WATSON, Vidya Primary Care Physician Encounter [facility] Date(s): 09/20/21 - 09/27/21 [facility] [address] [place] [address]- Attending Physician: Ferny Ruiz MD Admitting Physician: [...] 12/05/19 11:53:00 EDT, Route to Pharmacy Electronically, [facility]/pharmacy #[id number], 140, cm, 12/05/19 10:33:00 EDT, [...] mg, By Mouth, 2 times a day, highway safety engineer reviewed, # 60 capsule, 0 Refills, Maintenance, 12/05/19 17:46:00 EDT, Capsule, [facility]/pharmacy #[id number], 140, cm, 12/05/19 10:33:00 EDT, Height, 68.9, kg, 12/03/19 15:30:00 EDT, Dry Weight Start Date: 12/05/19 Status: Ordered meloxicam 15 mg oral tablet 1 tablet = 15 mg, By Mouth, Daily, with food, # 30 tablet, 0 Refills, Maintenance, 12/03/19 15:51:00 EDT, Tablet, [facility]/pharmacy #[id number], 140, cm, 12/03/19 15:19:00 EDT, Height, 68.9, kg, 12/03/19 15:30:00 EDT, Dry Weight Start Date: 12/03/19 Status: Ordered MiraLax = 17 Gm, By Mouth, Daily, 0 Refills, Maintenance Start Date: 12/27/10 Status: Ordered omeprazole 20 mg oral enteric coated capsule 1 capsule, By Mouth, 2 times a day, # 60 capsule, 0 Refills, Maintenance, 01/08/20 8:49:00 EDT, [id number], 140, cm, 01/02/20 11:36:00 EDT, Height, 68.9, [...] 12/18/19 9:59:00 EDT, Route to Pharmacy Electronically, [id number], 140, cm, 12/05/19 10:33:00 EDT, Height, 68.9, [...] oldest [Reference Range]: 1 Height 140.00 cm (09/20/21 3:22 PM) Weight 69.85 kg (09/20/21 3:22 PM) Oxygen Saturation [94-100 %] 95 % (09/20/21 3:22 PM) Pulse Rate [55-90 bpm] 66 bpm (09/20/21 3:22 PM) Body Mass Index [18.5-24.99] 35.64 *>HHI* (09/20/21 3:22 PM) Blood Pressure [90-138/55-84 mm Hg] 102/ 66mm Hg (09/20/21 3:22 PM) Mode of Delivery (Oxygen) Room air (09/20/21 3:22 PM) Blood pressure sites Arm, left (09/20/21 3:22 PM) Dry Weight 69.85 kg (09/20/21 3:22 PM) Weight Obtained Via Patient/family state d (09/20/21 3:22 PM) Dry Weight Obtained Via Patient/family s tated (09/20/21 3:22 PM) Social History Social History Type Response Smoking Status Never smoker entered on: 09/24/15 Sex
[2023-02-22 11:02] LABS: COVID-19 Test Negative (Negative); IDNOW Serial# 08D9AD1C
[2023-02-22 11:17] LABS: IDNOW Serial# 08D9AD1C; Strep A Nucleic Acid Negative (Negative)
[2023-02-22] MEDS: dexAMETHasone sod phosphate 10 MG/ML VIAL PO (11:31)
== END 2023-02-22 11:33 | disposition home or self-care (01) ==
PROVIDERS: Emergency Provider Emergency Medicine; PCP Internal Medicine
DX: J02.9 Acute pharyngitis, unspecified (principal); R05.9 Cough, unspecified; Z11.52 Encounter for screening for COVID-19; Z20.822 Contact with and (suspected) exposure to COVID-19; Z79.899 Other long term (current) drug therapy
CPT/HCPCS: 71046; 87635; 87651; 99282; 99283; J1100

== ENCOUNTER 2023-03-22 12:45 | Outpatient (AMB) | payer MEDICARE, MEDICAID, SELFPAY ==
--- NOTE | 2023-03-22 13:12 | MHC.OFFVIS ---
Intake Vital Signs 03/22/23 13:24 Height 4 ft 7 in Weight 167 lb BMI 38.8 BP 119/82 Blood Pressure Location Rt brachial Position Sitting Pulse 86 Pulse Source Pulse Oximeter Pulse Oximetry (%) 95 Oxygen Delivery Method Room Air Intake Visit Reasons: pill count/confirmed Intake Note: Trini comes in today for a pill count to oxycodone-acetaminophen, patient should have 9 tablets and presents with 2 tablets which she last took at 12pm. When asked if patient had anymore tablets on her patient stated no when told that she was going to be suspended due to being short patient then pulled out another bottle which had 6 tablets of oxycodone-acetaminophen for a total of 8 tablets. I let patient know that we will allow this one time pass of excepting pills from her purse and we will NOT allow this in the future, patient aware that she will need to have ALL tablets in the correct prescription bottle at the time of the count otherwise she will be suspended if short. Paint Brush Maker Required: No Accompanied by: Self / Same As Patient Allergies sulfamethoxazole [From Bactrim] Allergy (Intermediate, Verified 03/22/23 13:21) HIVES trimethoprim [From Bactrim] Allergy (Intermediate, Verified 03/22/23 13:21) HIVES cheese Allergy (Verified 03/22/23 13:21) Hives HPI HPI Comments History of Present Illness Details Trini presents to the office for follow up chronic pain and chronic opioid therapy management. Patient is prescribed oxycodone acetaminophen 7.5-325mg take 1 tablet three times a day. Patient arrived today with the expectation of having 9 pills, she presented 8 pills which were counted in the presence of two staff members and returned to the patient in the original prescription bottle. Pain is reported today as 9/10 and last dose of pain medication was taken at noon today. Pain is adequately managed on current opioid regimen. Patient denies side effects including somnolence, constipation, itching, dyspnea, rash, dizziness or weakness. Patient originally presented a prescription bottle with #2 tabs and when informed that she would be suspended for being short patient pulled a second pill bottle out of her purse with #6 additional tabs for a total of #8 tabs. 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 Surgical History Hx of vitrectomy Hx of cholecystectomy Hx of total hip arthroplasty Social History Household Members: None Housing: Apartment Are you a primary career orientation teacher to a significant other at home: No Do you presently have visiting nurse or other home services: 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 Answers questions appropriately. Fully engaged in examination. Skin: warm, dry, intact HEENT: Normocephalic. Hearing intact. Cardiac: External chest normal in appearance. Respiratory: No cough, audible wheezing or stridor. Abdomen: without gross distension. MS: No obvious swelling or deformities. Able to transition from sit to stand unassisted. Ambulates with bilaterally normal heel strike and toe off Neurological: Oriented to person, place, time and situation. Thought process intact. Ambulates with use of a cane. Psychiatric: Appropriate mood and affect. Good judgment and insight. Assessment & Plan Assessment & Plan (1) Chronic pain syndrome: Code(s): G89.4 - Chronic pain syndrome (2) Spondylosis of cervical joint without myelopathy: Code(s): M47.812 - Spondylosis without myelopathy or radiculopathy, cervical region (3) Spondylosis of lumbar region without myelopathy or radiculopathy: Code(s): M47.816 - Spondylosis without myelopathy or radiculopathy, lumbar region (4) Osteoarthritis of left knee: Code(s): M17.12 - Unilateral primary osteoarthritis, left knee Plan [place]pat was reviewed and without concerns. Patient reeducated on opioid contract guidelines including pill counts and need for all medication to be presented in most recent original prescription bottle. She is aware that moving forward she will not be allowed to present extra pills after the initial pill count. Patient verbalized understanding and stated she is aware of the rules . Will send in prescription for oxycodone/acetaminophen 7.5-325 mg QID with an advanced date of 03/25/2023. Patient to follow-up in the office in 1 month, sooner if needed. All questions and concerns have been answered and patient agrees with the plan. Medications: Refilled oxycodone-acetaminophen 7.5-325 mg Partial Fill upon patient request. 1 tab PO TID 30 days PRN 90 tabs 0RF pain G89.4 - Chronic pain syndrome, M11.20 - Other chondrocalcinosis, unspecified site, M17.12 - Unilateral primary osteoarthritis, left knee, M47.812 - Spondylosis without myelopathy or radiculopathy, cervical region, M47.816 - Spondylosis without myelopathy or radiculopathy, lumbar region, N20.0 - Calculus of kidney Coding Level of Care Code Est Pt Level 4 (06611) Diagnoses Chronic pain syndrome G89.4 Spondylosis of cervical joint without myelopathy M47.812 Spondylosis of lumbar region without myelopathy or radiculopathy M47.816 Osteoarthritis of left knee M17.12
[2023-03-22 13:24] VITALS: BP 119/82; PULSE 86; O2SAT 95; BMI 38.8
== END 2023-03-22 13:18 | disposition home or self-care (01) ==
PROVIDERS: PCP Internal Medicine; Visit Provider Registered Nurse Emergency
DX: G89.4 Chronic pain syndrome (principal); M47.812 Spondylosis without myelopathy or radiculopathy, cervical region; M47.816 Spondylosis without myelopathy or radiculopathy, lumbar region; M17.12 Unilateral primary osteoarthritis, left knee
CPT/HCPCS: 99214

== ENCOUNTER → 2023-03-22 12:45 | Outpatient (BNVA) | payer MEDICARE, MEDICAID, SELFPAY | PROVIDERS: PCP Internal Medicine; Visit Provider Registered Nurse Emergency | DX: M17.12 Unilateral primary osteoarthritis, left knee (principal); G89.4 Chronic pain syndrome; M47.812 Spondylosis without myelopathy or radiculopathy, cervical region; M47.816 Spondylosis without myelopathy or radiculopathy, lumbar region; Z79.891 Long term (current) use of opiate analgesic | CPT/HCPCS: 99212 ==

== ENCOUNTER 2023-04-19 12:43 | Outpatient (AMB) | payer MEDICARE, MEDICAID, SELFPAY ==
--- NOTE | 2023-04-19 12:46 | A.OFFVIS_ITS ---
Intake Vital Signs 04/19/23 12:57 Height 4 ft 7 in Weight 168 lb 3 oz BMI 39.1 BP 138/82 Blood Pressure Location Rt brachial Position Sitting Pulse 84 Pulse Source Pulse Oximeter Pulse Oximetry (%) 97 Oxygen Delivery Method Room Air Intake Visit Reasons: Medication Count /Confirmed Intake Note: Trini comes in today for a pill count to oxycodone-acetaminophen, patient should have 12 tablets and presents with 12 tablets which she last took today 04/19/23 at 12:15pm. Pain today 7 Wood Bucker Required: No Accompanied by: Self / Same As Patient Allergies sulfamethoxazole [From Bactrim] Allergy (Intermediate, Verified 04/19/23 12:58) HIVES trimethoprim [From Bactrim] Allergy (Intermediate, Verified 04/19/23 12:58) HIVES cheese Allergy (Verified 04/19/23 12:58) Hives HPI HPI Comments History of Present Illness Details Patient presents to the office for follow up chronic pain and chronic opioid therapy management. Patient is prescribed oxycodone acetaminophen 7.5-325mg take 1 tablet three times daily. Patient arrived today with the expectation of having 12 pills, she presented 12 pills which were counted in the presence of 2 staff and return to the patient in the original prescription bottle. This demonstrates responsible attitude toward patient's opioid medications. Pain is reported today as 7/10 and last dose of pain medication was taken at 12:15 this afternoon. Patient denies side effects including somnolence, constipation, itching, dyspnea, rash, dizziness or weakness. Patient reports her knee pain has been acting up . She has an appt with her pcp coming up to address. Was told in the past she needs replacement surgery but she has been trying to delay that as long as possible. Prior: Trini presents to the office for follow up chronic pain and chronic opioid therapy management. Patient is prescribed oxycodone acetaminophen 7.5-325mg take 1 tablet three times a day. Patient arrived today with the expectation of having 9 pills, she presented 8 pills which were counted in the presence of two staff members and returned to the patient in the original prescription bottle. Pain is reported today as 9/10 and last dose of pain medication was taken at noon today. Pain is adequately managed on current opioid regimen. Patient denies side effects including somnolence, constipation, itching, dyspnea, rash, dizziness or weakness. Patient originally presented a prescription bottle with #2 tabs and when informed that she would be suspended for being short patient pulled a second pill bottle out of her purse with #6 additional tabs for a total of #8 tabs. 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 Surgical History Hx of vitrectomy Hx of cholecystectomy Hx of total hip arthroplasty Social History Household Members: None Housing: Apartment Are you a primary health care consultant to a significant other at home: No Do you presently have 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 Answers questions appropriately. Fully engaged in examination. Skin: warm, dry, intact HEENT: Normocephalic. Hearing intact. Cardiac: External chest normal in appearance. Respiratory: No cough, audible wheezing or stridor. Abdomen: without gross distension. MS: No obvious swelling or deformities. Able to transition from sit to stand unassisted. Ambulates with bilaterally normal heel strike and toe off Neurological: Oriented to person, place, time and situation. Thought process intact. Ambulates with use of a cane. Psychiatric: Appropriate mood and affect. Good judgment and insight. Assessment & Plan Assessment & Plan (1) Chronic pain syndrome: Code(s): G89.4 - Chronic pain syndrome (2) Spondylosis of cervical joint without myelopathy: Code(s): M47.812 - Spondylosis without myelopathy or radiculopathy, cervical region (3) Spondylosis of lumbar region without myelopathy or radiculopathy: Code(s): M47.816 - Spondylosis without myelopathy or radiculopathy, lumbar region (4) Osteoarthritis of left knee: Code(s): M17.12 - Unilateral primary osteoarthritis, left knee Plan [place]pat was reviewed and without concerns. No obvious signs of diversion, abuse or misuse of the opioid medications. Will send in prescription for oxycodone/acetaminophen 7.5-325 mg QID with an advanced date of 04/24/2023. Patient to follow-up in the office in 1 month, sooner if needed. All questions and concerns have been answered and patient agrees with the plan. Medications: Refilled 2 oxycodone-acetaminophen 7.5-325 mg Partial Fill upon patient request. 1 tab PO TID 30 days PRN 90 tabs 0RF pain G89.4 - Chronic pain syndrome, M11.20 - Other chondrocalcinosis, unspecified site, M17.12 - Unilateral primary osteoarthritis, left knee, M47.812 - Spondylosis without myelopathy or radiculopathy, cervical region, M47.816 - Spondylosis without myelopathy or radiculopathy, lumbar region, N20.0 - Calculus of kidney Coding Level of Care Code Est Pt Level 4 (02024) Diagnoses Chronic pain syndrome G89.4 Spondylosis of cervical joint without myelopathy M47.812 Spondylosis of lumbar region without myelopathy or radiculopathy M47.816 Osteoarthritis of left knee M17.12
[2023-04-19 12:57] VITALS: BP 138/82; PULSE 84; O2SAT 97; BMI 39.1
== END 2023-04-19 13:03 | disposition home or self-care (01) ==
PROVIDERS: PCP Internal Medicine; Visit Provider Registered Nurse Emergency
DX: G89.4 Chronic pain syndrome (principal); M47.812 Spondylosis without myelopathy or radiculopathy, cervical region; M47.816 Spondylosis without myelopathy or radiculopathy, lumbar region; M17.12 Unilateral primary osteoarthritis, left knee; Z79.891 Long term (current) use of opiate analgesic
CPT/HCPCS: 99214

== ENCOUNTER → 2023-04-19 12:43 | Outpatient (BNVA) | payer MEDICARE, MEDICAID, SELFPAY | PROVIDERS: PCP Internal Medicine; Visit Provider Registered Nurse Emergency | DX: Z51.81 Encounter for therapeutic drug level monitoring (principal); F11.20 Opioid dependence, uncomplicated; M47.812 Spondylosis without myelopathy or radiculopathy, cervical region; M47.816 Spondylosis without myelopathy or radiculopathy, lumbar region; M17.12 Unilateral primary osteoarthritis, left knee; G89.4 Chronic pain syndrome | CPT/HCPCS: 99212 ==

== ENCOUNTER 2023-05-18 12:43 | Outpatient (AMB) | payer MEDICARE, OTHER, MEDICAID, SELFPAY ==
--- NOTE | 2023-05-18 13:04 | MHC.OFFVIS ---
Intake Vital Signs 05/18/23 13:05 Height 4 ft 7 in Weight 161 lb 4 oz BMI 37.5 BP 127/64 Blood Pressure Location Lt brachial Position Sitting Respiration 18 Pulse 75 Pulse Source Pulse Oximeter Pulse Oximetry (%) 94 Oxygen Delivery Method Room Air Intake Visit Reasons: PILL COUNT - Confirmed Allergies sulfamethoxazole [From Bactrim] Allergy (Intermediate, Verified 04/19/23 12:58) HIVES trimethoprim [From Bactrim] Allergy (Intermediate, Verified 04/19/23 12:58) HIVES cheese Allergy (Verified 04/19/23 12:58) Hives HPI HPI Comments History of Present Illness Details Patient presents to the office for follow up chronic pain and chronic opioid therapy management. Patient is prescribed oxycodone acetaminophen 7.5-325mg take 1 tablet three times daily. Patient arrived today with the expectation of having 18 pills, she presented 17 pills which were counted in the presence of two staff members and returned to the patient in the original prescription bottle. This demonstrates responsible attitude toward patient's opioid medications. Pain is reported today as 4/10 and last dose of pain medication was taken at 12:15 this afternoon. Patient denies side effects including somnolence, constipation, itching, dyspnea, rash, dizziness or weakness. Prior: Trini presents to the office for follow up chronic pain and chronic opioid therapy management. Patient is prescribed oxycodone acetaminophen 7.5-325mg take 1 tablet three times a day. Patient arrived today with the expectation of having 9 pills, she presented 8 pills which were counted in the presence of two staff members and returned to the patient in the original prescription bottle. Pain is reported today as 9/10 and last dose of pain medication was taken at noon today. Pain is adequately managed on current opioid regimen. Patient denies side effects including somnolence, constipation, itching, dyspnea, rash, dizziness or weakness. Patient originally presented a prescription bottle with #2 tabs and when informed that she would be suspended for being short patient pulled a second pill bottle out of her purse with #6 additional tabs for a total of #8 tabs. 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 Surgical History Hx of vitrectomy Hx of cholecystectomy Hx of total hip arthroplasty Social History Household Members: None Housing: Apartment Are you a primary career services representative to a significant other at home: No Do you presently have 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 Answers questions appropriately. Fully engaged in examination. Skin: warm, dry, intact HEENT: Normocephalic. Hearing intact. Cardiac: External chest normal in appearance. Respiratory: No cough, audible wheezing or stridor. Abdomen: without gross distension. MS: No obvious swelling or deformities. Able to transition from sit to stand unassisted. Ambulates with bilaterally normal heel strike and toe off Neurological: Oriented to person, place, time and situation. Thought process intact. Ambulates with use of a cane. Psychiatric: Appropriate mood and affect. Good judgment and insight. Assessment & Plan Assessment & Plan (1) Chronic pain syndrome: Code(s): G89.4 - Chronic pain syndrome (2) Spondylosis of cervical joint without myelopathy: Code(s): M47.812 - Spondylosis without myelopathy or radiculopathy, cervical region (3) Spondylosis of lumbar region without myelopathy or radiculopathy: Code(s): M47.816 - Spondylosis without myelopathy or radiculopathy, lumbar region (4) Osteoarthritis of left knee: Code(s): M17.12 - Unilateral primary osteoarthritis, left knee Plan [place]pat was reviewed and without concerns. No obvious signs of diversion, abuse or misuse of the opioid medications. Will send in prescription for oxycodone/acetaminophen 7.5-325 mg QID with an advanced date of 05/25/2023. Patient to follow-up in the office in 1 month, sooner if needed. All questions and concerns have been answered and patient agrees with the plan. Medications: Refilled oxycodone-acetaminophen 7.5-325 mg Partial Fill upon patient request. 1 tab PO TID PRN 90 tabs 0RF pain 30 days G89.4 - Chronic pain syndrome, M11.20 - Other chondrocalcinosis, unspecified site, M17.12 - Unilateral primary osteoarthritis, left knee, M47.812 - Spondylosis without myelopathy or radiculopathy, cervical region, M47.816 - Spondylosis without myelopathy or radiculopathy, lumbar region, N20.0 - Calculus of kidney Coding Level of Care Code Est Pt Level 4 (51252) Diagnoses Chronic pain syndrome G89.4 Spondylosis of cervical joint without myelopathy M47.812 Spondylosis of lumbar region without myelopathy or radiculopathy M47.816 Osteoarthritis of left knee M17.12
[2023-05-18 13:05] VITALS: BP 127/64; PULSE 75; RESP 18; O2SAT 94; BMI 37.5
== END 2023-05-18 13:05 | disposition home or self-care (01) ==
PROVIDERS: PCP Internal Medicine; Visit Provider Registered Nurse Emergency
DX: G89.4 Chronic pain syndrome (principal); M47.812 Spondylosis without myelopathy or radiculopathy, cervical region; M47.816 Spondylosis without myelopathy or radiculopathy, lumbar region; M17.12 Unilateral primary osteoarthritis, left knee
CPT/HCPCS: 99214

== ENCOUNTER → 2023-05-18 12:43 | Outpatient (BNVA) | payer OTHER, MEDICAID, SELFPAY | PROVIDERS: PCP Internal Medicine; Visit Provider Registered Nurse Emergency ==

== ENCOUNTER 2023-06-14 12:45 | Outpatient (AMB) | payer MEDICARE, MEDICAID, SELFPAY ==
--- NOTE | 2023-06-14 13:01 | A.OFFVIS_ITS ---
Intake Vital Signs 06/14/23 13:12 Height 4 ft 7 in Weight 168 lb 3 oz BMI 39.1 BP 139/77 Blood Pressure Location Lt brachial Position Sitting Pulse 83 Pulse Source Pulse Oximeter Pulse Oximetry (%) 97 Oxygen Delivery Method Room Air Intake Visit Reasons: Pill Count - Confirmed Intake Note: Trini comes in today for a pill count to oxycodone-acetaminophen, patient should have 27 tablets and presents with 24 tablets which she last took today 06/14/23 at 12:30pm. Pain today 310 Patient was advised to take medication as prescribed, let her know that if she was one more tablet short today she would have been suspended from the opioid program. Revenue Field Agent Required: No Accompanied by: Self / Same As Patient Allergies sulfamethoxazole [From Bactrim] Allergy (Intermediate, Verified 04/19/23 12:58) HIVES trimethoprim [From Bactrim] Allergy (Intermediate, Verified 04/19/23 12:58) HIVES cheese Allergy (Verified 04/19/23 12:58) Hives HPI HPI Comments History of Present Illness Details Patient presents to the office for follow up chronic pain and chronic opioid therapy management. Patient is prescribed oxycodone acetaminophen 7.5-325mg take 1 tablet three times daily. Patient arrived today with the expectation of having 27 pills, she presented 24 pills which were counted in the presence of two staff members and returned to the patient in the original prescription bottle. She was advised that this was within the allowable discrepancy but she should not be short if taking as prescribed, if outside the allowable discrepancy will be suspended from the opioid program for a second time. Pain is reported today as 3/10 and last dose of pain medication was taken at 12:30 this afternoon. Patient denies side effects including somnolence, constipation, itching, dyspnea, rash, dizziness or weakness. Previous: Trini presents to the office for follow up chronic pain and chronic opioid therapy management. Patient is prescribed oxycodone acetaminophen 7.5-325mg take 1 tablet three times a day. Patient arrived today with the expectation of having 9 pills, she presented 8 pills which were counted in the presence of two staff members and returned to the patient in the original prescription bottle. Pain is reported today as 9/10 and last dose of pain medication was taken at noon today. Pain is adequately managed on current opioid regimen. Patient denies side effects including somnolence, constipation, itching, dyspnea, rash, dizziness or weakness. Patient originally presented a prescription bottle with #2 tabs and when informed that she would be suspended for being short patient pulled a second pill bottle out of her purse with #6 additional tabs for a total of #8 tabs. 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 Surgical History Hx of vitrectomy Hx of cholecystectomy Hx of total hip arthroplasty Social History Household Members: None Housing: Apartment Are you a primary senior caregiver to a significant other at home: No Do you presently have visiting nurse or other home services: Yes ([employer]AT[employer]) Alcohol intake: never Patient Tobacco Use Status: Never used Tobacco Advance Directives Date on File: 04/26/21 service: No Current occupational status: disabled Review of Systems Const All systems reviewed & are unremarkable except as noted in HPI and below Physical Exam General: awake, alert, oriented. Answers questions appropriately. Fully engaged in examination. Skin: warm, dry, intact HEENT: Normocephalic. Hearing intact. Cardiac: External chest normal in appearance. Respiratory: No cough, audible wheezing or stridor. Abdomen: without gross distension. MS: No obvious swelling or deformities. Able to transition from sit to stand unassisted. Ambulates with bilaterally normal heel strike and toe off Neurological: Oriented to person, place, time and situation. Thought process intact. Ambulates with use of a cane. Psychiatric: Appropriate mood and affect. Good judgment and insight. Assessment & Plan Assessment & Plan (1) Chronic pain syndrome: Code(s): G89.4 - Chronic pain syndrome (2) Spondylosis of cervical joint without myelopathy: Code(s): M47.812 - Spondylosis without myelopathy or radiculopathy, cervical region (3) Spondylosis of lumbar region without myelopathy or radiculopathy: Code(s): M47.816 - Spondylosis without myelopathy or radiculopathy, lumbar region (4) Osteoarthritis of left knee: Code(s): M17.12 - Unilateral primary osteoarthritis, left knee Plan [place]pat was reviewed and without concerns. No obvious signs of diversion, abuse or misuse of the opioid medications. Patient was advised that todays count was within the allowable discrepancy but she needs to take only as prescribed. if her count is off by more than allowed she will be suspended from the opioid program again. patient verbalizes understanding. Will send in prescription for oxycodone/acetaminophen 7.5-325 mg QID with an advanced date of 06/24/2023. Patient to follow-up in the office in 1 month, sooner if needed. All questions and concerns have been answered and patient agrees with the plan. Medications: Refilled oxycodone-acetaminophen 7.5-325 mg Partial Fill upon patient request. 1 tab PO TID PRN 90 tabs 0RF pain 30 days G89.4 - Chronic pain syndrome, M11.20 - Other chondrocalcinosis, unspecified site, M17.12 - Unilateral primary osteoarthritis, left knee, M47.812 - Spondylosis without myelopathy or radiculopathy, cervical region, M47.816 - Spondylosis without myelopathy or radiculopathy, lumbar region, N20.0 - Calculus of kidney Coding Level of Care Code Est Pt Level 4 (12038) Diagnoses Chronic pain syndrome G89.4 Spondylosis of cervical joint without myelopathy M47.812 Spondylosis of lumbar region without myelopathy or radiculopathy M47.816 Osteoarthritis of left knee M17.12
[2023-06-14 13:12] VITALS: BP 139/77; PULSE 83; O2SAT 97; BMI 39.1
== END 2023-06-14 13:21 | disposition home or self-care (01) ==
PROVIDERS: PCP Internal Medicine; Visit Provider Registered Nurse Emergency
DX: G89.4 Chronic pain syndrome (principal); M47.812 Spondylosis without myelopathy or radiculopathy, cervical region; M47.816 Spondylosis without myelopathy or radiculopathy, lumbar region; M17.12 Unilateral primary osteoarthritis, left knee
CPT/HCPCS: 99214

== ENCOUNTER → 2023-06-14 12:45 | Outpatient (BNVA) | payer OTHER, MEDICAID, SELFPAY | PROVIDERS: PCP Internal Medicine; Visit Provider Registered Nurse Emergency ==

== ENCOUNTER 2023-07-12 12:50 | Outpatient (AMB) | payer MEDICARE, MEDICAID, SELFPAY ==
--- NOTE | 2023-07-12 12:55 | A.OFFVIS_ITS ---
Intake Vital Signs 07/12/23 13:02 Height 4 ft 7 in Weight 169 lb 2 oz BMI 39.3 BP 140/75 H Blood Pressure Location Rt brachial Position Sitting Pulse 83 Pulse Source Pulse Oximeter Pulse Oximetry (%) 97 Oxygen Delivery Method Room Air Intake Visit Reasons: Pill Count Intake Note: Trini comes in today for a pill count to oxycodone-acetaminophen, patient should have 33 tablets and present with 34 tablets which she last took today 07/12/23 at 12:15pm. 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 Patient is prescribed oxycodone acetaminophen 7.5-325mg take 1 tablet three times daily. Patient arrived today with the expectation of having 33 pills, she presented 34 pills which were counted in the presence of two staff members and returned to the patient in the original prescription bottle. Pain is reported today as 3/10 and last dose of pain medication was taken at 12:15 this afternoon. Patient denies side effects including somnolence, constipation, itching, dyspnea, rash, dizziness or weakness. Patient is scheduled for eye surgery next week, and is awaiting appointment for a breast specialist after recent visit with PCP where they found a lump. Previous: Trini presents to the office for follow up chronic pain and chronic opioid therapy management. Patient is prescribed oxycodone acetaminophen 7.5-325mg take 1 tablet three times a day. Patient arrived today with the expectation of having 9 pills, she presented 8 pills which were counted in the presence of two staff members and returned to the patient in the original prescription bottle. Pain is reported today as 9/10 and last dose of pain medication was taken at noon today. Pain is adequately managed on current opioid regimen. Patient denies side effects including somnolence, constipation, itching, dyspnea, rash, dizziness or weakness. Patient originally presented a prescription bottle with #2 tabs and when informed that she would be suspended for being short patient pulled a second pill bottle out of her purse with #6 additional tabs for a total of #8 tabs. 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 Surgical History Hx of vitrectomy Hx of cholecystectomy Hx of total hip arthroplasty Social History Household Members: None Housing: Apartment Are you a primary pet care technician to a significant other at home: No Do you presently have visiting nurse or other home services: Yes ([employer]) Alcohol intake: never Patient Tobacco Use Status: Never used Tobacco Advance Directives Date on File: 04/26/21 service: No Current occupational status: disabled Review of Systems Const All systems reviewed & are unremarkable except as noted in HPI and below Physical Exam Vital Signs: Last Vital Signs Pulse 83 07/12/23 13:02 BP 140/75 H 07/12/23 13:02 Pulse Ox 97 07/12/23 13:02 Oxygen Delivery Method Room Air 07/12/23 13:02 BMI result Body Mass Index 39.3 General: awake, alert, oriented. Answers questions appropriately. Fully engaged in examination. Skin: warm, dry, intact HEENT: Normocephalic. Hearing intact. Cardiac: External chest normal in appearance. Respiratory: No cough, audible wheezing or stridor. Abdomen: without gross distension. MS: No obvious swelling or deformities. Able to transition from sit to stand unassisted. Ambulates with bilaterally normal heel strike and toe off Neurological: Oriented to person, place, time and situation. Thought process i ntact. Ambulates with use of a cane. Psychiatric: Appropriate mood and affect. Good judgment and insight. Assessment & Plan Assessment & Plan (1) Chronic pain syndrome: Code(s): G89.4 - Chronic pain syndrome (2) Spondylosis of cervical joint without myelopathy: Code(s): M47.812 - Spondylosis without myelopathy or radiculopathy, cervical region (3) Spondylosis of lumbar region without myelopathy or radiculopathy: Code(s): M47.816 - Spondylosis without myelopathy or radiculopathy, lumbar region (4) Osteoarthritis of left knee: Code(s): M17.12 - Unilateral primary osteoarthritis, left knee Plan [place]pat was reviewed and without concerns. No obvious signs of diversion, abuse or misuse of the opioid medications. Will send in prescription for oxycodone/acetaminophen 7.5-325 mg QID with an advanced date of 07/24/2023. Patient was reminded of the use terms of the opioid contract. After her surgery she must notify the office before she fills any opioid prescriptions, also we will need any records if controlled substances are administered to the patient during the surgery. Patient verbalizes understanding. Patient to follow-up in the office in 1 month, sooner if needed. All questions and concerns have been answered and patient agrees with the plan. Medications: Refilled oxycodone-acetaminophen 7.5-325 mg Partial Fill upon patient request. 1 tab PO TID 30 days PRN 90 tabs 0RF pain G89.4 - Chronic pain syndrome, M11.20 - Other chondrocalcinosis, unspecified site, M17.12 - Unilateral primary osteoarthritis, left knee, M47.812 - Spondylosis without myelopathy or radiculopathy, cervical region, M47.816 - Spondylosis without myelopathy or radiculopathy, lumbar region, N20.0 - Calculus of kidney Coding Level of Care Code Est Pt Level 4 (80388) Diagnoses Chronic pain syndrome G89.4 Spondylosis of cervical joint without myelopathy M47.812 Spondylosis of lumbar region without myelopathy or radiculopathy M47.816 Osteoarthritis of left knee M17.12
[2023-07-12 13:02] VITALS: BP 140/75; PULSE 83; O2SAT 97; BMI 39.3
== END 2023-07-12 13:10 | disposition home or self-care (01) ==
PROVIDERS: PCP Internal Medicine; Visit Provider Registered Nurse Emergency
DX: G89.4 Chronic pain syndrome (principal); M47.812 Spondylosis without myelopathy or radiculopathy, cervical region; M47.816 Spondylosis without myelopathy or radiculopathy, lumbar region; M17.12 Unilateral primary osteoarthritis, left knee
CPT/HCPCS: 99214

== ENCOUNTER → 2023-07-12 12:50 | Outpatient (BNVA) | payer OTHER, MEDICAID, SELFPAY | PROVIDERS: PCP Internal Medicine; Visit Provider Registered Nurse Emergency ==

== ENCOUNTER 2023-08-10 12:45 | Outpatient (AMB) | payer MEDICARE, MEDICAID, SELFPAY ==
[2023-08-10 13:00] VITALS: BP 112/68; PULSE 76; RESP 16; TEMP 35.5; O2SAT 96; BMI 38.8
--- NOTE | 2023-08-10 13:00 | A.OFFVIS_ITS ---
Vital Signs 08/10/23 13:00 Height 4 ft 7 in Weight 167 lb 2 oz BMI 38.8 BP 112/68 Blood Pressure Location Lt brachial Position Sitting Respiration 16 Pulse 76 Pulse Source Pulse Oximeter Temp 96 F L Pulse Oximetry (%) 96 Oxygen Delivery Method Room Air Intake Visit Reasons: Medication Count/ Random UDS Allergies sulfamethoxazole [From Bactrim] Allergy (Intermediate, Verified 08/10/23 13:00) HIVES trimethoprim [From Bactrim] Allergy (Intermediate, Verified 08/10/23 13:00) HIVES cheese Allergy (Verified 08/10/23 13:00) Hives HPI Comments Details: Patient presents to the office for follow up chronic pain and chronic opioid therapy management. Patient is prescribed oxycodone acetaminophen 7.5-325mg take 1 tablet three times daily. Patient arrived today with the expectation of having 36 pills, she presented 32 pills which were counted in the presence of two staff members and returned to the patient in the original prescription bottle. Pain is reported today as 8/10 and last dose of pain medication was taken at 12:15 this afternoon. Patient denies side effects including somnolence, constipation, itching, dyspnea, rash, dizziness or weakness. Previous: Trini presents to the office for follow up chronic pain and chronic opioid therapy management. Patient is prescribed oxycodone acetaminophen 7.5-325mg take 1 tablet three times a day. Patient arrived today with the expectation of having 9 pills, she presented 8 pills which were counted in the presence of two staff members and returned to the patient in the original prescription bottle. Pain is reported today as 9/10 and last dose of pain medication was taken at noon today. Pain is adequately managed on current opioid regimen. Patient denies side effects including somnolence, constipation, itching, dyspnea, rash, dizziness or weakness. Patient originally presented a prescription bottle with #2 tabs and when informed that she would be suspended for being short patient pulled a second pill bottle out of her purse with #6 additional tabs for a total of #8 tabs. 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 Surgical History Hx of vitrectomy Hx of cholecystectomy Hx of total hip arthroplasty Social History Household Members: None Housing: Apartment Are you a primary client care representative to a significant other at home: No Do you presently have visiting nurse or other home services: Yes ([employer]) Alcohol intake: never Patient Tobacco Use Status: Never used Tobacco Advance Directives Date on File: 04/26/21 service: No Current occupational status: disabled Review of Systems Const All systems reviewed & are unremarkable except as noted in HPI and below Physical Exam Vital Signs: Last Vital Signs Temp 96 F L 08/10/23 13:00 Pulse 76 08/10/23 13:00 Resp 16 08/10/23 13:00 BP 112/68 08/10/23 13:00 Pulse Ox 96 08/10/23 13:00 Oxygen Delivery Method Room Air 08/10/23 13:00 BMI result Body Mass Index 38.8 General: awake, alert, oriented. Answers questions appropriately. Fully engaged in examination. Skin: warm, dry, intact HEENT: Normocephalic. Hearing intact. Cardiac: External chest normal in appearance. Respiratory: No cough, audible wheezing or stridor. Abdomen: without gross distension. MS: No obvious swelling or deformities. Able to transition from sit to stand unassisted. Ambulates with bilaterally normal heel strike and toe off Neurological: Oriented to person, place, time and situation. Thought process intact. Ambulates with use of a cane. Psychiatric: Appropriate mood and affect. Good judgment and insight. Assessment & Plan Assessment & Plan (1) Chronic pain syndrome: Code(s): G89.4 - Chronic pain syndrome Category: Medical (2) Spondylosis of cervical joint without myelopathy: Code(s): M47.812 - Spondylosis without myelopathy or radiculopathy, cervical region Category: Medical (3) Spondylosis of lumbar region without myelopathy or radiculopathy: Code(s): M47.816 - Spondylosis without myelopathy or radiculopathy, lumbar region Category: Medical (4) Osteoarthritis of left knee: Code(s): M17.12 - Unilateral primary osteoarthritis, left knee Category: Medical Plan Patient was advised that her pill count was short by #4 Tablets today. This exceeds the allowable deficit. Pursuant to the opiate agreement that she signed on 05/18/2023 this is a violation and results in indefinite suspension. She has previously been suspended from the program, the last suspension was for 1 year. After patient was advised of the suspension she stated there was question about the pill count and if there was 34 versus 32 tablets. Krystal, learning officer, was requested into the visit at this time. Pills were counted in the presence of the patient, provider and the tool and die manager, #32 pills were again counted. These were returned to her in the original prescription bottle. Will send in two week compassion prescription for oxycodone/acetaminophen 7.5- 325 mg with advanced date 08/23/2023. Interventional pain management options were discussed with patient. She was advised to return to the office if she would like to proceed with injections or neuromodulation. She will no longer be eligible for the chronic opioid program in our office. All questions and concerns have been answered and patient agrees with the plan. A copy of this is mentioned letter was given to the patient prior to her leaving the office. Medications: Changed From oxycodone-acetaminophen 7.5-325 mg Partial Fill upon patient request. 1 tab PO TID 30 days PRN 90 tabs 0RF pain G89.4 - Chronic pain syndrome, M11.20 - Other chondrocalcinosis, unspecified site, M17.12 - Unilateral primary osteoarthritis, left knee, M47.812 - Spondylosis without myelopathy or radiculopathy, cervical region, M47.816 - Spondylosis without myelopathy or radiculopathy, lumbar region, N20.0 - Calculus of kidney To oxycodone-acetaminophen 7.5-325 mg Partial Fill upon patient request. two week compassion script. please use this to taper off the medication. 1 tab PO TID PRN 42 tabs 0RF pain 14 days G89.4 - Chronic pain syndrome, M11.20 - Other chondrocalcinosis, unspecified site, M17.12 - Unilateral primary osteoarthritis, left knee, M47.812 - Spondylosis without myelopathy or radiculopathy, cervical region, M47.816 - Spondylosis without myelopathy or radiculopathy, lumbar region, N20.0 - Calculus of kidney
== END 2023-08-10 13:34 | disposition home or self-care (01) ==
PROVIDERS: PCP Internal Medicine; Visit Provider Registered Nurse Emergency
DX: G89.4 Chronic pain syndrome (principal); M47.812 Spondylosis without myelopathy or radiculopathy, cervical region; M47.816 Spondylosis without myelopathy or radiculopathy, lumbar region; M17.12 Unilateral primary osteoarthritis, left knee
CPT/HCPCS: 99214

== ENCOUNTER → 2023-08-10 12:45 | Outpatient (BNVA) | payer MEDICARE, MEDICAID, SELFPAY | PROVIDERS: PCP Internal Medicine; Visit Provider Registered Nurse Emergency | DX: Z51.81 Encounter for therapeutic drug level monitoring (principal); F11.20 Opioid dependence, uncomplicated; G89.4 Chronic pain syndrome; M47.812 Spondylosis without myelopathy or radiculopathy, cervical region; M47.816 Spondylosis without myelopathy or radiculopathy, lumbar region; M17.12 Unilateral primary osteoarthritis, left knee | CPT/HCPCS: 99212 ==

== ENCOUNTER 2024-02-22 12:52 | Emergency (ER) | payer MEDICARE, MEDICAID, SELFPAY ==
--- NOTE | ~2024-02-22 | US_ITS ---
EXAMINATION: US TRIPLEX LOWER EXTREMITY, LEFT CLINICAL INFORMATION: Left leg swelling COMPARISON: DVT ultrasound June 28, 2022 TECHNIQUE: Color-flow triplex imaging with spectral analysis and compression Doppler were performed on the left lower extremity. FINDINGS: Respiratory variation, normal compression and augmented flow are noted throughout the left lower extremity. The visualized common femoral vein, superficial femoral vein, profunda femoral vein, popliteal vein and midcalf peroneal and posterior tibial venous segments show no evidence of deep venous thrombosis. There is no Brown's cyst. US/US venous duplex LE LT IMPRESSION: No evidence of deep venous thrombosis involving the left lower extremity. Electronically signed by: Ramon Mckenna MD 02/22/2024 05:05 PM EDT
--- NOTE | ~2024-02-22 | XR_ITS ---
EXAMINATION: XR KNEE, LEFT CLINICAL INFORMATION: Knee pain. COMPARISON: 06/28/2022. TECHNIQUE: Four views of the left knee. FINDINGS: There is no fracture, dislocation, or suspicious bone lesion. There is normal alignment. There is prominent chondrocalcinosis in the medial and lateral compartments, suggesting underlying CPPD. There is mild medial and patellofemoral joint space narrowing. There are small medial compartment marginal osteophytes. There is no significant joint effusion in the suprapatellar bursa. Soft tissues appear normal. XR/XR knee LT 4V IMPRESSION: -No acute bony or soft tissue abnormalities. -Chondrocalcinosis medial and lateral compartments, with mild to moderate joint space narrowing medial compartment. 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 Electronically signed by: Uvaldo Alexis MD 02/22/2024 03:59 PM EDT
[2024-02-22 12:59] VITALS: BP 112/74; PULSE 79; RESP 18; TEMP 37; O2SAT 96; BMI 47.1
--- NOTE | 2024-02-22 13:00 | ED.GENADULT ---
HPI - General Adult General Chief complaint: Extremity Injury, Lower Stated complaint: L sided body pain, L thigh swelling Time Seen by Provider: 02/22/24 16:02 Source: patient Mode of arrival: ambulatory Limitations: no limitations History of Present Illness ED Provider: Denise Harper PA-C HPI narrative: 58 yold female with pmh chronic pain syndrome,HTN lumbar spondylsos, and osteomyelitits S the ED for left knee exacerbation and evaluation of chronic left leg swelling. Patient states having chronic left leg swelling for years. Patient states also chronic knee pain for years. Patient denies any swelling of the knee, redness, stiffness, recent long travel, recent surgery, chest pain, shortness of breath. Patient denies any recent trauma. Related Data Home Medications ?Medication ?Instructions ?Recorded ?Confirmed albuterol sulfate 90 mcg/actuation 1 - 2 puff inhalation Q4-6H PRN 04/23/21 02/21/23 aerosol inhaler (Ventolin HFA) Shortness Of Breath aspirin 81 mg tablet,delayed 81 mg PO DAILY 04/23/21 02/21/23 release multivitamin 1 tab PO DAILY 05/05/21 02/21/23 duloxetine 20 mg capsule,delayed 20 mg PO DAILY 02/21/23 02/21/23 release gabapentin 300 mg capsule 300 mg PO DAILY 02/21/23 02/21/23 oxybutynin chloride 5 mg 5 mg PO DAILY 02/21/23 02/21/23 tablet,extended release 24 hr metoprolol succinate 25 mg 25 mg PO DAILY 03/22/23 tablet,extended release 24 hr budesonide 90 mcg/actuation breath inhalation 04/19/23 activated powder inhaler (Pulmicort Flexhaler) hydroxyzine HCl 10 mg tablet 10 mg PO BID 04/19/23 levothyroxine 88 mcg tablet 88 mcg PO DAILY 04/19/23 Previous Rx's ?Medication ?Instructions ?Recorded pyridoxine (vitamin B6) 100 mg 100 mg PO DAILY 90 days #90 tabs 11/30/21 tablet cyclobenzaprine 5 mg tablet 5 mg PO TID PRN knee pain 7 days 06/28/22 #21 tabs penicillin V potassium 500 mg 500 mg PO BID 10 days #20 tabs 02/22/23 tablet oxycodone-acetaminophen 7.5 mg-325 1 tab PO TID PRN pain 14 days #42 08/10/23 mg tablet tabs oxycodone 5 mg capsule 5 mg PO Q8H PRN pain #9 caps 02/22/24 prednisone 20 mg tablet 40 mg (2 x 20 mg) PO DAILY 5 days 02/22/24 #10 tabs Allergies Allergy/AdvReac Type Severity Reaction Status Date / Time sulfamethoxazole Allergy Intermediate HIVES Verified 02/22/24 13:03 [From Bactrim] trimethoprim [From Bactrim] Allergy Intermediate HIVES Verified 02/22/24 13:03 cheese Allergy Hives Verified 02/22/24 13:03 Review of Systems Review of Systems: chronic left knee pain. crhonic left thigh swelling. 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 Surgical History Hx of vitrectomy Hx of cholecystectomy Hx of total hip arthroplasty Social History Social History Household Members: None Housing: Apartment Are you a primary career center advisor to a significant other at home: No Do you presently have visiting nurse or other home services: Yes (CRITICAL CARE PHYSICIAN) Alcohol intake: never Patient Tobacco Use Status: Never used Tobacco Advance Directives: Yes Advance Directives on File: Yes Advance Directives Date on File: 04/26/21 Do you have a plan to hurt others: No Plan service: No Current occupational status: disabled Physical Exam ED Vital Signs: Vital Signs - 24 hr 02/22/24 12:59 02/22/24 16:01 Temperature 98.6 F 98.1 F Pulse Rate 79 70 Respiratory Rate 18 20 Blood Pressure 112/74 113/71 Pulse Oximetry 96 98 Oxygen Delivery Method Room Air Room Air BMI result Body Mass Index 47.1 Const General: cooperative, healthy appearing, comfortable, no acute distress, well developed, alert, awake and Physically active HENMT Head: Yes normal to inspection, Yes No palpable skull fracture present, Yes normocephalic and Yes atraumatic Eyes General: appearance normal, both eyes and all related structures Neck Neck: Yes normal visual inspection, Yes full ROM, Yes no lymphadenopathy, Yes no meningeal signs, Yes trachea midline, Yes supple, No anterior neck swelling and No tender Chest Chest palpation & inspection: normal inspection of the chest and normal palpation of entire chest wall Resp Effort & Inspection: normal respiratory effort and able to speak in complete sentences Auscultation: clear to auscultation bilaterally Cardio Jugular venous distension: no JVD Heart sounds: S1 normal heart sound present and S2 normal heart sound present GI Inspection: Yes normal to inspection Palpation (GI): Soft to palpation, not firm, nontender, no guarding and not rigid General: No CVA tenderness and Yes no CVA tenderness Back/Spine/Pelvis Back: no CVA tenderness, No CVA tenderness and No back tenderness Skin General skin exam: no rashes or lesions noted, elasticity normal and turgor normal Neuro General: gait normal, tone normal, moves all extremities, Normal light touch and pain sensation, no meningeal signs, no focal motor deficits, CN's II-XI intact bilaterally and normal sensation to monofilament Extrem General: Yes normal to inspection, Yes full ROM, Yes capillary refill normal and Yes normal exam except as noted Upper/lower leg/hip images: 1. Chronic swelling for years. Negative for tenderness, pitting edema, palpable mass, fluctuance, erythema or deformity. Motor/neuro/vascular exam intact. 2. Chronic swelling for years. Negative for tenderness, pitting edema, palpable mass, fluctuance, erythema or deformity. Motor/neuro/vascular exam intact. Knee images: 1. Positive for tenderness on palpation. Negative crepitus, erythema ecchymosis, deformity, or swelling. Motor and neurovascular exam intact 2. Positive for tenderness on palpation. Negative crepitus, erythema ecchymosis, deformity, or swelling. Motor and neurovascular exam intac Psych Appearance: grossly normal, well kempt and not disheveled Course Course Course Narrative: This is a Rapid Medical Examination (RME) performed by Felicita Le PA-C in triage. Full HPI, ROS, assessment and treatment plan per primary provider in the Main ED. 58 yo female hx of left thigh pain/ swelling x years, worsening over the last 3 months. now having left knee pain. no injury or trauma. has been worked up by PCP with unremarkable work up. has an appointment with orthopedics for this on the . on chart review - patient on controlled substance contract. + on my eval, I do not appreciate any increased swelling to left thigh when compared to the right. no overlying skin changes. ambulating w/ steady gait assisted by cane. Plan: xr left knee Medical Decision Making Medical Decision Making MDM Narrative: [age] year female presents to ED for the chronic left knee pain chronic left thigh/leg swelling swelling exacerbation. Patient denies any chest pain or shortness of breath. Patient denies any fever or chills. X-ray shows severe arthritis. Ultrasound negative for blood clots. Physical exam negative for signs of arterial occlusion, fracture, compartment syndrome, cellulitis, septic joint, or necrotizing fasciitis. Patient explained worrisome signs informed to return to the ED immediately Differential Diagnosis Differential Diagnoses: The differential diagnosis associated with the presentation includes (DVT, dislocation, fracture, arthritis.) Admission/Observation Consideration of admission/observation: Escalation of care including admission/observation considered Independent Interpretation I performed an independent interpretation of an: Plain X-Ray Radiology Impression Discussion of test interpretation with radiology: I have reviewed the radiologist's reading. Independent Historian Clinical information obtained from an independent historian. History obtained from or confirmed by: Other (patient) External Record Review External record reviewed: Other (prior visits) Prescription Management I considered prescription management with: Pain Medication Discharge Plan Discharge Clinical Impression: Osteoarthritis of left knee, Leg swelling Patient Disposition: Home, Self-Care Instructions: Osteoarthritis (ED), Leg Edema (ED) Additional Instructions: Ultrasound came back negative for blood clot. X-ray positive for severe arthritis. You will need follow-up primary care provider and referral to Orthopedics. You may need physical therapy. Return to the ED immediately for worsening knee pain, redness, swelling, leg swelling, calf pain, red streaks, bluish black discoloration, chest pain, shortness of breath, hotness, coldness, or any other concerning symptoms. XR/XR knee LT 4V IMPRESSION: -No acute bony or soft tissue abnormalities. -Chondrocalcinosis medial and lateral compartments, with mild to moderate joint space narrowing medial compartment. 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 Electronically signed by: Uvaldo Alexis MD 02/22/2024 03:59 PM EDT RP US/US venous duplex LE LT IMPRESSION: No evidence of deep venous thrombosis involving the left lower extremity. Electronically signed by: Ramon Mckenna MD 02/22/2024 05:05 PM EDT RP Prescriptions: New prednisone 20 mg tablet 40 mg PO DAILY 5 Days Qty: 10 0RF oxycodone 5 mg capsule 5 mg PO Q8H PRN (Reason: pain) Qty: 9 0RF Rx Instructions: Partial Fill upon patient request. No Action aspirin 81 mg tablet,delayed release (DR/EC) 81 mg PO DAILY albuterol sulfate [Ventolin HFA] 90 mcg/actuation HFA aerosol inhaler 1 - 2 puff inhalation Q4-6H PRN (Reason: Shortness Of Breath) multivitamin Tablet 1 tab PO DAILY cyclobenzaprine 5 mg tablet 5 mg PO TID PRN (Reason: knee pain) 7 Days Qty: 21 0RF penicillin V potassium 500 mg tablet 500 mg PO BID 10 Days Qty: 20 0RF pyridoxine (vitamin B6) 100 mg tablet 100 mg PO DAILY 90 Days Qty: 90 1RF levothyroxine 88 mcg tablet 88 mcg PO DAILY hydroxyzine HCl 10 mg tablet 10 mg PO BID Pulmicort Flexhaler 90 mcg/actuation aerosol powdr breath activated inhalation oxybutynin chloride 5 mg tablet extended release 24hr 5 mg PO DAILY gabapentin 300 mg capsule 300 mg PO DAILY duloxetine 20 mg capsule,delayed release(DR/EC) 20 mg PO DAILY metoprolol succinate 25 mg tablet extended release 24 hr 25 mg PO DAILY oxycodone-acetaminophen 7.5-325 mg tablet 1 tab PO TID PRN (Reason: pain) 14 Days Qty: 42 0RF Rx Instructions: Partial Fill upon patient request. two week compassion script. please use this to taper off the medication. [place] [facility] [place] [facility] Group] (Severe left knee arthritis) Stand Alone Forms: Work/School Release Interventions: ED Discharge Assessment Last Done: 02/22/24 18:20 Discharge Date/Time: 02/22/24 18:21 Print Language: Maltese
[2024-02-22 16:01] VITALS: BP 113/71; PULSE 70; RESP 20; TEMP 36.7; O2SAT 98
--- OUTSIDE RECORDS SUMMARY | 2024-02-22 16:17 | XMS_ITS | Continuity of Care Document ---
Author Organization [facility] Address [address] [place] [address]- Care Team Providers Care Coating Machine Feeder Name Role Phone Boo WATSON, Raj Reyes Primary Care Physician [place] [facility] [place] [facility] [id number] Date(s): 10/24/23 - 11/23/23 [facility] [address] [place] [id number] [place] Attending Physician: Eliz Gill Admitting Physician: Eliz Gill Referring Physician: trEliz Referring Physician: Praveen Zamora Allergies, Adverse Reactions, [...] 11:53:00 EDT, Route to Pharmacy Electronically, [facility]/pharmacy #[id number], 140, cm, 12/05/19 10:33:00 EDT, Height, 68... 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, # 60 capsule, 0 Refills, Maintenance, 12/05/19 17:46:00 EDT, Capsule, [facility]/pharmacy #[id number], 140, cm, 12/05/19 10:33:00 EDT, Height, 68.9, kg, 12/03/19 15:30:00 EDT, Dry Weight Start Date: 12/05/19 Status: Ordered meloxicam 15 mg oral tablet 1 tablet = 15 mg, By Mouth, Daily, with food, # 30 tablet, 0 Refills, Maintenance, 12/03/19 15:51:00 EDT, Tablet, [facility]/pharmacy #[id number], 140, cm, 12/03/19 15:19:00 EDT, Height, 68.9, kg, 12/03/19 15:30:00 EDT, Dry Weight Start Date: 12/03/19 Status: Ordered MiraLax = 17 Gm, By Mouth, Daily, 0 Refills, Maintenance Start Date: 12/27/10 Status: Ordered omeprazole 20 mg oral enteric coated capsule 1 capsule, By Mouth, 2 times a day, # 60 capsule, 0 Refills, Maintenance, 01/08/20 8:49:00 EDT, [facility], 140, cm, 01/02/20 11:36:00 EDT, Height, 68.9, [...] EDT, Route to Pharmacy Electronically, [facility], 140, cm, 12/05/19 10:33:00 EDT, Height, 68.9, kg, 12/03/19 15:30:00 EDT, Dry Weight Start Date: 12/18/19 Status: Ordered traMADol 50 mg oral tablet 2 tablet = 100 mg, By Mouth, Daily, 0 Refills, Maintenance, 09/24/15 13:24:58 Start Date: 09/24/15 Status: Ordered Zoloft 50 mg oral tablet [...] Reference Physician Member Role: PCP Address: Address: [address] [place] [address] [place] [address]- Care Team Related Persons Name: JONATHAN ANDRE Name: AMANDA LANGFORD Address: home [address] [place] [id number]
--- OUTSIDE RECORDS SUMMARY | 2024-02-22 16:17 | XMS_ITS | Continuity of Care Document ---
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, # 60 capsule, 0 Refills, Maintenance, [...] 0 Refills, Maintenance, 01/08/20 8:49:00 EDT, [facility], 140, cm, 01/02/20 11:36:00 EDT, Height, 68.9, [...] EDT, Route to Pharmacy Electronically, [facility], 140, cm, 12/05/19 10:33:00 EDT, Height, 68.9, [...] Care team information Care Team Personnel Name: Boo WATSON, Raj Reyes Position: Reference Physician Member Role: PCP Address: Address: [address] [place] [address] [place] [address]- Care Team Related Persons Name: JONATHAN ANDRE Address: home [address] [place] [address] Name: AMANDA LANGFORD Address: home [address] [place] [address]
--- OUTSIDE RECORDS SUMMARY | 2024-02-22 16:18 | XMS_ITS | Continuity of Care Document ---
Author Organization [facility] Address [address] [place] [address]- Care Team Providers Care Squaring Machine Operator Name Role Phone Raj Haddad MD Primary Care Physician [place] [facility] [place] [facility] [id number] Date(s): 01/23/23 - 02/22/23 [facility] [address] [place] [address]- Attending Physician: Eliz Gill Admitting Physician: Eliz [...] mg, By Mouth, 2 times a day, liquid loader reviewed, # 60 capsule, 0 Refills, Maintenance, [...] 0 Refills, Maintenance, 01/08/20 8:49:00 EDT, [facility], 140, cm, 01/02/20 11:36:00 EDT, Height, 68.9, [...] EDT, Route to Pharmacy Electronically, [facility], 140, cm, 12/05/19 10:33:00 EDT, Height, 68.9, [...] Reference Physician Member Role: PCP Address: Address: [address] [place] [address] [place] [address]- Care Team Related Persons Name: JONATHAN ANRDE Address: home [address] [place] [address] Name: AMANDA LANGFORD Address: home [address] [place] [address]
--- OUTSIDE RECORDS SUMMARY | 2024-02-22 16:18 | XMS_ITS | Continuity of Care Document ---
Author Organization [facility] Address [address] [place] [address]- Care Team Providers Care Night Guard Name Role Phone Raj Haddad MD Primary Care Physician [phone] Encounter [facility] [place] R [id number] Date(s): 01/10/23 - 02/22/23 [facility] [address] [place] [address]- Attending Physician: Dilma Munoz DO Admitting Physician: Dilma Munoz DO Allergies, Adverse Reactions, Alerts Substance Reaction Severity [...] 11:53:00 EDT, Route to Pharmacy Electronically, [facility]/pharmacy #[id number], 140, cm, 12/05/19 10:33:00 EDT, [...] mg, By Mouth, 2 times a day, heel finisher reviewed, # 60 capsule, 0 Refills, Maintenance, 12/05/19 17:46:00 EDT, Capsule, [facility]/pharmacy #[id number], 140, cm, 12/05/19 10:33:00 EDT, Height, 68.9, kg, 12/03/19 15:30:00 EDT, Dry Weight Start Date: 12/05/19 Status: Ordered meloxicam 15 mg oral tablet 1 tablet = 15 mg, By Mouth, Daily, with food, # 30 tablet, 0 Refills, Maintenance, 12/03/19 15:51:00 EDT, Tablet, [facility]/pharmacy #[id number], 140, cm, 12/03/19 15:19:00 EDT, Height, 68.9, kg, 12/03/19 15:30:00 EDT, Dry Weight Start Date: 12/03/19 Status: Ordered MiraLax = 17 Gm, By Mouth, Daily, 0 Refills, Maintenance Start Date: 12/27/10 Status: Ordered omeprazole 20 mg oral enteric coated capsule 1 capsule, By Mouth, 2 times a day, # 60 capsule, 0 Refills, Maintenance, 01/08/20 8:49:00 EDT, [facility], 140, cm, 01/02/20 11:36:00 EDT, Height, 68.9, [...] EDT, Route to Pharmacy Electronically, [facility], 140, cm, 12/05/19 10:33:00 EDT, Height, 68.9, [...] Reference Physician Member Role: PCP Address: Address: [address] [place] [address] [place] [address]- Care Team Related Persons Name: JONATHAN ANDRE Address: home [address] [place] [address] Name: AMANDA LANGFORD Address: home [address] [place] [address]
--- OUTSIDE RECORDS SUMMARY | 2024-02-22 16:18 | XMS_ITS | Continuity of Care Document ---
Author Organization [facility] Address [address] [place] [address]- Care Team Providers Care Sewer System Supervisor Name Role Phone Raj Haddad MD Primary Care Physician [phone] [place] [facility] [id number] Date(s): 10/24/23 - 10/31/23 [facility] [address] [place] [address]- Encounter Diagnosis Aberrant right subclavian artery(Discharge Diagnosis) - 10/24/23 Attending Physician: Gilberto Babb MD Admitting Physician: Gilberto Babb MD Referring Physician: Raj Haddad MD Allergies, [...] 11:53:00 EDT, Route to Pharmacy Electronically, [facility]/pharmacy #[id number], 140, cm, 12/05/19 10:33:00 EDT, [...] mg, By Mouth, 2 times a day, patient case manager reviewed, # 60 capsule, 0 Refills, Maintenance, 12/05/19 17:46:00 EDT, Capsule, [facility]/pharmacy #[id number], 140, cm, 12/05/19 10:33:00 EDT, [...] 0 Refills, Maintenance, 01/08/20 8:49:00 EDT, [facility], 140, cm, 01/02/20 11:36:00 EDT, Height, 68.9, [...] EDT, Route to Pharmacy Electronically, [facility], 140, cm, 12/05/19 10:33:00 EDT, Height, 68.9, [...] Confirmed Active Obese class I Confirmed Active Diagnosis Diagnosis Type Effective Dates Health Status Clinical Service Informant Aberrant right subclavian artery Discharge Diagnosis 10/24/23 Vital Signs Most recent to oldest [Reference Range]: 1 Height 140.00 cm (10/24/23 8:50 AM) Weight 65.77 kg (10/24/23 8:50 AM) Oxygen Saturation [94-100 %] 95 % (10/24/23 8:50 AM) Pulse Rate [55-90 bpm] 66 bpm (10/24/23 8:50 AM) Body Mass Index [18.5-24.99 kg/m2] 33.56 kg/m2 *>HHI* (10/24/23 8:50 AM) Blood Pressure [90-138/55-84 mm Hg] 94/6 0mm Hg (10/24/23 8:50 AM) Mode of Delivery (Oxygen) Room air (10/24/23 8:50 AM) Blood pressure sites Arm, left (10/24/23 8:50 AM) Weight Obtained Via Patient/family state d (10/24/23 8:50 AM) Social History Social History Type Response Smoking Status Never smoker entered on: 09/24/15 Sex Patient Care team information Care Team Personnel Name: Raj Haddad MD Position: Reference Physician Member Role: PCP Address: Address: [address] [place] [address] [place] [address]- Care Team Related Persons Name: JONATHAN ANDRE Name: AMANDA LANGFORD Address: home [address] [place] [id number]
--- OUTSIDE RECORDS SUMMARY | 2024-02-22 16:18 | XMS_ITS | Continuity of Care Document ---
Author Organization [facility] Address [address] [place] [id number]- Care Team Providers Care Seismograph Operator Name Role Phone Raj Haddad MD Primary Care Physician Encounter [facility] Date(s): 07/30/23 - 08/06/23 [facility] [address] [place] [address]- Encounter Diagnosis Dysphagia lusoria(Discharge Diagnosis) - 07/30/23 Attending Physician: Holley WATSON, Gilberto Mckenzie Admitting [...] mg, By Mouth, 2 times a day, collection systems consultant reviewed, # 60 capsule, 0 Refills, Maintenance, [...] 0 Refills, Maintenance, 01/08/20 8:49:00 EDT, [id number], 140, cm, 01/02/20 11:36:00 EDT, Height, 68.9, [...] EDT, Route to Pharmacy Electronically, [id number], 140, cm, 12/05/19 10:33:00 EDT, Height, 68.9, [...] Dates Health Status Cl inical Service Informant Dysphagia lusoria Discharge Diagnosis 07/30/23 Vital Signs Most recent to oldest [Reference Range]: 1 Height 140.00 cm (07/30/23 2:06 PM) Weight 65.90 kg (07/30/23 2:06 PM) Oxygen Saturation [94-100 %] 97 % (07/30/23 2:06 PM) Pulse Rate [55-90 bpm] 80 bpm (07/30/23 2:06 PM) Body Mass Index [18.5-24.99 kg/m2] 33.62 kg/m2 *>HHI* (07/30/23 2:06 PM) Blood Pressure [90-138/55-84 mm Hg] 118/ 60mm Hg (07/30/23 2:06 PM) Blood pressure sites Arm, left (07/30/23 2:06 PM) Weight Obtained Via Patient/family state d (07/30/23 2:06 PM) Social History Social History Type Response Smoking Status Never smoker entered on: 09/24/15 Sex Note * Mary Dubon MA: PERFORM, SIGN, VERIFY Event Display: Patient Education/Instruction Authored Date: [id number] [facility] [address] Clinical Summary Name DORIE ANDRE Age 57 Years 1965 PCP Boo WATSON, Raj Reyes PCP Visit Date 07/30/2023 13:40:00 Additional Instructions: Scheduled Appointments?? Future Appointments ?*[facility],??[place],??[address] ?Phone:??--?Fax:??-- ?Appt. Date:??09/26/2023?3:20 PM ?Scheduled Provider:??Gilberto Babb MD Follow-Up Instructions ?? 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 Next Dose: Meloxicam (meloxicam 15 mg oral [...] capsule) 1 capsule Oral twice a day. collection systems consultant reviewed. Refills: 0. Next Dose: Sertraline (Zoloft 50 mg oral tablet) 1 tab(s) Oral Daily. Next Dose: Tizanidine (tiZANidine 4 mg oral tablet) 1/2-1 TABLET Oral every 8 hours. Refills: 1. Next Dose: Tramadol (traMADol 50 mg oral tablet) 2 tab(s) Oral Daily. Next Dose: Allergy Info:?? Bactrim Medications Given This Visit Future Orders ?Esophagus Barium Swallow? Order Date:07/30/23?- Complete on or after?07/30/23 Future Orders ?Esophagus Barium Swallow? Order Date:07/30/23?- Complete on or after?07/30/23 Vital Signs Height 140.00 cm Weight 65.90 kg BMI 33.62 kg/m2 Blood Pressure 118 mm Hg/60 mm Hg Temperature Pulse Rate 80 bpm Respiratory Rate 02 Sat Mode of Delivery 97 %/ You can now view a summary of your hospital visit from the comfort of your home through a free online portal called SHAPE. SHAPE is a website that allows you to securely view your medical information including discharge summary, medications and follow-up visits. ??You can alsosend a secure electronic message to your doctor???s office to request appointments, renew medications or just ask a question. You can enroll at [email or web address] or register during your next office [...] primary care provider, you may find a [facility] provider by calling [facility] at [phone]. [facility], in keeping with [facility] guidance, no longer requires face masks for staff, patientsor visitors in most situations. Similar to time spent indoors at other locations, there is the chance that you were exposed to respiratory viruses during your time with us (such as flu or COVID-19).? If you develop symptoms concerning for a viral respiratory infection, please seek testing (and treatment if indicated) from your medical provider or home test kit. For information about the plan of care [...] Reference Physician Member Role: PCP Address: Address: [address] [place] [address] [place] [address]- Care Team Related Persons Name: JONATHAN ANDRE Address: home [address] [place] [address] Name: AMANDA LANGFORD Address: home [address] [place] [address]
[2024-02-22 18:20] VITALS: BP 113/71; PULSE 70; RESP 20; TEMP 36.7; O2SAT 98
== END 2024-02-22 18:21 | disposition home or self-care (01) ==
PROVIDERS: Emergency Provider Emergency Medicine; PCP Internal Medicine
DX: M17.12 Unilateral primary osteoarthritis, left knee (principal); R60.0 Localized edema; G89.4 Chronic pain syndrome; Z79.899 Other long term (current) drug therapy
CPT/HCPCS: 73564; 93971; 99283; 99284

== ENCOUNTER → 2024-02-22 13:03 | Outpatient (BNV) | payer MEDICARE, MEDICAID, SELFPAY | PROVIDERS: Emergency Provider Emergency Medicine; PCP Internal Medicine; Visit Provider Radiology Diagnostic Radiology | DX: M25.562 Pain in left knee (principal) | CPT/HCPCS: 73564 ==

== ENCOUNTER 2024-03-28 10:01 | Outpatient (REF) | payer MEDICARE, MEDICAID, SELFPAY ==
--- NOTE | ~2024-03-28 | XR_ITS ---
EXAMINATION: XR KNEE RIGHT CLINICAL INFORMATION: M25.561 - Pain in right knee. COMPARISON: X-ray both knees 06/12/2019. TECHNIQUE: 1 AP standing view of bilateral knees. FINDINGS: Right Knee: Mild degenerative changes in the medial compartment of the right knee with mild joint space narrowing. Left Knee: [id number] narrowing of the medial compartment with small marginal osteophytes. Chondrocalcinosis in the medial and lateral compartments. XR/XR knee RT 1V IMPRESSION: Degenerative changes in bilateral knees, left greater than right. Electronically signed by: Shwetha Angel MD 05/07/2024 01:59 PM EST
--- NOTE | ~2024-03-28 | XR_ITS ---
EXAMINATION: XR KNEE, LEFT CLINICAL INFORMATION: M25.562 - Pain in left knee COMPARISON: 02/22/2024 TECHNIQUE: Single sunrise view of the left knee. FINDINGS: Asymmetric narrowing and degenerative changes along the lateral aspect of the patellofemoral compartment on the single sunrise view provided. Tiny rounded possible calcification in the overlying prepatellar soft tissues. XR/XR knee LT 2V IMPRESSION: Asymmetric narrowing and degenerative changes along the lateral aspect of the patellofemoral compartment on the single sunrise view provided. Electronically signed by: Shwetha Angel MD 05/05/2024 09:57 AM EST
== END 2024-03-28 10:02 | disposition home or self-care (01) ==
LOC: HO.HOSX 10:01
PROVIDERS: Visit Provider Physician Assistant
DX: M25.561 Pain in right knee (principal); M25.562 Pain in left knee; M17.12 Unilateral primary osteoarthritis, left knee
CPT/HCPCS: 73560; 99212; J1010; J2003

== ENCOUNTER 2024-03-28 10:16 | Outpatient (AMB) | payer MEDICARE, MEDICAID, SELFPAY ==
--- NOTE | 2024-03-28 10:40 | MHC.OFFVIS ---
Vital Signs 03/28/24 10:57 Height 4 ft 8 in Weight 210 lb BMI 47.1 Intake Visit Reasons: ov- Left knee OA, ER follow up Intake Note: Trini a 58 year old female who presents today with her daughter for an ER follow up of left knee. Patient was last seen with [facility] for a left knee MRI review on 08/2021 and an injection was given. Patient reports last injection did not provide her with any relief. No relief with taking Tylenol and she avoids taking motrin due to previous intermediate card tender use. Finds relief with taking percocet. Her pain is located at the anterior and posterior aspect of knee. Her knee gives out and she feels unstable. Denies falling. No numbness or tingling. She uses a cane and walker with ambulation. Allergies sulfamethoxazole [From Bactrim] Allergy (Intermediate, Verified 03/28/24 10:57) HIVES trimethoprim [From Bactrim] Allergy (Intermediate, Verified 03/28/24 10:57) HIVES cheese Allergy (Verified 03/28/24 10:57) Hives Medication List - Last Reconciled 03/28/24 by Lory Shaw PA-C albuterol sulfate 90 mcg/actuation (Ventolin HFA) 1 - 2 puffs inhalation Q4-6H PRN aspirin 81 mg PO DAILY budesonide 90 mcg/actuation (Pulmicort Flexhaler) inhalation cyclobenzaprine 5 mg PO TID PRN 7 days duloxetine 20 mg PO DAILY gabapentin 300 mg PO DAILY hydroxyzine HCl 10 mg PO BID levothyroxine 88 mcg PO DAILY metoprolol succinate ER 25 mg PO DAILY multivitamin 1 tab PO DAILY oxybutynin chloride ER 5 mg PO DAILY penicillin V potassium 500 mg PO BID 10 days prednisone 40 mg (2 x 20 mg) PO DAILY 5 days pyridoxine (vitamin B6) 100 mg PO DAILY 90 days HPI HPI ov- Left knee OA, ER follow up: Details: 58-year-old female who presents to the office today with her daughter for an ED follow-up of left knee pain. She had an injection on 09/08/21 which did not provide her any relief. She states she has pain at the anterior aspect and posterior aspect of her knee. She feels her knee is unstable and gives out. She also hears clicking sound in her knee. She denies any falls, numbness or tingling. She finds no relief with Tylenol and she avoids taking Motrin due to previous long-term use. She finds relief with taking Percocet. She uses a cane and walker with ambulation. 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 Surgical History Hx of vitrectomy Hx of cholecystectomy Hx of total hip arthroplasty Social History Household Members: None Housing: Apartment Are you a primary farm or ranch animal caretaker to a significant other at home: No Do you presently have visiting nurse or other home services: Yes ([employer]) Alcohol intake: never Patient Tobacco Use Status: Never used Tobacco Advance Directives Date on File: 04/26/21 service: No Current occupational status: disabled Review of Systems Const All systems reviewed & are unremarkable except as noted in HPI and below Physical Exam Vital Signs: BMI result Body Mass Index 47.1 Extrem Other: Left knee: Skin intact, no erythema or joint effusion. Tenderness along the medial and lateral joint line. Full ROM with crepitus. Negative Barbara?s. No ligamentous laxity. NVI. Results Reviewed Results Reviewed: Xrays were obtained in the office today and personally reviewed by me of the left knee show mild oa with chondrocalcinosis Assessment & Plan Assessment & Plan (1) Osteoarthritis of left knee: Code(s): M17.12 - Unilateral primary osteoarthritis, left knee Category: Medical Plan We discussed options today which include cortisone and gel injection which she declined this time. We discussed in depth physical therapy and massage type modalities to help with her patellar mobility and strength which she is interested in and a referral was placed in the office today. We also discussed the benefits of pain management as she has been to them before. She would like to have a new referral which was placed today. She can contact our office but if she wants a cortisone injection, she can contact the office, otherwise follow-up as needed. Orders: Orders XR knee RT 1V Today M25.561 - Pain in right knee PT Evaluation and Treatment Today M17.12 - Unilateral primary osteoarthritis, left knee XR knee LT 2V Today M25.562 - Pain in left knee Referrals Pain Management Referral M17.12 - Unilateral primary osteoarthritis, left knee Medications: New celecoxib (Celebrex) 200 mg PO BID 60 caps 3RF 30 days Patient Instructions: Scribed for Lory Shaw PA-C, by Travis Hernandez medical record librarian, on 03/28/2024 at 10:30 AM EST.? I, Lory Shaw PA-C, have personally reviewed and agree with the information entered by the scribe. Coding Level of Care Code Est Pt Level 3 (61213) Complex EM visit Add On G2211 Diagnoses Osteoarthritis of left knee M17.12
[2024-03-28 10:57] VITALS: BMI 47.1
== END 2024-03-28 11:36 | disposition home or self-care (01) ==
PROVIDERS: PCP Internal Medicine; Visit Provider Physician Assistant
DX: M17.12 Unilateral primary osteoarthritis, left knee (principal)
CPT/HCPCS: 99213; G2211

== ENCOUNTER 2024-04-25 09:18 | Outpatient (AMB) | payer MEDICARE, MEDICAID, SELFPAY ==
[2024-04-25 09:25] VITALS: BP 141/79; PULSE 77; O2SAT 96; BMI 38.1
--- NOTE | 2024-04-25 09:25 | A.OFFVIS_ITS ---
Vital Signs 04/25/24 09:25 Height 4 ft 8 in Weight 170 lb BMI 38.1 BP 141/79 H Blood Pressure Location Rt brachial Position Sitting Pulse 77 Pulse Source Pulse Oximeter Pulse Oximetry (%) 96 Oxygen Delivery Method Room Air Intake Visit Reasons: Unilateral primary osteoarthritis, left knee Allergies sulfamethoxazole [From Bactrim] Allergy (Intermediate, Verified 04/25/24 09:25) HIVES trimethoprim [From Bactrim] Allergy (Intermediate, Verified 04/25/24 09:25) HIVES cheese Allergy (Verified 04/25/24 09:25) Hives HPI HPI Unilateral primary osteoarthritis, left knee: Details: Patient is a 58-year-old female referred to us by Orthopedics. She has a history of left knee pain but this is not what she is here to discuss today. She reports longstanding history of cervical and low back pain issues. She has had imaging in the past that showed multilevel disc degeneration. She is not intere sted in any kind of intervention therapy. She is interested in or opioids to see if that might help her symptoms. She has not had any recent MRIs to see if it might be amenable to surgical intervention. She only reports axial low back pain with no significant radiation down her legs. 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 Surgical History Hx of vitrectomy Hx of cholecystectomy Hx of total hip arthroplasty Social History Household Members: None Housing: Apartment Are you a primary managed care director to a significant other at home: No Do you presently have visiting nurse or other home services: Yes ([employer]) Alcohol intake: never Patient Tobacco Use Status: Never used Tobacco Advance Directives Date on File: 04/26/21 service: No Current occupational status: disabled Physical Exam Vital Signs: Last Vital Signs Pulse 77 04/25/24 09:25 BP 141/79 H 04/25/24 09:25 Pulse Ox 96 04/25/24 09:25 Oxygen Delivery Method Room Air 04/25/24 09:25 BMI result Body Mass Index 38.1 On exam today: Appears afebrile. Alert and oriented. Mood and affect appropriate. Follows and participates in conversation appropriately. Respiratory effort is unlabored. Able to transition from sit to stand unassisted. Ambulates with bilaterally normal heel strike and toe off. Able to stand and walk on toes and heels. Assessment & Plan Assessment & Plan (1) Spondylosis of lumbar region without myelopathy or radiculopathy: Code(s): M47.816 - Spondylosis without myelopathy or radiculopathy, lumbar region Category: Medical (2) Spondylosis of cervical joint without myelopathy: Code(s): M47.812 - Spondylosis without myelopathy or radiculopathy, cervical region Category: Medical (3) Chronic pain syndrome: Code(s): G89.4 - Chronic pain syndrome Category: Medical Plan I offered her interventional therapy for her neck and low back pain but she is not interested in this at this time. I encouraged her to follow up with her PCP to see if MR imaging may be indicated though her pain is only axial in nature and may not be susceptible to surgical intervention. Patient expressed understanding. She will follow-up as needed. Coding Level of Care Code New Pt Level 3 (93958) Diagnoses Spondylosis of lumbar region without myelopathy or radiculopathy M47.816 Spondylosis of cervical joint without myelopathy M47.812 Chronic pain syndrome G89.4
== END 2024-04-25 09:42 | disposition home or self-care (01) ==
PROVIDERS: PCP Internal Medicine; Visit Provider Internal Medicine
DX: M47.816 Spondylosis without myelopathy or radiculopathy, lumbar region (principal); M47.812 Spondylosis without myelopathy or radiculopathy, cervical region; G89.4 Chronic pain syndrome
CPT/HCPCS: 99203

== ENCOUNTER → 2024-04-25 09:18 | Outpatient (BNVA) | payer MEDICARE, MEDICAID, SELFPAY | PROVIDERS: PCP Internal Medicine; Visit Provider Internal Medicine | DX: M47.816 Spondylosis without myelopathy or radiculopathy, lumbar region (principal); M47.812 Spondylosis without myelopathy or radiculopathy, cervical region; G89.4 Chronic pain syndrome | CPT/HCPCS: 99202 ==

== ENCOUNTER 2025-01-20 16:41 | Emergency (ER) | payer MEDICARE, MEDICAID, SELFPAY ==
--- NOTE | ~2025-01-20 | XR_ITS ---
CLINICAL HISTORY: pain 4 view left knee Comparison: DX/SR - XR KNEE 1-2 VIEWS LEFT - 03/28/24 10:18 EST Findings: No fractures or dislocations. Mild narrowing and osteophyte formation within the medial knee compartment. Chondrocalcinosis is present within the medial and lateral knee compartments. No joint effusion. No radiopaque foreign body. IMPRESSION: 1. No acute bony abnormality. 2. There are mild arthritic changes. This document has been electronically signed by: Jenelle Bundy MD on 01/20/2025 18:33:39
[2025-01-20 17:21] VITALS: BP 155/75; PULSE 80; RESP 18; TEMP 37.2; O2SAT 94; BMI 39.5
--- NOTE | 2025-01-20 17:25 | ED.LOWEXIN ---
HPI - Extremity Injury (Lower) General Chief Complaint: Extremity Injury, Lower Stated Complaint: L knee pain Time Seen by Provider: 01/20/25 20:16 Source: patient Limitations: no limitations History of Present Illness ED Provider: Makayla Pineda PA-C HPI Narrative: 59-year-old female with a history of morbid obesity, known osteoarthritis, known chondrocalcinosis of the left knee, chronic neck and back pain, chronic pain syndrome who presents with left knee pain for years. Patient has not performed any new activity or heavy lifting that could have precipitated her acute symptoms. Denies swelling, redness, warmth or inability to range the joint. No fever. Related Data Home Medications ?Medication ?Instructions ?Recorded ?Confirmed albuterol sulfate 90 mcg/actuation 1 - 2 puff inhalation Q4-6H PRN 04/23/21 03/28/24 aerosol inhaler (Ventolin HFA) Shortness Of Breath aspirin 81 mg tablet,delayed 81 mg PO DAILY 04/23/21 03/28/24 release multivitamin 1 tab PO DAILY 05/05/21 03/28/24 duloxetine 20 mg capsule,delayed 20 mg PO DAILY 02/21/23 03/28/24 release gabapentin 300 mg capsule 300 mg PO DAILY 02/21/23 03/28/24 oxybutynin chloride 5 mg 5 mg PO DAILY 02/21/23 03/28/24 tablet,extended release 24 hr metoprolol succinate 25 mg 25 mg PO DAILY 03/22/23 03/28/24 tablet,extended release 24 hr budesonide 90 mcg/actuation breath inhalation 04/19/23 03/28/24 activated powder inhaler (Pulmicort Flexhaler) hydroxyzine HCl 10 mg tablet 10 mg PO BID 04/19/23 03/28/24 levothyroxine 88 mcg tablet 88 mcg PO DAILY 04/19/23 03/28/24 estradiol 0.01% (0.1 mg/gram) vaginal 04/25/24 vaginal cream omeprazole 20 mg capsule,delayed 20 mg PO DAILY 04/25/24 release solifenacin 5 mg tablet 5 mg PO DAILY 04/25/24 Previous Rx's ?Medication ?Instructions ?Recorded pyridoxine (vitamin B6) 100 mg 100 mg PO DAILY 90 days #90 tabs 11/30/21 tablet cyclobenzaprine 5 mg tablet 5 mg PO TID PRN knee pain 7 days 06/28/22 #21 tabs penicillin V potassium 500 mg 500 mg PO BID 10 days #20 tabs 02/22/23 tablet prednisone 20 mg tablet 40 mg (2 x 20 mg) PO DAILY 5 days 02/22/24 #10 tabs celecoxib 200 mg capsule (Celebrex) 200 mg PO BID 30 days #60 caps 03/28/24 ketorolac 10 mg tablet 10 mg PO Q6H PRN pain #20 tabs 01/20/25 methylprednisolone 4 mg tablets in 4 mg PO QAM #21 ea 01/20/25 a dose pack (Medrol (Darrell)) Allergies Allergy/AdvReac Type Severity Reaction Status Date / Time sulfamethoxazole (From Allergy Intermediate HIVES Verified 01/20/25 17:22 Bactrim) trimethoprim (From Bactrim) Allergy Intermediate HIVES Verified 01/20/25 17:22 cheese Allergy Hives Verified 01/20/25 17:22 Review of Systems Review of Systems: Yes all other systems are reviewed and are negative Constitutional: Constitutional: Denies fatigue and Denies fever(s) Cardiovascular: Cardiovascular: Denies chest pain and Denies dyspnea Respiratory: Respiratory: Denies dyspnea Gastrointestinal: Gastrointestinal: Denies abdominal pain Musculoskeletal: Musculoskeletal: Reports arthralgias and Denies joint swelling Integumentary/Breasts: Skin/Breast: Denies erythema and Denies skin swelling Endocrine: Endocrine: Denies fatigue PMFSH Past Medical History Attestation statement: The following information was validated with the patient. 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9 F 01/20/25 17:21 Pulse 80 01/20/25 17:21 Resp 18 01/20/25 17:21 BP 155/75 H 01/20/25 17:21 Pulse Ox 94 01/20/25 17:21 O2 Del Method Room Air 01/20/25 17:21 BMI result Body Mass Index 39.5 Const: Other: Alert Orientation/consciousness: patient oriented x3 Resp: Effort & Inspection: normal respiratory effort Cardio: Other: Normal peripheral perfusion Skin: Other: Warm dry no rash Neuro: Other: Antalgic gait but is ambulatory General: patient oriented x3, no focal motor deficits and CN's II-XI intact bilaterally Extrem: Other: Able to flex and extend the joint, no overt swelling no overlying erythema warmth Psych: Other: Cooperative Course Course Course Narrative: This is an RME: Additional HPI, ROS, PE not included below will be deferred to primary provider. RME assessment and note performed by: Dejah Paniagua PA-C This is a 59-year-old female who presents emergency department with concerns of acute on chronic left knee pain. Patient has been previously seen by Orthopedics. Per mass pat she is already on oxycodone and gabapentin. No obvious bony deformity or swelling. Last x-rays were done in March. Previously saw Orthopedics, call their office and they are unable to see her until February. Plan: X-rays, further ER evaluation needed. Medical Decision Making Medical Decision Making MDM Narrative: 59-year-old female with a history of morbid obesity, known osteoarthritis, known chondrocalcinosis of the left knee, chronic neck and back pain, chronic pain syndrome who presents with left knee pain for years. Patient has not performed any new activity or heavy lifting that could have precipitated her acute symptoms. Denies swelling, redness, warmth or inability to range the joint. No fever. Problem: Chronic pain known arthritis of the left knee with chondrocalcinosis History: Per patient I have considered the following differential diagnoses: Fracture, dislocation, sprain, septic joint, worsening arthritic changes Plan: X-ray ordered from triage, she has known arthritis no acute findings. We will send with home care instructions. She has an orthopedist that she sees. She has no overlying erythema or warmth to suggest septic joint, and she has retained range of motion. I have independently reviewed the following tests: X-ray left knee:Findings: No fractures or dislocations. Mild narrowing and osteophyte formation within the medial knee compartment. Chondrocalcinosis is present within the medial and lateral knee compartments. No joint effusion. No radiopaque foreign body. IMPRESSION: 1. No acute bony abnormality. 2. There are mild arthritic changes. Differential Diagnosis Differential Diagnoses: The differential diagnosis associated with the presentation includes See medical decision-making Admission/Observation Consideration of admission/observation: Escalation of care including admission/observation considered Not applicable Radiology Impression Discussion of test interpretation with radiology: I have reviewed the radiologist's reading. Discharge Plan Discharge Clinical Impression: Osteoarthritis of left knee Patient Disposition: Home, Self-Care Instructions: Osteoarthritis (ED) Additional Instructions: You have known arthritis of the left knee, there have been no changes. See home care instructions. Use the ketorolac as directed this is an anti-inflammatory take it with food. Take the Medrol Dosepak as directed take it in the morning. You need to follow back up with your orthopedist , they can perform a cortisone injection to help alleviate your symptoms. Prescriptions: New methylprednisolone [Medrol (Darrell)] 4 mg tablets,dose pack 4 mg PO QAM Qty: 21 0RF ketorolac 10 mg tablet 10 mg PO Q6H PRN (Reason: pain) Qty: 20 0RF Rx Instructions: maximum total duration of 5 days from all oral, intranasal, or parenteral formulations. Patient received an intramuscular dose of Toradol here in the emergency room No Action aspirin 81 mg tablet,delayed release (DR/EC) 81 mg PO DAILY albuterol sulfate [Ventolin HFA] 90 mcg/actuation HFA aerosol inhaler 1 - 2 puff inhalation Q4-6H PRN (Reason: Shortness Of Breath) multivitamin Tablet 1 tab PO DAILY cyclobenzaprine 5 mg tablet 5 mg PO TID PRN (Reason: knee pain) 7 Days Qty: 21 0RF penicillin V potassium 500 mg tablet 500 mg PO BID 10 Days Qty: 20 0RF prednisone 20 mg tablet 40 mg PO DAILY 5 Days Qty: 10 0RF pyridoxine (vitamin B6) 100 mg tablet 100 mg PO DAILY 90 Days Qty: 90 1RF levothyroxine 88 mcg tablet 88 mcg PO DAILY hydroxyzine HCl 10 mg tablet 10 mg PO BID Pulmicort Flexhaler 90 mcg/actuation aerosol powdr breath activated inhalation celecoxib [Celebrex] 200 mg capsule 200 mg PO BID 30 Days Qty: 60 3RF solifenacin 5 mg tablet 5 mg PO DAILY estradiol 0.01 % (0.1 mg/gram) cream vaginal omeprazole 20 mg capsule,delayed release(DR/EC) 20 mg PO DAILY oxybutynin chloride 5 mg tablet extended release 24hr 5 mg PO DAILY gabapentin 300 mg capsule 300 mg PO DAILY duloxetine 20 mg capsule,delayed release(DR/EC) 20 mg PO DAILY metoprolol succinate 25 mg tablet extended release 24 hr 25 mg PO DAILY Print Language: Luxembourgish
--- OUTSIDE RECORDS SUMMARY | 2025-01-20 20:04 | XMS_ITS ---
Author Organization [facility] Care Team Providers Care Pressurization Mechanic Name Role Phone Melissa Felice Gonzalez Unavailable Unavailable Allergies and adverse reactions Code CodeSystem Substance Reaction Severity StartDate Concern Status Sulfamethoxazole /Trimethop rim Moderate 02/26/2015 active Cheese Moderate 02/26/2015 active Care Team Name Role Address Phone Organization Dates Felice [address] [place], [address], [place] (Office): : [facility] 02/26/2015 - 02/28/2015 Mental Status Section Date Assessment Total Score Description 02/28/2015 BIMS 15 cognitively int act Problems Problem # Description Date of onset Resolved Date Code CodeSystem Concern Status 1 AFTERCARE FOLLOWING EXPLANTATION OF HIP JOINT PROSTHESIS 02/26/[address] active 2 AFTERCARE FOLLOWING JOINT REPLACEMENT SURGERY 02/26/[address] active 3 BILATERAL PRIMARY OSTEOARTHRITIS OF HIP 02/26/[address] active 4 DIFFICULTY IN WALKING, NOT ELSEWHERE CLASSIFIED 02/26/[address] active 5 HYPERLIPIDEMIA, UNSPECIFIED 02/26/[id number] active 6 HYPOTHYROIDISM, UNSPECIFIED 02/26/[id number] active 7 UNSPECIFIED LACK OF COORDINATION 02/26/[id number] active Reason for Referral No Reasons for Referral Entered Social History Social History Observation Description Start Date End Date Code Code System Current Smoking Status Tobacco smoking consumption unknown 998851406 SNOMED CT Sex Assigned At Female 1965 63773-2 [facility] Gender Identity Sexual Orientation Vital Signs Code Code System Vitals Name Values and Units Timing Information 80512-6 [facility] Pain Level Value=6.0 02/28/2015 9279-1 [facility] Respiratory Rate Value=18.0 Units=/m in 02/27/2015 8462-4 [facility] Blood Pressure-Diastolic Value=61 Un its=mmHg 02/27/2015 8480-6 [facility] Blood Pressure-Systolic Mimjm=742 Un its=mmHg 02/27/2015 8310-5 [facility] Body Temperature Value=98.5 Units= F 02/27/2015 8867-4 [facility] Heart rate Value=86.0 Units=/min 10/2014 72548-8 [facility] O2 % BldC Oximetry Value=95.0 Units= % 02/27/2015
--- OUTSIDE RECORDS SUMMARY | 2025-01-20 20:04 | XMS_ITS | Clinical Summary ---
Author Organization [address] Address [address] [place] [phone] Phone Care Team Providers Care Station Installer Name Role Phone Raj Haddad MD Primary Care Provider [phone] Allergies Active Allergy Reactions Criticality Noted Date Comments Sulfamethoxazole-Trimethoprim Hives,Rash High 2005 Bactrim Medications venlafaxine XR (EFFEXOR-XR) 37.5 mg 24 hr capsule Take 1 capsule (37.5 mg total) by mouth 1 (one) time each day. 01/22/20 24 Active mometasone-formot katie (Dulera) 100-5 mcg/actuation inhaler Inhale 2 Puffs into the lungs 2 times daily. 01/03/20 24 Active estradioL (ESTRACE) 0.01 % (0.1 mg/gram) vaginal cream Please use 0.5g (a pea-sized amount) on your finger and place inside the vagina for 2 weeks at night, and then decrease to twice a week at night (Mondays and ) 01/02/20 24 025 Active senna-docusate (PERICOLACE) 8.6-50 mg per tablet Take 1 Tablet by mouth 2 times daily as needed for Constipation. 12/27/19 24 Active pyridoxine (B-6) 100 mg tablet Take 1 tablet (100 mg total) by mouth 1 (one) time each day. 06/02/19 23 Active nutritional drink (Ensure Active High Protein) liquid Take 1 Can by mouth 2 times daily. Pt prefers strawberry flavor One can twice a day 60 cans per month 11 refills 04/06/20 23 Active medical supply, miscellaneous (MISCELLANEOUS MEDICAL SUPPLY MISC) 8 Each by Does not apply route daily. KARIS-99 8/day 240/month 11 refills 02/07/20 23 Active hydrOXYzine HCL (ATARAX) 10 mg tablet TAKE 1 TABLET BY MOUTH 2 TIMES DAILY NEEDED FOR ANXIETY (INSOMNIA). 180 tablet 1 03/25/20 24 Active clotrimazole (LOTRIMIN) 1 % cream Apply topically 2 (two) times a day. 30 g 2 03/24/20 24 Active triamcinolone (KENALOG) 0.1 % cream APPLY TO AFFECTED AREA TWICE A DAY 90 g 1 06/25/19 25 Active busPIRone (BUSPAR) 5 mg tablet Take 1 tablet (5 mg total) by mouth 2 (two) times a day if needed (anxiety). 60 each 1 06/28/19 25 Active solifenacin (VESICARE) 5 mg tablet Take 1 tablet (5 mg total) by mouth 1 (one) time each day. Swallow tablet whole; do not crush, chew, or split. 90 tablet 3 07/02/19 25 Active albuterol HFA (Ventolin HFA) 90 mcg/actuation inhalerIndication s:Urinary frequency,Screeni ng for diabetes mellitus Inhale 2 puffs by mouth every 4 (four) hours if needed for wheezing. 6.7 g 3 09/20/19 25 Active aspirin 81 mg EC tabletIndications :Urinary frequency,Screeni ng for diabetes mellitus Take 1 tablet (81 mg total) by mouth 1 (one) time each day. 90 tablet 1 09/20/19 25 Active cholecalciferol (Vitamin D3) 50 mcg (2,000 unit) tabletIndications :Urinary frequency,Screeni ng for diabetes mellitus Take 1 tablet (2,000 Units total) by mouth 1 (one) time each day. 90 tablet 1 09/20/19 25 Active cyclobenzaprine (FLEXERIL) 5 mg tabletIndications :Urinary frequency,Screeni ng for diabetes mellitus Take 1 tablet (5 mg total) by mouth at bedtime as needed for muscle spasms. 30 tablet 3 09/20/19 25 Active gabapentin (NEURONTIN) 300 mg capsuleIndication s:Urinary frequency,Screeni ng for diabetes mellitus Take 1 capsule (300 mg total) by mouth at bedtime. 30 each 3 09/20/19 25 Active omeprazole (PriLOSEC) [address] capsuleIndication s:Urinary frequency,Screeni ng for diabetes mellitus Take 1 capsule (20 mg total) by mouth 1 (one) time each day. 90 capsule 1 09/20/19 25 Active DULoxetine (CYMBALTA) [address] capsule TAKE 1 CAPSULE BY MOUTH EVERY DAY 90 capsule 1 10/15/19 25 Active ALPRAZolam (XANAX) 0.5 mg tablet TAKE 1 TABLET BY MOUTH ONCE A DAY NEEDED 1 HOUR PRIOR TO FLIGHTS 08/29/19 25 Active ARIPiprazole (ABILIFY) 10 mg tablet Take 1 tablet (10 mg total) by mouth at bedtime. 11/06/19 25 Active atomoxetine (STRATTERA) 18 mg capsule Take 1 capsule (18 mg total) by mouth 1 (one) time each day in the morning. 11/06/19 25 Active carbamide peroxide (DEBROX) 6.5 % otic solution Administer 5-10 drops into each ear 2 (two) times a day. 15 mL 12/02/19 25 Active levothyroxine (SYNTHROID, LEVOTHROID) 88 mcg tablet Take 1 tablet (88 mcg total) by mouth See administration instructions. 1 tablet daily 6 days a week from Sunday to Sunday. 90 tablet 1 12/03/19 25 Active oxyCODONE (ROXICODONE) 5 mg immediate release tablet Take 1 tablet (5 mg total) by mouth 1 (one) time each day if needed for severe pain. Max Daily Amount: 5 mg 20 tablet 12/04/19 25 Active metoprolol succinate (TOPROL-XL) 25 mg 24 hr tabletIndications :Palpitations,Natasha rtness of breath TAKE 1 TABLET BY MOUTH EVERY DAY 90 tablet 1 12/17/19 25 Active predniSONE (DELTASONE) 20 mg tablet Take 1 tablet (20 mg total) by mouth 2 (two) times a day. for 3 days 01/02/20 25 Active nitrofurantoin, macrocrystal-mono hydrate, (MACROBID) 100 mg capsule TAKE 1 CAPSULE (ORAL) 2 TIMES PER DAY FOR 10 DAYS MUST ADMINISTER WITH A MEAL/FOOD 01/02/20 Active ibuprofen (ADVIL,MOTRIN) 600 mg tablet Take 1 tablet (600 mg total) by mouth 2 (two) times a day. for 4 days 01/02/20 25 Active Active Problems Problem Noted Date Diagnosed Date Primary osteoarthritis of both knees 05/30/2024 Chronic left-sided low back pain with left-sided sciatica 05/30/2024 Post-traumatic osteoarthritis of left knee 04/29 Gait instability 04/29/2024 Constipation 12/27/2023 Primary osteoarthritis of left knee 12/27/2023 Dyspnea on minimal exertion 09/20/2023 Overview (02/07/2024): Last Assessment & Plan: Patient endorses increased dyspnea with minimal exertion as well as profound fatigue since her last office visit. This could be related to her asthma or deconditioning. However for completeness I have ordered a stress echocardiogram to further evaluate for ischemia. Instructed to call 911 or go to the emergency room should she begin to experience chest pain or pressure lasting greater than 10 minutes that is not resolved with rest. Moderate persistent asthma 06/29/2023 Oral phase dysphagia 04/06/2023 Frequency of urination 02/06/2023 Hydronephrosis of left kidney 06/02/2022 Neck pain 01/23/2022 Overview (02/07/2024): Last Assessment & Plan: On today's visit, patient also mention that she has been dealing with neck pain and stiffness. She is currently in PT for her right shoulder pain. She denies any radiating pain or n/t symptoms into the arms or hands. She has not been dropping things. She had C-spine x-rays with mild degenerative findings. Included PT for the neck pain on her order. If she has any worsening symptoms, I asked her to call the office, I did not order a C-spine MRI at this time. She had no neurodeficits or hyperreflexia in terms of her neck on exam. Abnormal EKG 08/11/2021 Palpitation 08/11/2021 Overview (02/07/2024): Last Assessment & Plan: These have been stable and have not increased in frequency or duration. He has had numerous monitors that did not reveal any sustained arrhythmias. She will continue on her current dose of metoprolol. Educated on the importance of limiting her caffeine and alcohol intake and being mindful of her hydration status. She has followed with her PCP and had a recent TSH. Elevated fasting glucose 04/18/2021 Vaginal dryness 03/01/2021 Overview (02/07/2024): Last Assessment & Plan: Likely related to menopause. Encouraged her to try coconut oil 1-2 times per day and if not improving, should return. Acute pain of left shoulder 12/01/2020 Urinary incontinence 07/13/2020 Lumbar facet arthropathy 07/11/2018 Lumbar scoliosis 07/11/2018 Lumbar spondylosis 07/11/2018 Overview (02/07/2024): Last Assessment & Plan: Ms. Soria reports ongoing mid lumbar pain that can radiate down her legs and also up to her neck and arms. She states this is present all the time and physical therapy and epidural injections did not help. Use of the heating pad only occasionally helps but sometimes her pain is so severe that she has to crawl to her couch. Sometimes the sciatica kicks in and radiates down her left leg then goes up to her arm. She also has significant left knee pain. On exam, she is mildly tender to deep palpation in the mid to lower lumbar region and over the bilateral SI joints. Seated SLR is negative, strength 5/5, sensation light touch intact, gait is slow and steady minimally placing the cane on the lower. I reviewed again her lumbar spine MRI from 12/29/2021 which shows disc desiccation with mild loss of height and the minimal (2 mm) grade 1 spondee at L4-5. There is no significant nerve root compression. There is mild desiccation L5-S1 with maintenance of height. I discussed with her that there is no role for surgery. She can continue use of the heating pad and I recommended aquatic therapy if she has access to a pool. Varicose veins with pain 03/08/2018 Abnormal finding on breast imaging 01/08/2018 Overview (02/07/2024): 6 mm enhancing focus upper outer quadrant left breast Follow up LEFT breast US normal. Recommendation to repeat breast MRI in 6 months. 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 Asthma 10/26/2016 Vitamin D deficiency 05/01/2016 Coordination problem 02/26/2015 Difficulty walking 02/26/2015 Primary osteoarthritis of both hips 02/26/2015 Hip pain, chronic 02/12/2014 Overview (02/07/2024): Right hip, Dr. 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 She has had recent Barium swallow in 07/2014 which were normal. Anxiety and depression 04/25/2011 Overview (02/07/2024): Last Assessment & Plan: I strongly recommended that Trini reach out to Dr. Darby if she is not happy with Zoloft to consider a different medication for her symptoms. I explained that we do not expect it to be helpful if she takes it just once in a while. In fact, she could feel worse if she is on and off again. She agreed. I recommended she consider therapy again and explained that she can always decide that someone is not a good fit, but also explained that a good therapist does not mean that they have been through the same situations, but rather that they can help you process and overcome those things that affect your mental health. She voiced understanding. She accepted community resources for therapy and these were given in her AVS. GARCÍA (nonalcoholic steatohepatitis) 06/04/2009 Overview (02/07/2024): Liver biopsy 05/20/09, [facility]. Obesity 06/04/2009 Hypothyroidism 03/11/2008 Encounters Date Type Department Care Team Description 01/12/2025 3:41 PM EDT - 01/12/2025 11:59 PM EDT Hospital Encounter Radiology Department - [address] [phone] Hypothyroidism, unspecified type Discharge Disposition: Home or Self Care 01/07/2025 1:00 PM EDT Telemedicine Endocrinology - [address] [phone] Dina Lacey MD Hypothyroidism, unspecified type (Primary Dx) 12/31/2024 10:30 AM EDT Office Visit Vascular Surgery - [place] [address] [facility] [address] [place] [phone] Judith Latham MD Lipedema of lower extremity (Primary Dx); Swelling of joint of pelvic region or thigh, left 12/23/2024 Telephone Obstetrics & Gynecology - [facility] [address] [place] [phone] Ortiz Young CNM 12/20/2024 Telephone Urogynecology - [address] [phone] [facility] [place] 12/10/2024 10:00 AM EDT Office Visit Gastroenterology - [place] [facility] 175 [facility] [address] [place] [phone] Jayson Vail MD GARCÍA (nonalcoholic steatohepatitis) 12/05/2024 8:14 AM EDT - 12/05/2024 11:59 PM EDT Hospital Encounter [facility] Ultrasound [address] [place] [phone] Breast pain, left; Family history of breast cancer Discharge Disposition: Home or Self Care 12/05/2024 7:40 AM EDT - 12/05/2024 11:59 PM EDT Hospital Encounter [facility] [address] [place] [phone] Breast pain, left; Family history of breast cancer Discharge Disposition: Home or Self Care 12/03/2024 Telephone Obstetrics and Gynecology [address] [phone] Ortiz Young CNM 12/03/2024 Telephone Obstetrics and Gynecology [address] [phone] Tejal Mercer RN 12/01/2024 2:00 PM EDT Office Visit Adult Medicine [address] [phone] Raj Haddad MD Physical exam (Primary Dx); Urinary frequency; Primary hypertension; Mixed hyperlipidemia; Acquired hypothyroidism; Thyroid nodule; GARCÍA (nonalcoholic steatohepatitis); Moderate persistent asthma without complication; Chronic left-sided low back pain with left-sided sciatica; Primary osteoarthritis of both knees; Anxiety and depression; Need for vaccination against Streptococcus pneumoniae 11/20/2024 8:15 AM EDT Office Visit Obstetrics & Gynecology [address] [phone] Ortiz Young CNM Breast pain, left (Primary Dx); Family history of breast cancer; Screening for genetic disease carrier status 11/18/2024 Telephone Obstetrics and Gynecology [address] [phone] Belem Blanchard CNM 11/18/2024 Telephone Endocrinology [address] [phone] Dina Lacey MD 11/11/2024 Telephone Obstetrics and Gynecology [address] [phone] Tara Coleman MA 11/06/2024 Telephone Obstetrics and Gynecology - [address] [phone] Tara Coleman [place] 11/04/2024 Telephone Obstetrics and Gynecology - [address] [phone] Patricia Gonsalez CNM 11/03/2024 11:00 AM EDT Office Visit Obstetrics and Gynecology - [address] [phone] Patricia Gonsalez CNM BV (bacterial vaginosis) (Primary Dx) 10/21/2024 Telephone Obstetrics and Gynecology - [address] [phone] Belem Blanchard CNM from Last 3 Months Immunizations Immunization Administration Dates Next Due Hepatitis A Adult (Havrix; V aqta) 19yo and older 03/15/2009,02/12/2009 Influenza Quadravalent, MDCK , 0.5ml, preservative free (Flucelvax) 6mo and older 04/13/2022,04/07/2021,01/30/2020 Influenza trivalent, 0.5mL, preservative free (Fluarix; FluLaval; Fluzone) ages 6mo and older (Afluria) 3 years and older 01/22/2024,01/18/2010 Influenza trivalent, with pr eservative (Fluzone; Afluria) 6mo and older 01/18/2010 Pneumococcal conjugate 20 va lent (Prevnar 20, PCV 20) 2mo and older 12/01/2024 TD, Adsorbed, Preservative Free 06/12/2013 Td Tetanus diptheria (Tdvax) 7yo and older 01/29 Td Tetanus diptheria, preser vative free (Tenivac) 7yo and older 06/12/2013 Tdap Tetanus diptheria acell ular pertussis (Boostrix; Adacel) 7yo and older 05/30/2007 Surgical History Surgery Date Site/Laterality Comments COLONOSCOPY 12/04/2007 PROCEDURE: RI COLONOSCOPY FLX DX W/COLLJ SPEC WHEN PFRMD; COMMENT: Up to cecum, regular preparation, small polyp removed:Tubular adenoma. Colonoscopy due 12/03/2012 ENDOMETRIAL ABLATION 12/26/2006 PROCEDURE: RI ENDOMETRIAL ABLTJ THERMAL W/O HYSTEROSCOPIC GUID; COMMENT: Novasure SECTION PROCEDURE: HISTORICAL DELIVERY; COMMENT: times 2 CHOLECYSTECTOMY PROCEDURE: HISTORICAL CHOLECYSTECTOMY SALPINGOOPHORECTOMY PROCEDURE: RI LAPAROSCOPY W/RMVL ADNEXAL STRUCTURES; COMMENT: right OTHER SURGICAL HISTORY 09/30/2008 PROCEDURE: RI LARYNGOSCOPY INDIRECT DIAGNOSTIC SPX; COMMENT: Nl TUBAL LIGATION PROCEDURE: HISTORICAL TUBAL LIGATION OTHER SURGICAL HISTORY 05/20/2009 PROCEDURE: RI BIOPSY LIVER NEEDLE PERCUTANEOUS; COMMENT: steatohepatitis, grade 1-2/stage 1-2. ESOPHAGOGASTRODUODENOSCOPY 12/04/2007 PROCEDURE: RI ESOPHAGOGASTRODUODENOSCOPY TRANSORAL DIAGNOSTIC; COMMENT: Gastric ulcer-bx:H pylori, nl esophagus-bx:Normal ESOPHAGOGASTRODUODENOSCOPY 08/12/2014 PROCEDURE: RI ESOPHAGOGASTRODUODENOSCOPY TRANSORAL DIAGNOSTIC; COMMENT: normal OTHER SURGICAL HISTORY Right PROCEDURE: RI ARTHRP ACETBLR/PROX FEM PROSTC AGRFT/ALGRFT COLONOSCOPY 03/09/2014 PROCEDURE: HISTORICAL COLONOSCOPY; COMMENT: tics and hemorrhoids; repeat in 10 yrs OTHER SURGICAL HISTORY 02/26/2018 Left PROCEDURE: RI SALPINGO-OOPHORECTOMY COMPL/PRTL UNI/BI SPX; COMMENT: Laparoscopic LSO performed by Dr. Bob KNEE SURGERY 2012 Left PROCEDURE: HISTORICAL KNEE SURGERY Medical History Medical History Date Comments Screening for thyroid disorder D X:Screening for thyroid disorder High cholesterol DX:High cholest katie Herpetic vulvovaginitis 07/23/2007 DX:Herpe tic vulvovaginitis Anxiety state, unspecified DX:An xiety state, unspecified; COMMENT: Dr. 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 GARCÍA (nonalcoholic steatohepatitis) Family History Medical History Relation Name Comments Breast cancer Aunt mother side x 2 Throat cancer Brother Diabetes Father Other: CAD Father Stroke Father Breast cancer Mother Diabetes Mother hypothyroid Hypertension Mother Liver cancer Mother Other: CAD Mother Stroke Mother Colon cancer Mother's side 1 cousin Thyroid disease Mother's side 2 niece thy roid ca Thyroid cancer Other niece Breast cancer Sister 1 Breast cancer Sister 2 Ovarian cancer Neg Hx Relation Name Status Comments Aunt Brother Father Alive cabg in 70's, h tn, hyperlipidemia Mother Alive htn, thyroid pr oblems Mother's side 1 Mother's side 2 Other niece Sister 1 Alive Sister 2 (Age 52) cad Social History Tobacco Use Types Packs/Day Years Used Date Smoking Tobacco: Never Smokeless Tobacco: Never Tobacco Cessation:Counseling Given: Not Answered Alcohol Use Standard Drinks/Week Comments Not Currently 0 (1 standard drink = 0.6 oz pur e alcohol) Interpersonal Safety Answer Date Record ed Physical Abuse Unrecognized value 06/05/2024 Verbal Abuse Unrecognized value 06/05/2024 Comments No Sex and Gender Information Value Date Recorded Sex Assigned at Female 04/07/2024 12:38 PM EST Legal Sex Female 4:35 AM EST Gender Identity Female 04/07/2024 12:38 PM EST Sexual Orientation Straight 06/05/2024 8: 21 AM EST Obstetrics History Para Term AB IAB SAB Ectopic Multiple Livin g Live Births 3 3 2 1 0 0 2 3 Date Outcome GA Total Labor Labor/2nd/3rd Weight Sex Type Anes PTL Jana A1 A5 Name Clin Neonat al Demise Term Living Term Living Last Filed Vital Signs Vital Sign Reading Time Taken Comments Blood Pressure 115/76 12/31/2024 10:07 AM EDT Pulse 66 12/31/2024 10:07 AM EDT Temperature 36.1 C (96.9 F) 12/01/2024 1:45 PM EDT Respiratory Rate 18 12/01/2024 1:45 PM EDT Oxygen Saturation 97% 06/27/2024 1:14 PM EST Inhaled Oxygen Concentration - - Weight 78 kg (172 lb) 12/31/2024 10:07 AM EDT Height 139.7 cm (4' 7 ) 12/31/2024 10:07 AM EDT Body Mass Index 39.98 12/31/2024 10:07 AM EDT Plan of Treatment Upcoming Encounters Date Type Department Care Team (Late st Contact Info) Description 01/23/2025 10:15 AM EDT Appointment [facility] at [address] [phone] 01/26/2025 2:15 PM EDT Office Visit Obstetrics & Gynecology - [address] [place] [phone] Ortiz Young CNM [address] [place] [address] 01/27/2025 8:50 AM EDT Office Visit [facility] - [facility] [address] [facility] [address] [place] [phone] Jonah Putnam MD [address] [place] [address] [address] [place] [phone] 01/29/2025 11:15 AM EDT Office Visit Adult Medicine [facility] - [address] [phone] Raj Haddad MD [address] [place] [address] 02/05/2025 11:30 AM EDT Office Visit Orthopedics - [address] [phone] Bruce Melton PA [address] [place] [phone] 02/18/2025 1:30 PM EDT Office Visit Orthopedic Surgery - [place] [address] [facility] [address] [place] [phone] Gene Shrestha MD 175 [facility] [address] [place] [address] 06/10/2025 11:00 AM EST Office Visit Gastroenterology - [place] [address] [place] [phone] Jayson Vail MD [address] [place] [phone] Health Maintenance Due Date Last Done Comments Zoster Vaccines (1 of 2) 09/11/2013 Medicare Annual Wellness Visit 04/01/2022 Social Influencers of Health Screening 04/01/2022 RSV Immunization Adult Patients (1 - Risk 60-74 years 1-dose series) 2023 Depression Screening 04/23/2024 COVID-19 Vaccine ( - season) 2024 04/25/2021, 09/01/2020, 08/04/2020 Influenza Vaccine (#1) 2024 , 04/13/2022, 04/07/2021, Additional history exists Hypertension/CHF/CAD Annual BMP Blood Test 12/03/2025 12/03/2024, 11/03/2024, 07/21/2024, Additional history exists Cervical Cancer Screening: HPV 03/21/2026 03/21/2021 Breast Cancer Screening 12/05/2026 12/06/19, 12/25/2023, 12/25/2023, Additional history exists Colorectal Cancer Screening: Colonoscopy 06/05/2027 06/05/2024, 03/12/2020 Cholesterol Screening (Lipid Panel) 12/03/2029 12/03/2024, 12/27/2023, 12/27/2023 DTaP,Tdap,and Td Vaccines (5 - Td or Tdap) 01/29/2030 01/30/2020, 06/12/2013, 06/12/2013, Additional history exists HIV Screening Completed 05/21/2008 Hepatitis A Vaccines Aged Out 03/15/2009, 02/13/20 09 No longer eligible based on patient's age to complete this topic Hepatitis C Screening Completed 11/06/2023 Pneumococcal Vaccine: 50+ Years Completed 12/01/2024 HIB Vaccines Aged Out No longer eligi ble based on patient's age to complete this topic HPV Vaccines Aged Out No longer eligi ble based on patient's age to complete this topic Hepatitis B Vaccines Aged Out No long er eligible based on patient's age to complete this topic IPV Vaccines Aged Out No longer eligi ble based on patient's age to complete this topic MMR Vaccines Aged Out No longer eligi ble based on patient's age to complete this topic Meningococcal ACWY Vaccine Aged Out N o longer eligible based on patient's age to complete this topic Meningococcal B Vaccine Aged Out No l onger eligible based on patient's age to complete this topic RSV Immunization Patients Under 20 months Aged Out No longer eligible based on patient's age to complete this topic Varicella Vaccines Aged Out No longer eligible based on patient's age to complete this topic Procedures Procedure Name Priority Date/Time Associated Diagnosis Comments US HEAD NECK SOFT TISSUE Routine 01/12/2025 4:02 PM EDT Hypothyroidism, unspecified type THYROID STIMULATING HORMONE Routine 01/12/2025 3:37 PM EDT Hypothyroidism, unspecified type THYROXINE FREE Routine 01/12/2025 3:37 PM EDT Hypothyroidism, unspecified type US BREAST LIMITED LEFT Routine 9:25 AM EDT Breast pain, left Family history of breast cancer MG MAMMO DIGITAL DIAGNOSTIC W ANGEL LEFT Routine 12/05/2024 9:23 AM EDT Breast pain, left Family history of breast cancer TRIIODOTHYRONINE FREE Routine 12/03/2024 11:18 AM EDT Physical exam Urinary frequency Primary hypertension Mixed hyperlipidemia Acquired hypothyroidism GARCÍA (nonalcoholic steatohepatitis) Moderate persistent asthma without complication Chronic left-sided low back pain with left-sided sciatica Primary osteoarthritis of both knees Anxiety and depression FREE THYROXINE WITH REFLEX TO FREE TRIIODOTHYRONINE Routine 12/03/2024 11:18 AM EDT Physical exam Urinary frequency Primary hypertension Mixed hyperlipidemia Acquired hypothyroidism GARCÍA (nonalcoholic steatohepatitis) Moderate persistent asthma without complication Chronic left-sided low back pain with left-sided sciatica Primary osteoarthritis of both knees Anxiety and depression COMPREHENSIVE METABOLIC PANEL Routine 12/03/2024 11:18 AM EDT Physical exam Urinary frequency Primary hypertension Mixed hyperlipidemia Acquired hypothyroidism GARCÍA (nonalcoholic steatohepatitis) Moderate persistent asthma without complication Chronic left-sided low back pain with left-sided sciatica Primary osteoarthritis of both knees Anxiety and depression LIPID PANEL WITH REFLEX TO DIRECT LDL Routine 12/03/2024 11:18 AM EDT Physical exam Urinary frequency Primary hypertension Mixed hyperlipidemia Acquired hypothyroidism GARCÍA (nonalcoholic steatohepatitis) Moderate persistent asthma without complication Chronic left-sided low back pain with left-sided sciatica Primary osteoarthritis of both knees Anxiety and depression THYROID STIMULATING HORMONE WITH REFLEX TO FREE T4 AND FREE T3 Routine 12/03/2024 11:18 AM EDT Physical exam Urinary frequency Primary hypertension Mixed hyperlipidemia Acquired hypothyroidism GARCÍA (nonalcoholic steatohepatitis) Moderate persistent asthma without complication Chronic left-sided low back pain with left-sided sciatica Primary osteoarthritis of both knees Anxiety and depression CBC WITH AUTO DIFFERENTIAL Routine 12/03/2024 9:14 AM EDT Physical exam Urinary frequency Primary hypertension Mixed hyperlipidemia Acquired hypothyroidism GARCÍA (nonalcoholic steatohepatitis) Moderate persistent asthma without complication Chronic left-sided low back pain with left-sided sciatica Primary osteoarthritis of both knees Anxiety and depression CBC AND DIFFERENTIAL Routine 12/03/2024 9:14 AM EDT Physical exam Urinary frequency Primary hypertension Mixed hyperlipidemia Acquired hypothyroidism GARCÍA (nonalcoholic steatohepatitis) Moderate persistent asthma without complication Chronic left-sided low back pain with left-sided sciatica Primary osteoarthritis of both knees Anxiety and depression FLORES URINE CULTURE TUBE Routine 12/02/19 2:41 PM EDT Urinary frequency URINALYSIS WITH REFLEX MICROSCOPIC AND CULTURE Routine 12/01/2024 2:41 PM EDT Urinary frequency URINALYSIS WITH REFLEX MICROSCOPIC AND CULTURE Routine 12/01/2024 2:41 PM EDT Urinary frequency CULTURE URINE Routine 12/01/2024 2:41 PM EDT Urinary frequency POC URINE AUTO W/O MICRO Routine 12/01/2024 1:57 PM EDT Urinary frequency EMPOWER OUTSEWER GUIDELINES 2, 17 Routine 11/30/2024 1:16 PM EDT PANORAMA TEST Routine 8:58 AM EDT VENIPUNCTURE CHARGE Routine 11/20/2024 8 :52 AM EDT Painful breasts POC WET MOUNT Routine 11/03/2024 11:21 AM EDT BV (bacterial vaginosis) CULTURE GENITAL Routine 11/03/2024 11:21 AM EDT BV (bacterial vaginosis) CHLAMYDIA TRACHOMATIS AND NEISSERIA GONORRHOEAE PCR Routine 11/03/2024 11:21 AM EDT BV (bacterial vaginosis) TRICHOMONAS VAGINALIS ANTIGEN Routine 11/03/2024 11:21 AM EDT BV (bacterial vaginosis) CULTURE URINE Routine 11/03/2024 11:21 AM EDT BV (bacterial vaginosis) POC URINE AUTO W/O MICRO Routine 11/03/2024 10:56 AM EDT BV (bacterial vaginosis) HEMOGLOBIN A1C Routine 11/03/2024 10:17 AM EDT Urinary frequency Screening for diabetes mellitus BASIC METABOLIC PANEL Routine 11/03/2024 10:17 AM EDT Urinary frequency Screening for diabetes mellitus COLONOSCOPY Routine 06/05/2024 10:16 AM EST Colon cancer screening HM HEPATITIS C SCREENING Routine 11/06/2023 HM HPV Routine 03/21/2021 HM HIV SCREENING Routine 05/21/2008 from Last 3 Months or Most Recently Relevant to Health Maintenance Results * US Head Neck Soft Tissue (01/12/2025 4:02 PM EDT) Anatomical Region Laterality Modality Head and Neck Ultrasound 01/12/2025 4:15 PM EDT Impressions 01/12/2025 4:19 PM EDT Small thyroid gland without a discrete nodule. -------- FINAL REPORT -------- Dictated By: Mine Alcocer Dictated Date: 01/12/2025 16:15 ET Assigned Physician: Mine Alcocer Reviewed and Electronically Signed By: Mine Alcocer Signed Date: 01/12/2025 16:19 ET Workstation ID: [id number] Transcribed By: Self Edit Transcribed Date: 01/12/2025 16:15 ET Narrative 01/12/2025 4:19 PM EDT EXAM: Thyroid ultrasound HISTORY: Hypothyroidism. Evaluate for a thyroid nodule. COMPARISON: 05/01/2024, FINDINGS: Thyroid gland is small in size and borders are somewhat difficult to visualize due to the small size of the gland. Right lobe is measured at 2.8 x 0.8 x 0.7 cm, left lobe 2.3 x 0.5 x 0.5 cm, and the isthmus 0.2 cm in thickness. Thyroid parenchyma is homogeneous. Decreased vascularity in the gland again noted on color Doppler. No discrete nodule identified. Procedure Note Mine Alcocer MD - 01/12/2025 EXAM: Thyroid ultrasound HISTORY: Hypothyroidism. Evaluate for a thyroid nodule. COMPARISON: 05/01/2024, FINDINGS: Thyroid gland is small in size and borders are somewhat difficult tovisualize due to the small size of the gland. Right lobe is measured at2.8 x 0.8 x 0.7 cm, left lobe 2.3 x 0.5 x 0.5 cm, and the isthmus 0.2 cmin thickness. Thyroid parenchyma is homogeneous. Decreased vascularity inthe gland again noted on color Doppler. No discrete nodule identified. IMPRESSION: Small thyroid gland without a discrete nodule. -------- FINAL REPORT -------- Dictated By: Mine Alcocer Dictated Date: 01/12/2025 16:15 ET Assigned Physician: Mine Alcocer Reviewed and Electronically Signed By: Mine Alcocer Signed Date: 01/12/2025 16:19 ET Workstation ID: [id number] Transcribed By: Self Edit Transcribed Date: 01/12/2025 16:15 ET us Dina Lacey MD IMG US PROCEDURES Final Result * (ABNORMAL) Thyroid stimulating hormone (01/12/2025 3:37 PM EDT) TSH 4.81(H) 0.40 - 4.00 mcIU/mL LAB CHEMISTRY METHOD 01/12/2025 7:00 PM EDT [facility] Blood Venous blood specimen / Unknown Venipuncture / Unknown 01/12/2025 3:37 PM EDT 01/12/2025 3:37 PM EDT Dina Lacey MD LAB BLOOD ORDERABLES Final Resul t [facility] [address] [place] [address], [place] [phone] * Thyroxine free (01/12/2025 3:37 PM EDT) Free T4 1.15 0.70 - 1.80 ng/dL LAB CHEMISTRY METHOD 01/12/2025 7:00 PM EDT [facility] Blood Venous blood specimen / Unknown Venipuncture / Unknown 01/12/2025 3:37 PM EDT 01/12/2025 3:37 PM EDT Dina Lacey MD LAB BLOOD ORDERABLES Final Resul t [facility] [address] [place] [address], [place] [phone] * US Breast Limited Left (12/05/2024 9:25 AM EDT) Anatomical Region Laterality Modality Breast Left Ultrasound 12/05/2024 9:20 AM EDT Impressions 12/05/2024 9:26 AM EDT No mammographic or sonographic evidence of malignancy. No suspicious interval change. The patient should be managed on the basis of the clinical breast exam A negative mammogram in the presence of a clinically suspicious palpable abnormality does not preclude the possibility of malignancy or alter the indications for biopsy. The patient is due for right breast screening mammography in approximately one month. The patient is aware of the need for upcoming screening) mammography ASSESSMENT: BI-RADS 1: NEGATIVE RECOMMENDATION(S): 1: Clinical correlation recommended LEFT [facility]amm[facility] location[facility] [address], [address] -------- FINAL REPORT -------- Dictated By: Castro Quinones Dictated Date: 12/05/2024 09:20 ET Assigned Physician: Castro Quinones Reviewed and Electronically Signed By: Castro Quinones Signed Date: 12/05/2024 09:26 ET Workstation ID: [id number] Transcribed By: Self Edit Transcribed Date: 12/05/2024 09:20 ET Narrative 12/05/2024 9:26 AM EDT EXAM: DIAGNOSTIC MAMMOGRAPHY, UNILATERAL LEFT ULTRASOUND: DIAGNOSTIC ULTRASOUND, UNILATERAL LEFT HISTORY: Abnormal clinical breast exam. Intermittent pain outer left breast. COMPARISON: Portions of left mammography 12/25/23, 02/12/23, 02/11/22 TECHNIQUE: Synthesized views of the left breast in the CC and MLO projections. Tomosynthesis of the left breast in the CC and MLO projections. ADDITIONAL IMAGING: None High-frequency linear transducer ultrasound of the left breast targeted to the area(s) of clinical concern. Computer-aided detection was employed with the [employer] 3-D. TISSUE DENSITY: There are scattered areas of fibroglandular density. (BI-RADS category B) FINDINGS: MAMMOGRAPHY: LEFT BREAST: No suspicious mass. No suspicious calcification. No distortion. No suspicious interval change. No etiology for pain demonstrated ULTRASOUND: LEFT BREAST The upper outer quadrant and lower outer quadrant were examined with a high- frequency linear transducer. No suspicious mass. No suspicious area of altered echotexture. Procedure Note Castro Quinones MD - 12/05/2024 EXAM: DIAGNOSTIC MAMMOGRAPHY, UNILATERAL LEFT ULTRASOUND: DIAGNOSTIC ULTRASOUND, UNILATERAL LEFT HISTORY: Abnormal clinical breast exam. Intermittent pain outer leftbreast. COMPARISON: Portions of left mammography 12/25/23, 02/12/23, 02/11/22 TECHNIQUE: Synthesized views of the left breast in the CC and MLOprojections. Tomosynthesis of the left breast in the CC and MLOprojections. ADDITIONAL IMAGING: None High-frequency linear transducer ultrasound of the left breast targeted tothe area(s) of clinical concern. Computer-aided detection was employed with the [employer] AI 3-D. TISSUE DENSITY: There are scattered areas of fibroglandular density.(BI-RADS category B) FINDINGS: MAMMOGRAPHY: LEFT BREAST: No suspicious mass. No suspicious calcification. No distortion. No suspicious interval change. No etiology for pain demonstrated ULTRASOUND: LEFT BREAST The upper outer quadrant and lower outer quadrant were examined with ahigh- frequency linear transducer. No suspicious mass. No suspicious area of altered echotexture. IMPRESSION: No mammographic or sonographic evidence of malignancy. No suspicious interval change. The patient should be managed on the basis of the clinical breast exam A negative mammogram in the presence of a clinically suspicious palpableabnormality does not preclude the possibility of malignancy or alter theindications for biopsy. The patient is due for right breast screening mammography in approximatelyone month. The patient is aware of the need for upcoming screening)mammography ASSESSMENT: BI-RADS 1: NEGATIVE RECOMMENDATION(S): 1: Clinical correlation recommended LEFT Mammography location: [facility] at [address], [address] -------- FINAL REPORT -------- Dictated By: Castro Quinones Dictated Date: 12/05/2024 09:20 ET Assigned Physician: Castro Quinones Reviewed and Electronically Signed By: Castro Quinones Signed Date: 12/05/2024 09:26 ET Workstation ID: [id number] Transcribed By: Self Edit Transcribed Date: 12/05/2024 09:20 ET us Ortiz Young CNM IMG US PROCEDURES Final Resul t * MG Mammo Digital Diagnostic w Angel Left (12/05/2024 9:23 AM EDT) Anatomical Region Laterality Modality Breast Left Mammography 12/05/2024 9:20 AM EDT Impressions 12/05/2024 9:26 AM EDT No mammographic or sonographic evidence of malignancy. No suspicious interval change. The patient should be managed on the basis of the clinical breast exam A negative mammogram in the presence of a clinically suspicious palpable abnormality does not preclude the possibility of malignancy or alter the indications for biopsy. The patient is due for right breast screening mammography in approximately one month. The patient is aware of the need for upcoming screening) mammography ASSESSMENT: BI-RADS 1: NEGATIVE RECOMMENDATION(S): 1: Clinical correlation recommended LEFT Mammography location: [facility] at [address], [address] -------- FINAL REPORT -------- Dictated By: Castro Quinones Dictated Date: 12/05/2024 09:20 ET Assigned Physician: Castro Quinones Reviewed and Electronically Signed By: Castro Quinones Signed Date: 12/05/2024 09:26 ET Workstation ID: [id number] Transcribed By: Self Edit Transcribed Date: 12/05/2024 09:20 ET Narrative 12/05/2024 9:26 AM EDT EXAM: DIAGNOSTIC MAMMOGRAPHY, UNILATERAL LEFT ULTRASOUND: DIAGNOSTIC ULTRASOUND, UNILATERAL LEFT HISTORY: Abnormal clinical breast exam. Intermittent pain outer left breast. COMPARISON: Portions of left mammography 12/25/23, 02/12/23, 02/11/22 TECHNIQUE: Synthesized views of the left breast in the CC and MLO projections. Tomosynthesis of the left breast in the CC and MLO projections. ADDITIONAL IMAGING: None High-frequency linear transducer ultrasound of the left breast targeted to the area(s) of clinical concern. Computer-aided detection was employed with the [employer] AI 3-D. TISSUE DENSITY: There are scattered areas of fibroglandular density. (BI-RADS category B) FINDINGS: MAMMOGRAPHY: LEFT BREAST: No suspicious mass. No suspicious calcification. No distortion. No suspicious interval change. No etiology for pain demonstrated ULTRASOUND: LEFT BREAST The upper outer quadrant and lower outer quadrant were examined with a high- frequency linear transducer. No suspicious mass. No suspicious area of altered echotexture. Procedure Note Castro Quinones MD - 12/05/2024 EXAM: DIAGNOSTIC MAMMOGRAPHY, UNILATERAL LEFT ULTRASOUND: DIAGNOSTIC ULTRASOUND, UNILATERAL LEFT HISTORY: Abnormal clinical breast exam. Intermittent pain outer leftbreast. COMPARISON: Portions of left mammography 12/25/23, 02/12/23, 02/11/22 TECHNIQUE: Synthesized views of the left breast in the CC and MLOprojections. Tomosynthesis of the left breast in the CC and MLOprojections. ADDITIONAL IMAGING: None High-frequency linear transducer ultrasound of the left breast targeted tothe area(s) of clinical concern. Computer-aided detection was employed with the [employer] AI 3-D. TISSUE DENSITY: There are scattered areas of fibroglandular density.(BI-RADS category B) FINDINGS: MAMMOGRAPHY: LEFT BREAST: No suspicious mass. No suspicious calcification. No distortion. No suspicious interval change. No etiology for pain demonstrated ULTRASOUND: LEFT BREAST The upper outer quadrant and lower outer quadrant were examined with ahigh- frequency linear transducer. No suspicious mass. No suspicious area of altered echotexture. IMPRESSION: No mammographic or sonographic evidence of malignancy. No suspicious interval change. The patient should be managed on the basis of the clinical breast exam A negative mammogram in the presence of a clinically suspicious palpableabnormality does not preclude the possibility of malignancy or alter theindications for biopsy. The patient is due for right breast screening mammography in approximatelyone month. The patient is aware of the need for upcoming screening)mammography ASSESSMENT: BI-RADS 1: NEGATIVE RECOMMENDATION(S): 1: Clinical correlation recommended LEFT Mammography location: [facility] [address], [address] -------- FINAL REPORT -------- Dictated By: Castro Quinones Dictated Date: 12/05/2024 09:20 ET Assigned Physician: Castro Quinones Reviewed and Electronically Signed By: Castro Quinones Signed Date: 12/05/2024 09:26 ET Workstation ID: [id number] Transcribed By: Self Edit Transcribed Date: 12/05/2024 09:20 ET Ortiz Young CNM IMG BI PROCEDURES Final Resul t * (ABNORMAL) Thyroid stimulating hormone with reflex to free t4 and free t3 (12/03/2024 11:18 AM EDT) TSH 4.57(H) 0.40 - 4.00 mcIU/mL LAB CHEMISTRY METHOD 12/03/2024 5:16 PM EDT [facility] Blood Venous blood specimen / Unknown Venipuncture / Unknown 12/03/2024 11:18 AM EDT 12/03/2024 11:18 AM EDT us Raj Haddad MD LAB BLOOD ORDERABLES Final Result Performing Organization Address [facility]/ZIP Co de Phone Number [facility] [address] [place] [address], [place] [phone] * Free thyroxine with reflex to free triiodothyronine (12/03/2024 11:18 AM EDT) Free T4 1.04 0.70 - 1.80 ng/dL LAB CHEMISTRY METHOD 12/03/2024 5:48 PM EDT [facility] Blood Venous blood specimen / Unknown Venipuncture / Unknown 12/03/2024 11:18 AM EDT 12/03/2024 11:18 AM EDT us Raj Haddad MD LAB BLOOD ORDERABLES Final Result Performing Organization Address [facility] Co de Phone Number [facility] [address] [place] [address], [place] [phone] * Lipid panel with reflex to direct LDL (12/03/2024 11:18 AM EDT) Cholesterol 178 0 - 200 mg/dL LAB CHEMISTRY METHOD 12/03/2024 3:17 PM EDT [facility] Triglycerides 125 0 - 150 mg/dL LAB CHEMISTRY METHOD 12/03/2024 3:17 PM EDT [facility] HDL 57 >=40 mg/dL LAB CHEMISTRY METHOD 12/03/2024 3:17 PM EDT [facility] LDL Calculated 96 0 - 100 mg/dL LAB CHEMISTRY METHOD 12/03/2024 3:17 PM EDT [facility] Comment:Estimated LDL Calcul ated using equation: Total cholesterol - HDL cholesterol - (Triglycerides/5) VLDL Cholesterol Cosme 25 mg/dL LAB CHEMISTRY METHOD 12/03/2024 3:17 PM EDT [facility] Non HDL Chol. (LDL+VLDL) 121 <145 mg/dL LAB CHEMISTRY METHOD 12/03/2024 3:17 PM EDT [facility] Chol/HDL Ratio 3.1 0.0 - 4.4 LAB CHEMISTRY METHOD 12/03/2024 3:17 PM EDT [facility] Blood Venous blood specimen / Unknown Venipuncture / Unknown 12/03/2024 11:18 AM EDT 12/03/2024 11:18 AM EDT Raj Haddad MD LAB BLOOD ORDERABLES Final Result Performing Organization Address City/[facility]/ZIP Co de Phone Number [facility] [address] [place] [address], [place] [phone] * Triiodothyronine free (12/03/2024 11:18 AM EDT) T3, Free 264 230 - 420 pcg/dL LAB CHEMISTRY METHOD 12/03/2024 7:10 PM EDT [facility] Blood Venous blood specimen / Unknown Venipuncture / Unknown 12/03/2024 11:18 AM EDT 12/03/2024 11:18 AM EDT Raj Haddad MD LAB BLOOD ORDERABLES Final Result [facility] [address] [place] [address], [place] [phone] * (ABNORMAL) Comprehensive metabolic panel (12/03/2024 11:18 AM EDT) Sodium 139 133 - 145 mmol/L LAB CHEMISTRY METHOD 12/03/2024 3:17 PM [facility] Potassium 4.0 3.5 - 5.5 mmol/L LAB CHEMISTRY METHOD 12/03/2024 3:17 PM [facility] Chloride 107 96 - 110 mmol/L LAB CHEMISTRY METHOD 12/03/2024 3:17 PM [facility] CO2 27 21 - 32 mmol/L LAB CHEMISTRY METHOD 12/03/2024 3:17 PM [facility] Anion Gap 5 3 - 11 LAB CHEMISTRY METHOD 12/03/2024 3:17 PM [facility] Glucose 104(H) 70 - 100 mg/dL LAB CHEMISTRY METHOD 12/03/2024 3:17 PM [facility] BUN 9 5 - 25 mg/dL LAB CHEMISTRY METHOD 12/03/2024 3:17 PM [facility] Creatinine 0.79 0.50 - 1.10 mg/dL LAB CHEMISTRY METHOD 12/03/2024 3:17 PM [facility] eGFR 85 >=60 mL/min/1. 73m2 LAB CHEMISTRY METHOD 12/03/2024 3:17 PM [facility] Comment:Calculation based on the Chronic Kidney Disease Epidemiology Collaboration (CKD-EPI) equation refit without adjustment for race. BUN/Creatinine Ratio 11.4 LAB CHEMISTRY METHOD 12/03/2024 3:17 PM [facility] Calcium 9.1 8.5 - 10.5 mg/dL LAB CHEMISTRY METHOD 12/03/2024 3:17 PM [facility] AST (SGOT) 55(H) 10 - 42 unit/L LAB CHEMISTRY METHOD 12/03/2024 3:17 PM [facility] ALT (SGPT) 83(H) 10 - 60 unit/L LAB CHEMISTRY METHOD 12/03/2024 3:17 PM [facility] Alkaline Phosphatase 133(H) 42 - 121 unit/L LAB CHEMISTRY METHOD 12/03/2024 3:17 PM EDT [facility] Total Protein 7.7 6.0 - 8.0 g/dL LAB CHEMISTRY METHOD 12/03/2024 3:17 PM EDT [facility] Albumin 3.8 3.2 - 5.0 g/dL LAB CHEMISTRY METHOD 12/03/2024 3:17 PM EDT [facility] Total Bilirubin 0.6 0.0 - 1.4 mg/dL LAB CHEMISTRY METHOD 12/03/2024 3:17 PM EDT [facility] Blood Venous blood specimen / Unknown Venipuncture / Unknown 12/03/2024 11:18 AM EDT 12/03/2024 11:18 AM EDT us Raj Haddad MD LAB BLOOD ORDERABLES Final Result [facility] [address] [place] [address], [place] [phone] * CBC auto differential (12/03/2024 9:14 AM EDT) WBC 6.8 4.8 - 10.8 K/mcL LAB HEMETOLOGY METHOD 12/03/2024 10:43 AM EDT [facility] RBC 4.80 3.80 - 4.80 M/mcL LAB HEMETOLOGY METHOD 12/03/2024 10:43 AM EDT [facility] Hemoglobin 15.1 11.5 - 16.0 g/dL LAB HEMETOLOGY METHOD 12/03/2024 10:43 AM EDT [facility] Hematocrit 45.4 35.0 - 47.0 % LAB HEMETOLOGY METHOD 12/03/2024 10:43 AM EDT [facility] MCV 95.4 79.0 - 98.0 FL LAB HEMETOLOGY METHOD 12/03/2024 10:43 AM [facility] MCH 31.7 27.0 - 32.0 pcg LAB HEMETOLOGY METHOD 12/03/2024 10:43 AM [facility] MCHC 33.3 32.0 - 37.0 g/dL LAB HEMETOLOGY METHOD 12/03/2024 10:43 AM [facility] RDW 13.7 11.0 - 15.0 % LAB HEMETOLOGY METHOD 12/03/2024 10:43 AM [facility] Platelets 196 130 - 400 K/mcL LAB HEMETOLOGY METHOD 12/03/2024 10:43 AM [facility] MPV 10.9 7.0 - 11.0 FL LAB HEMETOLOGY METHOD 12/03/2024 10:43 AM [facility] NRBC 0.0 <1.0 % LAB HEMETOLOGY METHOD 12/03/2024 10:43 AM [facility] NRBC Absolute 0.00 <0.10 K/mcL LAB HEMETOLOGY METHOD 12/03/2024 10:43 AM [facility] Neutrophils Relative 50.5 % LAB HEMETOLOGY METHOD 12/03/2024 10:43 AM [facility] Lymphocytes Relative 36.4 % LAB HEMETOLOGY METHOD 12/03/2024 10:43 AM [facility] Monocytes Relative 8.5 % LAB HEMETOLOGY METHOD 12/03/2024 10:43 AM [facility] Eosinophils Relative 4.0 % LAB HEMETOLOGY METHOD 12/03/2024 10:43 AM [facility] Basophils Relative 0.3 % LAB HEMETOLOGY METHOD 12/03/2024 10:43 AM [facility] Immature Granulocytes Relative 0.3 % LAB HEMETOLOGY METHOD 12/03/2024 10:43 AM EDT [facility] Neutrophils Absolute 3.44 1.50 - 7.00 K/mcL LAB HEMETOLOGY METHOD 12/03/2024 10:43 AM EDT [facility] Lymphocytes Absolute 2.48 1.00 - 5.00 K/mcL LAB HEMETOLOGY METHOD 12/03/2024 10:43 AM EDT [facility] Monocytes Absolute 0.58 0.20 - 1.00 K/mcL LAB HEMETOLOGY METHOD 12/03/2024 10:43 AM EDT [facility] Eosinophils Absolute 0.27 0.00 - 0.50 K/mcL LAB HEMETOLOGY METHOD 12/03/2024 10:[facility] Basophils Absolute 0.02 0.00 - 0.20 K/mcL LAB HEMETOLOGY METHOD 12/03/2024 10:43 AM [facility] Immature Granulocytes Absolute 0.02 0.00 - 0.03 K/mcL LAB HEMETOLOGY METHOD 12/03/2024 10:43 AM [facility] Blood Venous blood specimen / Unknown Venipuncture / Unknown 12/03/2024 9:14 AM EDT 12/03/2024 9:14 AM EDT us Raj Haddad MD LAB BLOOD ORDERABLES Final Result [facility] [address] [place] [address], * (ABNORMAL) Urinalysis with reflex microscopic and culture (12/01/2024 2:41 PM EDT) Specific Victor Urine 1.027 1.003 - 1.030 LAB URINALYSIS - AUTOMATED METHOD 12/01/2024 4:19 PM EDT [facility] pH, Urine 5.5 5.0 - 8.0 pH LAB URINALYSIS - AUTOMATED METHOD 12/01/2024 4:19 PM [facility] Leukocytes, Urine Small(A) Negative LAB URINALYSIS - AUTOMATED METHOD 12/01/2024 4:19 PM [facility] Nitrite, Urine Negative Negative LAB URINALYSIS - AUTOMATED METHOD 12/01/2024 4:19 PM [facility] Protein, Urine 30(A) <=Trace mg/dL LAB URINALYSIS - AUTOMATED METHOD 12/01/2024 4:19 PM [facility] Glucose, Urine Negative Negative mg/dL LAB URINALYSIS - AUTOMATED METHOD 12/01/2024 4:19 PM [facility] Ketones, Urine Trace(A) Negative mg/dL LAB URINALYSIS - AUTOMATED METHOD 12/01/2024 4:19 PM [facility] Urobilinogen, Urine 2.0(A) 0.2 - 1.0 mg/dL LAB URINALYSIS - AUTOMATED METHOD 12/01/2024 4:19 PM [facility] Bilirubin, Urine Negative Negative LAB URINALYSIS - AUTOMATED METHOD 12/01/2024 4:19 PM [facility] Blood, Urine Negative Negative LAB URINALYSIS - AUTOMATED METHOD 12/01/2024 4:19 PM [facility] RBC, Urine 2.3 0 - 4 /HPF LAB URINALYSIS - AUTOMATED METHOD 12/01/2024 4:19 PM [facility] WBC, Urine 49.0(H) 0 - 4 /HPF LAB URINALYSIS - AUTOMATED METHOD 12/01/2024 4:19 PM [facility] Squamous Epithelial, Urine 43 0 - 60 /LPF LAB URINALYSIS - AUTOMATED METHOD 12/01/2024 4:19 PM [facility] Bacteria, Urine Negative Negative /HPF LAB URINALYSIS - AUTOMATED METHOD 12/01/2024 4:19 PM [facility] Hyaline Casts, Urine 8.4(H) 0 - 3 /LPF LAB URINALYSIS - AUTOMATED METHOD 12/01/2024 4:19 PM EDT [facility] Urine Urine specimen obtained by clean catch procedure / Unknown Non-blood Collection / Unknown 12/01/2024 2:41 PM EDT 12/01/2024 2:41 PM EDT Raj Haddad MD LAB URINE ORDERABLES Final Result [facility] [address] [place] [address], [place] [phone] * Flores urine culture tube (12/01/2024 2:41 PM EDT) Extra Tube Hold for add-ons. 12/01/2024 5:01 PM EDT [facility] Comment:Auto resulted. Urine Urine specimen obtained by clean catch procedure / Unknown Non-blood Collection / Unknown 12/01/2024 2:41 PM EDT 12/01/2024 2:41 PM EDT us Raj Haddad MD LAB URINE ORDERABLES Final Result Performing Organization Address [facility]/ZIP Co de Phone Number [facility] [address] [place] [address], [place] [phone] * (ABNORMAL) Culture urine (12/01/2024 2:41 PM EDT) Only the most recent of2 resultswithin the time period is included. Culture, Urine 10,000-49,000 CFU/mL Streptococcus beta-hemolytic Group B(A) 12/02/2024 10:43 AM EDT [facility] Comment: Susceptibility testing is not routinely performed for Beta Streptococcus isolates since these organisms are predictably sensitive to Penicillin. If the Patient is not responding, is allergic to Penicillin, or further therapeutic information is requir ed, please consult an Infectious Disease Specialist. Urine Urine specimen obtained by clean catch procedure / Unknown Non-blood Collection / Unknown 12/01/2024 2:41 PM EDT 12/01/2024 4:19 PM EDT Narrative [facility] ([facility] - 12/02/2024 10:43 AM EDT Additional colony types present in insignificant amounts. us Raj Haddad MD LAB MICROBIOLOGY - GENERAL ORDERABLES Final Result [facility] [address] [place] [address], [place] [phone] * (ABNORMAL) POC Urine Auto W/O Micro (12/01/2024 1:57 PM EDT) Only the most recent of2 resultswithin the time period is included. Leukocytes UA POC Positive(A) Negative Nitrite UA POC Negative Negative Urobilinogen UA POC Positive(A) Negative Protein UA POC Positive(A) Negative PH UA POC 5.0(A) 5.0 - 9.0 Blood UA POC Trace Negative, Trace Specific Victor UA POC 1.030 1.001 - 1.035 Ketones UA POC Negative Negative Bilirubin UA POC Positive(A) Negative Glucose UA POC Normal Normal, Trace Color UA POC Yellow CLARITY, URINE POC Cloudy Urine Urine specimen obtained by clean catch procedure / Unknown 12/01/2024 1:57 PM EDT us Raj Haddad MD POINT OF CARE TEST ENTER/ED IT ORDERABLES Final Result * EMPOWER OUTSEWER GUIDELINES (2+17) (11/30/2024 1:16 PM EDT) Blood Venous blood specimen / Unknown us Ortiz Young CNM LAB MOLECULAR DIAGNOSTICS ORD ERABLES Final Result * Panorama test (11/30/2024 8:58 AM EDT) Blood Venous blood specimen / Unknown [facility] BLOOD ORDERABLES Final Re sult * Venipuncture charge (11/20/2024 8:52 AM EDT) Pathologist [facility] Extra Tube Hold for add-ons. 11/20/2024 3:02 PM EDT [facility] Comment:Auto resulted. Blood Venous blood specimen / Unknown Venipuncture / Unknown 11/20/2024 8:52 AM EDT 11/20/2024 1:[address] [facility] BLOOD ORDERABLES Final Re sult [facility] [address] [place] [address], [place] [phone] * Trichomonas vaginalis antigen (11/03/2024 11:21 AM EDT) Pathologist [facility] Trichomonas vaginalis Negative Negative 11/03/2024 7:43 PM EDT [facility] Swab Vaginal structure / Unknown Non-blood Collection / Unknown 11/03/2024 11:21 AM EDT 11/03/2024 11:22 AM EDT Patricia Gonsalez [facility] MICROBIOLOGY - GENERAL ORDE RABLES Final Result [facility] [address] [place] [address], [place] [phone] * Chlamydia trachomatis and Neisseria gonorrhoeae molecular study (11/03/2024 11:21 AM EDT) Pathologist [facility] Neisseria gonorrhoeae PCR Negative Negative LAB MOLECULAR DIAGNOSTICS METHOD 11/04/2024 9:43 AM EDT [facility] Chlamydia trachomatis PCR Negative Negative LAB MOLECULAR DIAGNOSTICS METHOD 11/04/2024 9:43 AM EDT [facility] Swab Cervix uteri structure / Unknown Non-blood Collection / Unknown 11/03/2024 11:21 AM EDT 11/03/2024 11:22 AM EDT us Patricia Gonsalez CNM LAB MICROBIOLOGY - GENERAL ORDE RABKEEGAN Final Result Performing Organization Address [facility]/ZIP Co de Phone Number [facility] [address] [place] [address], [place] [phone] * (ABNORMAL) POC Wet Mount (11/03/2024 11:21 AM EDT) Trichomonas, Wet Prep POC Absent Absent Yeast, Wet Prep POC Negative Not Applicable, Negative Clue Cells, Wet Prep POC Positive(A) Not Applicable, Negative Whiff Test, Wet Prep POC Positive(A) Not Done, Negative PH FL Type POC 5.5 Vaginal Fluid Vaginal structure / Unknown 11/03/2024 11:21 AM EDT us Patricia Gonsalez CNM POINT OF CARE TEST ENTER/EDIT O RDERABLES Final Result * Culture genital (11/03/2024 11:21 AM EDT) Pathologist [facility] Culture, Genital No yeast, Beta Strep group B, Neisseria gonorrhoeae, Listeria, Gardnerella vaginalis, or other predominant potentially significant pathogens noted. 11/06/2024 11:22 AM EDT [facility] Swab Vaginal structure / Unknown Non-blood Collection / Unknown 11/03/2024 11:21 AM EDT 11/03/2024 11:22 AM EDT us Patricia Gonsalez CNM LAB MICROBIOLOGY - GENERAL ORDE RABKEEGAN Final Result [facility] [address] [place] [address], [place] [phone] * Hemoglobin A1c (11/03/2024 10:17 AM EDT) Hemoglobin A1C 5.7 <6.5 % LAB CHEMISTRY METHOD 11/03/2024 2:01 PM T [facility] Mean Bld Glu Estim. 117 mg/dL LAB CHEMISTRY METHOD 11/03/2024 2:01 PM [facility] Blood Venous blood specimen / Unknown Venipuncture / Unknown 11/03/2024 10:17 AM EDT 11/03/2024 10:17 AM EDT Angélica PINEDA LAB BLOOD ORDERABLES Fin al Result [facility] [address] [place] [address], * (ABNORMAL) Basic metabolic panel (11/03/2024 10:17 AM EDT) Sodium 140 133 - 145 mmol/L LAB CHEMISTRY METHOD 11/03/2024 6:48 PM [facility] Potassium 4.2 3.5 - 5.5 mmol/L LAB CHEMISTRY METHOD 11/03/2024 6:48 PM [facility] Chloride 107 96 - 110 mmol/L LAB CHEMISTRY METHOD 11/03/2024 6:48 PM [facility] CO2 28 21 - 32 mmol/L LAB CHEMISTRY METHOD 11/03/2024 6:48 PM [facility] Anion Gap 5 3 - 11 LAB CHEMISTRY METHOD 11/03/2024 6:48 PM [facility] Glucose 116(H) 70 - 100 mg/dL LAB CHEMISTRY METHOD 11/03/2024 6:48 PM [facility] BUN 8 5 - 25 mg/dL LAB CHEMISTRY METHOD 11/03/2024 6:48 PM [facility] Creatinine 0.83 0.50 - 1.10 mg/dL LAB CHEMISTRY METHOD 11/03/2024 6:48 PM [facility] eGFR 80 >=60 mL/min/1. 73m2 LAB CHEMISTRY METHOD 11/03/2024 6:48 PM EDT [facility] Comment:Calculation based on the Chronic Kidney Disease Epidemiology Collaboration (CKD-EPI) equation refit without adjustment for race. BUN/Creatinine Ratio 9.6 LAB CHEMISTRY METHOD 11/03/2024 6:48 PM EDT [facility] Calcium 9.6 8.5 - 10.5 mg/dL LAB CHEMISTRY METHOD 11/03/2024 6:48 PM EDT [facility] Blood Venous blood specimen / Unknown Venipuncture / Unknown 11/03/2024 10:17 AM EDT 11/03/2024 10:17 AM EDT Angélica PINEDA LAB BLOOD ORDERABLES Fin al Result [facility] [address] [place] [address], * COLONOSCOPY Anesthesia - MAC; [facility] ENDOSCOPY (06/05/2024 10:16 AM EST) Anatomical Region Laterality Modality Endoscopy 06/05/2024 9:49 AM EST Impressions 06/05/2024 10:18 AM EST - Three 3 to 10 mm polyps in the sigmoid colon, in the ascending colon and in the cecum, removed with a cold snare. Resected and retrieved. - Diverticulosis in the entire examined colon. - The examination was otherwise normal on direct and retroflexion views. Recommendation: - Patient has a contact number available for emergencies. The signs and symptoms of potential delayed complications were discussed with the patient. Return to normal activities tomorrow. Written discharge instructions were provided to the patient. - Resume previous diet. - Continue present medications. - Await pathology results. - Repeat colonoscopy in 3 - 5 years for surveillance. Narrative 06/05/2024 10:18 AM EST [facility] Patient Name: Trini Soria Procedure Date: 06/05/2024 9:49 AM Date of : 1965 Age: 58 Room: ROOM 16 Gender: Female Note Status: Finalized Attending MD: Pierce Sanz MD, Procedure Date No Time: 06/05/2024 Procedure: Colonoscopy Indications: High risk colon cancer surveillance: Personal history of colonic polyps Providers: Pierce Sanz MD Referring MD: Jayson Vail MD Medicines: Monitored Anesthesia Care Complications: No immediate complications. Estimated Blood Loss: Estimated blood loss: none. Procedure: After I obtained informed consent, the scope was passed under direct vision. Throughout the procedure, the patient's blood pressure, pulse, and oxygen saturations were monitored continuously. The Colonoscope was introduced through the anus and advanced to the cecum, identified by appendiceal orifice and ileocecal valve. The colonoscopy was performed without difficulty. The patient tolerated the procedure well. The quality of the bowel preparation was good. Findings: Three sessile polyps were found in the sigmoid colon, ascending colon and cecum. The polyps were 3 to 10 mm in size. These polyps were removed with a cold snare. Resection and retrieval were complete. A few medium-mouthed diverticula were found in the entire colon. The exam was otherwise without abnormality on direct and retroflexion views. Procedure Code(s): --- Professional --- 12315, Colonoscopy, flexible; with removal of tumor(s), polyp(s), or other lesion(s) by snare technique Diagnosis Code(s): --- Professional --- Z86.010, Personal history of colonic polyps D12.5, Benign neoplasm of sigmoid colon D12.2, Benign neoplasm of ascending colon D12.0, Benign neoplasm of cecum K57.30, Diverticulosis of large intestine without perforation or abscess without bleeding CPT copyright 202 [employer]. All rights reserved. The codes documented in this report are preliminary and upon dental biller review may be revised to meet current compliance requirements. MD Pierce Cerrato MD 06/05/2024 10:17:53 AM This report has been signed electronically.Pierce Sanz MD Number of Addenda: 0 Note Initiated On: 06/05/2024 9:49 AM Scope In: Scope Out: Endoscopy Department at [facility] - [address] [place] [id number] Procedure Note Pierce Sanz MD - 06/05/2024 [facility] GI Patient Name: Trini Soria Procedure Date: 06/05/2024 9:49 AM Date of : 1965 Age: 58 Room: ROOM 16 Gender: Female Note Status: Finalized Attending MD: Pierce Sanz MD, Procedure Date No Time: 06/05/2024 Procedure: Colonoscopy Indications: High risk colon cancer surveillance: Personalhistory of colonic polyps Providers: Pierce Sanz MD Referring MD: Jayson Vail MD Medicines: Monitored Anesthesia Care Complications: No immediate complications. Estimated Blood Loss: Estimated blood loss: none. Procedure: After I obtained informed consent, the scope was passed under direct vision. Throughout theprocedure, the patient's blood pressure, pulse, and oxygen saturations were monitored continuously. The Colonoscope was introduced through the anus and advanced to the cecum, identified by appendiceal orifice and ileocecal valve. The colonoscopy was performed without difficulty. The patient tolerated the procedure well. The quality of the bowel preparation was good. Findings: Three sessile polyps were found in the sigmoidcolon, ascending colon and cecum. The polyps were 3 to 10mm in size. These polyps were removed with a coldsnare. Resection and retrieval were complete. A few medium-mouthed diverticula were found in the entire colon. The exam was otherwise without abnormality ondirect and retroflexion views. Procedure Code(s): --- Professional --- 51148, Colonoscopy, flexible; with removal of tumor(s), polyp(s), or other lesion(s) by snare technique Diagnosis Code(s): --- Professional --- Z86.010, Personal history of colonic polyps D12.5, Benign neoplasm of sigmoid colon D12.2, Benign neoplasm of ascending colon D12.0, Benign neoplasm of cecum K57.30, Diverticulosis of large intestine without perforation or abscess without bleeding CPT copyright 2020 [employer]. All rights reserved. The codes documented in this report are preliminary and upon dental biller reviewmay be revised to meet current compliance requirements. MD Pierce Cerrato MD 06/05/2024 10:17:53 AM This report has been signed electronically.Pierce Sanz MD Number of Addenda: 0 Note Initiated On: 06/05/2024 9:49 AM Scope In: Scope Out: Endoscopy Department at [address] [id number] IMPRESSION: - Three 3 to 10 mm polyps in the sigmoid colon, in the ascending colon and in the cecum, removed with acold snare. Resected and retrieved. - Diverticulosis in the entire examined colon. - The examination was otherwise normal on directand retroflexion views. Recommendation: - Patient has a contact number available for emergencies. The signs and symptoms of potential delayed complications were discussed with thepatient. Return to normal activities tomorrow. Written discharge instructions were provided to thepatient. - Resume previous diet. - Continue present medications. - Await pathology results. - Repeat colonoscopy in 3 - 5 years forsurveillance. Result [facility] Jayson Vail MD GI~PROCEDURE ORDERABLES Final Re sult * Hepatitis C Screening (11/06/2023) [facility] Hepatitis C Screening abstracted Result [facility] Historical Provider HEALTH MAINTENANCE Final Result * Cervical Cancer Screening: HPV (03/21/2021) [facility] Cervical Cancer Screening: HPV abstracted, negative Result [facility] Josias [facility] HEALTH MAINTENANCE Final Result * HIV Screening (05/21/2008) [facility] HIV Screening abstracted Result [facility] Historical Provider HEALTH MAINTENANCE Final Result from Last 3 Months or Most Recently Relevant to Health Maintenance Insurance MEDICARE [place]ICAID [place] [employer] Care Teams Station Installer Relationship Specialty Start Date End Date Raj Haddad MD [address] [place] [address] PCP - General Internal Medicine 10/18/21
--- OUTSIDE RECORDS SUMMARY | 2025-01-20 20:04 | XMS_ITS | Clinical Summary ---
Author Organization [facility] Address [address] [place] [phone] Phone Care Team Providers Care Vacuum Frame Operator Name Role Phone Vidya Darby MD Primary Care Provider [phone] Allergies Active Allergy Reactions Criticality Noted Date Comments Sulfamethoxazole-Trimethoprim Hives,Rash Medium 2020 Medications tiZANidine (ZANAFLEX) 2 MG tablet Take 4 mg by mouth every 12 (twelve) hours as needed. Active ibuprofen (ADVIL,MOTRIN) 800 MG tablet Take 800 mg by mouth every 8 (eight) hours as needed for pain (specific location in comments). Active hydrOXYzine (ATARAX) 25 MG tablet Take 25 mg by mouth 3 (three) times a day as needed for itching. Active meloxicam (MOBIC) 15 MG tablet Take 15 mg by mouth daily as needed for pain (specific location in comments). Active levothyroxine (SYNTHROID, LEVOTHROID) 100 MCG tablet Take 100 mcg by mouth every morning. Active phenazopyridine (PYRIDIUM) 200 MG tablet Take 200 mg by mouth 3 (three) times a day as needed for pain (specific location in comments). Active oxyCODONE-aceta minophen (PERCOCET) 7.5-325 mg per tablet Take 1 tablet by mouth every 6 (six) hours as needed for pain (specific location in comments). Active fluticasone propionate (FLOVENT HFA) 110 mcg/actuation inhaler Inhale 1 puff into the lungs 2 (two) times a day. Active sertraline (ZOLOFT) 100 MG tablet Take 100 mg by mouth daily. Active albuterol 90 mcg/actuation inhaler Inhale 2 puffs into the lungs every 4 (four) hours as needed for wheezing. Active oxybutynin (DITROPAN-XL) 5 MG 24 hr tablet Take 5 mg by mouth daily. Active aspirin 81 MG EC tablet Take 81 mg by mouth daily. Active naproxen (NAPROSYN) 500 MG tablet Take 500 mg by mouth 2 (two) times a day as needed (taken with food). Active conjugated estrogens (PREMARIN) vaginal cream Place 1 g vaginally every 7 days. Active omeprazole (PRILOSEC) 20 MG tablet Take 20 mg by mouth daily. Active betamethasone valerate 0.1 % ointment Apply topically 2 (two) times a day as needed (2 weeks per month). Active triamcinolone acetonide 0.1 % cream Apply topically 2 (two) times a day as needed (2 weeks per month). Active pregabalin (LYRICA) 150 MG capsule Take 150 mg by mouth 3 (three) times a day. Active baclofen (LIORESAL) 10 MG tablet Take 10 mg by mouth 3 (three) times a day. Active topiramate (TOPAMAX) 50 MG tablet Take 50 mg by mouth 3 (three) times a day. Active diphenhydrAMINE (BENADRYL) 25 mg tablet Take 25 mg by mouth every 6 (six) hours as needed. Active Social History Tobacco Use Types Packs/Day Years Used Date Smoking Tobacco: Never Smokeless Tobacco: Never Education Answer Date Recorded Are you interested in more education? Not on starr e 08/18/2022 Are you concerned about learning? Not on file 08/18/2022 No 08/18/2022 No 08/18/2022 Digital Access Answer Date Recorded No 09/16/2022 No 09/16/2022 No 09/16/2022 Reliable internet access at home? Not on file 09/16/2022 Device with a working camera? Not on file Comments Unknown Sex and Gender Information Value Date Recorded Sex Assigned at Not on file Legal Sex Female 1:59 PM EDT Gender Identity Not on file Sexual Orientation Not on file Last Filed Vital Signs Vital Sign Reading Time Taken Comments Blood Pressure - - Pulse - - Temperature - - Respiratory Rate - - Oxygen Saturation - - Inhaled Oxygen Concentration - - Weight 67.7 kg (149 lb 3.2 oz) 05/11/2020 9:37 AM EST with shoes Height 139.7 cm (4' 7 ) 05/11/2020 9:37 AM EST patient reported Body Mass Index 34.68 05/11/2020 9:37 AM EST Plan of Treatment Health Maintenance Due Date Last Done Comments LIPID PANEL 1965 TSH LEVEL 1965 DEPRESSION SCREENING 1975 HEPATITIS C SCREENING 09/11/1981 HIV ONE-TIME SCREENING (18-6 5 YEARS) 09/11/1981 PAP SMEAR 09/11/1984 MAMMOGRAM 2003 COLOGUARD 09/11/2008 COLONOSCOPY 09/11/2008 COLORECTAL CANCER SCREENING 09/11/2008 FIT TEST 09/11/2008 FOBT 09/11/2008 SIGMOIDOSCOPY 09/11/2008 VIRTUAL COLONOSCOPY 09/11/2008 PNEUMOCOCCAL VACCINES (50+ years) (1 of 1 - PCV) 09/11/2013 ZOSTER VACCINES (1 of 2) 09/11/2013 INFLUENZA VACCINE (#1) 2024 0, 01/18/2010 COVID-19 VACCINE (3 - 2024-2 6 season) 2024 09/01/2020, 08/04/2020 Adult Td,Tdap Booster 01/29/2030 01/30/2020 , 06/12/2013, 05/30/2007 RSV VACCINE (1 - 1-dose 75+ series) 09/11/2038 HEPATITIS A VACCINES Aged Out 03/15/2009, 02/12/2009 No longer eligible based on patient's age to complete this topic SMOKING STATUS SCREENING (On ce After 26 Yrs) Completed 05/11/2020 HIB VACCINES Aged Out No longer eligi ble based on patient's age to complete this topic MENINGOCOCCAL VACCINES (ACWY) Aged Out No longer eligible based on patient's age to complete this topic MENINGOCOCCAL VACCINES (B) Aged Out N o longer eligible based on patient's age to complete this topic Medical Devices Not on file Insurance MEDICARE PART A & [place] [id number] MEDICARE PART A & B [facility] Care Teams Vacuum Frame Operator Relationship Specialty Start Date End Date Vidya Darby MD [address] [place] [address] PCP - General Internal Medicine 01/22/20 Additional Source Comments The information contained in this document represents components of the legal health record. It is not the complete legal health record.[facility]
[2025-01-20 21:13] VITALS: BP 155/75; PULSE 80; RESP 18; TEMP 37.2; O2SAT 94
== END 2025-01-20 21:14 | disposition home or self-care (01) ==
PROVIDERS: Emergency Provider Emergency Medicine; PCP Internal Medicine
DX: M17.12 Unilateral primary osteoarthritis, left knee (principal)
CPT/HCPCS: 73564; 99282; 99283

== ENCOUNTER → 2025-01-20 17:27 | Outpatient (BNV) | payer MEDICARE, MEDICAID, SELFPAY | PROVIDERS: PCP Internal Medicine; Visit Provider Radiology Diagnostic Radiology | DX: M25.562 Pain in left knee (principal) | CPT/HCPCS: 73564 ==